=== PATIENT | female | born 1935 | race Caucasian/White ===

== ENCOUNTER → 2016-07-18 | Outpatient (CLI) | payer BC ==
[~2016-07-18] MED LIST: ACET-1256 PO; AMLO-110 PO; ANSHCCR PR; ANSHCCR RE; ANSHCS PR; ASPCH81X PO; ASPI81TA28 PO; ATOR-22 PO; ATV5X PO; BUTACAP7 PO; CALC-20 PO; CALCTAB7 PO; CHOL1000 PO; CIPR-255 PO; ESCI10TA17 PO; HYDR-5688 PO; HYDR30SU4 RE; HYG/25 PO; LORA-741 PO; LPR25 PO; METR-163 PO; MRLP17 PO; MULT-506 PO; MULT-845 PO; OXYC1TAB3 PO; PRLSR20 PO; PROC1TAB5 PO
[2016-07-18 13:04] LABS: HEMATOCRIT 36.4 % (37-47); MEAN CELL VOLUME 87.1 fL (80-100); MEAN CORPUSCULAR HEMOGLOBIN 29.7 pg (25-34); MEAN CORPUSCULAR HGB CONC 34.1 g/dl (32-36); MEAN PLATELET VOLUME 9.8 fL (7.4-10.4); PLATELET COUNT 400 K/uL (130-400); RED BLOOD COUNT 4.18 M/uL (4.2-5.4); WHITE BLOOD COUNT 8.85 K/uL (4.8-10.8)
[2016-07-18 13:22] LABS: URINE APPEARANCE CLEAR (CLEAR); URINE BILIRUBIN NEG (NEG); URINE COLOR YELLOW; URINE EPITHELIAL CELL AUTO 0-5 /lpf (0-5); URINE NITRITE NEG (NEG); URINE PH 8.5 (4.5-7.5); URINE SPECIFIC GRAVITY 1.003 (1.000-1.030); UROBILINOGEN NEG (NEG)
[2016-07-18 13:24] LABS: MANUAL MICROSCOPIC REQUIRED? NO; REVIEW REQ? NO
[2016-07-18 13:32] LABS: URINE PROTIEN/CREAT RATIO 0.2 (0-0.2); URINE TOTAL PROTEIN 8.6 mg/dl (0-11.9)
[2016-07-18 13:40] LABS: BLOOD UREA NITROGEN 13 mg/dl (7-18); BUN/CREATININE RATIO 10.1 (10-20); CALCIUM 9.2 mg/dl (8.5-10.1); CARBON DIOXIDE 31 mmol/L (21-32); CHLORIDE 98 mmol/L (98-107); GLUCOSE 81 mg/dl (70-99); PHOSPHORUS 2.5 mg/dl (2.5-4.9); POTASSIUM 3.2 mmol/L (3.5-5.1); SODIUM 137 mmol/L (136-145)
== END | disposition home or self-care (01) ==
LOC: C.LAB1850 11:22
PROVIDERS: ATTEND Internal Medicine Nephrology
DX: I12.9 Hypertensive chronic kidney disease with stage 1 through stage 4 chronic kidney disease, or unspecified chronic kidney disease (principal); N18.3 Chronic kidney disease, stage 3 (moderate); R31.9 Hematuria, unspecified; C64.9 Malignant neoplasm of unspecified kidney, except renal pelvis; R60.9 Edema, unspecified; E87.6 Hypokalemia

== ENCOUNTER → 2016-08-01 | Outpatient (CLI) | payer BC ==
[2016-08-01 13:25] LABS: POTASSIUM 3.4 mmol/L (3.5-5.1)
[2016-08-01 13:35] LABS: ESTIMATED AVERAGE GLUCOSE 120 mg/dl; HA1C FLAG Normal (Normal)
[2016-08-01 13:40] LABS: CHOLESTEROL/HDL RATIO 4.9
== END | disposition home or self-care (01) ==
LOC: C.LABPVFM 08:34
PROVIDERS: ATTEND Nurse Practitioner
DX: E78.00 Pure hypercholesterolemia, unspecified (principal); R73.01 Impaired fasting glucose; E87.6 Hypokalemia

== ENCOUNTER 2016-09-22 02:16 | Emergency (ER) | payer BC ==
[~2016-09-22] VITALS: Ht 157.5 cm; Wt 62.3 kg
[~2016-09-22 02:16] MED LIST changes: -ACET-1256 PO; -ANSHCCR PR; -ANSHCCR RE; -ANSHCS PR; -ASPCH81X PO; -ATV5X PO; -CALCTAB7 PO; -CHOL1000 PO; -CIPR-255 PO; -ESCI10TA17 PO; -HYDR-5688 PO; -HYDR30SU4 RE; -LORA-741 PO; -LPR25 PO; -METR-163 PO; -MRLP17 PO; -MULT-845 PO; -OXYC1TAB3 PO; -PROC1TAB5 PO
[2016-09-22 02:21] VITALS: TEMP 36.6; Ht 157.5 cm; Wt 62.3 kg
[2016-09-22] MEDS ORDERED: MoRPHine SULFATE 4 MG/ML 1 ML CARP\\VIAL IV STA (02:40)
[2016-09-22] MEDS ORDERED: ONDANSETRON INJ 2 MG/ML 2 ML VIAL IV STA (02:40)
--- NOTE | 2016-09-22 02:41 | EMERGENCY ROOM VISIT NOTE ---
History Report prepared by Fili: Demetri Beard Under the Supervision of: Dr. Maury Perry D.O. First contact with patient: 02:28 Chief Complaint: ABDOMINAL PAIN Stated Complaint: PAIN IN STOMACH History of Present Illness The patient is an 81 year old female who presents to the Emergency Room with complaints of persistent left lower quadrant abdominal pain for the past week. The pain is rated 6/10 in severity. The patient has had the same pain intermittently for some time. She was started on Cipro by her PCP one month ago because she has a history of diverticulitis. The patient also complains of nausea and constipation. Today she passed a small amount of stool with some blood. She has had some blood in her stools before, which her PCP said could be due to hemorrhoids. The patient has one kidney. Source of History: patient Onset: one week ago Position: abdomen (LLQ) Symptom Intensity: 6/10 Timing: other (persistent) Associated Symptoms: + nausea Review of Systems See HPI for pertinent positives and negatives. A total of ten systems were reviewed and were otherwise negative. Past Medical & Surgical Medical Problems: (1) ABN LIVER FUNCTION STUDY (2) CHOLELITHIASIS NOS (3) CHRONIC KIDNEY DISEASE, STAGE III (MODERATE) (4) DIVERTICULITIS COLON (W/O MENT OF HEMORRHAGE) (5) ESOPHAGEAL REFLUX (6) HYPERPARATHYROIDISM, UNSPECIFIED (7) Kidney carcinoma (8) MGUS (monoclonal gammopathy of unknown significance) (9) PURE HYPERCHOLESTEROLEM (10) SEPSIS (11) TIETZE'S DISEASE Family History Cancer Social History Smoking Status: Former Smoker Alcohol Use: none Drug Use: none Marital Status: Housing Status: lives with family Occupation Status: unemployed Current/Historical Medications Scheduled Amlodipine (Norvasc), 5 MG PO DAILY Aspirin (Aspirin Ec), 81 MG PO Q2D Calcium Carbonate-Vitamin D (Calcium 600 + D), 600 MG PO DAILY Escitalopram (Lexapro), 10 MG PO DAILY Metoprolol Tartrate (Lopressor), 25 MG PO BID Multivitamin (Multivitamin), 1 TAB PO DAILY Omeprazole (Prilosec), 20 MG PO DAILY Scheduled PRN Nnzcwevilk-Edbefuq-Ffuesubv (Butal/Asa/Caff), 1 CAP PO UD PRN for Headache or Pain Lorazepam (Ativan), 0.5 MG PO BID PRN for Anxiety Allergies Coded Allergies: Levofloxacin (Verified Allergy, Intermediate, HIVES, 09/22/16) Crab (Verified Allergy, Mild, DIZZY AND THROWS UP, 09/22/16) Nitrofurantoin (Verified Allergy, Unknown, NAUSEA, 09/22/16) Sulfa Drugs (Verified Allergy, Unknown, 09/22/16) Codeine (Verified Adverse Reaction, Mild, NAUSEA, 09/22/16) Metronidazole (Verified Adverse Reaction, Mild, nausea and vomiting, ) Physical Exam Vital Signs Date Time Temp Pulse Resp B/P Pulse Ox O2 Delivery O2 Flow Rate FiO2 09/22/16 03:22 75 16 177/92 96 Room Air 09/22/16 03:00 85 09/22/16 02:58 91 16 162/80 98 09/22/16 02:21 36.6 82 18 165/80 99 Room Air Physical Exam GENERAL: Awake, alert, well-appearing, in no distress HENT: Normocephalic, atraumatic. Oropharynx unremarkable. EYES: Normal conjunctiva. Sclera non-icteric. NECK: Supple. No nuchal rigidity. FROM. No JVD. RESPIRATORY: Clear to auscultation. CARDIAC: Regular rate, normal rhythm. Extremities warm and well perfused. Pulses equal. ABDOMEN: Soft, non-distended. Mild tenderness left lower quadrant. No rebound or guarding. No masses. RECTAL: Deferred. MUSCULOSKELETAL: Chest examination reveals no tenderness. The back is symmetrical on inspection without obvious abnormality. There is no CVA tenderness to palpation. No joint edema. LOWER EXTREMITIES: Calves are equal size bilaterally and non-tender. No edema. No discoloration. NEURO: Normal sensorium. No sensory or motor deficits noted. SKIN: No rash or jaundice noted. Medical Decision & Procedures ER Provider Diagnostic Interpretation: CT results as stated below per my review and radiologist interpretation CT ABDOMEN & PELVIS: Comparison made to Ct dated 04/29/15. There is cholelithiasis without evidence of acute cholecystitis. Liver, spleen, pancreas, adrenals, and right kidney are normal. Left kidney absent. There is aortoiliac atherosclerosis without aneurysm. There is no evidence of bowel obstruction. The appendix is not clearly identified, but there are no secondary signs of acute appendicis. There is a short segment of mural thickening in the distal sigmoid colon resulting in luminal narrowing and associated with mild surrounding inflammatory changes. Minimal adjacent diverticula noted. Small regional lymph nodes are noted. Findings are concerning for colon carcinoma versus focal acute diverticulitis Urinary bladder is unremarkable. Uterus is absent. There are no acute osseous findings. Radiologist: Rd England MD.. Laboratory Results 09/22/16 02:40 Red Blood Count 4.56, Mean Corpuscular Volume 88.2, Mean Corpuscular Hemoglobin 28.9, Mean Corpuscular Hemoglobin Concent 32.8, Mean Platelet Volume 9.0, Neutrophils (%) (Auto) 62.0, Lymphocytes (%) (Auto) 25.6, Monocytes (%) (Auto) 10.5, Eosinophils (%) (Auto) 1.2, Basophils (%) (Auto) 0.5, Neutrophils # (Auto ) 6.75, Lymphocytes # (Auto) 2.79, Monocytes # (Auto) 1.14, Eosinophils # (Auto ) 0.13, Basophils # (Auto) 0.05 09/22/16 02:40 Test 09/22/16 02:40 09/22/16 02:50 White Blood Count 10.88 K/uL (4.8-10.8) Red Blood Count 4.56 M/uL (4.2-5.4) Hemoglobin 13.2 g/dL (12.0-16.0) Hematocrit 40.2 % (37-47) Mean Corpuscular Volume 88.2 fL (80-100) Mean Corpuscular Hemoglobin 28.9 pg (25-34) Mean Corpuscular Hemoglobin Concent 32.8 g/dl (32-36) Platelet Count 436 K/uL (130-400) Mean Platelet Volume 9.0 fL (7.4-10.4) Neutrophils (%) (Auto) 62.0 % Lymphocytes (%) (Auto) 25.6 % Monocytes (%) (Auto) 10.5 % Eosinophils (%) (Auto) 1.2 % Basophils (%) (Auto) 0.5 % Neutrophils # (Auto) 6.75 K/uL (1.4-6.5) Lymphocytes # (Auto) 2.79 K/uL (1.2-3.4) Monocytes # (Auto) 1.14 K/uL (0.11-0.59) Eosinophils # (Auto) 0.13 K/uL (0-0.5) Basophils # (Auto) 0.05 K/uL (0-0.2) RDW Standard Deviation 45.0 fL (36.4-46.3) RDW Coefficient of Variation 13.9 % (11.5-14.5) Immature Granulocyte % (Auto) 0.2 % Immature Granulocyte # (Auto) 0.02 K/uL (0.00-0.02) Anion Gap 9.0 mmol/L (3-11) Est Creatinine Clear Calc Drug Dose 29.0 ml/min Estimated GFR () 44.2 Estimated GFR (Non- 38.2 BUN/Creatinine Ratio 10.9 (10-20) Calcium Level 9.4 mg/dl (8.5-10.1) Total Bilirubin 0.4 mg/dl (0.2-1) Direct Bilirubin 0.1 mg/dl (0-0.2) Aspartate Amino Transf (AST/SGOT) 15 U/L (15-37) Alanine Aminotransferase (ALT/SGPT) 24 U/L (12-78) Alkaline Phosphatase 93 U/L (45-117) Total Protein 8.0 gm/dl (6.4-8.2) Albumin 3.9 gm/dl (3.4-5.0) Lipase 174 U/L (73-393) Urine Color YELLOW Urine Appearance CLEAR (CLEAR) Urine pH 7.5 (4.5-7.5) Urine Specific [place] 1.013 (1.000-1.030) Urine Protein NEG (NEG) Urine Glucose (UA) NEG (NEG) Urine Ketones NEG (NEG) Urine Occult Blood TRACE (NEG) Urine Nitrite NEG (NEG) Urine Bilirubin NEG (NEG) Urine Urobilinogen NEG (NEG) Urine Leukocyte Esterase NEG (NEG) Urine WBC (Auto) 1-5 /hpf (0-5) Urine RBC (Auto) 5-10 /hpf (0-4) Urine Hyaline Casts (Auto) 0 /lpf (0-5) Urine Epithelial Cells (Auto) 5-10 /lpf (0-5) Urine Bacteria (Auto) NEG (NEG) Laboratory results reviewed by me Medications Administered Medications (Trade) Dose Ordered Sig/Solitario Route Start Time Stop Time Status Last Admin Dose Admin Morphine Sulfate (MoRPHine SULFATE INJ) 4 mg NOW STAT IV 09/22/16 02:40 09/22/16 02:42 DC 09/22/16 02:57 4 MG Ondansetron HCl (Zofran Inj) 4 mg NOW STAT IV 09/22/16 02:40 09/22/16 02:42 DC 09/22/16 02:55 4 MG ED Course 0240: The patient was evaluated in room B3b. A complete history and physical exam was performed. 0240: Zofran 4 mg IV, Morphine Sulfate 4 mg IV. 0406: Flagyl 500 mg PO, Cipro 500 mg PO. 0420: The patient is in no distress. She is getting antibiotics. Discussed the workup. She verbalized understanding. Medical Decision Differential diagnosis includes constipation, obstruction, diverticulitis, gastritis, colitis, colon cancer. Patient resting in no distress. I've gone over the CT scan with the patient the concern for diverticulitis as well as potential malignancy exists. Patient will be treated with Cipro for which she's taken in the past as well as Flagyl and narcotic pain medicine. I have told the patient she needs to follow-up with her primary care physician for further evaluation and potential referral to GI for colonoscopy due to potential for malignancy in the sigmoid colon. Impression Primary Impression: DIVERTICULITIS COLON (W/O MENT OF HEMORRHAGE) Scribe Attestation The scribe's documentation has been prepared under my direction and personally reviewed by me in its entirety. I confirm that the note above accurately reflects all work, treatment, procedures, and medical decision making performed by me. Departure Information Dispostion Home / Self-Care Prescriptions Hydrocodone/Acetaminophen 5MG/325MG ([place] 5MG/325MG) Tab 1 TABLET PO Q6H Y for Pain for 3 Days, #14 TAB Prov: Maury Perry, DO 09/22/16 Metronidazole (Flagyl) 500 Mg Tab 500 MG PO BID, #20 TAB Prov: Maury Perry, DO 09/22/16 Ciprofloxacin Hcl (CIPRO) 500 Mg Tab 500 MG PO BID, #28 TAB Prov: Maury Perry, DO 09/22/16 Referrals Lynn Medeiros C.R.NMitulP (PCP) Forms HOME CARE DOCUMENTATION FORM, IMPORTANT VISIT INFORMATION Patient Instructions My [facility]
[2016-09-22 02:55] LABS: BASO % 0.5 %; BASO ABS # 0.05 K/uL (0-0.2); COMPLETE YES; EOS % 1.2 %; HEMATOCRIT 40.2 % (37-47); IG% 0.2 %; LYMPH % 25.6 %; LYMPH ABS # 2.79 K/uL (1.2-3.4); MEAN CELL VOLUME 88.2 fL (80-100); MEAN CORPUSCULAR HEMOGLOBIN 28.9 pg (25-34); MEAN CORPUSCULAR HGB CONC 32.8 g/dl (32-36); MONO % 10.5 %; PLATELET COUNT 436 K/uL (130-400); RED BLOOD COUNT 4.56 M/uL (4.2-5.4); WHITE BLOOD COUNT 10.88 K/uL (4.8-10.8)
[2016-09-22] MEDS ORDERED: LORA-741 PO (03:01)
[2016-09-22] MEDS ORDERED: ESCI10TA17 PO (03:02)
[2016-09-22 03:12] LABS: URINE APPEARANCE CLEAR (CLEAR); URINE BILIRUBIN NEG (NEG); URINE COLOR YELLOW; URINE NITRITE NEG (NEG); URINE PH 7.5 (4.5-7.5); URINE SPECIFIC GRAVITY 1.013 (1.000-1.030); UROBILINOGEN NEG (NEG)
[2016-09-22 03:19] LABS: MANUAL MICROSCOPIC REQUIRED? NO; REVIEW REQ? NO
[2016-09-22 03:24] LABS: BUN/CREATININE RATIO 10.9 (10-20); CALCIUM 9.4 mg/dl (8.5-10.1); CREATININE 1.3 mg/dl (0.60-1.20); POTASSIUM 3.6 mmol/L (3.5-5.1)
[2016-09-22] MEDS ORDERED: METRONIDAZOLE 250 MG TAB PO STA (04:06)
[2016-09-22] MEDS ORDERED: CIPROFLOXACIN 500 MG TAB PO STA (04:06)
[2016-09-22] MEDS ORDERED: HYDR-5688 PO (04:28)
[2016-09-22] MEDS ORDERED: METR-163 PO (04:28)
[2016-09-22] MEDS ORDERED: CIPR-255 PO (04:28)
[2016-09-22 05:19] VITALS: BP 155/71; PULSE 90; O2SAT 97
[2016-09-22] MEDS ORDERED: ONDANSETRON 4MG OD TAB PO ONE (05:30)
[2016-09-22] MEDS ORDERED: ONDANSETRON HOME PACK 4MG OD TAB PO ONE (05:30)
--- NOTE | 2016-09-22 08:34 | DIAGNOSTIC IMAGING REPORT ---
CT OF THE ABDOMEN AND PELVIS WITHOUT CONTRAST CLINICAL HISTORY: Left lower quadrant pain. COMPARISON STUDY: CT of the abdomen and pelvis April 29, 2015 and MRI of the abdomen December 01, 2015. TECHNIQUE: Axial images of the abdomen and pelvis were obtained without IV contrast. Images were reviewed in the axial, sagittal, and coronal planes. FINDINGS: Evaluation of the abdomen and pelvis is suboptimal as unenhanced exam. There has been interval development of several hypodense hepatic lesions since CT of April 29, 2015 and MRI of December 01, 2015. These include a 2 cm right hepatic dome lesion and a 2.2 cm segment 4 lesion adjacent to the gallbladder. Two additional hepatic lesions remain unchanged and were shown to represent hemangiomas on prior imaging studies. There are gallstones within the gallbladder. Unenhanced images of the spleen, adrenal glands, pancreas and right kidney are normal. The appearance of the left nephrectomy bed is unchanged. Note is made of moderate wall thickening of the mid sigmoid colon extends for 4.5 cm. There is mild adjacent infiltration as well as an adjacent enlarged lymph node that measures 1.7 x 1.6 cm. There is no free air or abscess. There are no suspicious osseous lesions are present. There may be avascular necrosis of the left femoral head. IMPRESSION: 1. Moderate wall thickening of the mid sigmoid colon with minimal adjacent infiltration and several adjacent lymph nodes, including a 1.7 x 1.6 cm pericolonic lymph node. 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 Diverticulitis is considered less likely. GI consultation is recommended. Discussed with Dr. Pizarro at time of dictation. 2. Interval development of several hypodense hepatic lesions which are suspicious for metastases. No change in 2 hepatic hemangiomas. 3. Status post left nephrectomy. 4. Cholelithiasis. Electronically signed by: Gurvinder Bui M.D. 09/22/2016 8:33 AM Dictated Date/Time: 09/22/2016 8:18 AM
--- NOTE | 2016-09-22 09:48 | EMERGENCY ROOM VISIT NOTE ---
ED Visit Note It was brought to my attention this morning after this patient was discharged that her CT scan of the abdomen/pelvis was read by radiology here in this hospital and they were concerned about metastatic lesions in the liver. The patient was told prior to discharge that she looked to have diverticulitis but there is also question of malignancy. I called the patient this morning and reiterated the fact that there was narrowing of her colon in that area which was concerning for malignancy and that our radiologist felt that these new lesions within her liver may be metastatic disease. The patient seemed to understand this. She plans to follow -up with RAFIA Chapin tomorrow [facility] for further evaluation by oncology.
[2016-09-30] MEDS ORDERED: HYDR-5688 PO (10:42)
[2016-09-30] MEDS ORDERED: CHOL1000 PO (10:42)
[2016-12-11] MEDS ORDERED: LPR25 PO (05:00)
[2016-12-11] MEDS ORDERED: ACET-1256 PO (08:33)
[2016-12-11] MEDS ORDERED: MULT-845 PO (10:42)
[2016-12-11] MEDS ORDERED: PRLSR20 PO (10:42)
[2016-12-11] MEDS ORDERED: ASPCH81X PO (10:42)
[2016-12-17] MEDS ORDERED: CALCTAB7 PO (10:35)
[2016-12-17] MEDS ORDERED: ANSHCCR PR (10:35)
[2016-12-17] MEDS ORDERED: ESCI10TA17 PO (10:35)
[2017-01-20] MEDS ORDERED: MRLP17 PO (14:55)
[2017-01-20] MEDS ORDERED: ANSHCS PR (14:55)
[2017-01-20] MEDS ORDERED: ANSHCCR PR (14:55)
== END 2016-09-22 05:33 | disposition home or self-care (01) ==
LOC: C.EDB 02:17
DX: K57.92 Diverticulitis of intestine, part unspecified, without perforation or abscess without bleeding (principal); Z90.5 Acquired absence of kidney; N18.3 Chronic kidney disease, stage 3 (moderate); K21.9 Gastro-esophageal reflux disease without esophagitis; E21.3 Hyperparathyroidism, unspecified; Z85.528 Personal history of other malignant neoplasm of kidney; D47.2 Monoclonal gammopathy; E78.00 Pure hypercholesterolemia, unspecified; M94.0 Chondrocostal junction syndrome [Tietze]; Z80.9 Family history of malignant neoplasm, unspecified; Z87.891 Personal history of nicotine dependence; Z79.82 Long term (current) use of aspirin; Z79.899 Other long term (current) drug therapy

== ENCOUNTER → 2016-10-10 | Outpatient (CLI) | payer BC ==
[~2016-10-10] MED LIST changes: +ACET-1256 PO; +ANSHCCR PR; +ANSHCCR RE; +ANSHCS PR; +ASPCH81X PO; -ATOR-22 PO; +ATV5X PO; -BUTACAP7 PO; -CALC-20 PO; +CALCTAB7 PO; +CHOL1000 PO; +CIPR-255 PO; +ESCI10TA17 PO; +HYDR-5688 PO; +HYDR30SU4 RE; -HYG/25 PO; +LPR25 PO; +MRLP17 PO; -MULT-506 PO; +MULT-845 PO; +OXYC1TAB3 PO; +PROC1TAB5 PO
[2016-10-10 16:40] LABS: BASO % 0.4 %; BASO ABS # 0.04 K/uL (0-0.2); COMPLETE YES; EOS % 0.9 %; HEMATOCRIT 40.8 % (37-47); IG% 0.2 %; LYMPH % 23.3 %; LYMPH ABS # 2.18 K/uL (1.2-3.4); MEAN CELL VOLUME 88.1 fL (80-100); MEAN CORPUSCULAR HEMOGLOBIN 27.6 pg (25-34); MEAN CORPUSCULAR HGB CONC 31.4 g/dl (32-36); MEAN PLATELET VOLUME 9.6 fL (7.4-10.4); MONO % 9.4 %; NEUT % 65.8 %; PLATELET COUNT 434 K/uL (130-400); RED BLOOD COUNT 4.63 M/uL (4.2-5.4); WHITE BLOOD COUNT 9.36 K/uL (4.8-10.8)
[2016-10-10 16:44] LABS: PROTHROMBIN TIME (PATIENT) 10.7 SECONDS (9.0-12.0)
[2016-10-10 17:07] LABS: ALT/SGPT 18 U/L (12-78); AST/SGOT 15 U/L (15-37); BLOOD UREA NITROGEN 10 mg/dl (7-18); BUN/CREATININE RATIO 9.7 (10-20); CALCIUM 8.8 mg/dl (8.5-10.1); CARBON DIOXIDE 27 mmol/L (21-32); CHLORIDE 107 mmol/L (98-107); GLUCOSE 92 mg/dl (70-99); POTASSIUM 3.1 mmol/L (3.5-5.1); SODIUM 143 mmol/L (136-145)
[2016-10-10 17:10] LABS: ALKALINE PHOSPHATASE 77 U/L (45-117); PHOSPHORUS 2.2 mg/dl (2.5-4.9)
== END | disposition home or self-care (01) ==
LOC: C.LAB 15:56
PROVIDERS: ATTEND Internal Medicine
DX: I12.9 Hypertensive chronic kidney disease with stage 1 through stage 4 chronic kidney disease, or unspecified chronic kidney disease (principal); N18.3 Chronic kidney disease, stage 3 (moderate); Z90.5 Acquired absence of kidney; K63.9 Disease of intestine, unspecified

== ENCOUNTER → 2016-10-10 | Day surgery (SDC) | payer BC ==
[2016-09-30 10:43] VITALS: Ht 157.5 cm; Wt 61.4 kg
[~2016-10-10] VITALS: Ht 157.5 cm; Wt 61.4 kg
[~2016-10-10] MED LIST changes: +ENDOSCOPIC MARKER 5 ML SYR ONE; +LIDOCAINE HCL 2% 2 ML VIAL (20MG/ML) ONE; +PROPOFOL IV EMULSION 10 MG/ML 20 ML VIAL IV ONE
--- NOTE | 2016-10-10 14:08 | Endo History and Physical ---
History & Physical Date of Service: October 10, 2016. Chief Complaint: Abnormal CT Scan abdomen Referring Physician: Lynn Medeiros History of Present Illness 81 yo CF who presents for colonoscopy secondary to abnormal CT scan of the abdomen. Past Medical History Arthritis, Fractures, Reflux, Cancer, Heart Disease, Hypertension, Kidney Disease, [place] Past Surgical History Hx Cardiac Surgery: No Hx Internal Defibrillator: No Hx Pacemaker: No Hx Abdominal Surgery: Yes (APPY, SKYLAR, TUBAL LIGATION) Hx of Implantable Prosthesis: No Hx Post-Op Nausea and Vomiting: No Hx Cancer Surgery: Yes (LEFT NEPHRECTOMY, BONE MARROW BIOPSY, MOHS ON NOSE) Hx Thoracic Surgery: No Hx Orthopedic: No Hx Urinary Tract Surgery: No Family History None Social History Smoking Status: Former Smoker Hx Substance Use: No Hx Alcohol Use: Yes (RARELY) Allergies Coded Allergies: Levofloxacin (Verified Allergy, Intermediate, HIVES, 09/30/16) Crab (Verified Allergy, Mild, DIZZY AND THROWS UP, 09/30/16) Nitrofurantoin (Verified Allergy, Unknown, NAUSEA, 09/30/16) Sulfa Drugs (Verified Allergy, Unknown, SICK TO STOMACH, 09/30/16) Codeine (Verified Adverse Reaction, Mild, NAUSEA, 09/30/16) Metronidazole (Verified Adverse Reaction, Mild, nausea and vomiting, ) Current Medications Reported Home Medications Medications Dose Route/Sig Max Daily Dose Days Date Category Dose Instructions Prilosec (Omeprazole) 20 Mg Capcr 20 Mg PO DAILY PRN 09/30/16 Reported [place] 5MG/325MG (Acetaminophen/Hydrocodone Bitart) Tab 1 Tab PO TID PRN 30 09/30/16 Reported PRN PAIN Aspirin Chewable (Aspirin) 81 Mg Chew 81 Mg PO 09/30/16 Reported Vitamin D3 (Cholecalciferol) 1,000 Unit Tab 1 Tab PO QAM 90 09/30/16 Reported Centrum Silver Adult 50+ (Multiple Vitamins W/ Minerals) 1 Tab Tab 1 Tab PO QAM 09/30/16 Reported Cipro (Ciprofloxacin Hcl) 500 Mg Tab 500 Mg PO BID 09/22/16 Rx Norvasc (Amlodipine Besylate) 5 Mg Tab 5 Mg PO QAM 07/23/12 Reported Lopressor (Metoprolol Tartrate) 25 Mg Tab 25 Mg PO BID 12/16/11 Reported Vital Signs Weight (Kilograms): 61.36 Height (Feet): 5 Height (Inches): 2 Physical Exam General Appearance: WD/WN, no apparent distress Respiratory/Chest: Auscultation: breath sounds normal Cardiovascular: Heart Auscultation: RRR Abdomen: Bowel Sounds: normal Inspection & Palpation: soft, non-distended, no tenderness, guarding & rebound Assessment and Plan Assessment: 81 yo CF who presents for colonoscopy secondary to abnormal CT scan of the abdomen. Plan: Proceed with colonoscopy.
--- NOTE | 2016-10-10 14:49 | Discharge Instructions ---
Endoscopy Patient Instructions Date / Procedure(s) Performed October 10, 2016. Colonoscopy Allergy Information Coded Allergies: Levofloxacin (Verified Allergy, Intermediate, HIVES, 09/30/16) Crab (Verified Allergy, Mild, DIZZY AND THROWS UP, 09/30/16) Nitrofurantoin (Verified Allergy, Unknown, NAUSEA, 09/30/16) Sulfa Drugs (Verified Allergy, Unknown, SICK TO STOMACH, 09/30/16) Codeine (Verified Adverse Reaction, Mild, NAUSEA, 09/30/16) Metronidazole (Verified Adverse Reaction, Mild, nausea and vomiting, ) Discharge Date / Findings October 10, 2016. Sigmoid colon mass s/p biopsies with tattoo proximal and distal to the mass Colon polyps Diverticulosis Internal hemorrhoids Medication Instructions OK to resume all medications today as prescribed Reported Home Medications Medications Dose Route/Sig Max Daily Dose Days Date Category Dose Instructions Prilosec (Omeprazole) 20 Mg Capcr 20 Mg PO DAILY PRN 09/30/16 Reported [place] 5MG/325MG (Acetaminophen/Hydrocodone Bitart) Tab 1 Tab PO TID PRN 30 09/30/16 Reported PRN PAIN Aspirin Chewable (Aspirin) 81 Mg Chew 81 Mg PO 09/30/16 Reported Vitamin D3 (Cholecalciferol) 1,000 Unit Tab 1 Tab PO QAM 90 09/30/16 Reported Centrum Silver Adult 50+ (Multiple Vitamins W/ Minerals) 1 Tab Tab 1 Tab PO QAM 09/30/16 Reported Cipro (Ciprofloxacin Hcl) 500 Mg Tab 500 Mg PO BID 09/22/16 Rx Norvasc (Amlodipine Besylate) 5 Mg Tab 5 Mg PO QAM 07/23/12 Reported Lopressor (Metoprolol Tartrate) 25 Mg Tab 25 Mg PO BID 12/16/11 Reported Provider Instructions Activity Restrictions - No exercising or heavy lifting for 24 hours. - Do not drink alcohol the day of the procedure. - Do not drive a car or operate machinery until the day after the procedure. - Do not make any important decisions or sign important papers in 24 hours after the procedure. Following Day: - Return to full activity which may include returning to work/school. Diet Start your diet with liquids and light foods (jello, soup, juice, toast). Then eat your usual diet if not nauseated. Treatment For Common After Affects For mild abdominal pain, bloating, or excessive gas: - Rest - Eat lightly - Lie on right side Follow-Up Information Follow-up with Lynn Medeiros as scheduled Anesthesia Information What You Should Know You have had a procedure that required some medicine to reduce anxiety and discomfort. This treatment is called moderate sedation. After receiving the treatment, you may be sleepy, but you will be able to breathe on your own. The effects of the treatment may last for several hours. Follow these instructions along with Activity/Diet recommendations noted above: * Do NOT do anything where dizziness or clumsiness would be dangerous. * Rest quietly at home today, then you can be up and about tomorrow. * Have a responsible person stay with you the rest of today. * You may have had an I.V. today. If so, you may take the dressing off later today. Recommendations Call your doctor if: * Trouble breathing * Continuous vomiting for more than 24 hours * Temperature above 101 degrees * Severe abdominal pain or bloating * Pain not relieved by pain medicine ordered * There is increased drainage or redness from any incision * A large amount of rectal bleeding greater than 2-3 tablespoons. (If you had a polyp/s removed or have hemorrhoids, a small amount of blood - from the rectum is to be expected.) * You have any unanswered questions or concerns. IN THE EVENT OF A SERIOUS EMERGENCY, GO TO THE NEAREST EMERGENCY ROOM Your discharge instructions were prepared by provider Kar Rosario. Patient Instructions Signature Page [facility] Patient (or Guardian) Signature/Date: I have read and understand the instructions given to me by my caregivers. Caregiver/RN/Doctor Signature/Date: The above-named patient and/or guardian has received patient instructions on this date. + Original Patient Signature Page (only) stays with chart. Please make copy for patient.
--- NOTE | 2016-10-10 15:03 | GI REPORT ---
Procedure Date: 10/10/2016 2:06 PM Procedure: Colonoscopy Indications: Abnormal CT of the GI tract Medicines: Monitored Anesthesia Care Complications: No immediate complications. Estimated Blood Loss: Estimated blood loss: none. Procedure: Pre-Anesthesia Assessment: - Prior to the procedure, a History and Physical was performed, and patient medications and allergies were reviewed. The patient's tolerance of previous anesthesia was also reviewed. The risks and benefits of the procedure and the sedation options and risks were discussed with the patient. All questions were answered, and informed consent was obtained. Prior Anticoagulants: The patient has taken no previous anticoagulant or antiplatelet agents. ASA Grade Assessment: III - A patient with severe systemic disease. After reviewing the risks and benefits, the patient was deemed in satisfactory condition to undergo the procedure. After I obtained informed consent, the scope was passed under direct vision. Throughout the procedure, the patient's blood pressure, pulse, and oxygen saturations were monitored continuously. The On-site loaner was introduced through the anus and advanced to the terminal ileum. The patient tolerated the procedure well. The quality of the bowel preparation was good. [Anatomical Structures] photographed. The colonoscopy was performed with moderate difficulty due to a partially obstructing mass. Successful completion of the procedure was aided by changing the patient to a supine position, using manual pressure and withdrawing the scope and replacing with the adult endoscope. Findings: Two sessile polyps were found in the cecum. The polyps were 5 to 8 mm in size. These polyps were removed with a hot snare. Resection and retrieval were complete. Scattered small and large-mouthed diverticula were found in the entire colon. An infiltrative and ulcerated partially obstructing medium-sized mass was found in the sigmoid colon, approximately 30 cm from the anal verge. The mass was non-circumferential. The mass measured five cm in length. In addition, its diameter measured fifteen mm. Oozing was present. Biopsies were taken with a cold forceps for histology. Area was tattooed with an injection of 5 mL of Petty ink at proximal and distal edge of mass. Non-bleeding internal hemorrhoids were found during retroflexion. The hemorrhoids were small. Impression: - Two 5 to 8 mm polyps in the cecum, removed with a hot snare. Resected and retrieved. - Diverticulosis in the entire examined colon. 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 Biopsied. Tattooed. - Non-bleeding internal hemorrhoids. Recommendation: - Resume previous diet. - Continue present medications. - Repeat colonoscopy for surveillance based on pathology results. - Refer to a surgeon at appointment to be scheduled. - Perform CT scan (computed tomography) of the chest with contrast at appointment to be scheduled. - Check CEA today. Kar Rosario, 10/10/2016 3:02:54 PM This report has been signed electronically. Note Initiated On: 10/10/2016 2:06 PM I attest to the content of the Intraoperative Record and orders documented therein, exceptions below
[2016-10-10 15:21] VITALS: BP 152/81; PULSE 81; O2SAT 98
--- NOTE | 2016-10-10 15:44 | Anesthesiology Progress Note ---
Anesthesia Post Op Note Date & Time October 10, 2016 at 15:44 Vital Signs Pain Intensity: 0 Vital Signs Past 12 Hours Date Time Temp Pulse Resp B/P Pulse Ox O2 Delivery O2 Flow Rate FiO2 10/10/16 15:21 81 16 152/81 98 Room Air 10/10/16 15:06 83 16 139/80 99 Room Air 10/10/16 14:51 90 16 143/92 97 Room Air 10/10/16 14:00 36.7 82 18 161/61 99 Room Air Notes Mental Status: alert / awake / arousable, participated in evaluation Pt Amnestic to Procedure: Yes Nausea / Vomiting: adequately controlled Pain: adequately controlled Airway Patency, RR, SpO2: stable & adequate BP & HR: stable & adequate Hydration State: stable & adequate Anesthetic Complications: no major complications apparent
== END | disposition home or self-care (01) ==
LOC: C.GI 12:46
PROVIDERS: ATTEND Internal Medicine
DX: R93.3 Abnormal findings on diagnostic imaging of other parts of digestive tract (principal); D12.0 Benign neoplasm of cecum; K57.90 Diverticulosis of intestine, part unspecified, without perforation or abscess without bleeding; C18.7 Malignant neoplasm of sigmoid colon; C18.0 Malignant neoplasm of cecum; K64.8 Other hemorrhoids; I12.9 Hypertensive chronic kidney disease with stage 1 through stage 4 chronic kidney disease, or unspecified chronic kidney disease; N18.3 Chronic kidney disease, stage 3 (moderate); K63.9 Disease of intestine, unspecified; I25.2 Old myocardial infarction; Z98.51 Tubal ligation status; Z90.5 Acquired absence of kidney; Z88.1 Allergy status to other antibiotic agents; Z88.2 Allergy status to sulfonamides; Z88.5 Allergy status to narcotic agent; Z87.891 Personal history of nicotine dependence; Z85.9 Personal history of malignant neoplasm, unspecified; Z68.24 Body mass index [BMI] 24.0-24.9, adult

== ENCOUNTER → 2016-10-11 | Outpatient (CLI) | payer BC ==
[~2016-10-11] MED LIST changes: -ENDOSCOPIC MARKER 5 ML SYR ONE; -LIDOCAINE HCL 2% 2 ML VIAL (20MG/ML) ONE; +OPTIRAY 320 IV PRN; -PROPOFOL IV EMULSION 10 MG/ML 20 ML VIAL IV ONE
--- NOTE | 2016-10-11 15:01 | DIAGNOSTIC IMAGING REPORT ---
CHEST CT WITHOUT CONTRAST CT DOSE: 266.69 mGy.cm HISTORY: : There is no COLON MASS TECHNIQUE: Multiaxial CT images of the chest were performed without contrast. COMPARISON: 08/26/2011 FINDINGS: Lungs remain clear. No significant infiltrative or nodular pathology. Mediastinal hilar regions are stable. The 9 millimeter precarinal node now shows a focus of central calcification suggesting a benign etiology. There is no evidence for new interval or progressive mediastinal adenopathy. There is mild left atherosclerotic change thoracic aorta. IMPRESSION: Negative CT of the chest. Electronically signed by: Brenton Epstein M.D. 10/11/2016 3:00 PM Dictated Date/Time: 10/11/2016 2:57 PM
== END | disposition home or self-care (01) ==
LOC: C.CTS 14:39
PROVIDERS: ATTEND Internal Medicine
DX: K63.9 Disease of intestine, unspecified (principal)

== ENCOUNTER → 2016-10-11 | Outpatient (CLI) | payer BC ==
[~2016-10-11] MED LIST changes: -OPTIRAY 320 IV PRN
[2016-10-11 15:54] LABS: URINE APPEARANCE CLEAR (CLEAR); URINE BILIRUBIN NEG (NEG); URINE COLOR YELLOW; URINE NITRITE NEG (NEG); URINE SPECIFIC GRAVITY 1.012 (1.000-1.030); UROBILINOGEN NEG (NEG)
[2016-10-11 15:57] LABS: MANUAL MICROSCOPIC REQUIRED? NO; REVIEW REQ? NO
--- NOTE | 2016-12-06 06:34 | CODING QUERY NO DIAGNOSIS ---
: 1935 TREATMENT RENDERED WITHOUT A DIAGNOSIS To promote full compliance with coding requirements relating to patient care, physician participation is requested in all cases of economist research assistant uncertainty. Please assist us with providing a diagnosis/symptom for the test(s) below: A diagnosis/symptom was not documented on your Order. A valid diagnosis/symptom is required to bill all insurances. Please remember that we are unable to code a diagnosis of rule out, probable, possible, questionable, or suspected. Tests that require a diagnosis: DOS: 10/11/16 * UA CLEAN CATCH W/MICROSCOPIC DIAGNOSIS: Provider Signature: Date: Thank you Jaida Hendrix Health Information Management Once completed, please kindly fax back to [phone] For questions please call [phone]
== END | disposition home or self-care (01) ==
LOC: C.LABSPEC 13:30
PROVIDERS: ATTEND Internal Medicine
DX: Z90.5 Acquired absence of kidney (principal); N18.3 Chronic kidney disease, stage 3 (moderate)

== ENCOUNTER → 2016-10-22 | Outpatient (CLI) | payer BC, OTHER ==
[~2016-10-22] VITALS: Ht 157.5 cm; Wt 59.1 kg
[~2016-10-22] MED LIST changes: +CEFAZOLIN 1000MG/55 ML D5W 55 ML IV SCH; +CEFAZOLIN 1000MG/55 ML D5W IV SCH; +CEFAZOLIN 3000 MG/65 ML D5W IV SCH; +CIPROFLOXACIN / D5W 400 MG IV SCH; +CLINDAMYCIN 600 MG/54 ML D5W IV SCH; +HEPARIN SOD 5000 UNIT/0.5 ML CARP SQ SCH; +LACTATED RINGER'S 1000ML 1,000 ML IV SCH; +LEVOFLOXACIN / D5W 500 MG IV SCH; +LEVOFLOXACIN / D5W 750 MG IV SCH; +VANCOMYCIN 1GM/270ML NSS IV SCH
[2016-10-22 08:35] VITALS: Ht 157.5 cm; Wt 59.1 kg
--- NOTE | 2016-10-22 09:11 | PAT Medication Instructions ---
Service Date October 22, 2016. Current Home Medication List Acetaminophen (Tylenol), 500 MG PO PRN Amlodipine (Norvasc), 5 MG PO QAM Aspirin (Aspirin Chewable), 81 MG PO Q2D Metoprolol Tartrate (Lopressor), 25 MG PO BID Multiple Vitamins W/ Minerals (Centrum Silver Adult 50+), 1 TAB PO QAM Omeprazole (Prilosec), 20 MG PO DAILY PRN for Indigestion Medication Instructions For Your Scheduled Surgery - Check with surgeon/family doctor for instructions: Aspirin (Aspirin Chewable), 81 MG PO Q2D - Hold the following medications the morning of surgery: Multiple Vitamins W/ Minerals (Centrum Silver Adult 50+), 1 TAB PO QAM - Take the following medications the morning of surgery with a sip of water: Omeprazole (Prilosec), 20 MG PO DAILY PRN for Indigestion Metoprolol Tartrate (Lopressor), 25 MG PO BID Amlodipine (Norvasc), 5 MG PO QAM Acetaminophen (Tylenol), 500 MG PO PRN (if needed) - Take the following medications as scheduled the night before surgery: Omeprazole (Prilosec), 20 MG PO DAILY PRN for Indigestion (if needed) Metoprolol Tartrate (Lopressor), 25 MG PO BID Acetaminophen (Tylenol), 500 MG PO PRN (if needed) If you have any questions please call us at [phone] (Maritza Morris PA-C) or [phone] or [phone]
[2016-10-22 10:31] LABS: CREATININE 1.2 mg/dl (0.60-1.20); POTASSIUM 3.7 mmol/L (3.5-5.1)
[2016-10-22 10:40] LABS: CALCIUM 9.2 mg/dl (8.5-10.1)
== END | disposition home or self-care (01) ==
LOC: C.LAB 08:00 → EDSTATUS 10-31 14:11
PROVIDERS: ATTEND Surgery
DX: Z01.818 Encounter for other preprocedural examination (principal); C18.9 Malignant neoplasm of colon, unspecified

== ENCOUNTER 2016-12-11 16:42 | Emergency (ER) | payer BC, OTHER ==
[~2016-12-11] VITALS: Ht 154.9 cm; Wt 55.6 kg
[~2016-12-11 16:42] MED LIST changes: -ANSHCCR PR; -ANSHCCR RE; -ANSHCS PR; -ASPI81TA28 PO; -ATV5X PO; -CALCTAB7 PO; -CEFAZOLIN 1000MG/55 ML D5W 55 ML IV SCH; -CEFAZOLIN 1000MG/55 ML D5W IV SCH; -CEFAZOLIN 3000 MG/65 ML D5W IV SCH; -CIPROFLOXACIN / D5W 400 MG IV SCH; -CLINDAMYCIN 600 MG/54 ML D5W IV SCH; -ESCI10TA17 PO; -HEPARIN SOD 5000 UNIT/0.5 ML CARP SQ SCH; -HYDR30SU4 RE; -LACTATED RINGER'S 1000ML 1,000 ML IV SCH; -LEVOFLOXACIN / D5W 500 MG IV SCH; -LEVOFLOXACIN / D5W 750 MG IV SCH; -MRLP17 PO; -OXYC1TAB3 PO; -PROC1TAB5 PO; -VANCOMYCIN 1GM/270ML NSS IV SCH
[2016-12-11 16:46] VITALS: Ht 154.9 cm; Wt 55.6 kg
--- NOTE | 2016-12-11 17:18 | EMERGENCY ROOM VISIT NOTE ---
ED Visit Note First contact with patient: 16:53 CHIEF COMPLAINT: Hemorrhoid HISTORY OF PRESENT ILLNESS: This 81-year-old female patient presents to the emergency department inning of external hemorrhoids. The patient was seen by her PCP earlier today, who recommended she be seen in the emergency department due to difficulty with the examination. The patient states she has a history of colon cancer, and 5 weeks ago had surgery to remove a portion of her colon. She did discuss the hemorrhoids with her surgeon at that time, he states he did not seem to be that bad, and did not recommend surgery at that time. The patient does have chronic history of hemorrhoids, and states on occasion they do active. Patient states the hemorrhoid makes her feel like she wants to strain, however she has had no difficulty with bowel movements. The patient has been using hydrocortisone suppositories and cream, with about relief. The patient did take 2 Tylenol today, but states that did not help with her symptoms. The patient states she does not have pain medications for her hemorrhoids. REVIEW OF SYSTEMS: A 6-system review of systems was performed with positives and pertinent negatives listed in the history of present illness. All other systems were reviewed and are negative. ALLERGIES: Adhesives, crab, codeine, metronidazole, Macrobid, levofloxacin, sulfa MEDICATIONS: Metoprolol, amlodipine, aspirin, multivitamin, omeprazole, acetaminophen PMH: Hypertension, colon cancer, liver cancer, GERD SOCIAL HISTORY: The patient lives locally with her . She denies drug, alcohol, tobacco use. PHYSICAL EXAM: VITALS: Vitals are noted on the nurse's note and reviewed by myself. Vital signs stable. GENERAL: 81-year-old female, in no acute distress, nondiaphoretic, well- developed, well-nourished. HEART: RRR. No murmurs, gallops, or rubs. LUNGS: Breath sounds clear to auscultation. No wheezes, rhonchi, or rales noted. ABDOMEN: Abdominal contour is normal. Normal tympanic percussion. Soft, nontender to palpation. No masses, guarding, or palpable organs. RECTAL: External hemorrhoids present. Not thrombosed. No active bleeding noted. Tenderness on palpation of the hemorrhoid. EMERGENCY DEPARTMENT COURSE: The patient was seen and evaluated as above. I did discuss the case with Dr. Rincon, he did see and evaluate the patient independently. I discussed proper management and care with the patient, and encouraged her to follow up with her local general surgeon. The patient was discharged home in good condition. DIFFERENTIAL DIAGNOSIS: Thrombosed hemorrhoid, internal hemorrhoid, rectal bleeding, constipation, and others. DIAGNOSIS: External hemorrhoid DISCHARGE INSTRUCTIONS & TREATMENT: Please continue to use suppositories and cream as prescribed to her by your PCP. In between using this cream, please use Desitin cream to help with irritation. You have been prescribed OxyIR to be used for pain control. Take 1 tablets every 4-6 hours as needed for pain. This is a narcotic medication. You cannot drive or consume alcohol while on this medicine. This medicine should only be used for pain that cannot be controlled with clvu-rei-hlookni pain medicines. For pain control, you can use the following oscf-jvp-wprheub medicines (if >12 yo): - Regular strength (325mg/tab) Tylenol (acetaminophen) 2 tabs every 4-6 hours as needed. Do not exceed 9 tablets in a 24 hour period. Avoid taking more than 3 grams (3000 mg) of Tylenol per day. This includes any other sources of acetaminophen you may take on a regular basis. - Regular strength (200 mg/tab) Advil (ibuprofen) 1-2 tabs every 4-6 hours as needed. Do not exceed a dose of 3200 mg per day. Please consult with your regular doctors regarding the use of Tylenol and ibuprofen due to your other chronic health conditions. Follow-up with your local general surgeon regarding hemorrhoids for further evaluation and management. As with any visit to the ED, you should follow-up with your PCP regarding the conditions for which you were seen today. Return to the emergency department for worsening pain, bleeding, tinges in bowel habits, fever, chills, nausea, vomiting, body aches, or other concerning symptoms. Problem List Medical Problems: (1) ABN LIVER FUNCTION STUDY Status: Resolved (2) CHOLELITHIASIS NOS Status: Resolved (3) CHRONIC KIDNEY DISEASE, STAGE III (MODERATE) Status: Resolved (4) DIVERTICULITIS COLON (W/O MENT OF HEMORRHAGE) Status: Resolved (5) ESOPHAGEAL REFLUX Status: Resolved (6) HYPERPARATHYROIDISM, UNSPECIFIED Status: Resolved (7) Kidney carcinoma Status: Chronic (8) MGUS (monoclonal gammopathy of unknown significance) Status: Chronic (9) PURE HYPERCHOLESTEROLEM Status: Resolved (10) SEPSIS Status: Resolved (11) TIETZE'S DISEASE Status: Resolved Current/Historical Medications Scheduled Acetaminophen (Tylenol), 500 MG PO PRN Amlodipine (Norvasc), 5 MG PO QAM Aspirin (Aspirin Chewable), 81 MG PO Q2D Metoprolol Tartrate (Lopressor), 25 MG PO BID Multiple Vitamins W/ Minerals (Centrum Silver Adult 50+), 1 TAB PO QAM Scheduled PRN Omeprazole (Prilosec), 20 MG PO DAILY PRN for Indigestion Oxycodone Ir (Roxicodone Ir), 1 TAB PO q4-6H PRN for Pain Allergies Coded Allergies: Levofloxacin (Verified Allergy, Intermediate, HIVES, 10/22/16) Crab (Verified Allergy, Mild, DIZZY AND THROWS UP, 10/22/16) Adhesives (Verified Allergy, Unknown, SKIN IRRITATION WITH SOME TAPES, ) Nitrofurantoin (Verified Allergy, Unknown, NAUSEA, 10/22/16) Codeine (Verified Adverse Reaction, Mild, NAUSEA, 10/22/16) Metronidazole (Verified Adverse Reaction, Mild, nausea and vomiting, ) Sulfa Antibiotics (Verified Adverse Reaction, Unknown, SICK TO STOMACH, 10/28/16) Vital Signs Date Time Temp Pulse Resp B/P (MAP) Pulse Ox O2 Delivery O2 Flow Rate FiO2 12/11/16 17:46 36.4 71 16 166/72 100 12/11/16 16:46 36.4 80 16 167/76 99 Room Air Departure Information Impression Primary Impression: Hemorrhoids Dispostion Home / Self-Care Condition GOOD Prescriptions Oxycodone Ir (Roxicodone Ir) 5 Mg Tab 1 TAB PO q4-6H Y for Pain, #15 TAB For Initial Treatment Prov: Sabrina Ryan PA-C 12/11/16 Referrals Lynn Medeiros C.R.N.P (PCP) Harsh Waterman D.O. Patient Instructions ED Hemorrhoids, [facility] Additional Instructions Please continue to use suppositories and cream as prescribed to her by your PCP. In between using this cream, please use Desitin cream to help with irritation. You have been prescribed OxyIR to be used for pain control. Take 1 tablets every 4-6 hours as needed for pain. This is a narcotic medication. You cannot drive or consume alcohol while on this medicine. This medicine should only be used for pain that cannot be controlled with cgkb-qez-xhwqufi pain medicines. For pain control, you can use the following smti-ouw-qwvfqhz medicines (if >12 yo): - Regular strength (325mg/tab) Tylenol (acetaminophen) 2 tabs every 4-6 hours as needed. Do not exceed 9 tablets in a 24 hour period. Avoid taking more than 3 grams (3000 mg) of Tylenol per day. This includes any other sources of acetaminophen you may take on a regular basis. - Regular strength (200 mg/tab) Advil (ibuprofen) 1-2 tabs every 4-6 hours as needed. Do not exceed a dose of 3200 mg per day. Please consult with your regular doctors regarding the use of Tylenol and ibuprofen due to your other chronic health conditions. Follow-up with your local general surgeon regarding hemorrhoids for further evaluation and management. As with any visit to the ED, you should follow-up with your PCP regarding the conditions for which you were seen today. Return to the emergency department for worsening pain, bleeding, tinges in bowel habits, fever, chills, nausea, vomiting, body aches, or other concerning symptoms. Problem Qualifiers Primary Impression: Hemorrhoids Hemorrhoid type: unspecified Qualified Codes: K64.9 - Unspecified hemorrhoids
--- NOTE | 2016-12-11 17:19 | EMERGENCY ROOM VISIT NOTE ---
ED Visit Note First contact with patient: 16:53 This Patient was discussed with the physician laboratory chemical assistant, Sabrina Ryan PA-C. The pertinent historical and physical exam findings were confirmed. I agree with the studies ordered and with the interpretations of these studies. I agree with the disposition and care plan.
[2016-12-11] MEDS ORDERED: OXYC1TAB3 PO (17:34)
[2016-12-11 17:46] VITALS: BP 166/72; PULSE 71; TEMP 36.4; O2SAT 100
[2016-12-11] MEDS ORDERED: ATV5X PO (20:48)
[2016-12-11] MEDS ORDERED: HYDR30SU4 RE (20:48)
[2016-12-11] MEDS ORDERED: ANSHCCR RE (20:48)
[2016-12-11] MEDS ORDERED: PROC1TAB5 PO (20:48)
[2016-12-17] MEDS ORDERED: CALCTAB7 PO (10:35)
[2016-12-17] MEDS ORDERED: ESCI10TA17 PO (10:35)
[2016-12-17] MEDS ORDERED: ANSHCCR PR (10:35)
[2017-01-20] MEDS ORDERED: ANSHCCR PR (14:55)
[2017-01-20] MEDS ORDERED: MRLP17 PO (14:55)
[2017-01-20] MEDS ORDERED: ANSHCS PR (14:55)
== END 2016-12-11 17:47 | disposition home or self-care (01) ==
LOC: C.EDB 16:44 → C.EDA 17:47
DX: K64.9 Unspecified hemorrhoids (principal); Z85.038 Personal history of other malignant neoplasm of large intestine; Z90.49 Acquired absence of other specified parts of digestive tract; Z79.82 Long term (current) use of aspirin; Z79.899 Other long term (current) drug therapy; Z85.05 Personal history of malignant neoplasm of liver; K21.9 Gastro-esophageal reflux disease without esophagitis; N18.3 Chronic kidney disease, stage 3 (moderate); I12.9 Hypertensive chronic kidney disease with stage 1 through stage 4 chronic kidney disease, or unspecified chronic kidney disease; E21.3 Hyperparathyroidism, unspecified; Z85.528 Personal history of other malignant neoplasm of kidney; D47.2 Monoclonal gammopathy; E78.00 Pure hypercholesterolemia, unspecified; M94.0 Chondrocostal junction syndrome [Tietze]

== ENCOUNTER 2016-12-12 19:19 | Emergency (ER) | payer BC ==
[~2016-12-12] VITALS: Ht 154.9 cm; Wt 51.6 kg
[~2016-12-12 19:19] MED LIST changes: +ANSHCCR RE; +ATV5X PO; +HYDR30SU4 RE; +OXYC1TAB3 PO; +PROC1TAB5 PO
[2016-12-12 19:26] VITALS: TEMP 37; Ht 154.9 cm; Wt 51.6 kg
--- NOTE | 2016-12-12 20:22 | EMERGENCY ROOM VISIT NOTE ---
ED Visit Note First contact with patient: 20:10 This Patient was discussed with the physician Deputy Fire Chief, Sabrina Ryan PA-C. The pertinent historical and physical exam findings were confirmed. I agree with the studies ordered and with the interpretations of these studies. I agree with the disposition and care plan.
--- NOTE | 2016-12-12 20:29 | EMERGENCY ROOM VISIT NOTE ---
ED Visit Note First contact with patient: 20:10 CHIEF COMPLAINT: Hemorrhoid HISTORY OF PRESENT ILLNESS: This 81-year-old female patient presents to the emergency department complaining of external hemorrhoids. The patient was seen here in the emergency department yesterday for the same complaint. She states since then, she feels that the hemorrhoids are acting up more today than they have been previously. She states they are sticking out, and causing her discomfort. The patient does report a small amount of blood on the toilet paper. She states she has been having normal bowel movements, however has had the urge to go approximately every 15-30 minutes throughout the day. The patient has not been straining to move her bowels. The patient states she has been using sitz baths, Desitin cream, prescription creams and pain medication which was prescribed to her yesterday. The patient did not contact her surgeon as directed. She states due to the pain, she is also experiencing a decreased appetite. REVIEW OF SYSTEMS: A 6-system review of systems was performed with positives and pertinent negatives listed in the history of present illness. All other systems were reviewed and are negative. ALLERGIES: Adhesives, crab, codeine, metronidazole, Macrobid, levofloxacin, sulfa MEDICATIONS: Metoprolol, amlodipine, aspirin, multivitamin, omeprazole, acetaminophen PMH: Hypertension, colon cancer, liver cancer, GERD SOCIAL HISTORY: The patient lives locally with her . She denies drug, alcohol, tobacco use. PHYSICAL EXAM: VITALS: Vitals are noted on the nurse's note and reviewed by myself. Vital signs stable. GENERAL: 81-year-old female, in no acute distress, nondiaphoretic, well- developed, well-nourished. HEART: RRR. No murmurs, gallops, or rubs. LUNGS: Breath sounds clear to auscultation. No wheezes, rhonchi, or rales noted. ABDOMEN: Abdominal contour is normal. Normal tympanic percussion. Soft, nontender to palpation. No masses, guarding, or palpable organs. RECTAL: External hemorrhoids present. Not thrombosed. No active bleeding noted. Tenderness on palpation of the hemorrhoid. EMERGENCY DEPARTMENT COURSE: The patient was seen and evaluated as above. I did discuss the case with Dr. Rincon, he did see and evaluate the patient independently. I discussed proper management and care with the patient, and encouraged her to follow up with her local general surgeon. I did speak with the upper caser, who will attempt to schedule the patient with Dr. Waterman for tomorrow. The patient was discharged home in good condition. DIFFERENTIAL DIAGNOSIS: Thrombosed hemorrhoid, internal hemorrhoid, rectal bleeding, constipation, and others. DIAGNOSIS: External hemorrhoid DISCHARGE INSTRUCTIONS & TREATMENT: Our caseworkers will schedule you an appointment with Dr. Waterman as soon as possible. They will contact you tomorrow with this appointment. Continue to use sitz baths, Desitin cream, prescription hemorrhoid cream, and narcotic pain medicine as needed. You should eat when you take the narcotic pain medicine, as this may help to decrease the nausea associated with the medication. Please follow up closely with your surgeon and primary care provider for further evaluation and management of the hemorrhoids. Please return to the emergency department for worsening bleeding, abdominal pain , nausea, vomiting, fever, chills, and other associated symptoms. Problem List Medical Problems: (1) ABN LIVER FUNCTION STUDY Status: Resolved (2) CHOLELITHIASIS NOS Status: Resolved (3) CHRONIC KIDNEY DISEASE, STAGE III (MODERATE) Status: Resolved (4) DIVERTICULITIS COLON (W/O MENT OF HEMORRHAGE) Status: Resolved (5) ESOPHAGEAL REFLUX Status: Resolved (6) HYPERPARATHYROIDISM, UNSPECIFIED Status: Resolved (7) Kidney carcinoma Status: Chronic (8) MGUS (monoclonal gammopathy of unknown significance) Status: Chronic (9) PURE HYPERCHOLESTEROLEM Status: Resolved (10) SEPSIS Status: Resolved (11) TIETZE'S DISEASE Status: Resolved Current/Historical Medications Scheduled Acetaminophen (Tylenol), 500 MG PO PRN Aspirin (Aspirin Chewable), 81 MG PO Q2D Hydrocortisone (Proctosol Hc), 1 APPLN RE PRN UD Hydrocortisone Acetate (Rectal (Proctocort), 1 SUPP RE PRN UD Lorazepam (Lorazepam), 0.5 MG PO HS Metoprolol Tartrate (Lopressor), 25 MG PO BID Multiple Vitamins W/ Minerals (Centrum Silver Adult 50+), 1 TAB PO QAM Prochlorperazine Maleate (Compazine), 10 MG PO PRN Scheduled PRN Omeprazole (Prilosec), 20 MG PO DAILY PRN for Indigestion Oxycodone Ir (Roxicodone Ir), 1 TAB PO q4-6H PRN for Pain Allergies Coded Allergies: Levofloxacin (Verified Allergy, Intermediate, HIVES, 10/22/16) Crab (Verified Allergy, Mild, DIZZY AND THROWS UP, 10/22/16) Adhesives (Verified Allergy, Unknown, SKIN IRRITATION WITH SOME TAPES, ) Nitrofurantoin (Verified Allergy, Unknown, NAUSEA, 10/22/16) Codeine (Verified Adverse Reaction, Mild, NAUSEA, 10/22/16) Metronidazole (Verified Adverse Reaction, Mild, nausea and vomiting, ) Sulfa Antibiotics (Verified Adverse Reaction, Unknown, SICK TO STOMACH, 10/28/16) Vital Signs Date Time Temp Pulse Resp B/P (MAP) Pulse Ox O2 Delivery O2 Flow Rate FiO2 12/12/16 20:44 73 16 166/75 100 12/12/16 19:26 37.0 82 18 146/72 98 Room Air Departure Information Impression Primary Impression: External hemorrhoids Dispostion Home / Self-Care Condition GOOD Referrals Lynn Medeiros C.R.N.P (PCP) Harsh Waterman D.O. Patient Instructions ED Hemorrhoids, [facility] Additional Instructions Our caseworkers will schedule you an appointment with Dr. Waterman as soon as possible. They will contact you tomorrow with this appointment. Continue to use sitz baths, Desitin cream, prescription hemorrhoid cream, and narcotic pain medicine as needed. You should eat when you take the narcotic pain medicine, as this may help to decrease the nausea associated with the medication. Please follow up closely with your surgeon and primary care provider for further evaluation and management of the hemorrhoids. Please return to the emergency department for worsening bleeding, abdominal pain , nausea, vomiting, fever, chills, and other associated symptoms.
[2016-12-12 20:44] VITALS: BP 166/75; PULSE 73; O2SAT 100
[2016-12-17] MEDS ORDERED: CALCTAB7 PO (10:35)
[2016-12-17] MEDS ORDERED: ESCI10TA17 PO (10:35)
[2016-12-17] MEDS ORDERED: ANSHCCR PR (10:35)
[2017-01-20] MEDS ORDERED: MRLP17 PO (14:55)
[2017-01-20] MEDS ORDERED: ANSHCCR PR (14:55)
[2017-01-20] MEDS ORDERED: ANSHCS PR (14:55)
== END 2016-12-12 20:45 | disposition home or self-care (01) ==
LOC: C.EDB 19:21 → C.EDC 20:45
DX: K64.4 Residual hemorrhoidal skin tags (principal); I12.9 Hypertensive chronic kidney disease with stage 1 through stage 4 chronic kidney disease, or unspecified chronic kidney disease; K21.9 Gastro-esophageal reflux disease without esophagitis; N18.3 Chronic kidney disease, stage 3 (moderate); D47.2 Monoclonal gammopathy; Z85.038 Personal history of other malignant neoplasm of large intestine; Z85.05 Personal history of malignant neoplasm of liver; Z85.528 Personal history of other malignant neoplasm of kidney; Z79.82 Long term (current) use of aspirin; Z79.899 Other long term (current) drug therapy

== ENCOUNTER → 2016-12-16 | Outpatient (CLI) | payer BC ==
[~2016-12-16] MED LIST changes: -AMLO-110 PO; +ANSHCCR PR; +ANSHCS PR; +ASPI81TA28 PO; +CALCTAB7 PO; -CHOL1000 PO; -CIPR-255 PO; +ESCI10TA17 PO; -HYDR-5688 PO; +MRLP17 PO
--- NOTE | 2016-12-16 10:20 | DIAGNOSTIC IMAGING REPORT ---
PET/CT SKULL-THIGH HISTORY: Colorectal carcinoma COLORECTAL CANCER TECHNIQUE: PET/CT was performed from the base of the skull through the pelvis following the intravenous administration of 15.4 mCi of F18-FDG. Non-contrast CT imaging was performed over the same range without breath-hold for attenuation correction of PET images and anatomic correlation, but not for primary interpretation as it is not of standard diagnostic quality. CT DOSE: 192.83 mGycm COMPARISON: CT 09/22/2016 and 10/11/2006 FINDINGS: HEAD AND NECK: There is no FDG-avid disease or significant lymphadenopathy in the imaged portions of the head and the neck. CHEST: There is no FDG-avid disease in the chest. There is no axillary, mediastinal, or hilar lymphadenopathy. There is no pleural or pericardial effusion. There is no air-space disease or suspicious lung nodule. Focus of increased activity overlying what appears to be the right lung base. This appears represent, however slight misregistration due to a metastatic deposit within the superior right hepatic dome. ABDOMEN/PELVIS: Multifocal metastatic foci within the liver. These primarily are in the right hepatic lobe. A nodular focus of the superior right hepatic lobe measures 2.1 cm. SUV characteristics are approximately 9.7. Additional focus within the caudate lobe has SUV characteristics of approximately 7 with dimensions of 1.1 cm. Vague focus of increased metabolic activity with SUV 2 4.5 measures 8 mm. Intense foci of metabolic activity are seen multifocally within the lower right hepatic lobe with SUVs of 13 at maximum. These demonstrate maximum conglomerate dimension of 2.8 cm. Bilateral renal activity is present. Unremarkable bowel metabolic activity characteristics are present. There has been a prior sigmoid resection in part. There is a minimal amount of activity at the anastomotic site potentially is postoperative. There is no significant pelvic adenopathy. There is physiologic activity within the bladder. MUSCULOSKELETAL: There is no FDG-avid or destructive bone lesion. IMPRESSION: 1. Evidence for a prior partial sigmoid resection with minimal postoperative activity 2. Diffuse multifocal metastatic deposits primarily within the right hepatic lobe of the liver. 3. Remainder of the study is negative. The above report was generated using voice recognition software. It may contain grammatical, syntax or spelling errors. Electronically signed by: Brenton Epstein M.D. 12/16/2016 10:19 AM Dictated Date/Time: 12/16/2016 9:56 AM
== END | disposition home or self-care (01) ==
LOC: C.PET 06:52
PROVIDERS: ATTEND Internal Medicine Hematology & Oncology
DX: C18.8 Malignant neoplasm of overlapping sites of colon (principal)

== ENCOUNTER 2016-12-18 09:23 | Day surgery (SDC) | payer BC, OTHER ==
[2016-12-17 10:39] VITALS: BMI 22.0
[~2016-12-18] VITALS: Ht 157.5 cm; Wt 54.5 kg
[~2016-12-18 09:23] MED LIST changes: -ANSHCCR RE; -ANSHCS PR; -ASPI81TA28 PO; +CEFAZOLIN 2000 MG/60 ML D5W IV SCH; -HYDR30SU4 RE; +LACTATED RINGER'S 1000ML 1,000 ML IV SCH; -MRLP17 PO; -OXYC1TAB3 PO; +PATIENT'S HEIGHT AND/OR WEIGHT NEEDED SCH; -PROC1TAB5 PO
[2016-12-18] MEDS ORDERED: FENTANYL CITRATE INJ 50 MCG/1 ML 2 ML VIAL ONE (09:33)
[2016-12-18] MEDS ORDERED: MIDAZOLAM HCL 1 MG/ML 2ML VIAL ONE (09:33)
[2016-12-18] MEDS ORDERED: PROPOFOL IV EMULSION 10 MG/ML 20 ML VIAL IV ONE (09:34)
[2016-12-18 10:01] VITALS: BP 149/58; PULSE 80; TEMP 36.7; O2SAT 95; Ht 157.5 cm; Wt 54.5 kg
--- NOTE | 2016-12-18 10:20 | History & Physical Bridge Note ---
H&P Re-Evaluation Bridge Note: I have examined the patient, reviewed the History & Physical and in the interval since the performance of the History & Physical I have noted the following changes of clinical significance: No changes noted
[2016-12-18] MEDS ORDERED: FENTANYL CITRATE INJ 50 MCG/1 ML 2 ML VIAL IV PRN (10:30)
[2016-12-18] MEDS ORDERED: ATROPINE SULFATE 0.1 MG/ML 5ML SYR IV PRN (10:30)
[2016-12-18] MEDS ORDERED: EpHEDrine SULFATE INJ 50 MG/ML AMP IV PRN (10:30)
[2016-12-18] MEDS ORDERED: ONDANSETRON INJ 2 MG/ML 2 ML VIAL IV PRN ×2 (10:30→11:45)
[2016-12-18] MEDS ORDERED: BUPIVACAINE/EPINEPHRINE 0.5% MPF 1:200,000 10 ML VIAL ONE (10:32)
--- NOTE | 2016-12-18 11:26 | [facility] Operative Report ---
Operative Report Operative Date Dec 18, 2016. Pre-Operative Diagnosis Needed for chemotherapy Post-Operative Diagnosis same as pre-operative Procedure(s) Performed Insertion of Mediport Left Subclavian Vein Surgeon Dr. Harsh Waterman Dope Firer Surgeon(s) Erika Lin PA-C Estimated Blood Loss 5ml Findings normal anatomy Specimens none per surgeon Anesthesia MAC Complication(s) None Disposition Recovery Room / PACU Description of Procedure After informed consent was obtained the patient was taken the operating suite placed in supine position. Left arm was tucked. The left upper chest was sterilely prepped and draped in usual fashion. IV sedation was administered by anesthesia and titrated to effect. Made a small horizontal skin incision and the upper chest wall with 15 blade scalpel. This was carried down through the soft tissue using electrocautery. Prior to doing this I did create a skin wheal over the area with half percent Marcaine as well as infiltrated the periosteum of the left clavicle. I then used blunt finger dissection to create a housing pocket one the pectoralis muscle again inferior to the clavicle. I then used an 18-gauge needle to access left subclavian vein without difficulty. This was done with a single stick. A guidewire was advanced under fluoroscopy into the superior vena cava. We then measured the catheter to appropriate distance and cut it. It was flushed as well as the port itself and it was connected to the port and locked into place. We then advanced a vascular dilator with a peel-away sheath over the guidewire again under fluoroscopy. We removed the guidewire and then advanced the catheter through the peel-away sheath again into the superior vena cava. The port itself was placed in the housing pocket. We peeled away the sheath leaving the catheter behind. I was able to easily drawl dark venous blood and flushed with heparin solution. We secured the port to the chest wall using 0 Ethibond with 3 point fixation. The wound was then irrigated and closed in 2 layers using 3-0 Monocryl for the deep layer of 3-0 Monocryl for the skin. OpSite dressing was placed. The patient was awake and transferred to recovery in stable condition. Postoperative portable chest x-ray to rule out pneumothorax and verify catheter position is currently pending I attest to the content of the Intraoperative Record and any orders documented therein. Any exceptions are noted below.
[2016-12-18] MEDS ORDERED: SODIUM CHLORIDE 0.9% 1000ML 1,000 ML IV SCH (11:31)
--- NOTE | 2016-12-18 11:31 | Discharge Instructions ---
Discharge Instructions Date of Service Dec 18, 2016. Admission Reason for Admission: Adenocarcinoma, Colon Cancer Discharge Discharge Diagnosis / Problem: Adenocarcinoma, Colon Cancer Discharge Goals Goal(s): Decrease discomfort, Improve function Activity Recommendations Activity Limitations: as noted below Lifting Limitations: no more than 10 pounds Exercise/Sports Limitations: until after follow-up appointment May Resume Sexual Activity: after follow-up appointment Shower/Bathe: tomorrow . Instructions / Follow-Up Instructions / Follow-Up You may shower tomorrow. Please keep bandage on incision for next 48hrs. Please call the office at [phone] with any questions or concerns. Current Hospital Diet Patient's current hospital diet: Discharge Diet Recommended Diet: Regular Diet Procedures Procedures Performed: Insertion of Mediport Left Subclavian Vein Pending Studies Studies pending at discharge: no Medical Emergencies . Who to Call and When: Medical Emergencies: If at any time you feel your situation is an emergency, please call 911 immediately. . Non-Emergent Contact Non-Emergency issues call your: Primary Care Provider, Surgeon Call Non-Emergent contact if: temperature is above 101.5, your pain is not controlled, wound has increased drainage, wound has increased redness . "Provider Documentation" section prepared by Erika Lin. . VTE Core Measure Inpt VTE Proph given/why not?: SCD's
--- NOTE | 2016-12-18 11:47 | DIAGNOSTIC IMAGING REPORT ---
CHEST ONE VIEW PORTABLE CLINICAL HISTORY: s/p port placement tube position COMPARISON STUDY: 12/11/2015 FINDINGS: Placement of a central catheter with the tip in the superior vena cava. No evidence for pneumothorax. Chronic changes as have been described previously. No acute infiltrate. IMPRESSION: Central catheter placed in the superior vena cava. No evidence pneumothorax. The above report was generated using voice recognition software. It may contain grammatical, syntax or spelling errors. Electronically signed by: Brenton Epstein M.D. 12/18/2016 11:46 AM Dictated Date/Time: 12/18/2016 11:45 AM
--- NOTE | 2016-12-18 11:56 | Anesthesiology Progress Note ---
Anesthesia Post Op Note Date & Time Dec 18, 2016 at 11:56 Vital Signs Pain Intensity: 0 Vital Signs Past 12 Hours Date Time Temp Pulse Resp B/P (MAP) Pulse Ox O2 Delivery O2 Flow Rate FiO2 12/18/16 11:45 64 16 166/69 100 Oxymask 10 12/18/16 11:35 36.3 68 16 170/68 100 Oxymask 10 12/18/16 11:25 36.3 65 16 147/69 100 Oxymask 10 12/18/16 10:01 36.7 80 18 149/58 (88) 95 Room Air Notes Mental Status: alert / awake / arousable, participated in evaluation Pt Amnestic to Procedure: Yes Nausea / Vomiting: adequately controlled Pain: adequately controlled Airway Patency, RR, SpO2: stable & adequate BP & HR: stable & adequate Hydration State: stable & adequate Anesthetic Complications: no major complications apparent
[2016-12-18 12:20] VITALS: BP 144/60; PULSE 71; TEMP 36.5; O2SAT 100
[2016-12-18 12:50] VITALS: BP 140/62; PULSE 78; TEMP 36.6; O2SAT 100
[2017-01-20] MEDS ORDERED: MRLP17 PO (14:55)
[2017-01-20] MEDS ORDERED: ANSHCS PR (14:55)
[2017-01-20] MEDS ORDERED: ANSHCCR PR (14:55)
== END 2016-12-18 13:08 | disposition home or self-care (01) ==
LOC: C.ACU 09:23
PROVIDERS: ATTEND Surgery
DX: C78.5 Secondary malignant neoplasm of large intestine and rectum (principal); C80.1 Malignant (primary) neoplasm, unspecified; K21.9 Gastro-esophageal reflux disease without esophagitis; M19.90 Unspecified osteoarthritis, unspecified site; N18.3 Chronic kidney disease, stage 3 (moderate); Z90.49 Acquired absence of other specified parts of digestive tract; Z90.710 Acquired absence of both cervix and uterus; Z79.82 Long term (current) use of aspirin; Z87.891 Personal history of nicotine dependence

== ENCOUNTER → 2017-01-10 | Outpatient (CLI) | payer BC ==
[~2017-01-10] MED LIST changes: +ANSHCS PR; +ASPI81TA28 PO; -CEFAZOLIN 2000 MG/60 ML D5W IV SCH; -LACTATED RINGER'S 1000ML 1,000 ML IV SCH; +MRLP17 PO; -PATIENT'S HEIGHT AND/OR WEIGHT NEEDED SCH
--- NOTE | 2017-01-10 16:14 | DIAGNOSTIC IMAGING REPORT ---
ULTRASOUND BILATERAL LOWER EXTREMITY VENOUS CLINICAL HISTORY: Leg pain and swelling. COMPARISON STUDY: Bilateral lower extremity venous ultrasound dated 07/23/2012. TECHNIQUE: Real-time, grayscale, and color Doppler sonography of the deep veins of the right and left lower extremity was performed from the inguinal crease to the calf. Compression and augmentation were utilized. FINDINGS: There is no sonographic evidence of deep venous thrombosis identified in the right or left lower extremity. The common femoral, superficial femoral, and popliteal veins are patent and normally compressible bilaterally. The greater saphenous vein and the profunda femoris vein at the junction with the common femoral vein are clear in both legs. The visualized calf veins are patent bilaterally. IMPRESSION: There is no sonographic evidence of deep venous thrombosis identified in the right or left lower extremity. Electronically signed by: Ezequiel Webb M.D. 01/10/2017 4:12 PM Dictated Date/Time: 01/10/2017 4:12 PM
--- NOTE | 2017-01-14 10:21 | CODING QUERY MEDICAL NECESSITY ---
SUPPORTING DIAGNOSIS NEEDED Dr. Zaragoza, A supporting diagnosis is required for the test/procedure performed on this patient in order for us to be reimbursed by the patient's insurance. Please provide a supporting diagnosis for the following test/procedure listed below next to the test name along with your signature. *If there is no additional diagnosis for this patient that would support the following test/procedure please document that below next to the test/procedure. Test(s)/Procedure(s) that require a supporting diagnosis: * ([id number]) VENOUS DOPPLER LOWER EXT BILAT DIAGNOSIS: DATE OF SERVICE: 01/10/17 Provider Signature: Date: Thank you Wilmar Kong [facility] Information Management Once completed, please kindly fax back to [phone] For questions please call [phone]
== END | disposition home or self-care (01) ==
LOC: C.ULTR 15:33
PROVIDERS: ATTEND Internal Medicine Hematology & Oncology
DX: C18.8 Malignant neoplasm of overlapping sites of colon (principal); M79.89 Other specified soft tissue disorders; M79.606 Pain in leg, unspecified

== ENCOUNTER 2017-01-18 17:55 | Observation (INO) | payer BC ==
[~2017-01-18] VITALS: Ht 154.9 cm; Wt 52.5 kg
[~2017-01-18 17:55] MED LIST changes: -ANSHCS PR; -ASPI81TA28 PO; -MRLP17 PO
[2017-01-18] MEDS ORDERED: SODIUM CHLORIDE 0.9% 1000ML 1,000 ML IV STA (18:34)
[2017-01-18] MEDS ORDERED: SODIUM CHLORIDE 0.9% 1000ML 250 ML IV STA (18:34)
--- NOTE | 2017-01-18 18:39 | EMERGENCY ROOM VISIT NOTE ---
History Report prepared by Fili: Sarah Nina Under the Supervision of: Dr. Nayan Heart M.D. First contact with patient: 18:16 Chief Complaint: RECTAL BLEEDING Stated Complaint: BLEEDING HEMROIDS Nursing Triage Summary: triage note Pt reports "i have bleeding painful hemorrhoids." pt reports hx of colon cancer with most recent chemo tx 01-07-17. History of Present Illness The patient is a 81 year old female who presents to the Emergency Room with complaints of rectal bleeding beginning today. She states that she has bad hemorrhoids and that they are painful, especially when she sits. She reports straining when she urinates and that she has been constipated. She also reports having blood in her urine. The patient reports that she has colon cancer and had part of her colon surgically removed. She also has 3 spots on her liver that are now cancerous. She reports that she is on chemotherapy and that her last treatment was January 02. She denies nausea, vomiting, chest pain, shortness of breath, and dizziness. She reports that she takes a baby aspirin every day. She reports talking to Dr. Pizano who told her to take Miralax for constipation and that he referred her to the ED. The patient has a history of a blood transfusion for a low white blood cell count. Source of History: patient Onset: today Position: other (rectum) Quality: other (bleeding) Associated Symptoms: + urinary symptoms (blood in urine, constipation), No chest pain, No SOB, No nausea, No vomiting Review of Systems See HPI for pertinent positives & negatives. A total of 10 systems reviewed and were otherwise negative. Past Medical & Surgical Medical Problems: (1) ABN LIVER FUNCTION STUDY (2) CHOLELITHIASIS NOS (3) CHRONIC KIDNEY DISEASE, STAGE III (MODERATE) (4) DIVERTICULITIS COLON (W/O MENT OF HEMORRHAGE) (5) ESOPHAGEAL REFLUX (6) HYPERPARATHYROIDISM, UNSPECIFIED (7) Hypertension (8) Kidney carcinoma (9) MGUS (monoclonal gammopathy of unknown significance) (10) PURE HYPERCHOLESTEROLEM (11) Rectal bleed (12) SEPSIS (13) TIETZE'S DISEASE Old medical records were reviewed. Nurse's notes were reviewed and I agree with. Family History Cancer FH: heart disease FH: kidney disease Hypertension Social History Smoking Status: Never Smoker Alcohol Use: none Drug Use: none Marital Status: Housing Status: lives with family Occupation Status: unemployed Current/Historical Medications Scheduled Acetaminophen (Tylenol), 1,000 MG PO PRN Aspirin (Aspirin Ec), 81 MG PO DAILY Calcium Carbonate-Vitamin D W/ (Caltrate 600 Plus), 1 TAB PO QAM Hydrocortisone (Proctosol Hc), 1 APPLN ME PRN Lorazepam (Lorazepam), 0.5 MG PO HS Metoprolol Tartrate (Lopressor), 25 MG PO BID Multiple Vitamins W/ Minerals (Centrum Silver Adult 50+), 1 TAB PO QAM Scheduled PRN Omeprazole (Prilosec), 20 MG PO QAM PRN for Indigestion Allergies Coded Allergies: Levofloxacin (Verified Allergy, Intermediate, HIVES, 01/18/17) Crab (Verified Allergy, Mild, DIZZY AND THROWS UP, 01/18/17) Adhesives (Verified Allergy, Unknown, SKIN IRRITATION WITH SOME TAPES, ) Nitrofurantoin (Verified Allergy, Unknown, NAUSEA, 01/18/17) Codeine (Verified Adverse Reaction, Mild, NAUSEA, 01/18/17) Metronidazole (Verified Adverse Reaction, Mild, nausea and vomiting, ) Sulfa Antibiotics (Verified Adverse Reaction, Unknown, SICK TO STOMACH, ) Physical Exam Vital Signs Date Time Temp Pulse Resp B/P (MAP) Pulse Ox O2 Delivery O2 Flow Rate FiO2 01/18/17 18:00 36.6 98 18 218/129 97 Room Air Physical Exam General: Well developed well nourished older female in no acute distress, breathing comfortably on room air. Normal speech. Has a port in left chest. HEENT: Normal cephalic atraumatic. Pupils are equal round and reactive to light. Extraocular movements are intact. Oropharynx is pink with moist mucous membranes. No swelling of the mouth lips or tongue. Neck: Supple with a midline trachea. No meningeal signs or stiffness, no JVD or bruits. No Stridor. Chest: Clear to auscultation bilaterally. No wheezes or rhonchi. No increased work of breathing. Heart: regular rate and rhythm. Abdomen: Soft nontender, nondistended without rebound guarding or rigidity. Extremities: No cyanosis clubbing or edema. No calf tenderness or assymetry Spine/Back. Non tender to palpation. No CVA tenderness Skin: Good turgor without rashes. Neurologic exam: Cranial nerves two through 12 are intact. Motor and sensation are intact and symmetrical throughout. 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 Interna exam shoes redish-brown stool that was guaiac positive Medical Decision & Procedures Laboratory Results 01/18/17 19:00 Red Blood Count 3.95, Mean Corpuscular Volume 76.5, Mean Corpuscular Hemoglobin 24.8, Mean Corpuscular Hemoglobin Concent 32.5, Mean Platelet Volume 9.3, Neutrophils (%) (Auto) 40.0, Lymphocytes (%) (Auto) 29.6, Monocytes (%) (Auto) 29.0, Eosinophils (%) (Auto) 0.8, Basophils (%) (Auto) 0.4, Neutrophils # (Auto ) 1.95, Lymphocytes # (Auto) 1.44, Monocytes # (Auto) 1.41, Eosinophils # (Auto ) 0.04, Basophils # (Auto) 0.02 01/18/17 19:00 Test 01/18/17 19:00 White Blood Count 4.87 K/uL (4.8-10.8) Red Blood Count 3.95 M/uL (4.2-5.4) Hemoglobin 9.8 g/dL (12.0-16.0) Hematocrit 30.2 % (37-47) Mean Corpuscular Volume 76.5 fL (80-100) Mean Corpuscular Hemoglobin 24.8 pg (25-34) Mean Corpuscular Hemoglobin Concent 32.5 g/dl (32-36) Platelet Count 225 K/uL (130-400) Mean Platelet Volume 9.3 fL (7.4-10.4) Neutrophils (%) (Auto) 40.0 % Lymphocytes (%) (Auto) 29.6 % Monocytes (%) (Auto) 29.0 % Eosinophils (%) (Auto) 0.8 % Basophils (%) (Auto) 0.4 % Neutrophils # (Auto) 1.95 K/uL (1.4-6.5) Lymphocytes # (Auto) 1.44 K/uL (1.2-3.4) Monocytes # (Auto) 1.41 K/uL (0.11-0.59) Eosinophils # (Auto) 0.04 K/uL (0-0.5) Basophils # (Auto) 0.02 K/uL (0-0.2) RDW Standard Deviation 51.0 fL (36.4-46.3) RDW Coefficient of Variation 18.6 % (11.5-14.5) Immature Granulocyte % (Auto) 0.2 % Immature Granulocyte # (Auto) 0.01 K/uL (0.00-0.02) Prothrombin Time 11.2 SECONDS (9.0-12.0) Prothromb Time International Ratio 1.0 (0.9-1.1) Activated Partial Thromboplast Time 27.0 SECONDS (21.0-31.0) Partial Thromboplastin Ratio 1.0 Anion Gap 6.0 mmol/L (3-11) Est Creatinine Clear Calc Drug Dose 35.5 ml/min Estimated GFR () 67.2 Estimated GFR (Non- 58.0 BUN/Creatinine Ratio 11.2 (10-20) Calcium Level 9.0 mg/dl (8.5-10.1) Iron Level 25 mcg/dl (35-150) Total Iron Binding Capacity 321 mcg/dl (250-450) Transferrin 245 mg/dl (200-360) Transferrin % Saturation 7 % (15-50) Ferritin 76.9 ng/ml (8.0-388.0) Total Bilirubin 0.4 mg/dl (0.2-1) Direct Bilirubin 0.1 mg/dl (0-0.2) Aspartate Amino Transf (AST/SGOT) 20 U/L (15-37) Alanine Aminotransferase (ALT/SGPT) 17 U/L (12-78) Alkaline Phosphatase 74 U/L (45-117) Total Protein 6.3 gm/dl (6.4-8.2) Albumin 3.1 gm/dl (3.4-5.0) Lipase 204 U/L (73-393) Laboratory studies as stated above per my review. Medications Administered Medications (Trade) Dose Ordered Sig/Solitario Route Start Time Stop Time Status Last Admin Dose Admin Sodium Chloride 250 ml @ 999 mls/hr Q16M STAT IV 01/18/17 18:34 01/18/17 18:49 DC 01/18/17 18:58 999 MLS/HR Sodium Chloride 1,000 ml @ 100 mls/hr Q10H STAT IV 01/18/17 18:34 01/18/17 21:32 DC 01/18/17 18:59 100 MLS/HR Acetaminophen (Tylenol Tab) 650 mg Q4H PRN PO 01/18/17 20:15 02/17/17 20:14 01/18/17 21:45 650 MG Hydralazine HCl (HydrALAZINE INJ) 5 mg Q4 PRN IV. 01/18/17 20:15 02/17/17 20:14 01/18/17 21:45 5 MG ED Course 1826: Past medical records reviewed. The patient was evaluated in room A4B, and a complete history and physical examination were performed. 1833: Ordered Sodium Chloride 1,000 ml @ 100 mls/hr IV, Sodium Chloride 250 ml @ 999 mls/hr IV. 2007: Discussed the patient's case with Dr. Lehman. The patient will be evaluated for further management. 2029: Upon reevaluation, the patient is resting. I discussed the results and treatment plan with the patient. She verbalized agreement of the treatment plan. The patient will be evaluated for further management. Medical Decision Differentials include, but are not limited to; hemorrhoid, GI bleed, anemia, infection, and cancer complication. This patient comes in as described above. She's complaining of rectal pain and rectal bleeding. She has a history of colon cancer. She also had hemorrhoids. IV access was established. She was found to be anemic in the mid nines which is about baseline for her. She has no white count or fever to suggest infection. She is not neutropenic or platelet function appears normal. She has no acute electrolyte or metabolic abnormalities. On rectal exam ,. She has 2 hemorrhoids that do not appear to be thrombosed or bleeding her stool however was reddish brown suspect the bleeding is actually coming proximal to the hemorrhoid. This was guaiac positive. I do think she needs to be admitted for further treatment and evaluation. I have consulted the [facility] hospitalist to see her in ER will admit her for these measures. Medication Reconcilliation Current Medication List: was personally reviewed by me Blood Pressure Screening Patient's blood pressure: Elevated blood pressure Blood pressure disposition: Referred to PCP Consults Time Called: 1944 Consulting Physician: Dr. Lehman- [facility] Returned Call: 2007 Discussed the patient's case. The patient will be evaluated for further management. Impression Primary Impression: GI bleed Additional Impression: Hemorrhoid Scribe Attestation The scribe's documentation has been prepared under my direction and personally reviewed by me in its entirety. I confirm that the note above accurately reflects all work, treatment, procedures, and medical decision making performed by me. Departure Information Dispostion Being Evaluated By Hospitalist Referrals Lynn Medeiros, C.R.N.P (PCP) Patient Instructions My [facility] Health Problem Qualifiers
[2017-01-18] MEDS ORDERED: ASPI81TA28 PO (19:07)
[2017-01-18 19:10] LABS: BASO % 0.4 %; BASO ABS # 0.02 K/uL (0-0.2); COMPLETE YES; EOS % 0.8 %; HEMATOCRIT 30.2 % (37-47); IG% 0.2 %; LYMPH % 29.6 %; LYMPH ABS # 1.44 K/uL (1.2-3.4); MEAN CELL VOLUME 76.5 fL (80-100); MEAN CORPUSCULAR HEMOGLOBIN 24.8 pg (25-34); MEAN CORPUSCULAR HGB CONC 32.5 g/dl (32-36); MEAN PLATELET VOLUME 9.3 fL (7.4-10.4); PLATELET COUNT 225 K/uL (130-400); RED BLOOD COUNT 3.95 M/uL (4.2-5.4); WHITE BLOOD COUNT 4.87 K/uL (4.8-10.8)
[2017-01-18 19:20] LABS: PROTHROMBIN TIME (PATIENT) 11.2 SECONDS (9.0-12.0)
[2017-01-18 19:27] LABS: BUN/CREATININE RATIO 11.2 (10-20); CREATININE 0.92 mg/dl (0.60-1.20); POTASSIUM 3.6 mmol/L (3.5-5.1)
[2017-01-18] MEDS ORDERED: HydrALAZINE HCL 20 MG/ML VIAL IV. PRN (20:15)
[2017-01-18] MEDS ORDERED: MAGNESIUM HYDROXIDE SUSP 30 ML UDC PO PRN (20:15)
[2017-01-18] MEDS ORDERED: POLYETHYLENE (MIRALAX) 17 GM PACK PO PRN (20:15)
[2017-01-18] MEDS ORDERED: ONDANSETRON INJ 2 MG/ML 2 ML VIAL IV PRN (20:15)
[2017-01-18] MEDS ORDERED: ACETAMINOPHEN 500 MG TAB PO SCH (20:15)
[2017-01-18] MEDS ORDERED: ALUMINUM/MAGNESIUM/SIMETH (MAALOX MAX) 30 ML UDC PO PRN (20:15)
--- NOTE | 2017-01-18 20:42 | History and Physical ---
History & Physical Date of Service Jan 18, 2017. History & Physical #[id number]
[2017-01-18 21:07] LABS: FERRITIN 76.9 ng/ml (8.0-388.0)
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
[2017-01-18 21:33] VITALS: BP 190/128; TEMP 36.4; O2SAT 98
[2017-01-18] MEDS: LORAZEPAM 0.5 MG TAB PO SCH (21:44)
[2017-01-18] MEDS ORDERED: IV FLUIDS COMPLETED PRN (21:45)
[2017-01-18] MEDS: ACETAMINOPHEN 325 MG TAB PO PRN (21:45)
[2017-01-18 22:07] VITALS: O2SAT 98; Ht 154.9 cm; Wt 52.5 kg
[2017-01-18] MEDS: METOPROLOL TARTRATE 25 MG TAB PO SCH (22:35)
[2017-01-18 22:37] VITALS: BP 165/76
[2017-01-19] VITALS (7 sets, daily range): BP systolic 150–192; BP diastolic 66–86; PULSE 65–76; TEMP 36.4–36.8; O2SAT 95–99
[2017-01-19] MEDS: ACETAMINOPHEN 325 MG TAB PO PRN ×2 (05:11→11:57)
[2017-01-19 06:19] LABS: BASO % 1.4 %; BASO ABS # 0.06 K/uL (0-0.2); COMPLETE YES; EOS % 1.4 %; HEMATOCRIT 30.9 % (37-47); LYMPH % 37.7 %; LYMPH ABS # 1.59 K/uL (1.2-3.4); MEAN CELL VOLUME 77.1 fL (80-100); MEAN CORPUSCULAR HEMOGLOBIN 24.2 pg (25-34); MEAN CORPUSCULAR HGB CONC 31.4 g/dl (32-36); MEAN PLATELET VOLUME 9.1 fL (7.4-10.4); MONO % 32.9 %; NEUT % 26.6 %; PLATELET COUNT 218 K/uL (130-400); RED BLOOD COUNT 4.01 M/uL (4.2-5.4); WHITE BLOOD COUNT 4.22 K/uL (4.8-10.8)
[2017-01-19 06:48] LABS: BUN/CREATININE RATIO 11.5 (10-20); CALCIUM 8.8 mg/dl (8.5-10.1); CREATININE 0.86 mg/dl (0.60-1.20); POTASSIUM 3.2 mmol/L (3.5-5.1)
[2017-01-19] MEDS: CALCIUM 600MG + VIT D 400 IU TAB PO SCH (07:18)
[2017-01-19] MEDS: METOPROLOL TARTRATE 25 MG TAB PO SCH ×2 (07:19→20:59)
[2017-01-19] MEDS: CEROVITE ADV FORMULA TAB PO SCH (07:19)
[2017-01-19] MEDS ORDERED: HYDROCORTISONE HC 2.5% CRM 30GM TUBE EXT PRN (08:00)
[2017-01-19] MEDS ORDERED: PANTOprazole SOD 40 MG TAB PO PRN (08:00)
[2017-01-19] MEDS ORDERED: POTASSIUM CHLORIDE 10 MEQ TABCR PO STA (09:09)
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
--- NOTE | 2017-01-19 18:37 | Medical Consult ---
Consultation Note Date of Service Jan 19, 2017. Consultation Note Reason for consult: bleeding, hemorrhoid HISTORY OF PRESENT ILLNESS: 81 yo female s/p recent dx of colon cancer, found to have polyp in cecum with IMC and sigmoid mass, s/p hemicolectomy in [facility] [place] now with 2 weeks of rectal bleeding and pain. She reports worsening constipation since her surgery, and over the past two weeks has developed severe perianal pain and bleeding. She describes small volume of BRB with bowel movements, with blood limited to staining on toilet paper; she had one episode of large volume blood oin toilet bowl. She has tried miralax, "hemorrhoid cream" - reportedly proctofoam and procosol by hospitalist note - and sitz baths. Hgb 9.8 with MCV of 76 on admission last night, unchanged this morning REVIEW OF SYSTEMS: Otherwise negative, except for as above. PAST MEDICAL HISTORY: Includes colon cancer, status post recent hemicolectomy and she is currently undergoing chemotherapy, GERD, anxiety, CKD stage III, diverticulosis, venous stasis, hypertension, hyperlipidemia, hypothyroidism, impaired fasting glucose, and hemorrhoids. HOME MEDICATIONS: Include aspirin 81 mg every other day, Caltrate 600 mg daily, Lexapro 10 mg daily, lorazepam 0.5 at bedtime p.r.n. insomnia, metoprolol 25 mg b.i.d., multivitamin daily, omeprazole 20 mg daily, ag; Simvastatin 20 mg at bedtime. PAST SURGICAL HISTORY: Hemicolectomy done in [place], so unfortunately I am not quite sure of the details; appendectomy, , kidney surgery, nose surgery, oral surgery, tooth extraction, vaginal hysterectomy and port placement. FAMILY HISTORY: None of significance and there is no premature coronary disease. SOCIAL HISTORY: She is a former smoker. She is . She lives with her . ALLERGIES: INCLUDE ADHESIVES, CODEINE, CRAB LEVAQUIN, METRONIDAZOLE, NITROFURANTOIN AND SULFA. PHYSICAL EXAMINATION: Date Time Temp Pulse Resp B/P (MAP) Pulse Ox O2 Delivery O2 Flow Rate FiO2 01/19/17 16:22 36.6 71 18 161/79 (106) 98 Room Air 01/19/17 16:20 Room Air 01/19/17 12:00 Room Air 01/19/17 11:52 36.6 65 18 163/86 (111) 99 Room Air 01/19/17 08:00 Room Air 01/19/17 07:59 36.4 70 18 192/78 (116) 98 Room Air 01/19/17 04:10 36.6 68 16 174/76 (108) 98 Room Air 01/19/17 00:16 36.5 76 16 157/66 (96) 98 Room Air 01/19/17 00:00 Room Air 01/18/17 22:37 165/76 (105) 01/18/17 22:07 98 Room Air 01/18/17 21:33 36.4 18 190/128 (148) 98 Room Air 01/18/17 21:00 36.6 88 16 202/81 98 01/18/17 20:44 88 202/ 98 01/18/17 20:30 81 16 140/120 GENERAL: She is awake, alert, oriented x3, fatigued, but pleasant, in no acute distress. HEENT: Normocephalic, atraumatic. Mucous membranes are moist. CARDIOVASCULAR: Regular. No rubs, murmurs, or gallops. LUNGS: Clear to auscultation bilaterally. No rales, rhonchi, or wheezes with good effort. ABDOMEN: Soft, nondistended. er. RECTAL: Yellow brown stool, thrombosed hemorrhoid that is very tender to palpation EXTREMITIES: Show no cyanosis or clubbing. SKIN: Shows no rashes, no pallor or icterus. NEUROLOGIC: Cranial nerves II-XII are grossly intact. Gross motor and sensory are intact. MENTAL STATE: Shows good recent and remote recall. Normal mood and affect. Good judgment and insight. LABS AND DIAGNOSTICS: Labs reviewed ASSESSMENT AND PLAN: Rectal bleeding, thrombosed hemorrhoid - Regarding hemorrhoid - Miralax, sitz baths, steroid suppositories, surgery consult - Regarding bleeding - Presumably this is perianal, although I cannot rule out proximal source. Appears small volume; may consider outpt cscopy, once hemorrhoid resolves, if persistent, or if develops clinically significant bleeding. Please call us with questions.
[2017-01-19] MEDS: LORAZEPAM 0.5 MG TAB PO SCH (20:59)
[2017-01-20 04:06] VITALS: BP 174/72; PULSE 64; TEMP 36.8; O2SAT 97
[2017-01-20] MEDS ORDERED: HYDROCORTISONE ACETATE 25 MG SUPP PR SCH (08:00)
[2017-01-20] MEDS ORDERED: POLYETHYLENE (MIRALAX) 17 GM PACK PO SCH (08:00)
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
[2017-01-20 08:13] VITALS: BP_SYST 177; BP_SYST 184; BP_DIAS 79; BP_DIAS 93; PULSE 79; TEMP 36.8; O2SAT 95
[2017-01-20] MEDS: CALCIUM 600MG + VIT D 400 IU TAB PO SCH (08:35)
[2017-01-20] MEDS: METOPROLOL TARTRATE 25 MG TAB PO SCH (08:36)
[2017-01-20] MEDS: CEROVITE ADV FORMULA TAB PO SCH (08:36)
[2017-01-20] MEDS ORDERED: SODIUM CHLORIDE 0.9% 1000ML 1,000 ML IV SCH (10:30)
--- NOTE | 2017-01-20 10:41 | Gastroenterology Progress Note ---
Progress Note Date of Service: Jan 20, 2017 Subjective Pt evaluation today including: conversation w/ patient, physical exam, chart review, lab review, review of inpatient medication list Patient reports a reduction in bright red rectal bleeding. H&H has remained stable. Dr. Mclean evaluated patient yesterday and had consulted general surgery. Patient seen by Dr. Wilson. No plans for emergent hemorrhoidectomy. CT a/ p has been ordered to evaluate bleeding further. Testing is pending. Patient denies any abdominal pain. Hydrocortisone suppositories and MiraLAX has been ordered. Review of Systems Constitutional: No fever, No chills Abdomen: + see HPI Neuro: No problem reported Medications Current Inpatient Medications Medications (Trade) Dose Ordered Sig/Solitario Route Start Time Stop Time Status Last Admin Dose Admin Acetaminophen (Tylenol Tab) 650 mg Q4H PRN PO 01/18/17 20:15 02/17/17 20:14 01/19/17 11:57 650 MG Al Hydrox/Mg Hydrox/Simethicone (Maalox Max Susp) 15 ml Q4H PRN PO 01/18/17 20:15 02/17/17 20:14 Magnesium Hydroxide (Milk Of Magnesia Susp) 30 ml Q6H PRN PO 01/18/17 20:15 02/17/17 20:14 Polyethylene (Miralax Powder Packet) 17 gm DAILY PRN PO 01/18/17 20:15 02/17/17 20:14 Ondansetron HCl (Zofran Inj) 4 mg Q6H PRN IV 01/18/17 20:15 02/17/17 20:14 Calcium/Vitamin D (Caltrate Plus Tab) 1 tab QAM PO 01/19/17 08:00 02/18/17 08:59 01/20/17 08:35 1 TAB Lorazepam (Ativan Tab) 0.5 mg HS PO 01/18/17 21:00 02/17/17 20:59 01/19/17 20:59 0.5 MG Metoprolol Tartrate (Lopressor Tab) 25 mg BID PO 01/18/17 21:00 02/17/17 20:59 01/20/17 08:36 25 MG Multivitamins/ Minerals (Multivitamin W/ Minerals Tab) 1 tab QAM PO 01/19/17 08:00 02/18/17 08:59 01/20/17 08:36 1 TAB Pantoprazole Sodium (Protonix Tab) 40 mg DAILY PRN PO 01/19/17 08:00 02/18/17 07:59 Hydralazine HCl (HydrALAZINE INJ) 5 mg Q4 PRN IV. 01/18/17 20:15 02/17/17 20:14 01/18/17 21:45 5 MG Miscellaneous (Iv Fluids Completed) 1 ea PRN PRN N/A 01/18/17 21:45 01/18/18 21:44 Hydrocortisone Acetate (Anusol Hc Supp) 25 mg DAILY MS 01/20/17 08:00 02/19/17 07:59 Polyethylene (Miralax Powder Packet) 17 gm DAILY PO 01/20/17 08:00 02/19/17 07:59 Sodium Chloride 1,000 ml @ 80 mls/hr [id number] IV 01/20/17 10:30 02/19/17 10:29 UNV Objective Vital Signs Date Time Temp Pulse Resp B/P (MAP) Pulse Ox O2 Delivery O2 Flow Rate FiO2 01/20/17 10:11 Room Air 01/20/17 08:13 36.8 79 16 184/79 (114) 95 Room Air 177/93 (121) 01/20/17 04:06 36.8 64 18 174/72 (106) 97 Room Air 01/20/17 00:05 Room Air 01/19/17 23:32 36.8 71 18 150/71 (97) 95 Room Air 01/19/17 19:17 36.7 72 18 161/82 (108) 97 Room Air 01/19/17 16:22 36.6 71 18 161/79 (106) 98 Room Air 01/19/17 16:20 Room Air 01/19/17 12:00 Room Air 01/19/17 11:52 36.6 65 18 163/86 (111) 99 Room Air Physical Exam General Appearance: no apparent distress Eyes: EOMI ENT: hearing grossly normal Neck: supple Respiratory/Chest: lungs clear, normal breath sounds, no respiratory distress Cardiovascular: regular rate, rhythm, no gallop, no murmur Abdomen: normal bowel sounds, non tender, soft, + distended Neurologic/Psych: alert, normal mood/affect, oriented x 3 Assessment and Plan Patient is a 81 year-old female with a history of colon cancer status post right hemicolectomy and adjuvant chemotherapy admitted with bright red rectal bleeding and hemorrhoids. 1. Await CT a/p as ordered. 2. Continue supportive measures with topical hydrocortisone and laxatives as ordered. 3. Patient may need a colonoscopy, but timing to be determined pending results of imaging. Agree with RAFIA Bentley as above Patient discharged prior to my evaluation
[2017-01-20] MEDS ORDERED: OPTIRAY 320 IV PRN (10:45)
[2017-01-20 11:35] VITALS: BP 157/80; PULSE 72; TEMP 36.7; O2SAT 99
--- NOTE | 2017-01-20 13:57 | DIAGNOSTIC IMAGING REPORT ---
ABD/PELVIS IV CONTRAST ONLY HISTORY: 81 years-old Female abdominal pain, kay rectal induration, recent colon m resection . History of colorectal carcinoma with recent partial sigmoid resection. History of renal cell carcinoma with nephrectomy. COMPARISON: CT abdomen and pelvis 09/22/2016, PET CT 12/16/2016, abdominal MRI 12/11/2015. TECHNIQUE: Multiple axial CT images of the abdomen and pelvis were obtained following the intravenous administration of 93 mL Optiray 320. Oral contrast was also used. A dose lowering technique was used consistent with the principals of PHIL. FINDINGS: Lung bases are generally clear with mild segmental atelectasis. There is no pneumoperitoneum identified. Imaged inferior cardiac chambers are unremarkable. There is a 1.2 cm hyperdense lesion of the medial left hepatic lobe with 1.1 cm lesion of the lateral left hepatic lobe are again seen compatible with hemangiomas as noted on prior studies. There is redemonstration of multiple low attenuating lesions throughout the hepatic parenchyma, largest of which measure up to 2.0 cm within the right greater than left hepatic lobes compatible with FDG avid metastasis seen on comparison study 12/16/2016. The spleen, pancreas and adrenal glands are unremarkable. Multiple gallstones are seen within the gallbladder lumen without CT evidence of acute cholecystitis. Prior left-sided nephrectomy. Right kidney is within normal limits. There is mild prominence of the right ureter without obstructing stone or mass. There is mild distention of the urinary bladder lumen. Prior hysterectomy. There is moderate atherosclerotic plaquing of the abdominal aorta without bulky retroperitoneal adenopathy identified. There is no bowel obstruction. 7.1 x 6.2 cm distal bowel seen within the rectal vault with associated rectal wall thickening and mild surrounding stranding suggesting stercoral proctitis. Prior partial sigmoid colon resection with anastomotic site intact. No evidence of proximal obstruction. Scattered noninflamed colonic diverticula are noted. Moderate stool volume is seen. The appendix is not identified. No secondary evidence of acute appendicitis. No focal bowel wall thickening. The bones are intact. On millimeters sclerotic focus of the right iliac wing is unchanged from comparison. No new suspicious lytic or sclerotic foci identified. There is mild convex right curvature of the lumbar spine. Degenerative changes are seen within the lower lumbar spine. IMPRESSION: 1. Prior partial sigmoid colon resection with anastomosis. No evidence of bowel obstruction or new metastatic disease. 2. Multiple hepatic metastasis redemonstrated. 3. No new pathologic-appearing adenopathy identified. 4. Moderate stool burden with findings suggestive of stercoral proctitis. 5. Cholelithiasis without CT evidence of acute cholecystitis. 6. Colonic diverticulosis without diverticulitis. The above report was generated using voice recognition software. It may contain grammatical, syntax or spelling errors. Electronically signed by: Gilbert Mccann M.D. 01/20/2017 1:55 PM Dictated Date/Time: 01/20/2017 1:33 PM
[2017-01-20] MEDS ORDERED: ANSHCCR PR (14:55)
[2017-01-20] MEDS ORDERED: ANSHCS PR (14:55)
[2017-01-20] MEDS ORDERED: MRLP17 PO (14:55)
--- NOTE | 2017-01-20 14:57 | Discharge Instructions ---
Discharge Instructions Date of Service Jan 20, 2017. Admission Reason for Admission: Rectal Bleed Discharge Discharge Diagnosis / Problem: rectal pain / hemorrhoids Discharge Goals Goal(s): Decrease discomfort Activity Recommendations Activity Limitations: resume your previous activity . Instructions / Follow-Up Instructions / Follow-Up follow up with your chemotherapy appointment tomorrow Sitz bath twice a day; A sitz bath is a warm, shallow bath that cleanses the perineum, which is the space between the rectum and the vulva or scrotum. A sitz bath can be used for everyday personal hygiene. It can also provide relief from pain or itching in the genital area Current Hospital Diet Patient's current hospital diet: Regular Diet Discharge Diet Recommended Diet: Regular Diet Pending Studies Studies pending at discharge: no Medical Emergencies . Who to Call and When: Medical Emergencies: If at any time you feel your situation is an emergency, please call 911 immediately. . Non-Emergent Contact Non-Emergency issues call your: Primary Care Provider, Structural Steel Worker Helper, Oncologist . . "Provider Documentation" section prepared by Nelda Oliveira. . VTE Core Measure Inpt VTE Proph given/why not?: SCD's
[2017-01-20 14:59] VITALS: BP 157/80; PULSE 72; TEMP 36.7; O2SAT 99
[2017-01-20 15:15] VITALS: BP 168/86; PULSE 84; TEMP 36.6; O2SAT 97
--- NOTE | 2017-01-20 15:15 | Discharge Summary ---
Discharge Summary Date of Service Jan 20, 2017. 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 Mets Immunizations: Have You Had Influenza Vaccine: Yes Influenza Vaccine Date: Mar 22, 2012 History of Tetanus Vaccine?: UTD Tetanus Immunization Date: Jun 20, 2011 History of Pneumococcal: Yes Pneumococcal Date: Mar 23, 2002 History of Hepatitis B Vaccine: No Medication Reconciliation New Medications: Hydrocortisone Acetate (Anucort-Hc) 25 Mg Supp 25 MG HI DAILY for 30 Days, #30 SUPP use the cream outside on the hemmorrhoid Polyethylene (Miralax) 17 Gm Pow 17 GM PO DAILY for 30 Days, #30 PKT Changed Medications: Hydrocortisone (Proctosol Hc) 90 Appln/30 Gm Cr 1 APPLN HI PRN for 7 Days, #60 GM (Changed from: 28.35) use the cream around the anus area and inside the rectum Continued Medications: Acetaminophen (Tylenol) 500 Mg Tab 1000 MG PO PRN, TAB Aspirin (Aspirin Ec) 81 Mg Tab 81 MG PO DAILY Calcium Carbonate-Vitamin D W/ (Caltrate 600 Plus) 1 Tab Tab 1 TAB PO QAM, TAB Lorazepam (Lorazepam) 0.5 Mg Tab 0.5 MG PO HS, #30 Metoprolol Tartrate (Lopressor) 25 Mg Tab 25 MG PO BID, TAB Multiple Vitamins W/ Minerals (Centrum Silver Adult 50+) 1 Tab Tab 1 TAB PO QAM Omeprazole (Prilosec) 20 Mg Capcr 20 MG PO QAM PRN for Indigestion, CAP Referrals At Discharge Follow up Referrals: District Captain Referral - Within 1-2 Weeks with Sandy Mclean M.D. Surgery Referral - Within 1-2 Weeks with Kathy Wilson M.D. Discharge Exam Review of Systems: Constitutional: No fever, No chills, No sweats, No weight loss, No weakness , No fatigue, No problem reported Eyes: No worsening of vision, No eye pain, No redness, No discharge, No diplopia, No problem reported ENT: No hearing loss, No unusual epistaxis, No nasal symptoms, No sore throat, No tinnitus, No dental problems, No trouble swallowing, No problem reported Respiratory: No cough, No sputum, No wheezing, No shortness of breath, No dyspnea on exertion, No dyspnea at rest, No hemoptysis, No problem reported Cardiovascular: No chest pain, No orthopnea, No PND, No edema, No claudication, No palpitations, No problem reported Abdomen: + problem reported (rectal pain / tenderness), No pain, No nausea, No vomiting, No diarrhea, No constipation, No GI bleeding Musculoskeletal: No joint pain, No muscle pain, No swelling, No calf pain, No problem reported Genitourinary - Female: No dysuria, No urinary frequency, No urinary urgency , No urinary incontinence, No urinary retention, No hematuria, No dysmenorrhea, No menorrhagia, No metrorrhagia, No rash, No vaginal bleeding, No vaginal discharge, No vaginal itching, No vulvodynia, No , No problem reported Neurologic: No memory loss, No paralysis, No weakness, No numbness/tingling , No vertigo, No balance problems, No problem reported Psychiatric: No depression symptoms, No anhedonism, No anxiety, No insomnia , No substance abuse, No problem reported Endocrine: No fatigue, No excessive thirst, No excessive urination, No problem reported Hematologic / Lymphatic: No abnormal bleeding/bruising, No clotting problems , No swollen lymph nodes, No night sweats, No problem reported Integumentary: No rash, No itch, No new/changing skin lesions, No color change, No bleeding, No problem reported Physical Exam: General Appearance: WD/WN, no apparent distress Eyes: normal inspection, EOMI ENT: normal ENT inspection, hearing grossly normal Neck: supple Respiratory/Chest: chest non-tender, lungs clear, normal breath sounds Cardiovascular: regular rate, rhythm, no edema, no gallop, no murmur Abdomen / GI: normal bowel sounds, non tender, soft, no organomegaly, no pulsatile mass, + pertinent finding (inflammed , tender hemmrhoids on rectal exam, not thrombosed) Extremities: normal inspection, no calf tenderness Neurologic/Psychiatric: wool spotter II-XII nml as tested, normal mood/affect, oriented x 3 Skin: normal color, warm/dry, no rash Hospital Course 81 year old pleasant female with recent diagnosis of colon cancer S/P sigmoidectomy and anastomosis on 11/04/16. currently on chemotherapy and has an appointment tomorrow presented with minimal amount of GI bleed and severe pain/tenderness n the anus seen by GI who recommended stool softener, sitz bath, steroid sup. surgery recommended CT scan abd/pelvis that showed possible liver Mets surgery saw no indication for Hemorrhoid resection patient was given a copy of the report and discharge on rectal steroid sup. and cream she will follow up as an out patient with GI / surgery / oncologist she currently feels better. will have a colonoscopy as an out patient at some point Hgb level has been stable indicating minimal rectal bleed Total Time Spent: Greater than 30 minutes This includes examination of the patient, discharge planning, medication reconciliation, and communication with other providers. Discharge Instructions Please refer to the electronic Patient Visit Report (Discharge Instructions) for additional information.
== END 2017-01-20 16:30 | disposition home or self-care (01) ==
LOC: C.EDB 17:57 → C.4E 20:15 → ENRESERV 20:32
PROVIDERS: ADMIT Family Medicine; ATTEND Internal Medicine
DX: K64.5 Perianal venous thrombosis (principal); C18.9 Malignant neoplasm of colon, unspecified; E21.3 Hyperparathyroidism, unspecified; K21.9 Gastro-esophageal reflux disease without esophagitis; R73.02 Impaired glucose tolerance (oral); E78.00 Pure hypercholesterolemia, unspecified; N18.3 Chronic kidney disease, stage 3 (moderate); Z90.49 Acquired absence of other specified parts of digestive tract; Z79.82 Long term (current) use of aspirin; Z90.710 Acquired absence of both cervix and uterus; Z87.891 Personal history of nicotine dependence; Z82.49 Family history of ischemic heart disease and other diseases of the circulatory system; Z84.1 Family history of disorders of kidney and ureter

== ENCOUNTER → 2017-02-13 | Outpatient (CLI) | payer BC ==
[~2017-02-13] MED LIST changes: +ANSHCS PR; -ASPCH81X PO; +ASPI81TA28 PO; -ESCI10TA17 PO; +MRLP17 PO
[2017-02-13 17:56] LABS: BASO % 0.3 %; BASO ABS # 0.02 K/uL (0-0.2); EOS % 8.8 %; HEMATOCRIT 37.9 % (37-47); IG% 0.1 %; LYMPH ABS # 2.23 K/uL (1.2-3.4); MEAN CORPUSCULAR HEMOGLOBIN 24.6 pg (25-34); MEAN CORPUSCULAR HGB CONC 30.3 g/dl (32-36); MEAN PLATELET VOLUME 9.7 fL (7.4-10.4); MONO % 5.3 %; NEUT % 53.5 %; PLATELET COUNT 316 K/uL (130-400); RED BLOOD COUNT 4.68 M/uL (4.2-5.4); WHITE BLOOD COUNT 6.96 K/uL (4.8-10.8)
[2017-02-13 18:10] LABS: BLOOD UREA NITROGEN 15 mg/dl (7-18); CALCIUM 9.8 mg/dl (8.5-10.1); CARBON DIOXIDE 27 mmol/L (21-32); CHLORIDE 103 mmol/L (98-107); GLUCOSE 101 mg/dl (70-99); POTASSIUM 4.3 mmol/L (3.5-5.1); SODIUM 137 mmol/L (136-145)
[2017-02-13 18:18] LABS: COMPLETE YES; POIKILOCYTOSIS PRESENT
== END | disposition home or self-care (01) ==
LOC: C.LABPVFM 15:53
PROVIDERS: ATTEND Nurse Practitioner
DX: I10 Essential (primary) hypertension (principal); D64.9 Anemia, unspecified

== ENCOUNTER → 2017-04-07 | Outpatient (CLI) | payer BC | END | disposition home or self-care (01) | LOC: C.LABPVFM 13:09 | PROVIDERS: ATTEND Nurse Practitioner | DX: R31.9 Hematuria, unspecified (principal) ==

== ENCOUNTER → 2017-05-01 | Outpatient (CLI) | payer BC ==
[2017-05-06 14:36] LABS: HERPES SIMPLEX CULT SOURCE OTHER-LESION OF LIP; HERPES SIMPLEX VIRUS CULT ISOLATED (NOT ISOLATED)
== END | disposition home or self-care (01) ==
LOC: C.LABPVFM 17:19
PROVIDERS: ATTEND Nurse Practitioner
DX: K13.0 Diseases of lips (principal)

== ENCOUNTER → 2017-05-28 | Outpatient (CLI) | payer BC ==
[~2017-05-28] MED LIST changes: +AGMUDL4005 PO; +AMIT25TA9 PO; +AMLO5TAB3 PO; +CRFL PO; +LACTCAP PO; +LANS30TA PO; +MECL1TAB40 PO; +MRLP527 PO; +NRN/300 PO; +OMEP20CA9 PO; +OPTIRAY 320 IV PRN
--- NOTE | 2017-05-28 15:45 | DIAGNOSTIC IMAGING REPORT ---
CHEST CT WITH CONTRAST HISTORY: Follow-up study in a patient with history of colorectal carcinoma COLON CANCER. Prior partial sigmoid colon resection and hepatic metastasis TECHNIQUE: Multiaxial CT images of the chest were performed following the intravenous administration of contrast. A dose lowering technique was utilized adhering to the principles of ALARA. COMPARISON: Chest CT 10/11/2016, PET CT 12/16/2016, CT abdomen and pelvis 01/20/2017. FINDINGS: Indeterminate 1.2 x 0.8 cm low attenuating nodule of the posterior right thyroid lobe appears unchanged. Thyroid appears mildly heterogeneous. Mildly enlarged precarinal lymph node measures 11 mm in short axis and contains a central punctate calcification, unchanged from comparison. Calcified bilateral hilar lymph nodes are also seen suggesting prior granulomatous disease. Nonenlarged bilateral axillary lymph nodes are present. Left subclavian [id number] catheter is noted with distal tip near the brachiocephalic SVC confluence. The heart is upper limits of normal without pericardial effusion. Coronary arterial calcifications are present. Moderate atherosclerosis of the aorta. The imaged great vessels appear patent. No aortic aneurysm or dissection. Atherosclerosis at the origin of the right renal artery appears to cause approximately 50% narrowing. There is also narrowing at the origin of the superior mesenteric artery which appears to be approximately 50%. The opacified pulmonary arterial tree is unremarkable. There is no pneumothorax, pleural effusion or focal airspace consolidation. Mild biapical pleural-parenchymal scarring. There is mild mucous plugging within bronchi of the left upper lobe as seen on image 50 series 4. 2 mm subpleural nodule of the right upper lobe is seen on image 69 series 4, unchanged and likely benign. Linear subsegmental pleural based opacity of the medial segment right middle lobe suggesting area of scarring/atelectasis. No new suspicious pulmonary nodules identified. Central airways are patent. Cholelithiasis. No acute amount of the imaged upper abdomen. Multiple hepatic metastasis redemonstrated calcifications of the breasts. No suspicious lytic or blastic bony lesions identified to suggest metastasis to the bones. IMPRESSION: 1. No acute intrathoracic abnormality identified. No evidence of thoracic metastatic disease. 2. No new pathologic adenopathy. 3. Hepatic metastasis redemonstrated. 4. Cholelithiasis. Electronically signed by: Gilbert Mccann M.D. 05/28/2017 3:43 PM Dictated Date/Time: 05/28/2017 3:36 PM
--- NOTE | 2017-05-28 15:48 | DIAGNOSTIC IMAGING REPORT ---
CT ABD/PELVIS IV AND ORAL CONT CLINICAL HISTORY: Colon carcinoma COMPARISON STUDY: 01/20/2017 TECHNIQUE: Following the IV administration of 68 mL of Optiray-320, CT scan of the abdomen and pelvis was performed from the lung bases to the proximal femurs. Images are reviewed in the axial, sagittal, and coronal planes. IV contrast was administered without complication. A dose lowering technique was utilized adhering to the principles of ALARA. CT DOSE: 455.75 mGy.cm FINDINGS: Lower chest: The heart is normal in size and configuration, without pericardial effusion. The lung bases and pleural spaces are clear. Liver: There is mild hepatic steatosis. There is a small hypervascular focus within the left hepatic lobe anteriorly measuring 1 cm. This was not visualized the prior study. The previously identified hypodense hepatic masses are symmetrically smaller than on the preceding study. An index mass in the right hepatic lobe currently measures 14 mm. This previously measured 24 mm. Gallbladder: Cholelithiasis Spleen: Normal in size and attenuation. Pancreas: Unremarkable. Adrenal glands: Unremarkable. Kidneys: The left kidney appears surgically absent. No right renal masses are visualized. There is no hydronephrosis. Bowel: Post surgical changes are visualized within the sigmoid. There is fecal retention. There are no transition zones indicate bowel obstruction. There is no free air. No acute inflammatory changes are visualized. Peritoneum: There is no intraperitoneal free air or abdominal ascites. Vasculature: The abdominal aorta is normal in course and caliber. Adenopathy: None. Pelvic viscera: The uterus appears surgically absent Skeletal structures: There is stable nonspecific 5 mm sclerotic focus within the left iliac bone. There is a stable 9 mm sclerotic focus within the right iliac bone. IMPRESSION: 1. Significant interval decrease in the size and number of the previously described hepatic masses. The findings are consistent with a treatment response. 2. Cholelithiasis 3. Fecal retention. 4. Stable nonspecific subcentimeter sclerotic iliac bone lesions Electronically signed by: Giovanni Santiago M.D. 05/28/2017 3:47 PM Dictated Date/Time: 05/28/2017 3:40 PM
== END | disposition home or self-care (01) ==
LOC: C.CTS 14:10
PROVIDERS: ATTEND Internal Medicine Hematology & Oncology
DX: C18.8 Malignant neoplasm of overlapping sites of colon (principal)

== ENCOUNTER → 2017-08-04 | Outpatient (CLI) | payer BC ==
[~2017-08-04] MED LIST changes: -AGMUDL4005 PO; -AMIT25TA9 PO; -AMLO5TAB3 PO; -CRFL PO; -LACTCAP PO; -LANS30TA PO; -MECL1TAB40 PO; -MRLP527 PO; -NRN/300 PO; -OMEP20CA9 PO; -OPTIRAY 320 IV PRN
--- NOTE | 2017-08-04 13:53 | DIAGNOSTIC IMAGING REPORT ---
PET/CT CLINICAL HISTORY: COLORECTAL CANCER TECHNIQUE: A PET/CT was performed from the skull base through the upper thighs following intravenous injection of 13.13 mCi of F 18 FDG IV. The injection was performed at 8:57 AM on August 04, 2017 and imaging began at 9:52 AM on August 04, 2017. Unenhanced CT was performed for attenuation correction purposes and anatomic localization. COMPARISON STUDY: PET/CT December 16, [address] of the chest, abdomen and pelvis May 28, 2017. FINDINGS: Head and neck: No abnormal FDG uptake is identified within the neck. There is no cervical lymphadenopathy. Chest: There is no suspicious FDG uptake within the chest. Mild cardiomegaly is noted. There are no enlarged thoracic lymph nodes. No suspicious pulmonary nodules are noted although sensitivity is diminished given respiratory motion artifact inherent to PET/CT imaging. Abdomen and Pelvis: The size and FDG avidity of numerous liver lesions shown on PET/CT of December 16, 2016 have markedly improved. A 1.3 cm segment 5 hepatic lesion shown image 114 of 223 demonstrates mild residual FDG uptake with an SUV max of 3.7. The SUV max previously measured 16.3. The remainder of the lesion shown on prior PET/CT and demonstrate FDG uptake which is similar to background liver parenchyma. No new hepatic lesions are present. A few hemangiomas are again noted, better depicted on prior studies. The left kidney is not visualized. There is no abdominal or pelvic lymphadenopathy. A sigmoid anastomosis is noted. There is no bowel obstruction. There has been interval development of moderate rectal wall thickening and perirectal infiltration which extends superiorly since abdominal CT of May 28, 2017. There is mild to moderate FDG uptake within the rectum and anus within SUV max of 6.6 within the anus. This anal uptake is similar to prior exam of December 16, 2016. Musculoskeletal: No suspicious skeletal uptake is identified. IMPRESSION: 1. Findings consistent with a near complete treatment response with marked decrease in size and FDG avidity of numerous hepatic metastases since PET/CT of December 16, 2016. Mild residual FDG uptake within a segment 5 lesion. No new hepatic lesions. 2. Interval development of moderate rectal wall thickening with perirectal infiltration. Mild to moderate associated FDG uptake. This favors an infectious or inflammatory process such as proctitis. This should be assessed on subsequent exams to ensure resolution. Electronically signed by: Gurvinder Bui M.D. 08/04/2017 1:51 PM Dictated Date/Time: 08/04/2017 12:01 PM
== END | disposition home or self-care (01) ==
LOC: C.PET 08:39
PROVIDERS: ATTEND Internal Medicine Hematology & Oncology
DX: C18.8 Malignant neoplasm of overlapping sites of colon (principal)

== ENCOUNTER → 2017-08-26 | Outpatient (CLI) | payer BC ==
--- NOTE | 2017-08-26 13:33 | DIAGNOSTIC IMAGING REPORT ---
L VENOUS DOPP LOWER EXT UNILAT CLINICAL HISTORY: 81 years-old Female presenting with LT LEG PAIN/SWELLING. TECHNIQUE: Real-time grayscale and color and spectral Doppler ultrasound imaging of the veins of the left lower extremity was performed. Compression and augmentation were also utilized. COMPARISON: None. FINDINGS: Left: Common femoral vein: Patent. Greater saphenous vein: Patent. Deep femoral vein: Patent. Femoral vein: Patent. Popliteal vein: Patent. Calf veins: Patent. Other: None. IMPRESSION: No evidence of deep venous thrombosis. Electronically signed by: Randell Moncada M.D. 08/26/2017 1:32 PM Dictated Date/Time: 08/26/2017 1:31 PM
== END | disposition home or self-care (01) ==
LOC: C.ULTRBC 12:51
PROVIDERS: ATTEND Internal Medicine Hematology & Oncology
DX: C18.8 Malignant neoplasm of overlapping sites of colon (principal); M79.605 Pain in left leg; R22.42 Localized swelling, mass and lump, left lower limb

== ENCOUNTER 2017-09-22 14:07 | Emergency (ER) | payer BC ==
[~2017-09-22] VITALS: Ht 157.5 cm; Wt 52.1 kg
[2017-09-22 14:12] VITALS: Ht 157.5 cm; Wt 52.1 kg
[2017-09-22] MEDS ORDERED: LORAZEPAM 2 MG/ML 1 ML VIAL IV STA (14:28)
--- NOTE | 2017-09-22 14:30 | EMERGENCY ROOM VISIT NOTE ---
History Report prepared by Fili: Prudence Pierce Under the Supervision of: Dr. Yoav Rincon D.O. First contact with patient: 14:20 Chief Complaint: FOOD BOLUS Stated Complaint: CHOKING ON PILL History of Present Illness The patient is a 82 year old female who presents to the Emergency Room with complaints of persistently choking on a pill which began about 20 minutes ago. She reports that she has been having trouble swallowing her Amoxicillin because of the size of the pill, noting that is what is currently stuck in her throat. The patient states that she currently can swallow but not without difficulties. She notes that when she tries drinking liquids she begins coughing and gaging. The patient states that she has had several large pills stuck in her throat before, noting that it has been due to the size of the pills. Source of History: patient Onset: 20 minutes ago Position: throat Quality: other (choking) Timing: other (persistent) Modifying Factors (Worsening): drinking, other (swallowing ) Note: Associated symptom: swallowing with difficulty. Review of Systems See HPI for pertinent positives & negatives. A total of 10 systems reviewed and were otherwise negative. 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 Family History Cancer FH: heart disease FH: kidney disease Hypertension Social History Smoking Status: Never Smoker Alcohol Use: none Drug Use: none Marital Status: Housing Status: lives with family Occupation Status: unemployed Current/Historical Medications Scheduled Acetaminophen (Tylenol), 1,000 MG PO PRN Aspirin (Aspirin Ec), 81 MG PO DAILY Calcium Carbonate-Vitamin D W/ (Caltrate 600 Plus), 1 TAB PO QAM Hydrocortisone (Proctosol Hc), 1 APPLN GA PRN Hydrocortisone Acetate (Anucort-Hc), 25 MG GA DAILY Lorazepam (Lorazepam), 0.5 MG PO HS Metoprolol Tartrate (Lopressor), 25 MG PO BID Multiple Vitamins W/ Minerals (Centrum Silver Adult 50+), 1 TAB PO QAM Polyethylene (Miralax), 17 GM PO DAILY Scheduled PRN Omeprazole (Prilosec), 20 MG PO QAM PRN for Indigestion Allergies Coded Allergies: Levofloxacin (Verified Allergy, Intermediate, HIVES, 01/18/17) Crab (Verified Allergy, Mild, DIZZY AND THROWS UP, 01/18/17) Nitrofurantoin (Verified Allergy, Unknown, NAUSEA, 01/18/17) Adhesives (Verified Adverse Reaction, Mild, SKIN IRRITATION WITH SOME TAPES, 09/22/17) Codeine (Verified Adverse Reaction, Mild, NAUSEA, 01/18/17) Metronidazole (Verified Adverse Reaction, Mild, nausea and vomiting, ) Sulfa Antibiotics (Verified Adverse Reaction, Mild, SICK TO STOMACH, ) Physical Exam Vital Signs Date Time Temp Pulse Resp B/P (MAP) Pulse Ox O2 Delivery O2 Flow Rate FiO2 09/22/17 19:01 36.6 91 16 142/69 97 Room Air 09/22/17 18:34 36.8 82 16 133/67 96 Room Air 09/22/17 18:00 37.6 83 16 130/64 97 Room Air 09/22/17 17:46 151/64 09/22/17 17:43 82 21 98 09/22/17 17:43 83 21 09/22/17 17:42 84 22 98 09/22/17 17:42 82 22 09/22/17 17:42 84 22 98 09/22/17 17:42 82 22 09/22/17 17:41 154/67 09/22/17 17:41 154/67 09/22/17 17:40 36.6 83 20 154/67 (82) 97 Room Air 09/22/17 17:37 83 17 09/22/17 17:37 83 17 09/22/17 17:37 82 17 96 09/22/17 17:37 82 17 96 09/22/17 17:36 148/65 09/22/17 17:36 148/65 09/22/17 17:32 82 20 09/22/17 17:32 81 20 100 09/22/17 17:32 81 20 100 09/22/17 17:32 82 20 4/30/18 17:31 143/66 09/22/17 17:31 143/66 09/22/17 17:27 84 22 100 09/22/17 17:27 84 22 09/22/17 17:27 84 22 09/22/17 17:27 84 22 100 09/22/17 17:26 142/64 09/22/17 17:26 142/64 09/22/17 17:22 87 19 09/22/17 17:22 88 19 100 09/22/17 17:22 88 19 100 09/22/17 17:22 87 19 09/22/17 17:21 149/72 09/22/17 17:21 149/72 09/22/17 17:17 91 25 100 09/22/17 17:17 91 25 100 09/22/17 17:17 91 25 09/22/17 17:17 91 25 09/22/17 17:16 151/74 09/22/17 17:16 151/74 09/22/17 17:13 157/72 09/22/17 17:13 157/72 09/22/17 17:12 94 100 09/22/17 17:12 94 100 09/22/17 17:12 36.7 93 16 157/72 99 Room Air 10 Oxymask 09/22/17 17:12 94 09/22/17 17:12 94 09/22/17 15:54 85 18 149/75 96 09/22/17 15:18 85 09/22/17 14:56 96 Room Air 09/22/17 14:42 97 Room Air 09/22/17 14:42 97 Room Air 09/22/17 14:12 37.0 97 18 149/75 97 Room Air Physical Exam GENERAL: Patient is awake, alert, and in no acute distress. Patient is mildly anxious appearing but comfortably. EYES: The conjunctivae are clear. The pupils are round and reactive. EARS, NOSE, MOUTH AND THROAT: The nose is without any evidence of any deformity. Mucous membranes are moist tongue is midline NECK: The neck is nontender and supple. RESPIRATORY: Normal respiratory effort is noted there is no evidence of wheezing rhonchi or rales CARDIOVASCULAR: Regular rate and rhythm noted there no murmurs rubs or gallops normal S1 normal S2 GASTROINTESTINAL: The abdomen is soft. Bowel sounds are present in all quadrants. Abdomen is nontender MUSCULOSKELETAL/EXTREMITIES: There is no evidence of gross deformity full range of motion is noted in the hips and shoulders SKIN: There is no obvious evidence of any rash. There are no petechiae, pallor or cyanosis noted. NEUROLOGIC: Patient is awake alert and oriented x3 Medical Decision & Procedures ER Provider Diagnostic Interpretation: Radiology results as stated below per my review and radiologist interpretation: SINGLE VIEW CHEST CLINICAL HISTORY: Atypical chest pain. FINDINGS: An AP, portable, upright chest radiograph is compared to study dated 12/18/2016 and correlated with chest CT dated 05/28/2017. The examination is degraded by portable technique and patient rotation. A left subclavian central venous infusion port is in place. The tip of the catheter is coiled and may the located in the azygos vein. The heart is top normal for projection and there is atherosclerotic calcification of the thoracic aorta. The pulmonary vasculature is noncongested. Chronic interstitial thickening is similar to previous. No airspace consolidation or large pleural effusion is identified. No pneumothorax is seen. The skeletal structures are osteopenic. The bony thorax is grossly intact. IMPRESSION: 1. There is no acute cardiopulmonary abnormality. 2. The tip of the central venous infusion port catheter appears to be coiled and may be located within the azygos vein. This represent a change from 12/18/2016 examination. Electronically signed by: Ezequiel Webb M.D. 09/22/2017 3:25 PM Dictated Date/Time: 09/22/2017 3:20 PM Laboratory Results 09/22/17 14:41 Red Blood Count 3.19, Mean Corpuscular Volume 95.0, Mean Corpuscular Hemoglobin 30.7, Mean Corpuscular Hemoglobin Concent 32.3, Mean Platelet Volume 9.1 09/22/17 14:41 Test 09/22/17 14:41 White Blood Count 1.54 K/uL (4.8-10.8) Red Blood Count 3.19 M/uL (4.2-5.4) Hemoglobin 9.8 g/dL (12.0-16.0) Hematocrit 30.3 % (37-47) Mean Corpuscular Volume 95.0 fL (80-100) Mean Corpuscular Hemoglobin 30.7 pg (25-34) Mean Corpuscular Hemoglobin Concent 32.3 g/dl (32-36) Platelet Count 146 K/uL (130-400) Mean Platelet Volume 9.1 fL (7.4-10.4) RDW Standard Deviation 60.0 fL (36.4-46.3) RDW Coefficient of Variation 17.2 % (11.5-14.5) Neutrophils % (Manual) 20.0 % Lymphocytes % (Manual) 47.0 % Variant Lymphocytes % (manual) 20.0 % Monocytes % (Manual) 7.8 % Eosinophils % (Manual) 4.3 % Basophils % (Manual) 0.9 % Neutrophils # (Manual) 0.31 K/uL (1.4-6.5) Total Absolute Neutrophils 0.31 K/uL (1.4-6.5) Lymphocytes # (Manual) 0.72 K/uL (1.2-3.4) Absolute Variant Lymphocytes 0.31 K/uL Total Absolute Lymphocytes 1.03 K/uL (1.2-3.4) Monocytes # (Manual) 0.12 K/uL (0.11-0.59) Eosinophils # (Manual) 0.07 K/uL (0-0.5) Basophils # (Manual) 0.01 K/uL (0-0.2) Toxic Granulation 1+ Dohle Bodies 1+ Giant Platelets 1+ Prothrombin Time 10.7 SECONDS (9.0-12.0) Prothromb Time International Ratio 1.0 (0.9-1.1) Activated Partial Thromboplast Time 28.9 SECONDS (21.0-31.0) Partial Thromboplastin Ratio 1.1 Anion Gap 6.0 mmol/L (3-11) Est Creatinine Clear Calc Drug Dose 30.1 ml/min Estimated GFR () 52.6 Estimated GFR (Non- 45.4 BUN/Creatinine Ratio 15.0 (10-20) Calcium Level 8.8 mg/dl (8.5-10.1) Total Bilirubin 0.5 mg/dl (0.2-1) Direct Bilirubin 0.1 mg/dl (0-0.2) Aspartate Amino Transf (AST/SGOT) 20 U/L (15-37) Alanine Aminotransferase (ALT/SGPT) 23 U/L (12-78) Alkaline Phosphatase 100 U/L (45-117) Total Protein 6.9 gm/dl (6.4-8.2) Albumin 3.1 gm/dl (3.4-5.0) Lipase 121 U/L (73-393) Laboratory results per my review. Medications Administered Medications (Trade) Dose Ordered Sig/Solitario Route Start Time Stop Time Status Last Admin Dose Admin Lorazepam (Ativan Inj) 0.5 mg NOW STAT IV 09/22/17 14:28 09/22/17 14:30 DC 09/22/17 14:52 0.5 MG ED Course 1424: The patient was evaluated in room C4. A complete history and physical examination were performed. 1428: Ordered Ativan Inj 0.5mg IV. 1436: I discussed the patient's case with STEPHANIE Figueroa Logistics Program Manager. The patient will be evaluated for further management. Medical Decision Prior records/ancillary studies reviewed. Triage Nursing notes reviewed. The patient's history was concerning for nausea, vomiting, diarrhea, and abdominal pain. Differential diagnosis: Etiologies such as gastroenteritis, food borne illness, infections, appendicitis , diverticulitis, inflammatory bowel disease, obstruction, GI bleed, biliary pathology, as well as others were entertained. The patient is an 82-year-old female who presented to the emergency department for acute dysphagia after taking a pill. The patient did not appear to have a complete esophageal obstruction. I discussed the patient's condition with the on-call nnp. The patient was evaluated by gastroenterology was felt to be a good candidate for endoscopic management. The patient also was found of neutropenia. She was encouraged to follow-up with her primary oncologist for this. Medication Reconcilliation Current Medication List: was personally reviewed by me Blood Pressure Screening Patient's blood pressure: Elevated blood pressure Blood pressure disposition: Referred to PCP (monitored) Consults Time Called: [phone] Consulting Physician: STEPHANIE Figueroa Logistics Program Manager Returned Call: [phone] I discussed the patient's case with STEPHANIE Figueroa Logistics Program Manager. The patient will be evaluated for further management. Impression Primary Impression: Neutropenia Additional Impression: Esophageal foreign body Scribe Attestation The scribe's documentation has been prepared under my direction and personally reviewed by me in its entirety. I confirm that the note above accurately reflects all work, treatment, procedures, and medical decision making performed by me. Departure Information Dispostion Being Evaluated By Hospitalist Referrals Lynn Medeiros, C.R.N.P (PCP) Forms HOME CARE DOCUMENTATION FORM, IMPORTANT VISIT INFORMATION Patient Instructions [facility] Problem Qualifiers Primary Impression: Neutropenia Neutropenia type: secondary to cancer chemotherapy Qualified Codes: D70.1 - Agranulocytosis secondary to cancer chemotherapy; T45.1X5A - Adverse effect of antineoplastic and immunosuppressive drugs, initial encounter Additional Impression: Esophageal foreign body Encounter type: initial encounter Qualified Codes: T18.108A - Unspecified foreign body in esophagus causing other injury, initial encounter
[2017-09-22 15:08] LABS: PTT PATIENT 28.9 SECONDS (21.0-31.0)
[2017-09-22 15:20] LABS: CREATININE 1.12 mg/dl (0.60-1.20)
[2017-09-22 15:21] LABS: ALBUMIN 3.1 gm/dl (3.4-5.0); CALCIUM 8.8 mg/dl (8.5-10.1); POTASSIUM 3.6 mmol/L (3.5-5.1)
[2017-09-22 15:23] LABS: TOTAL PROTEIN 6.9 gm/dl (6.4-8.2)
--- NOTE | 2017-09-22 15:27 | DIAGNOSTIC IMAGING REPORT ---
SINGLE VIEW CHEST CLINICAL HISTORY: Atypical chest pain. FINDINGS: An AP, portable, upright chest radiograph is compared to study dated 12/18/2016 and correlated with chest CT dated 05/28/2017. The examination is degraded by portable technique and patient rotation. A left subclavian central venous infusion port is in place. The tip of the catheter is coiled and may the located in the azygos vein. The heart is top normal for projection and there is atherosclerotic calcification of the thoracic aorta. The pulmonary vasculature is noncongested. Chronic interstitial thickening is similar to previous. No airspace consolidation or large pleural effusion is identified. No pneumothorax is seen. The skeletal structures are osteopenic. The bony thorax is grossly intact. IMPRESSION: 1. There is no acute cardiopulmonary abnormality. 2. The tip of the central venous infusion port catheter appears to be coiled and may be located within the azygos vein. This represent a change from 12/18/2016 examination. Electronically signed by: Ezequiel Webb M.D. 09/22/2017 3:25 PM Dictated Date/Time: 09/22/2017 3:20 PM
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
[2017-09-22] MEDS ORDERED: PROPOFOL IV EMULSION 10 MG/ML 20 ML VIAL ONE (15:42)
[2017-09-22] MEDS ORDERED: LIDOCAINE HCL 2% 2 ML VIAL (20MG/ML) ONE (15:42)
[2017-09-22] MEDS ORDERED: SUCCINYLCHOLINE CHLORIDE 20 MG/ML 10 ML VIAL IV ONE (15:42)
[2017-09-22 15:44] LABS: HEMATOCRIT 30.3 % (37-47); HEMOGLOBIN 9.8 g/dL (12.0-16.0); MEAN CORPUSCULAR HEMOGLOBIN 30.7 pg (25-34); MEAN CORPUSCULAR HGB CONC 32.3 g/dl (32-36); MEAN PLATELET VOLUME 9.1 fL (7.4-10.4); PLATELET COUNT 146 K/uL (130-400); RED CELL DISTRIBUTION WIDTH CV 17.2 % (11.5-14.5); WHITE BLOOD COUNT 1.54 K/uL (4.8-10.8)
[2017-09-22] MEDS ORDERED: FENTANYL CITRATE INJ 50 MCG/1 ML 2 ML VIAL ONE ×2 (15:49→16:48)
[2017-09-22 15:54] VITALS: O2SAT 96
[2017-09-22] MEDS ORDERED: FENTANYL CITRATE INJ 50 MCG/1 ML 2 ML VIAL IV PRN (16:30)
[2017-09-22] MEDS ORDERED: ONDANSETRON INJ 2 MG/ML 2 ML VIAL IV PRN (16:30)
[2017-09-22] MEDS ORDERED: ATROPINE SULFATE 0.1 MG/ML 5ML SYR IV PRN (16:30)
[2017-09-22] MEDS ORDERED: EpHEDrine SULFATE INJ 50 MG/ML AMP IV PRN (16:30)
[2017-09-22] MEDS ORDERED: ESMOLOL HCL 10 MG/ML 10 ML VIAL ONE (16:53)
--- NOTE | 2017-09-22 17:09 | [facility] Operative Report ---
Operative Report Operative Date Sep 22, 2017. Pre-Operative Diagnosis Acute dysphagia Post-Operative Diagnosis Esophageal strictures Procedure(s) Performed EGD with dilation of proximal esophageal stricture to 12 mm and dilation of distal esophageal stricture with passage of endoscope. Surgeon Gas Mask Inspector Surgeon(s) Alex Anderson Estimated Blood Loss 10 ml Findings Proximal esophageal stricture Distal esophageal stricture Specimens None Anesthesia General Complication(s) None Disposition Recovery Room / PACU Indications Acute dysphagia Description of Procedure EGD with balloon dilation of proximal esophageal stricture to 12 mm and distal esophageal stricture which was dilated with pass age of endoscope. I attest to the content of the Intraoperative Record and any orders documented therein. Any exceptions are noted below.
--- NOTE | 2017-09-22 17:12 | Discharge Instructions ---
Endoscopy Patient Instructions Date / Procedure(s) Performed Sep 22, 2017. EGD Allergy Information Coded Allergies: Levofloxacin (Verified Allergy, Intermediate, HIVES, 01/18/17) Crab (Verified Allergy, Mild, DIZZY AND THROWS UP, 01/18/17) Nitrofurantoin (Verified Allergy, Unknown, NAUSEA, 01/18/17) Adhesives (Verified Adverse Reaction, Mild, SKIN IRRITATION WITH SOME TAPES, 09/22/17) Codeine (Verified Adverse Reaction, Mild, NAUSEA, 01/18/17) Metronidazole (Verified Adverse Reaction, Mild, nausea and vomiting, ) Sulfa Antibiotics (Verified Adverse Reaction, Mild, SICK TO STOMACH, ) Discharge Date / Findings Sep 22, 2017. Esophageal stricture (proximal) s/p dilation to 12 mm with balloon Esophageal stricture (Distal) s/p dilation with passage of endoscope Medication Instructions 1) Start Prevacid Solu-tab 30mg: Dissolve one tablet under tongue each morning 1/2 hour prior to breakfast 2) Carafate 1g/10ml: Take 10ml by mouth four times daily prior to each meal and at bedtime. 3) OK to resume all other medications today as prescribed Reported Home Medications Medications Dose Route/Sig Max Daily Dose Days Date Category Dose Instructions Anucort-Hc (Hydrocortisone Acetate) 25 Mg Supp 25 Mg MT DAILY 30 01/20/17 Rx use the cream outside on the hemmorrhoid Miralax (Polyethylene) 17 Gm Pow 17 Gm PO DAILY 30 01/20/17 Rx Proctosol Hc (Hydrocortisone) 90 Appln/30 Gm Cr 1 Appln MT PRN 01/20/17 Rx use the cream around the anus area and inside the rectum Aspirin Ec (Aspirin) 81 Mg Tab 81 Mg PO DAILY 01/18/17 Reported Caltrate 600 Plus (Calcium Carbonate-Vitamin D W/) 1 Tab Tab 1 Tab PO QAM 12/17/16 Reported Lorazepam 0.5 Mg Tab 0.5 Mg PO HS 12/11/16 Reported Tylenol (Acetaminophen) 500 Mg Tab 1,000 Mg PO PRN 10/22/16 Reported Prilosec (Omeprazole) 20 Mg Capcr 20 Mg PO QAM PRN 09/30/16 Reported Centrum Silver Adult 50+ (Multiple Vitamins W/ Minerals) 1 Tab Tab 1 Tab PO QAM 09/30/16 Reported Lopressor (Metoprolol Tartrate) 25 Mg Tab 25 Mg PO BID 12/16/11 Reported Provider Instructions Activity Restrictions - No exercising or heavy lifting for 24 hours. - Do not drink alcohol the day of the procedure. - Do not drive a car or operate machinery until the day after the procedure. - Do not make any important decisions or sign important papers in 24 hours after the procedure. Following Day: - Return to full activity which may include returning to work/school. Diet Start your diet with liquids and light foods (jello, soup, juice, toast). Then advance to mechanical soft diet for 3 weeks until next EGD with dilation. Treatment For Common After Affects For mild abdominal pain, bloating, or excessive gas: - Rest - Eat lightly - Lie on right side Follow-Up Information Follow-up for repeat EGD in 3 weeks for further dilation of esophageal strictures. My office will call to make these arrangements with you. Anesthesia Information What You Should Know You have had a procedure that required some medicine to reduce anxiety and discomfort. This treatment is called moderate sedation. After receiving the treatment, you may be sleepy, but you will be able to breathe on your own. The effects of the treatment may last for several hours. Follow these instructions along with Activity/Diet recommendations noted above: * Do NOT do anything where dizziness or clumsiness would be dangerous. * Rest quietly at home today, then you can be up and about tomorrow. * Have a responsible person stay with you the rest of today. * You may have had an I.V. today. If so, you may take the dressing off later today. Recommendations Call your doctor if: * Trouble breathing * Continuous vomiting for more than 24 hours * Temperature above 101 degrees * Severe abdominal pain or bloating * Pain not relieved by pain medicine ordered * There is increased drainage or redness from any incision * A large amount of rectal bleeding greater than 2-3 tablespoons. (If you had a polyp/s removed or have hemorrhoids, a small amount of blood - from the rectum is to be expected.) * You have any unanswered questions or concerns. IN THE EVENT OF A SERIOUS EMERGENCY, GO TO THE NEAREST EMERGENCY ROOM Your discharge instructions were prepared by provider Kar Rosario. Patient Instructions Signature Page Su Montes De Oca Patient (or Guardian) Signature/Date: I have read and understand the instructions given to me by my caregivers. Caregiver/RN/Doctor Signature/Date: The above-named patient and/or guardian has received patient instructions on this date. + Original Patient Signature Page (only) stays with chart. Please make copy for patient.
--- NOTE | 2017-09-22 17:22 | GI REPORT ---
Patient Name: Su Montes De Oca Procedure Date: 09/22/2017 3:43 PM Date of : 1935 Admit Type: Emergency Department Age: 82 Gender: Female Attending MD: Kar Rosario DO Procedure: Upper GI endoscopy Providers: Kar Rosario DO Referring MD: Yoav Rincon Indications: Dysphagia Medicines: General Anesthesia Complications: No immediate complications. Estimated Blood Loss: Estimated blood loss: none. Procedure: Pre-Anesthesia Assessment: - Prior to the procedure, a History and Physical was performed, and patient medications and allergies were reviewed. The patient's tolerance of previous anesthesia was also reviewed. The risks and benefits of the procedure and the sedation options and risks were discussed with the patient. All questions were answered, and informed consent was obtained. Prior Anticoagulants: The patient has taken no previous anticoagulant or antiplatelet agents. ASA Grade Assessment: III - A patient with severe systemic disease. After reviewing the risks and benefits, the patient was deemed in satisfactory condition to undergo the procedure. After obtaining informed consent, the endoscope was passed under direct vision. Throughout the procedure, the patient's blood pressure, pulse, and oxygen saturations were monitored continuously. The On-site loaner was introduced through the mouth, and advanced to the second part of duodenum. The upper GI endoscopy was accomplished without difficulty. The patient tolerated the procedure well. Findings: One benign-appearing, intrinsic stenosis was found 20 cm from the incisors. This stenosis was severe and measured 1 cm (inner diameter) x less than one cm (in length). The stenosis was traversed after dilation. A TTS dilator was passed through the scope. Dilation with a 10-11-12 mm balloon dilator was performed to 12 mm. The dilation site was examined and showed moderate improvement in luminal narrowing. One benign-appearing, intrinsic stenosis was found 40 cm from the incisors. This stenosis was moderately severe and measured 1.3 cm (inner diameter) x less than one cm (in length). The stenosis was traversed. The lesion was not amenable to dilation, and this was not attempted as passage of endoscope resulted in dilation. The stomach was normal. The examined duodenum was normal. Impression: - Benign-appearing esophageal stenosis. Dilated. - Benign-appearing esophageal stenosis. Lesion not amenable to dilation, and not attempted. - Normal stomach. - Normal examined duodenum. - No specimens collected. Recommendation: - Mechanical soft diet for 3 weeks. - Use Prevacid (lansoprazole) 30 mg PO daily. - Use sucralfate suspension 1 gram PO QID for 10 days. - Repeat upper endoscopy in 3 weeks for retreatment. - Return to primary care physician as previously scheduled. Kar Rosario, DO 09/22/2017 5:22:34 PM This report has been signed electronically. Note Initiated On: 09/22/2017 3:43 PM Number of Addenda: 0 I attest to the content of the Intraoperative Record and orders documented therein, exceptions below {[id number]}
--- NOTE | 2017-09-22 17:48 | Anesthesiology Progress Note ---
Anesthesia Post Op Note Date & Time Sep 22, 2017 at 17:48 Vital Signs Pain Intensity: 0 Vital Signs Past 12 Hours Date Time Temp Pulse Resp B/P (MAP) Pulse Ox O2 Delivery O2 Flow Rate FiO2 09/22/17 17:46 151/64 09/22/17 17:43 82 21 98 09/22/17 17:43 83 21 09/22/17 17:42 84 22 98 09/22/17 17:42 82 22 09/22/17 17:42 84 22 98 09/22/17 17:42 82 22 09/22/17 17:41 154/67 09/22/17 17:41 154/67 09/22/17 17:40 36.6 83 20 154/67 (82) 97 Room Air 09/22/17 17:37 83 17 09/22/17 17:37 83 17 09/22/17 17:37 82 17 96 09/22/17 17:37 82 17 96 09/22/17 17:36 148/65 09/22/17 17:36 148/65 09/22/17 17:32 82 20 09/22/17 17:32 81 20 100 09/22/17 17:32 81 20 100 09/22/17 17:32 82 20 09/22/17 17:31 143/66 09/22/17 17:31 143/66 09/22/17 17:27 84 22 100 09/22/17 17:27 84 22 09/22/17 17:27 84 22 09/22/17 17:27 84 22 100 09/22/17 17:26 142/64 09/22/17 17:26 142/64 09/22/17 17:22 87 19 09/22/17 17:22 88 19 100 09/22/17 17:22 88 19 100 09/22/17 17:22 87 19 09/22/17 17:21 149/72 09/22/17 17:21 149/72 09/22/17 17:17 91 25 100 09/22/17 17:17 91 25 100 09/22/17 17:17 91 25 09/22/17 17:17 91 25 09/22/17 17:16 151/74 09/22/17 17:16 151/74 09/22/17 17:13 157/72 09/22/17 17:13 157/72 09/22/17 17:12 94 100 09/22/17 17:12 94 100 09/22/17 17:12 36.7 93 16 157/72 99 Room Air 10 Oxymask 09/22/17 17:12 94 09/22/17 17:12 94 09/22/17 15:54 85 18 149/75 96 09/22/17 15:18 85 09/22/17 14:56 96 Room Air 09/22/17 14:42 97 Room Air 09/22/17 14:42 97 Room Air 09/22/17 14:12 37.0 97 18 149/75 97 Room Air Notes Mental Status: alert / awake / arousable, participated in evaluation Pt Amnestic to Procedure: Yes Nausea / Vomiting: adequately controlled Pain: adequately controlled Airway Patency, RR, SpO2: stable & adequate BP & HR: stable & adequate Hydration State: stable & adequate Anesthetic Complications: no major complications apparent
[2017-09-22 18:00] VITALS: BP 130/64; PULSE 83; TEMP 37.6; O2SAT 97
[2017-09-22 18:34] VITALS: BP 133/67; PULSE 82; TEMP 36.8; O2SAT 96
[2017-09-22 19:01] VITALS: BP 142/69; PULSE 91; TEMP 36.6; O2SAT 97
== END 2017-09-22 19:09 | disposition home or self-care (01) ==
LOC: C.EDB 14:08 → C.EDC 19:09
DX: K22.2 Esophageal obstruction (principal); D70.1 Agranulocytosis secondary to cancer chemotherapy; T45.1X5A Adverse effect of antineoplastic and immunosuppressive drugs, initial encounter; C18.9 Malignant neoplasm of colon, unspecified; N18.3 Chronic kidney disease, stage 3 (moderate); I12.9 Hypertensive chronic kidney disease with stage 1 through stage 4 chronic kidney disease, or unspecified chronic kidney disease; F41.9 Anxiety disorder, unspecified; Z79.82 Long term (current) use of aspirin; Z79.899 Other long term (current) drug therapy; Z88.1 Allergy status to other antibiotic agents; Z88.2 Allergy status to sulfonamides; Z88.5 Allergy status to narcotic agent; Z88.8 Allergy status to other drugs, medicaments and biological substances

== ENCOUNTER 2017-09-27 15:55 | Emergency (ER) | payer BC ==
[~2017-09-27] VITALS: Ht 157.5 cm; Wt 50.7 kg
[~2017-09-27 15:55] MED LIST changes: -ASPI81TA28 PO; -ATV5X PO
[2017-09-27 15:58] VITALS: TEMP 36.8; Ht 157.5 cm; Wt 50.7 kg
[2017-09-27] MEDS ORDERED: MoRPHine SULFATE 2 MG/ML CARP IV STA (16:08)
[2017-09-27] MEDS ORDERED: ONDANSETRON INJ 2 MG/ML 2 ML VIAL IV STA (16:08)
[2017-09-27] MEDS ORDERED: SODIUM CHLORIDE 0.9% 1000ML 1,000 ML IV STA (16:08)
[2017-09-27] MEDS ORDERED: SODIUM CHLORIDE 0.9% 500ML 500 ML IV STA (16:08)
[2017-09-27] MEDS ORDERED: OPTIRAY 320 IV PRN (16:30)
--- NOTE | 2017-09-27 16:36 | EMERGENCY ROOM VISIT NOTE ---
History Report prepared by Fiil: Vanessa Padilla Under the Supervision of: Dr. Silvia Karimi M.D. First contact with patient: 16:02 Chief Complaint: ABDOMINAL PAIN Stated Complaint: DR MONDRAGON- PAIN IN LOWER FRONT History of Present Illness The patient is an 82 year old female who presents to the Emergency Room with complaints of worsening abdominal pain starting yesterday. The patient states that she has liver cancer and colon cancer. She reports that it originated in her liver. She notes that she had a partial colectomy. She states that she is on chemotherapy and has been since December. She reports that her next round is the . She reports that she the pain has been constant since it started and she reports that it feels heavy. The patient states that she took Tylenol with no relief. She states that she called the cancer center and Dr. Viveros told her to come to the ED. The patient notes that she has had some blood in her stools, but states that it is from her hemorrhoids. The patient complains of her bowel movements having an awful smell, loss of appetite, not drinking much, and low urine production. The patient denies fever, diarrhea, back pain, vomiting, and recent antibiotic use. The patient notes that she was here last time because she had trouble swallowing pills. She reports that she got one stuck in her throat and she couldn't breathe. She states that she had her throat dilated and it is sore from that. She notes that she just started taking her daily medications yesterday again. Source of History: patient Onset: yesterday Position: abdomen Quality: other (heavy) Timing: worsening Associated Symptoms: + sorethroat, + urinary symptoms, No fevers, No vomiting, No back pain, No diarrhea Note: The patient complains of her bowel movements having an awful smell, loss of appetite, and not drinking much. Review of Systems See HPI for pertinent positives & negatives. A total of 10 systems reviewed and were otherwise negative. Past Medical & Surgical Medical Problems: (1) ABN LIVER FUNCTION STUDY (2) CHOLELITHIASIS NOS (3) CHRONIC KIDNEY DISEASE, STAGE III (MODERATE) (4) Colon cancer (5) DIVERTICULITIS COLON (W/O MENT OF HEMORRHAGE) (6) ESOPHAGEAL REFLUX (7) History of esophageal stricture (8) HYPERPARATHYROIDISM, UNSPECIFIED (9) Hypertension (10) Kidney carcinoma (11) Liver cancer (12) MGUS (monoclonal gammopathy of unknown significance) (13) PURE HYPERCHOLESTEROLEM (14) Rectal bleed (15) SEPSIS (16) TIETZE'S DISEASE Surgical Problems: (1) S/P dilatation of esophageal stricture Family History Cancer FH: heart disease FH: kidney disease Hypertension Social History Smoking Status: Never Smoker Alcohol Use: none Drug Use: none Marital Status: Housing Status: lives with family Occupation Status: unemployed Current/Historical Medications Scheduled Amoxicillin/Clavulanate Potas (Augmentin 400MG/5ML), 11 ML PO BID Aspirin (Aspirin Ec), 81 MG PO DAILY Calcium Carbonate-Vitamin D W/ (Caltrate 600 Plus), 1 TAB PO QAM Lansoprazole (Lansoprazole), 30 MG PO QAM Lorazepam (Lorazepam), 0.5 MG PO HS Metoprolol Tartrate (Lopressor), 25 MG PO BID Multiple Vitamins W/ Minerals (Centrum Silver Adult 50+), 1 TAB PO QAM Sucralfate (Carafate), 10 ML PO ACHS Scheduled PRN Acetaminophen (Tylenol), 1,000 MG PO UD PRN for Pain Hydrocortisone (Proctosol Hc), 1 APPLN [place] UD PRN for Hemorrhoids Omeprazole (Prilosec), 20 MG PO DAILY PRN for Indigestion Polyethylene (Polyethylene Glycol 3350), 17 GM PO DAILY PRN for Constipation Allergies Coded Allergies: Levofloxacin (Verified Allergy, Intermediate, HIVES, 01/18/17) Crab (Verified Allergy, Mild, DIZZY AND THROWS UP, 01/18/17) Nitrofurantoin (Verified Allergy, Unknown, NAUSEA, 01/18/17) Adhesives (Verified Adverse Reaction, Mild, SKIN IRRITATION WITH SOME TAPES, 09/22/17) Codeine (Verified Adverse Reaction, Mild, NAUSEA, 01/18/17) Metronidazole (Verified Adverse Reaction, Mild, nausea and vomiting, ) Sulfa Antibiotics (Verified Adverse Reaction, Mild, SICK TO STOMACH, ) Physical Exam Vital Signs Date Time Temp Pulse Resp B/P (MAP) Pulse Ox O2 Delivery O2 Flow Rate FiO2 09/27/17 21:40 77 21 160/77 97 09/27/17 20:26 74 157/86 97 Room Air 09/27/17 17:55 70 17 09/27/17 17:50 159/73 09/27/17 17:25 73 30 09/27/17 17:14 73 09/27/17 15:58 36.8 84 20 139/70 97 Room Air Physical Exam Vital signs reviewed. General: Elderly, chronically ill-appearing, in no significant distress. HEENT: No scleral icterus, PERRLA, neck supple. Atraumatic. Dry mucus membranes. Cardiovascular: Regular rate and rhythm, no extra sounds. Pulmonary: Clear to auscultation bilaterally, normal work of breathing. Abdomen: Soft, tender to LLQ, nondistended, positive bowel sounds. Musculoskeletal: Atraumatic, no peripheral edema. Neurologic: Patient awake alert and oriented x 3, full strength in all 4 extremities. Cranial nerves 2 through 12 grossly intact. Skin: Warm, dry, no rash Medical Decision & Procedures ER Provider Diagnostic Interpretation: Radiology results as stated below per my review and radiologist interpretation: ABD/PELVIS IV AND ORAL CONT CLINICAL HISTORY: 82 years-old Female presenting with colon CA w mets to liver, LLQ abd pain. TECHNIQUE: Multidetector CT of the abdomen and pelvis was performed after the administration of oral and intravenous contrast. IV contrast: 94 mL of Optiray 320. A dose lowering technique was used consistent with the principles of ALARA (as low as reasonably achievable). COMPARISON: 05/28/2017. CT DOSE (mGy.cm): The estimated cumulative dose is 249.15 mGycm. FINDINGS: Teenage Babysitter topogram: Unremarkable. Lung bases: Minimal basilar opacities, likely atelectasis. Normal heart size. No pericardial or pleural effusion. Liver: Normal morphology. Flash filling hemangioma evident in the anterior right hepatic lobe. Previously noted hypodense lesions are no longer apparent. Patent hepatic vasculature. Biliary: No intrahepatic or extrahepatic biliary ductal dilatation. Gallbladder contains gallstones. Pancreas: Mild parenchymal atrophy. Interval development of peripancreatic fat infiltration, which is primarily at the root of the small bowel mesentery though tracking from the uncinate process of the pancreas. Spleen: Normal. Adrenal glands: Normal. Kidneys and ureters: The left kidney is surgically absent. Right kidney normal. Distal right ureter poorly assessed. Bladder: Normal. Pelvic organs: Uterus surgically absent. No adnexal masses. Bowel: Wall thickening of the rectum is new from prior. There is associated mesorectal fat infiltration. A colocolonic anastomosis is evident at the upper rectum as on prior exam indicating partial sigmoidectomy. Diverticulosis of the residual sigmoid colon, which demonstrates mild wall thickening. Wall thickening and diverticulosis of the descending colon also evident with mild pericolonic fat infiltration. No bowel obstruction. Peritoneal cavity: No free fluid or intraperitoneal gas. Infiltration of the root of the small bowel mesentery is new from prior. Lymph nodes: No enlarged lymph nodes in the abdomen or pelvis. Vasculature: Atherosclerosis of the normal caliber abdominal aorta. 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 Abdominal wall: Normal. Musculoskeletal: Nonspecific sclerotic lesions in the bilateral iliac bones are unchanged. IMPRESSION: 1. Interval development of infiltration of the root of the small bowel mesentery. There are no other findings such as free fluid to suggest intra-abdominal injury. This may be unrelated to trauma. This could represent pancreatitis or mesenteric panniculitis among other etiologies. 2. Wall thickening of the descending colon, sigmoid colon, and rectum and pericolonic/perirectal inflammatory change is most suggestive of an infectious proctocolitis. 3. Postsurgical changes of left nephrectomy. 4. Previously noted hepatic metastatic lesions on prior CT from December are not visible on the current exam, similar to the most recent prior. 5. Cholelithiasis. Electronically signed by: Randell Moncada M.D. 09/27/2017 7:48 PM Dictated Date/Time: 09/27/2017 7:38 PM Laboratory Results 09/27/17 18:09 Red Blood Count 3.39, Mean Corpuscular Volume 94.4, Mean Corpuscular Hemoglobin 30.4, Mean Corpuscular Hemoglobin Concent 32.2, Mean Platelet Volume 8.7, Neutrophils (%) (Auto) 28.2, Lymphocytes (%) (Auto) 52.3, Monocytes (%) (Auto) 18.5, Eosinophils (%) (Auto) 0.7, Basophils (%) (Auto) 0.3, Neutrophils # (Auto ) 0.81, Lymphocytes # (Auto) 1.50, Monocytes # (Auto) 0.53, Eosinophils # (Auto ) 0.02, Basophils # (Auto) 0.01 09/27/17 18:09 Test 09/27/17 17:50 09/27/17 18:09 Urine Color YELLOW Urine Appearance CLEAR (CLEAR) Urine pH 7.0 (4.5-7.5) Urine Specific [place] 1.007 (1.000-1.030) Urine Protein NEG (NEG) Urine Glucose (UA) NEG (NEG) Urine Ketones NEG (NEG) Urine Occult Blood NEG (NEG) Urine Nitrite POS (NEG) Urine Bilirubin NEG (NEG) Urine Urobilinogen NEG (NEG) Urine Leukocyte Esterase MODERATE (NEG) Urine WBC (Auto) 10-30 /hpf (0-5) Urine RBC (Auto) 0-4 /hpf (0-4) Urine Hyaline Casts (Auto) 0 /lpf (0-5) Urine Epithelial Cells (Auto) 10-20 /lpf (0-5) Urine Bacteria (Auto) 2+ (NEG) White Blood Count 2.87 K/uL (4.8-10.8) Red Blood Count 3.39 M/uL (4.2-5.4) Hemoglobin 10.3 g/dL (12.0-16.0) Hematocrit 32.0 % (37-47) Mean Corpuscular Volume 94.4 fL (80-100) Mean Corpuscular Hemoglobin 30.4 pg (25-34) Mean Corpuscular Hemoglobin Concent 32.2 g/dl (32-36) Platelet Count 187 K/uL (130-400) Mean Platelet Volume 8.7 fL (7.4-10.4) Neutrophils (%) (Auto) 28.2 % Lymphocytes (%) (Auto) 52.3 % Monocytes (%) (Auto) 18.5 % Eosinophils (%) (Auto) 0.7 % Basophils (%) (Auto) 0.3 % Neutrophils # (Auto) 0.81 K/uL (1.4-6.5) Lymphocytes # (Auto) 1.50 K/uL (1.2-3.4) Monocytes # (Auto) 0.53 K/uL (0.11-0.59) Eosinophils # (Auto) 0.02 K/uL (0-0.5) Basophils # (Auto) 0.01 K/uL (0-0.2) RDW Standard Deviation 60.1 fL (36.4-46.3) RDW Coefficient of Variation 17.4 % (11.5-14.5) Immature Granulocyte % (Auto) 0.0 % Immature Granulocyte # (Auto) 0.00 K/uL (0.00-0.02) Dohle Bodies 1+ Large Platelets 1+ Tear Drop Cells OCCASIONAL Anion Gap 6.0 mmol/L (3-11) Est Creatinine Clear Calc Drug Dose 34.4 ml/min Estimated GFR () 61.8 Estimated GFR (Non- 53.3 BUN/Creatinine Ratio 12.1 (10-20) Calcium Level 8.6 mg/dl (8.5-10.1) Magnesium Level 1.6 mg/dl (1.8-2.4) Total Bilirubin 0.6 mg/dl (0.2-1) Direct Bilirubin 0.2 mg/dl (0-0.2) Aspartate Amino Transf (AST/SGOT) 17 U/L (15-37) Alanine Aminotransferase (ALT/SGPT) 16 U/L (12-78) Alkaline Phosphatase 97 U/L (45-117) Total Protein 7.0 gm/dl (6.4-8.2) Albumin 2.9 gm/dl (3.4-5.0) Lipase 154 U/L (73-393) Laboratory results per my review. Medications Administered Medications (Trade) Dose Ordered Sig/Solitario Route Start Time Stop Time Status Last Admin Dose Admin Sodium Chloride 500 ml @ 999 mls/hr Q31M STAT IV 09/27/17 16:08 09/27/17 16:38 DC 09/27/17 16:30 999 MLS/HR Sodium Chloride 1,000 ml @ 125 mls/hr Q8H STAT IV 09/27/17 16:08 09/27/17 22:03 DC 09/27/17 16:31 125 MLS/HR Morphine Sulfate (MoRPHine SULFATE INJ) 2 mg NOW STAT IV 09/27/17 16:08 09/27/17 16:11 DC 09/27/17 16:46 2 MG Ondansetron HCl (Zofran Inj) 4 mg NOW STAT IV 09/27/17 16:08 09/27/17 16:11 DC 09/27/17 16:46 4 MG Ampicillin Sodium/ Sulbactam Sodium 3000 mg/Sodium Chloride 108 ml @ 200 mls/hr ONE ONCE IV 09/27/17 20:00 09/27/17 20:32 DC 09/27/17 20:36 200 MLS/HR Amoxicillin/ Clavulanate Potassium (Augmentin Susp) 11 ml NOW ONCE PO 09/27/17 20:30 09/27/17 20:31 DC 09/27/17 20:46 11 ML ED Course 1604: Past medical records reviewed. The patient was evaluated in room C7. A complete history and physical examination was performed. 8: Ordered Zofran Inj 4 mg IV, Morphine Sulfate 2 mg IV, NSS 1000 ml @ 125 mls/hr IV, NSS 500 ml @ 999 mls/hr IV. 1999: Ordered Ampicillin Sodium/ Sulbactam Sodium 3000 mg/ Sodium Chloride 108 ml @ 200 mls/hr IV. 2005: Upon reevaluation, the patient appeared to have improvement of her symptoms. I discussed findings with her. She verbalized agreement of the treatment plan. The patient was discharged home. 2029: Ordered Augmentin Susp 11 ml PO. Medical Decision Differential diagnosis: Etiologies such as appendicitis, diverticulitis, PUD, biliary pathology, UTI, pancreatitis, obstruction, mesenteric ischemia, aortic pathology, infections, inflammatory bowel disease, renal colic, as well as others were entertained. This patient was evaluated and appeared to be in no significant distress. Physical examination is significant for left lower quadrant abdominal tenderness. Patient was hydrated normal saline solution, given IV morphine and Zofran. CT scan of the abdomen pelvis is significant for a proctocolitis. The patient was also found to be neutropenic however is afebrile. She was not able to produce a stool sample in the emergency department. Patient was given a dose of IV Unasyn and discharged on Augmentin. As she is neutropenic it was felt that antibiotics should be initiated. Patient appears well and is in no distress. She will be discharged to follow-up with her oncologist or PCP this week. She does have chemotherapy schedules in 3 days. She will contact her oncologist prior to this. She will return to the ER for worsening of symptoms, fever, increased pain or any medical concerns. Medication Reconcilliation Current Medication List: was personally reviewed by me Blood Pressure Screening Patient's blood pressure: Elevated blood pressure Blood pressure disposition: Elevated BP felt to be situational Impression Primary Impression: Proctocolitis Additional Impression: Neutropenia Scribe Attestation The scribe's documentation has been prepared under my direction and personally reviewed by me in its entirety. I confirm that the note above accurately reflects all work, treatment, procedures, and medical decision making performed by me. Departure Information Dispostion Home / Self-Care Prescriptions Amoxicillin/Clavulanate Potas (AUGMENTIN 400MG/5ML) 400 Mg/5 Ml Susp 11 ML PO BID for 7 Days, #154 ML Prov: Silvia Karimi M.D. 09/27/17 Referrals Lynn Medeiros C.R.N.P (PCP) Forms HOME CARE DOCUMENTATION FORM, IMPORTANT VISIT INFORMATION Patient Instructions My [facility] Additional Instructions Diagnosis: Proctocolitis, neutropenia Augmentin 11 mL every 12 hours for 7 days. Start tomorrow morning. Drink plenty of clear fluids. Maintain a bland diet. Follow-up with your oncologist or primary care provider within the next 2-3 days. Return to the emergency department immediately for fever, increased abdominal pain, blood in the stools or any medical concerns. Problem Qualifiers Additional Impression: Neutropenia Neutropenia type: secondary to cancer chemotherapy Qualified Codes: D70.1 - Agranulocytosis secondary to cancer chemotherapy; T45.1X5A - Adverse effect of antineoplastic and immunosuppressive drugs, initial encounter
[2017-09-27] MEDS ORDERED: OMEP20CA9 PO (17:05)
[2017-09-27] MEDS ORDERED: MRLP527 PO (17:05)
[2017-09-27] MEDS ORDERED: CRFL PO (17:05)
[2017-09-27] MEDS ORDERED: LANS30TA PO (17:05)
[2017-09-27] MEDS ORDERED: ANSHCCR PR (17:17)
[2017-09-27 18:39] LABS: ALBUMIN 2.9 gm/dl (3.4-5.0); CALCIUM 8.6 mg/dl (8.5-10.1); CREATININE 0.98 mg/dl (0.60-1.20); POTASSIUM 3.5 mmol/L (3.5-5.1)
[2017-09-27 18:44] LABS: HEMOGLOBIN 10.3 g/dL (12.0-16.0); MEAN CELL VOLUME 94.4 fL (80-100); MEAN CORPUSCULAR HEMOGLOBIN 30.4 pg (25-34); MEAN CORPUSCULAR HGB CONC 32.2 g/dl (32-36); MEAN PLATELET VOLUME 8.7 fL (7.4-10.4); PLATELET COUNT 187 K/uL (130-400); RED CELL DISTRIBUTION WIDTH CV 17.4 % (11.5-14.5); RED CELL DISTRIBUTION WIDTH SD 60.1 fL (36.4-46.3); WHITE BLOOD COUNT 2.87 K/uL (4.8-10.8)
[2017-09-27 19:02] LABS: BASO % 0.3 %; BASO ABS # 0.01 K/uL (0-0.2); EOS % 0.7 %; EOS ABS # 0.02 K/uL (0-0.5); LYMPH % 52.3 %; MONO % 18.5 %; MONO ABS # 0.53 K/uL (0.11-0.59); NEUT % 28.2 %; NEUT ABS # 0.81 K/uL (1.4-6.5)
[2017-09-27] MEDS ORDERED: ASPI81TA28 PO (19:07)
--- NOTE | 2017-09-27 19:50 | DIAGNOSTIC IMAGING REPORT ---
ABD/PELVIS IV AND ORAL CONT CLINICAL HISTORY: 82 years-old Female presenting with colon CA w mets to liver, LLQ abd pain. TECHNIQUE: Multidetector CT of the abdomen and pelvis was performed after the administration of oral and intravenous contrast. IV contrast: 94 mL of Optiray 320. A dose lowering technique was used consistent with the principles of ALARA (as low as reasonably achievable). COMPARISON: 05/28/2017. CT DOSE (mGy.cm): The estimated cumulative dose is 249.15 mGycm. FINDINGS: Certified Legal Secretary Specialist topogram: Unremarkable. Lung bases: Minimal basilar opacities, likely atelectasis. Normal heart size. No pericardial or pleural effusion. Liver: Normal morphology. Flash filling hemangioma evident in the anterior right hepatic lobe. Previously noted hypodense lesions are no longer apparent. Patent hepatic vasculature. Biliary: No intrahepatic or extrahepatic biliary ductal dilatation. Gallbladder contains gallstones. Pancreas: Mild parenchymal atrophy. Interval development of peripancreatic fat infiltration, which is primarily at the root of the small bowel mesentery though tracking from the uncinate process of the pancreas. Spleen: Normal. Adrenal glands: Normal. Kidneys and ureters: The left kidney is surgically absent. Right kidney normal. Distal right ureter poorly assessed. Bladder: Normal. Pelvic organs: Uterus surgically absent. No adnexal masses. Bowel: Wall thickening of the rectum is new from prior. There is associated mesorectal fat infiltration. A colocolonic anastomosis is evident at the upper rectum as on prior exam indicating partial sigmoidectomy. Diverticulosis of the residual sigmoid colon, which demonstrates mild wall thickening. Wall thickening and diverticulosis of the descending colon also evident with mild pericolonic fat infiltration. No bowel obstruction. Peritoneal cavity: No free fluid or intraperitoneal gas. Infiltration of the root of the small bowel mesentery is new from prior. Lymph nodes: No enlarged lymph nodes in the abdomen or pelvis. Vasculature: Atherosclerosis of the normal caliber abdominal aorta. 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 Abdominal wall: Normal. Musculoskeletal: Nonspecific sclerotic lesions in the bilateral iliac bones are unchanged. IMPRESSION: 1. Interval development of infiltration of the root of the small bowel mesentery. There are no other findings such as free fluid to suggest intra-abdominal injury. This may be unrelated to trauma. This could represent pancreatitis or mesenteric panniculitis among other etiologies. 2. Wall thickening of the descending colon, sigmoid colon, and rectum and pericolonic/perirectal inflammatory change is most suggestive of an infectious proctocolitis. 3. Postsurgical changes of left nephrectomy. 4. Previously noted hepatic metastatic lesions on prior CT from December are not visible on the current exam, similar to the most recent prior. 5. Cholelithiasis. Electronically signed by: Randell Moncada M.D. 09/27/2017 7:48 PM Dictated Date/Time: 09/27/2017 7:38 PM
[2017-09-27] MEDS ORDERED: AMPICILLIN/SULBACTAM SOD INJ 3,000 MG in SODIUM CHLORIDE 0.9% 100ML 100 ML IV ONE (20:00)
[2017-09-27] MEDS ORDERED: AMOXICILLIN/CLAVULANATE SUSP 400 MG/5 ML PO ONE (20:30)
[2017-09-27] MEDS ORDERED: AGMUDL4005 PO (20:34)
[2017-09-27] MEDS ORDERED: ATV5X PO (20:48)
[2017-09-27 21:40] VITALS: BP 160/77; PULSE 77; O2SAT 97
--- NOTE | 2017-09-30 14:46 | Pharmacy Progress Note ---
ED Pharmacist Culture FollowUp Date of Service: September 30, 2017. Patient's urine culture growing citrobacter. Patient was sent home with augmentin prescription. Citrobacter has high resistance rates to beta-lactams. Discussed with Dr. Rincon, plan to switch to cefdinir 250mg/5 ml 6 ml (300 mg) BID x 7 days as patient has hard time swallowing pills and isolate is sensitive to ceftriaxone. Called patient and left message ~[phone].
== END 2017-09-27 21:41 | disposition home or self-care (01) ==
LOC: C.EDB 15:56 → C.EDC 21:41
DX: K52.82 Eosinophilic colitis (principal); D70.1 Agranulocytosis secondary to cancer chemotherapy; T45.1X5A Adverse effect of antineoplastic and immunosuppressive drugs, initial encounter; C22.9 Malignant neoplasm of liver, not specified as primary or secondary; C18.9 Malignant neoplasm of colon, unspecified; N18.3 Chronic kidney disease, stage 3 (moderate); K21.9 Gastro-esophageal reflux disease without esophagitis; I12.9 Hypertensive chronic kidney disease with stage 1 through stage 4 chronic kidney disease, or unspecified chronic kidney disease; E78.00 Pure hypercholesterolemia, unspecified; E21.3 Hyperparathyroidism, unspecified; Z79.82 Long term (current) use of aspirin; Z79.899 Other long term (current) drug therapy; Z88.1 Allergy status to other antibiotic agents; Z91.048 Other nonmedicinal substance allergy status; Z88.2 Allergy status to sulfonamides; Z88.8 Allergy status to other drugs, medicaments and biological substances; Z91.013 Allergy to seafood

== ENCOUNTER → 2017-12-26 | Outpatient (CLI) | payer BC ==
[~2017-12-26] MED LIST changes: +AMIT25TA9 PO; +AMLO5TAB3 PO; -ANSHCS PR; +ASPI81TA28 PO; +ATV5X PO; +LACTCAP PO; +LANS30TA PO; +MECL1TAB40 PO; -MRLP17 PO; +MRLP527 PO; +NRN/300 PO; +OMEP20CA9 PO; +OPTIRAY 320 IV PRN; -PRLSR20 PO
--- NOTE | 2017-12-26 13:28 | DIAGNOSTIC IMAGING REPORT ---
CT ABD/PELVIS IV AND ORAL CONT CLINICAL HISTORY: Colon carcinoma COMPARISON STUDY: 10/17/2017 TECHNIQUE: Following the IV administration of 94 mL of Optiray-320, CT scan of the abdomen and pelvis was performed from the lung bases to the proximal femurs. Images are reviewed in the axial, sagittal, and coronal planes. IV contrast was administered without complication. A dose lowering technique was utilized adhering to the principles of ALARA. CT DOSE: FINDINGS: Lower chest: There are mild dependent atelectatic changes Liver: The liver is of normal size. There is a stable 9 mm hypervascular lesion within the left lobe, likely representing a flash filling hemangioma. There is a stable 9 mm hypodense lesion within the right hepatic lobe. Gallbladder: Cholelithiasis Spleen: Normal in size and attenuation. Pancreas: Unremarkable. Adrenal glands: Unremarkable. Kidneys: The left kidney appears surgically absent Bowel: There are no transition zones indicate bowel obstruction. There is an anastomotic suture line within the sigmoid. There is moderate fecal retention. There is no acute diverticulitis. The appendix is not visualized with certainty. There is no evidence of acute appendicitis. Peritoneum: There is no intraperitoneal free air or abdominal ascites. Vasculature: The abdominal aorta is normal in course and caliber. 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 Adenopathy: None. Pelvic viscera: The uterus appears surgically absent Skeletal structures: No destructive osseous lesions are seen. There is a stable sclerotic 9 mm right iliac bone lesion. IMPRESSION: 1. Stable 9 mm hypervascular lesion within the left lobe of the liver, likely representing a flash filling hemangioma. Stable 9 mm hypodense lesion within the right hepatic lobe. This is at the site of a prior presumed metastasis. 2. Cholelithiasis 3. Surgically absent left kidney 4. Postsurgical changes in the sigmoid. Fecal retention. Electronically signed by: Giovanni Santiago M.D. 12/26/2017 1:27 PM Dictated Date/Time: 12/26/2017 1:18 PM
--- NOTE | 2017-12-26 13:30 | DIAGNOSTIC IMAGING REPORT ---
CHEST CT WITH CONTRAST CT DOSE: 474.71 mGy.cm HISTORY: Subsequent treatment strategy in a patient with history of colon cancer. CT TECHNIQUE: Multiaxial CT images of the chest were performed following the intravenous administration of contrast. A dose lowering technique was utilized adhering to the principles of ALARA. COMPARISON: CT abdomen and pelvis of same day, CT chest 10/17/2017 FINDINGS: 1.2 cm heterogeneous hypodense nodule posterior to the right thyroid lobe appears unchanged. 1.3 x 1.0 cm precarinal lymph node with central calcification is also stable. Calcified right hilar lymph nodes are also present. No new adenopathy. Nonenlarged axillary chain lymph nodes are seen bilaterally, left greater than right. The heart is mildly enlarged without pericardial effusion. Coronary arterial calcifications are noted. There is no thoracic aortic aneurysm or dissection. Left subclavian [id number] catheter terminates within the proximal SVC. Moderate mixed plaque formation origin of the right renal artery appears to result in approximately 50% luminal narrowing. The opacified pulmonary arterial tree is unremarkable. No pleural effusion or pneumothorax. Mild biapical pleural-parenchymal scarring. No focal airspace consolidation to suggest pneumonia. There is minimal dependent subsegmental bibasilar atelectasis. There are no suspicious pulmonary nodules or masses identified to suggest metastasis. 1 mm fissural lymph node, image 115 series 6. 2 mm solid nodule of the right upper lobe on image 87 series 6 is unchanged. There are several additional 2 mm fissural lymph nodes noted bilaterally. These are all likely benign. Minimal mucus plugging about the inferior segment lingula, image 174 series 6. The central airways are patent. Cholelithiasis. Hyperdense hemangiomata about the right left hepatic lobes measuring up to 1.3 cm on the left appear unchanged. Moderate formed stool about the splenic flexure. Absent left kidney. Calcifications about the bilateral breast parenchyma. Degenerative changes are seen about the spine. No suspicious lytic or blastic bony lesions. IMPRESSION: 1. No acute intrathoracic abnormality identified. 2. No evidence of intrathoracic metastatic disease or new adenopathy. 3. Cholelithiasis. 4. Additional incidental findings as above. Electronically signed by: Gilbert Mccann M.D. 12/26/2017 1:28 PM Dictated Date/Time: 12/26/2017 1:18 PM
== END | disposition home or self-care (01) ==
LOC: C.CTS 12:01
PROVIDERS: ATTEND Nurse Practitioner Family
DX: C18.8 Malignant neoplasm of overlapping sites of colon (principal); K76.9 Liver disease, unspecified; K80.20 Calculus of gallbladder without cholecystitis without obstruction; K59.00 Constipation, unspecified; Z90.5 Acquired absence of kidney

== ENCOUNTER → 2017-12-30 | Outpatient (CLI) | payer BC ==
[~2017-12-30] MED LIST changes: -OPTIRAY 320 IV PRN
[2017-12-30 13:46] LABS: ALBUMIN 3.4 gm/dl (3.4-5.0); ALKALINE PHOSPHATASE 128 U/L (45-117); ALT/SGPT 23 U/L (12-78); AST/SGOT 24 U/L (15-37); BLOOD UREA NITROGEN 19 mg/dl (7-18); CALCIUM 9.2 mg/dl (8.5-10.1); CARBON DIOXIDE 28 mmol/L (21-32); CREATININE 1.19 mg/dl (0.60-1.20); GLUCOSE 86 mg/dl (70-99); POTASSIUM 4.1 mmol/L (3.5-5.1); SODIUM 140 mmol/L (136-145); TOTAL PROTEIN 7.4 gm/dl (6.4-8.2)
== END | disposition home or self-care (01) ==
LOC: C.LABPVFM 09:55
PROVIDERS: ATTEND Nurse Practitioner
DX: I12.9 Hypertensive chronic kidney disease with stage 1 through stage 4 chronic kidney disease, or unspecified chronic kidney disease (principal); N18.3 Chronic kidney disease, stage 3 (moderate); C18.9 Malignant neoplasm of colon, unspecified; R31.9 Hematuria, unspecified

== ENCOUNTER → 2017-12-31 | Outpatient (CLI) | payer BC ==
[2017-12-31 10:00] LABS: BASO % 0.6 %; BASO ABS # 0.04 K/uL (0-0.2); EOS % 3.1 %; EOS ABS # 0.19 K/uL (0-0.5); HEMATOCRIT 34.7 % (37-47); HEMOGLOBIN 10.5 g/dL (12.0-16.0); IG# 0.01 K/uL (0.00-0.02); LYMPH % 34.6 %; LYMPH ABS # 2.14 K/uL (1.2-3.4); MEAN CELL VOLUME 88.7 fL (80-100); MEAN CORPUSCULAR HEMOGLOBIN 26.9 pg (25-34); MEAN CORPUSCULAR HGB CONC 30.3 g/dl (32-36); MEAN PLATELET VOLUME 9.1 fL (7.4-10.4); MONO % 13.4 %; MONO ABS # 0.83 K/uL (0.11-0.59); NEUT % 48.1 %; NEUT ABS # 2.97 K/uL (1.4-6.5); PLATELET COUNT 196 K/uL (130-400); RED CELL DISTRIBUTION WIDTH CV 16.2 % (11.5-14.5); RED CELL DISTRIBUTION WIDTH SD 52.5 fL (36.4-46.3); WHITE BLOOD COUNT 6.18 K/uL (4.8-10.8)
[2017-12-31 10:21] LABS: ALBUMIN 3.2 gm/dl (3.4-5.0); ALKALINE PHOSPHATASE 124 U/L (45-117); ALT/SGPT 20 U/L (12-78); AST/SGOT 21 U/L (15-37); BLOOD UREA NITROGEN 21 mg/dl (7-18); CALCIUM 8.8 mg/dl (8.5-10.1); CARBON DIOXIDE 26 mmol/L (21-32); CREATININE 1.32 mg/dl (0.60-1.20); GLUCOSE 100 mg/dl (70-99); POTASSIUM 3.7 mmol/L (3.5-5.1); SODIUM 140 mmol/L (136-145); TOTAL PROTEIN 7.1 gm/dl (6.4-8.2)
== END | disposition home or self-care (01) ==
LOC: C.LABSPEC 09:46
PROVIDERS: ATTEND Nurse Practitioner Family
DX: C18.8 Malignant neoplasm of overlapping sites of colon (principal)

== ENCOUNTER 2018-10-26 11:06 | Observation (INO) ==
[2018-10-26] MEDS ORDERED: SODIUM CHLORIDE 0.9% 1000ML 1,000 ML IV SCH (12:00)
[2018-10-26 12:39] LABS: Basophils # (auto) 0.09 K/uL (0-0.2); Basophils % (auto) 1.3 %; Eosinophils # (auto) 0.22 K/uL (0-0.5); Eosinophils % (auto) 3.1 %; Hematocrit (blood only) 35.9 % (37-47); Hemoglobin 11.3 g/dL (12.0-16.0); Immature Granulocytes # (auto) 0.05 K/uL (0.00-0.02); Immature Granulocytes % (auto) 0.7 %; Lymphocytes # (auto) 1.58 K/uL (1.2-3.4); Mean Corpuscular Hgb Conc 31.5 g/dL (32-36); Mean Corpuscular Volume 96.8 fL (80-100); Mean Platelet Volume 10.2 fL (7.4-10.4); Monocytes # (auto) 1.16 K/uL (0.11-0.59); Monocytes % (auto) 16.2 %; Neutrophils # (auto) 4.07 K/uL (1.4-6.5); Neutrophils % (auto) 56.7 %; Platelet Count 266 K/uL (130-400); RDW Coefficient of Variation 19.7 % (11.5-14.5); RDW Standard Deviation 69.6 fL (36.4-46.3); Red Blood Count 3.71 M/uL (4.2-5.4); White Blood Count 7.17 K/uL (4.8-10.8)
[2018-10-26 12:45] LABS: Partial Thromboplastin Ratio 1.1; Partial Thromboplastin Time 29.2 Seconds (21.0-31.0); Prothrombin Time 10.1 Seconds (9.0-12.0)
[2018-10-26 12:53] LABS: Alanine Aminotransferase 21 U/L (12-78); Albumin Level 3.1 gm/dl (3.4-5.0); Aspartate Aminotransferase 26 U/L (15-37); Blood Urea Nitrogen 9 mg/dl (7-18); Calcium 8.9 mg/dl (8.5-10.1); Carbon Dioxide 26 mmol/L (21-32); Chloride 108 mmol/L (98-107); Creatinine Clr Calc Pharmacy 26.6 ml/min; Est GFR (African American) 42.8; Glucose 85 mg/dl (70-99); Potassium 3.9 mmol/L (3.5-5.1); Sodium 142 mmol/L (136-145)
[2018-10-26 12:58] LABS: Albumin Globulin Ratio 0.9 (0.9-2); Alkaline Phosphatase 129 U/L (45-117); Bilirubin,Total 0.4 mg/dl (0.2-1); Globulin 3.5 gm/dl (2.5-4.0); Total Protein 6.6 gm/dl (6.4-8.2); Troponin I < 0.015 ng/ml (0-0.045)
--- NOTE | 2018-10-26 14:57 | History & Physical Report ---
Date of Service October 26, 2018 Assessment & Plan (1) Lower GI bleed: This may simply be hemorrhoidal bleeding. However she did pass some clots which raises the question of diverticular bleeding. Clear liquid diet for now. Observation status with telemetry. Serial H&H. Consult gastroenterology. Present on Admission?: Yes (2) History of colon cancer: Currently receiving chemotherapy every [address] Pizano Present on Admission?: Yes (3) Liver metastases: See above Present on Admission?: Yes (4) Essential hypertension: Treated with amlodipine and metoprolol (5) Chronic kidney disease, stage III (moderate): Monitor urine output and intake and output. Serial lab studies (6) DNR (do not resuscitate): The patient has requested a DNR status History of Present Illness Primary Care Provider: RAFIA Coello Bright red blood per rectum with bowel movements 83-year-old female with a history of colon cancer metastatic to the liver. She is currently undergoing chemotherapy every [address] Viveros. She has had a history of lower GI bleeding and now states that she is having bright red blood with bowel movements. She did notice that she passed at least one clot. It is uncertain if this is diverticular bleeding or hemorrhoidal bleeding. She denies abdominal cramping or abdominal pain. No lightheadedness or syncope. Her hemoglobin is stable at this time. However, she did receive 2 units of packed red blood cells as an outpatient last Friday. She will be placed on observation status at this time on a clear liquid diet with serial H and H. Gastro enterology consultation will be requested. She has signed a consent form in the case blood transfusion is necessary. She has requested a DNR status. is at the bedside and understands the current situation and plan. Allergies Allergy/AdvReac Type Severity Reaction Status Date / Time levofloxacin Allergy Intermediate HIVES Verified 10/26/18 12:46 adhesive AdvReac Mild SKIN Verified 10/26/18 12:46 IRRITATION WITH SOME TAPES codeine AdvReac Mild NAUSEA Verified 10/26/18 12:46 crab AdvReac Mild DIZZY AND Verified 10/26/18 12:46 THROWS UP metronidazole AdvReac Mild nausea and Verified 10/26/18 12:46 vomiting Sulfa (Sulfonamide AdvReac Mild SICK TO Verified 10/26/18 12:46 Antibiotics) STOMACH nitrofurantoin AdvReac Unknown NAUSEA Verified 10/26/18 12:46 Home Medications Home Medications Medication Instructions Recorded Confirmed Type Lactobacillus Floragen Acid 1 cap PO QAM 09/25/18 10/26/18 History acetaminophen [Tylenol] 1,000 mg PO Q8H PRN 09/25/18 10/26/18 History amitriptyline 25 mg PO HS 09/25/18 10/26/18 History amlodipine 5 mg PO HS 09/25/18 10/26/18 History aspirin 81 mg PO QAM 09/25/18 10/26/18 History calcium carbonate-vitamin D3 1 tab PO QAM 09/25/18 10/26/18 History gabapentin 300 mg PO TID 09/25/18 10/26/18 History lorazepam [Ativan] 0.5 mg PO HS PRN 09/25/18 10/26/18 History meclizine 12.5 mg PO TID PRN 09/25/18 10/26/18 History metoprolol tartrate 25 mg PO BID 09/25/18 10/26/18 History multivitamin 1 tab PO QAM 09/25/18 10/26/18 History omeprazole 20 mg PO QAM 09/25/18 10/26/18 History polyethylene glycol 3350 [Miralax] 17 g PO DAILY PRN 09/25/18 10/26/18 History chlorthalidone 25 mg PO QAM PRN 10/26/18 10/26/18 History ciprofloxacin HCl [Cipro] 500 mg PO BID 10/26/18 10/26/18 History Past Med/Surg History Medical History DNR (do not resuscitate) Chronic kidney disease, stage III (moderate) (Chronic) Essential hypertension (Chronic) Liver metastases (Chronic) History of colon cancer (Chronic) Lower GI bleed (Acute) Hemorrhoid Colon cancer (Chronic) Hypertension (Chronic) History of esophageal stricture Kidney carcinoma (Chronic ~2010) MGUS (monoclonal gammopathy of unknown significance) (Chronic ~2012) Surgical History S/P dilatation of esophageal stricture Family History Other Cancer Social History Preferred Language: Uzbek Communication Ability: Effective Visual Impairment: No Limitations Hearing Ability: Normal marital status: marital status details: Current Living Situation: Family Feels Safe at Home: Yes Smoking Status: Former smoker Review of Systems Review of Systems: Constitutional-no fever or chills ENT-no blurred vision, no double vision, no epistaxis, no sore throat Respiratory-no cough, no wheezing, no shortness of breath Cardiac-no palpitations, no chest pain, no syncope GI-no nausea, vomiting, diarrhea, melena. Bright red blood per rectum with bowel movements as stated above -no urinary retention, no urinary incontinence, no dysuria, no hematuria Musculoskeletal-no joint pain, no muscle tenderness Skin-no bruising, no rashes, no pruritus Neuro-no isolated weakness, no paresthesia, no weakness Psych-no depression, no anxiety Physical Exam Physical Exam: General-alert and oriented x3, no fevers, no chills HEENT-head atraumatic and normocephalic, TMs intact bilaterally, pupils equal and reactive to light, extraocular muscles intact Neck-no lymphadenopathy or thyromegaly, trachea midline Chest-clear to auscultation percussion. No rales wheezing or rhonchi Cardiac-regular rate and rhythm, normal S1 and S2, no murmurs Abdomen-normal bowel sounds, nontender, no hepatosplenomegaly Extremities-no cyanosis, clubbing, or edema Neuro-cranial nerves II through XII intact, motor and sensory function within normal limits, strength symmetrical 5/5, no focal deficits Psych-normal affect, normal mood Results & Data Vital Signs (Past 12 Hours) Vital Signs Temp Pulse Resp BP Pulse Ox 10/26/18 13:31 70 24 137/71 96 10/26/18 13:02 71 22 148/120 H 98 10/26/18 11:12 36.7 C 75 18 152/80 H 99 Laboratory Results 10/26/18 11:49 10/26/18 11:49
[2018-10-26] MEDS ORDERED: MECLIZINE 12.5 MG TAB PO PRN (16:34)
[2018-10-26] MEDS ORDERED: ACETAMINOPHEN 500 MG TAB PO PRN (16:34)
[2018-10-26] MEDS ORDERED: LORazepam 0.5 MG TAB PO PRN (16:34)
[2018-10-26] MEDS ORDERED: ONDANSETRON INJ 2 MG/ML 2 ML VIAL IV PRN (16:34)
[2018-10-26] MEDS: SODIUM CHLORIDE 0.9% 1000ML 1,000 ML IV SCH (17:08)
[2018-10-26 18:14] LABS: Hematocrit (blood only) 37.4 % (37-47); Hemoglobin 11.6 g/dL (12.0-16.0)
--- NOTE | 2018-10-26 18:29 | Emergency Department Note ---
Entered by Lilly Abebe acting as a scribe for History of Present Illness General Chief complaint: Rectal Bleed Stated complaint: BLEEDING FROM BOWELS Source: patient Mode of arrival: ambulatory Limitations: no limitations History of Present Illness Onset (ago): week(s) 1 Location: abdomen Pain Consistency: + constant Quality: + other (rectal bleed) Associated symptoms: + other (The patient complains of hematochezia. The patient denies abdominal pain, urinary symptoms, constipation, and diarrhea. ); no nausea/vomiting The patient is an 83 year old female with a history of liver cancer, hemorrhoid s, colon resection, and chemotherapy who presents to the ED with complaints of a constant rectal bleed that onset 1 week ago. She states that the rectal bleeding has been intermittent for the past year. The patient complains of hematochezia. The patient denies abdominal pain, nausea, vomiting, urinary symptoms, constipation, and diarrhea. She notes that she had a blood transfusion completed 3 days ago. The patient states that she takes baby aspirin. Previous colonoscopy 1 year ago showed diverticulosis and internal and external hemorrhoids. Home Medications Home Medications Medication Instructions Recorded Confirmed Type Lactobacillus Floragen Acid 1 cap PO QAM 09/25/18 10/26/18 History acetaminophen [Tylenol] 1,000 mg PO Q8H PRN 09/25/18 10/26/18 History amitriptyline 25 mg PO HS 09/25/18 10/26/18 History amlodipine 5 mg PO HS 09/25/18 10/26/18 History aspirin 81 mg PO QAM 09/25/18 10/26/18 History calcium carbonate-vitamin D3 1 tab PO QAM 09/25/18 10/26/18 History gabapentin 300 mg PO TID 09/25/18 10/26/18 History lorazepam [Ativan] 0.5 mg PO HS PRN 09/25/18 10/26/18 History meclizine 12.5 mg PO TID PRN 09/25/18 10/26/18 History metoprolol tartrate 25 mg PO BID 09/25/18 10/26/18 History multivitamin 1 tab PO QAM 09/25/18 10/26/18 History omeprazole 20 mg PO QAM 09/25/18 10/26/18 History polyethylene glycol 3350 [Miralax] 17 g PO DAILY PRN 09/25/18 10/26/18 History chlorthalidone 25 mg PO QAM PRN 10/26/18 10/26/18 History ciprofloxacin HCl [Cipro] 500 mg PO BID 10/26/18 10/26/18 History Allergies Allergy/AdvReac Type Severity Reaction Status Date / Time levofloxacin Allergy Intermediate HIVES Verified 10/26/18 12:46 adhesive AdvReac Mild SKIN Verified 10/26/18 12:46 IRRITATION WITH SOME TAPES codeine AdvReac Mild NAUSEA Verified 10/26/18 12:46 crab AdvReac Mild DIZZY AND Verified 10/26/18 12:46 THROWS UP metronidazole AdvReac Mild nausea and Verified 10/26/18 12:46 vomiting Sulfa (Sulfonamide AdvReac Mild SICK TO Verified 10/26/18 12:46 Antibiotics) STOMACH nitrofurantoin AdvReac Unknown NAUSEA Verified 10/26/18 12:46 Past Med/Surg History Medical History DNR (do not resuscitate) Chronic kidney disease, stage III (moderate) (Chronic) Essential hypertension (Chronic) Liver metastases (Chronic) History of colon cancer (Chronic) Lower GI bleed (Acute) Hemorrhoid Colon cancer (Chronic) Hypertension (Chronic) History of esophageal stricture Kidney carcinoma (Chronic ~2010) MGUS (monoclonal gammopathy of unknown significance) (Chronic ~2012) Surgical History S/P dilatation of esophageal stricture Family History Other Cancer Social History Preferred Language: [place] Communication Ability: Effective Visual Impairment: No Limitations Hearing Ability: Normal [employer] Interpreter Required: No Beliefs That Will Affect Care: None marital status: marital status details: Current Living Situation: Spouse Other Information That Helps Us Care for You: No Feels Safe at Home: Yes Safety Concerns: Feels Safe At This Time Smoking Status: Former smoker Do You Dip or Chew Tobacco: No Second Hand Exposure: No Tobacco Cessation Education Requested by Patient: No Hx Alcohol Use: Yes Alcohol type: wine Hx Substance Use: No Review of Systems See HPI for pertinent positives & negatives. and A total of 10 systems reviewed and were otherwise negative Physical Exam Vital Signs Vital Signs - 24 hr 10/26/18 11:12 10/26/18 11:51 10/26/18 13:02 Temperature 36.7 C Temperature Source Oral Sepsis Recent Fever Within 48 Hours No Sepsis New/Unexplained Change in Mental Status No Sepsis Action Taken by Nursing No Action Required Pulse Rate 75 71 Respiratory Rate 18 22 Respiratory Effort / Characteristics Non-Labored Spontaneous Respiratory Depth Normal Respiratory Pattern Regular Blood Pressure 152/80 H 148/120 H Blood Pressure Mean 104 129 Blood Pressure Position Sitting Pulse Oximetry 99 98 Oxygen Delivery Method Room Air Room Air Room Air 10/26/18 13:31 10/26/18 14:01 10/26/18 14:30 Temperature Temperature Source Sepsis Recent Fever Within 48 Hours Sepsis New/Unexplained Change in Mental Status Sepsis Action Taken by Nursing Pulse Rate 70 70 71 Respiratory Rate 24 23 24 Respiratory Effort / Characteristics Respiratory Depth Respiratory Pattern Blood Pressure 137/71 143/85 H 153/92 H Blood Pressure Mean 93 104 112 Blood Pressure Position Pulse Oximetry 96 94 97 Oxygen Delivery Method Room Air Room Air Room Air GENERAL: Sitting up in bed. Alert, chronically ill-appearing, malnourished. EYE EXAM: Normal conjunctiva. OROPHARYNX: no exudate, no erythema, lips, buccal mucosa, and tongue normal and mucous membranes are moist NECK: supple, no nuchal rigidity, no adenopathy, non-tender LUNGS: Clear to auscultation. Normal chest wall mechanics HEART: no murmurs, S1 normal and S2 normal CHEST: Port located in left upper chest wall. ABDOMEN: abdomen soft, non-tender, normo-active bowel sounds, no masses, no rebound or guarding. RECTAL: External hemorrhoids present. Heme-positive BACK: Back is symmetrical on inspection and there is no deformity, no midline tenderness, no CVA tenderness. SKIN: no rashes and no bruising UPPER EXTREMITIES: upper extremities are grossly normal. LOWER EXTREMITIES: No pitting edema. NEURO EXAM: Normal sensorium, cranial nerves II-XII grossly intact, normal speech, no gross weakness of arms, no gross weakness of legs. Course 1155: Past medical records reviewed. The patient was evaluated in room C10. A complete history and physical examination was performed. 1400: I have re-evaluated the patient and updated her on the results of her scans. 1406: I reviewed the patient's case with Dr. Fields Hospitalist - [facility]. He will evaluate the patient for further management. 1409: Previous colonoscopy 1 year ago showed diverticuli and internal and external hemorrhoids. Consultations Consultation #1: 1406: I reviewed the patient's case with Dr. Fields Hospitalist - [facility]. He will evaluate the patient for further management. Time: 14:06 Administered Medications Sodium Chloride (Nss 1000ml) 1,000 mls @ 80 mls/hr IV .[id number] MYNOR Stop: 11/25/18 16:33 Last Admin: 10/26/18 17:08 Dose: 80 mls/hr Documented by: [id number] Discontinued Medications Sodium Chloride (Nss 1000ml) 1,000 mls @ 100 mls/hr IV .Q10H MYNOR Stop: 10/26/18 21:59 Last Infusion: 10/26/18 16:36 Dose: 0 mls/hr Documented by: [id number] Admin: 10/26/18 12:15 Dose: 100 mls/hr Documented by: [id number] Medical Decision Making Differential Diagnosis Differential diagnoses: Diverticulosis, AVM, coagulopathy, colitis, inflammatory bowel disease, malignancy, Erika-Ro tear, esophagitis, peptic ulcer disease, variceal bleed, gastritis, epistaxis, fissure, hemorrhoids, as well as others were entertained. Medical Records Attestation: I reviewed the patient's medical records. Home Medications Current Medication List: was personally reviewed by me Laboratory Data Attestation: I reviewed the patient's lab results. Result diagrams: 10/26/18 18:05 10/26/18 11:49 Lab Results 10/26/18 10/26/18 10/26/18 Range/Units 11:49 11:49 11:49 WBC 7.17 (4.8-10.8) K/uL RBC 3.71 L (4.2-5.4) M/uL Hgb 11.3 L (12.0-16.0) g/dL Hct 35.9 L (37-47) % MCV 96.8 (80-100) fL MCH 30.5 (25-34) pg MCHC 31.5 L (32-36) g/dL RDW Std Deviation 69.6 H (36.4-46.3) fL RDW Coeff of Preston 19.7 H (11.5-14.5) % Plt Count 266 (130-400) K/uL MPV 10.2 (7.4-10.4) fL Immature Gran % (Auto) 0.7 % Neut % (Auto) 56.7 % Lymph % (Auto) 22.0 % [place] % (Auto) 16.2 % Eos % (Auto) 3.1 % Baso % (Auto) 1.3 % Immature Gran # (Auto) 0.05 H (0.00-0.02) K/uL Neut # (Auto) 4.07 (1.4-6.5) K/uL Lymph # (Auto) 1.58 (1.2-3.4) K/uL [place] # (Auto) 1.16 H (0.11-0.59) K/uL Eos # (Auto) 0.22 (0-0.5) K/uL Baso # (Auto) 0.09 (0-0.2) K/uL PT 10.1 (9.0-12.0) Seconds INR 1.0 (0.9-1.1) APTT 29.2 (21.0-31.0) Seconds PTT Ratio 1.1 Sodium 142 (136-145) mmol/L Potassium 3.9 (3.5-5.1) mmol/L Chloride 108 H (98-107) mmol/L Carbon Dioxide 26 (21-32) mmol/L Anion Gap 8.0 (3-11) BUN 9 (7-18) mg/dl Creatinine 1.32 H (0.6-1.2) mg/dl Est Cr Clr Drug Dosing 26.6 ml/min Est GFR ( Amer) 42.8 Est GFR (Non-Af Amer) 37.0 BUN/Creatinine Ratio 7.0 L (10-20) Glucose 85 (70-99) mg/dl Calcium 8.9 (8.5-10.1) mg/dl Total Bilirubin 0.4 (0.2-1) mg/dl AST 26 (15-37) U/L ALT 21 (12-78) U/L Alkaline Phosphatase 129 H (45-117) U/L Troponin I < 0.015 (0-0.045) ng/ml Total Protein 6.6 (6.4-8.2) gm/dl Albumin 3.1 L (3.4-5.0) gm/dl Globulin 3.5 (2.5-4.0) gm/dl Albumin/Globulin Ratio 0.9 (0.9-2) Blood Type Antibody Screen 10/26/18 Range/Units 11:49 WBC (4.8-10.8) K/uL RBC (4.2-5.4) M/uL Hgb (12.0-16.0) g/dL Hct (37-47) % MCV (80-100) fL MCH (25-34) pg MCHC (32-36) g/dL RDW Std Deviation (36.4-46.3) fL RDW Coeff of Preston (11.5-14.5) % Plt Count (130-400) K/uL MPV (7.4-10.4) fL Immature Gran % (Auto) % Neut % (Auto) % Lymph % (Auto) % [place] % (Auto) % Eos % (Auto) % Baso % (Auto) % Immature Gran # (Auto) (0.00-0.02) K/uL Neut # (Auto) (1.4-6.5) K/uL Lymph # (Auto) (1.2-3.4) K/uL [place] # (Auto) (0.11-0.59) K/uL Eos # (Auto) (0-0.5) K/uL Baso # (Auto) (0-0.2) K/uL PT (9.0-12.0) Seconds INR (0.9-1.1) APTT (21.0-31.0) Seconds PTT Ratio Sodium (136-145) mmol/L Potassium (3.5-5.1) mmol/L Chloride (98-107) mmol/L Carbon Dioxide (21-32) mmol/L Anion Gap (3-11) BUN (7-18) mg/dl Creatinine (0.6-1.2) mg/dl Est Cr Clr Drug Dosing ml/min Est GFR ( Amer) Est GFR (Non-Af Amer) BUN/Creatinine Ratio (10-20) Glucose (70-99) mg/dl Calcium (8.5-10.1) mg/dl Total Bilirubin (0.2-1) mg/dl AST (15-37) U/L ALT (12-78) U/L Alkaline Phosphatase (45-117) U/L Troponin I (0-0.045) ng/ml Total Protein (6.4-8.2) gm/dl Albumin (3.4-5.0) gm/dl Globulin (2.5-4.0) gm/dl Albumin/Globulin Ratio (0.9-2) Blood Type A Positive Antibody Screen NEGATIVE ECG Data Attestation: I personally reviewed and interpreted this ECG as follows: Indication: other (rectal bleed) Rate (beats per minute): 73 Rhythm: sinus rhythm Findings: + other (normal axis, normal intervals); no PVC Blood Pressure Blood Pressure Findings: Elevated blood pressure Blood Pressure Disposition: further management by hospitalist RANDALL Narrative Patient is an 83-year-old female with past medical history of colon cancer with previous resection and recent colonoscopy per review of the chart within the past year. Colonoscopy showed internal and external hemorrhoids associated with diverticuli. Patient also has liver cancer and follows with Dr. Viveros. Patient has been having bright red blood per rectum for the past 2 weeks. Patient does get chemotherapy. She had a blood transfusion on Friday for 2 units. Has had increase blood per rectum. No dark tarry stools. Denies any anticoagulation. Labs were obtained and showed a hemoglobin 11.6 status post transfusion. INR is unremarkable. No elevation in BUN to suggest upper GI bleed. Creatinine was normal at 1.3. LFTs bilirubin and troponin was negative. Patient was typed and crossed. EKG was unremarkable. Chest x-ray was unremarkable. Patient was updated at bedside and discussed with the hospitalist for observation due to GI bleeding in the recent blood transfusion secondary to the anemia. Impression & Plan GI bleed, Colon cancer, Liver cancer Discharge Plan Visit Data *Final* Discharge Date/Time: 10/26/18 16:08 Chief Complaint: Rectal Bleed Stated Complaint: BLEEDING FROM BOWELS ED Provider: Marlo Barahona Discharge Problem: GI bleed, Colon cancer, Liver cancer Patient Disposition: Admitted As Inpatient Discharge Instructions Interventions: ED Discharge Assessment Last Done: 10/26/18 16:08 The scribe's documentation has been prepared under my direction and personally reviewed by me in its entirety. I confirm that the note above accurately reflects all work, treatment, procedures, and medical decision making performed by me.
--- NOTE | 2018-10-26 19:56 | XRay Report ---
SINGLE VIEW CHEST CLINICAL HISTORY: Lower GI bleeding. FINDINGS: An AP, portable, upright chest radiograph is compared to chest x-ray and chest CT dated 09/25. The examination is degraded by portable technique and patient rotation. A left subclavian cent ral venous infusion port is unchanged in position. The heart is mildly enlarged and there is atherosc lerotic calcification of the thoracic aorta. The pulmonary vasculature is noncongested. Chronic inter stitial thickening is unchanged from previous. There is no airspace consolidation or large pleural ef fusion. No pneumothorax is seen. The skeletal structures are osteopenic. The bony thorax is grossly i ntact. IMPRESSION: Mild cardiac enlargement with no active disease in the chest. Electronically signed by: Ezequiel Webb M.D. 10/26/2018 7:55 PM
[2018-10-26] MEDS: METOPROLOL TARTRATE 25 MG TAB PO SCH (20:23)
[2018-10-26] MEDS: GABAPENTIN 300 MG CAP PO SCH (20:23)
[2018-10-26] MEDS ORDERED: AMLODIPINE BESYLATE 5 MG TAB PO SCH (21:00)
[2018-10-26] MEDS ORDERED: AMITRIPTYLINE HCL 25 MG TAB PO SCH (21:00)
[2018-10-27 00:26] LABS: Hematocrit (blood only) 32.6 % (37-47); Hemoglobin 10.4 g/dL (12.0-16.0)
[2018-10-27] MEDS ORDERED: HEPARIN 100 UNIT/ML 5ML FLUSH FLUSH PRN (00:31)
[2018-10-27] MEDS: SODIUM CHLORIDE 0.9% 1000ML 1,000 ML IV SCH (05:15)
[2018-10-27 06:29] LABS: Basophils # (auto) 0.14 K/uL (0-0.2); Basophils % (auto) 2.5 %; Eosinophils # (auto) 0.21 K/uL (0-0.5); Eosinophils % (auto) 3.8 %; Hematocrit (blood only) 35.7 % (37-47); Hemoglobin 11.1 g/dL (12.0-16.0); Immature Granulocytes # (auto) 0.04 K/uL (0.00-0.02); Immature Granulocytes % (auto) 0.7 %; Lymphocytes % (auto) 30.6 %; Mean Corpuscular Hgb Conc 31.1 g/dL (32-36); Mean Corpuscular Volume 97.8 fL (80-100); Mean Platelet Volume 9.7 fL (7.4-10.4); Monocytes # (auto) 1.14 K/uL (0.11-0.59); Monocytes % (auto) 20.5 %; Neutrophils # (auto) 2.32 K/uL (1.4-6.5); Neutrophils % (auto) 41.9 %; Platelet Count 232 K/uL (130-400); RDW Coefficient of Variation 19.5 % (11.5-14.5); RDW Standard Deviation 70.4 fL (36.4-46.3); Red Blood Count 3.65 M/uL (4.2-5.4); White Blood Count 5.55 K/uL (4.8-10.8)
[2018-10-27 07:07] LABS: BUN Creatinine Ratio 5.9 (10-20); Calcium 8.5 mg/dl (8.5-10.1); Creatinine Clr Calc Pharmacy 30.1 ml/min; Est GFR (African American) 53.4; Est GFR (Non-African American) 46.1; Potassium 3.4 mmol/L (3.5-5.1)
[2018-10-27] MEDS: METOPROLOL TARTRATE 25 MG TAB PO SCH (08:00)
[2018-10-27] MEDS: GABAPENTIN 300 MG CAP PO SCH ×2 (08:10→15:15)
[2018-10-27] MEDS ORDERED: CALCIUM 600MG + VIT D 400 IU TAB PO SCH (09:00)
[2018-10-27] MEDS ORDERED: MULTIVITAMIN TAB PO SCH (09:00)
[2018-10-27] MEDS ORDERED: LACTOBACILLUS ACIDOPHILUS (FLORANEX) TAB PO SCH (09:00)
[2018-10-27] MEDS ORDERED: PANTOprazole 40 MG TAB PO SCH (09:00)
[2018-10-27] MEDS ORDERED: POTASSIUM CHLORIDE 10 MEQ TABCR PO SCH (09:30)
--- NOTE | 2018-10-27 09:32 | Gastrointestinal Consultation ---
Date of Consultation October 27, 2018 Assessment & Plan (1) Rectal bleed: (2) Colon cancer: (3) Dysphagia: (4) S/P dilatation of esophageal stricture: Patient is a 83 year-old female with a history of metastatic cancer s/p resection on adjuvant chemotherapy admitted with rectal bleeding which has resolved since admission. She is also reporting very mild returning dysphagia with known history of esophageal stenosis s/p dilation one year ago. Rectal bleeding: Recommend ongoing conservative management with monitoring sx and H&H. No plan for invasive GI work up as H&H is stable and bleeding has resolved. Suspect possible diverticular or hemorrhoidal bleeding. Dysphagia and history of stricture: Symptoms are mild. Discussed timing of repeat EGD and patient was agreeable to having this testing performed on an outpatient basis especially in light of recent bleeding. Will have my office arrange testing. Continue Pantoprazole 40 mg daily. Thank you for allowing us to participate in the care of this patient. If you have any questions or concerns, please do not hesitate to contact us. Supervising Physician Co-Signing Physician Notes Agree with RAFIA Bentley as above Abd: Soft, NT, ND, +BS Continue current therapy Will need EGD with dilation as outpatient Currently no overt GI bleeding, and therefore, no emergent colonoscopy needed at this time. History of Present Illness Reason for Consultation: Lower GIB Requesting Physician: Dr. Fields Attending Physician: Surendra Monahan History of Present Illness Su Montes De Oca is a pleasant 83 year-old female with a history of metastatic colon cancer diagosed by Dr. Rosario in 2017 status post colon resection currently undergoing adjuvant chemotherapy. Her next treatment was scheduled for tomorrow. Last Friday, she was found to have progressive anemia with a H&H of 8.8/28.4. Dr. Pizano had arranged for the patient to have an outpatient blood transfusion of 2 units PRBCs. States that at the time she was having no evidence of GIB. Over the past few days, however, she has since developed a new onset of bright red blood per rectum with a passage of a single blood clot. Concerned, she did present to the ER for evaluation. H&H on arrival was noted to be 11.3/35.9% with serial monitoring and this morning 11.1/35.7. She states she has not had any further bleeding since admission to the hospital. CT a/p performed on 09/25/18 was reviewed. No bowel wall thickening or lesions. Her last colonoscopy was performed by Dr. Rosario on 10/24/17 and demonstrated only diverticulosis and internal hemorrhoids as well as normal appearing anastomosis from prior resection. She did have an upper endoscopy at that time as well which demonstrated 2 esophageal strictures which were dilated at that time. She states she was having some pill dysphagia which was improved with the dilation and her dysphagia has returned slightly. States she is having difficulty swallowing only the larger medications but she is using applesauce to aid in swallow these pills. She denies any pyrosis, abdominal pain, nausea or vomiting, diarrhea, constipation or other GI complaints at present. She has been taking Omeprazole 20 mg daily as an outpatient. Allergies Allergy/AdvReac Type Severity Reaction Status Date / Time levofloxacin Allergy Intermediate HIVES Verified 10/26/18 12:46 adhesive AdvReac Mild SKIN Verified 10/26/18 12:46 IRRITATION WITH SOME TAPES codeine AdvReac Mild NAUSEA Verified 10/26/18 12:46 crab AdvReac Mild DIZZY AND Verified 10/26/18 12:46 THROWS UP metronidazole AdvReac Mild nausea and Verified 10/26/18 12:46 vomiting Sulfa (Sulfonamide AdvReac Mild SICK TO Verified 10/26/18 12:46 Antibiotics) STOMACH nitrofurantoin AdvReac Unknown NAUSEA Verified 10/26/18 12:46 Home Medications Home Medications Medication Instructions Recorded Confirmed Type Lactobacillus Floragen Acid 1 cap PO QAM 09/25/18 10/26/18 History acetaminophen [Tylenol] 1,000 mg PO Q8H PRN 09/25/18 10/26/18 History amitriptyline 25 mg PO HS 09/25/18 10/26/18 History amlodipine 5 mg PO HS 09/25/18 10/26/18 History calcium carbonate-vitamin D3 1 tab PO QAM 09/25/18 10/26/18 History gabapentin 300 mg PO TID 09/25/18 10/26/18 History lorazepam [Ativan] 0.5 mg PO HS PRN 09/25/18 10/26/18 History meclizine 12.5 mg PO TID PRN 09/25/18 10/26/18 History metoprolol tartrate 25 mg PO BID 09/25/18 10/26/18 History multivitamin 1 tab PO QAM 09/25/18 10/26/18 History polyethylene glycol 3350 [Miralax] 17 g PO DAILY PRN 09/25/18 10/26/18 History chlorthalidone 25 mg PO QAM PRN 10/26/18 10/26/18 History ciprofloxacin HCl [Cipro] 500 mg PO BID 10/26/18 10/26/18 History pantoprazole 40 mg PO QAM #30 tab 10/27/18 Rx potassium chloride [Klor-Con M10] 20 meq PO BID #6 tab 10/27/18 Rx Patient History Medical History DNR (do not resuscitate) Chronic kidney disease, stage III (moderate) (Chronic) Essential hypertension (Chronic) Liver metastases (Chronic) History of colon cancer (Chronic) Lower GI bleed (Acute) Hemorrhoid Colon cancer (Chronic) Hypertension (Chronic) History of esophageal stricture Kidney carcinoma (Chronic ~2010) MGUS (monoclonal gammopathy of unknown significance) (Chronic ~2012) Surgical History S/P dilatation of esophageal stricture Family History Other Cancer Social History Preferred Language: [place] Communication Ability: Effective Visual Impairment: No Limitations Hearing Ability: Normal Beliefs That Will Affect Care: None marital status: marital status details: Current Living Situation: Spouse Feels Safe at Home: Yes Smoking Status: Former smoker Second Hand Exposure: No Hx Alcohol Use: Yes Alcohol type: wine Hx Substance Use: No Review of Systems Constitutional: no fever and no chills Eyes: no problem reported Ear, Nose, Mouth, Throat: as per Subjective / HPI Respiratory: no problem reported Cardiovascular: no problem reported Gastrointestinal: as per Subjective / HPI Genitourinary: no problem reported Musculoskeletal: no problem reported Integumentary: no problem reported Neurologic: no problem reported Psychiatric: no problem reported Physical Exam Constitutional: WD/WN, vitals as above Eyes: EOM intact bilaterally Neck: normal appearance Respiratory: normal respiratory effort, lungs clear to auscultation Cardiovascular: Rate/Rhythm: regular rate and regular rhythm Gastrointestinal (Abdomen): normal bowel sounds, soft, nontender, no hepatosplenomegaly Musculoskeletal: no pedal edema Skin: no rashes, warm and dry Psychiatric: A+Ox3, euthymic affect Results & Data Vital Signs (Past 12 Hours) Vital Signs Temp Pulse Resp BP Pulse Ox 10/27/18 07:22 36.3 C L 70 17 148/77 H 94 10/27/18 03:24 36.4 C L 67 16 134/76 97 10/26/18 23:26 36.4 C L 67 16 139/75 95 Laboratory Results Abnormal lab results 10/26/18 10/26/18 10/26/18 Range/Units 11:49 11:49 18:05 RBC 3.71 L (4.2-5.4) M/uL Hgb 11.3 L 11.6 L (12.0-16.0) g/dL Hct 35.9 L (37-47) % MCHC 31.5 L (32-36) g/dL RDW Std Deviation 69.6 H (36.4-46.3) fL RDW Coeff of Preston 19.7 H (11.5-14.5) % Immature Gran # (Auto) 0.05 H (0.00-0.02) K/uL Garrard # (Auto) 1.16 H (0.11-0.59) K/uL Potassium (3.5-5.1) mmol/L Chloride 108 H (98-107) mmol/L Creatinine 1.32 H (0.6-1.2) mg/dl BUN/Creatinine Ratio 7.0 L (10-20) Alkaline Phosphatase 129 H (45-117) U/L Albumin 3.1 L (3.4-5.0) gm/dl 10/27/18 10/27/18 10/27/18 Range/Units 00:04 06:06 06:06 RBC 3.65 L (4.2-5.4) M/uL Hgb 10.4 L 11.1 L (12.0-16.0) g/dL Hct 32.6 L 35.7 L (37-47) % MCHC 31.1 L (32-36) g/dL RDW Std Deviation 70.4 H (36.4-46.3) fL RDW Coeff of Preston 19.5 H (11.5-14.5) % Immature Gran # (Auto) 0.04 H (0.00-0.02) K/uL Garrard # (Auto) 1.14 H (0.11-0.59) K/uL Potassium 3.4 L (3.5-5.1) mmol/L Chloride 112 H (98-107) mmol/L Creatinine (0.6-1.2) mg/dl BUN/Creatinine Ratio 5.9 L (10-20) Alkaline Phosphatase (45-117) U/L Albumin (3.4-5.0) gm/dl (1) Colon cancer Colon location: unspecified part of colon Qualified Code(s): C18.9 - Malignant neoplasm of colon, unspecified
[2018-10-27 12:49] LABS: Hematocrit (blood only) 36.4 % (37-47); Hemoglobin 11.4 g/dL (12.0-16.0)
--- NOTE | 2018-11-04 10:35 | Discharge Summary ---
Date of Service October 27, 2018 Admission HPI Per Admitting Provider Bright red blood per rectum with bowel movements 83-year-old female with a history of colon cancer metastatic to the liver. She is currently undergoing chemotherapy every [address] Viveros. She has had a history of lower GI bleeding and now states that she is having bright red blood with bowel movements. She did notice that she passed at least one clot. It is uncertain if this is diverticular bleeding or hemorrhoidal bleeding. She denies abdominal cramping or abdominal pain. No lightheadedness or syncope. Her hemoglobin is stable at this time. However, she did receive 2 units of packed red blood cells as an outpatient last Friday. She will be placed on observation status at this time on a clear liquid diet with serial H and H. Gastro enterology consultation will be requested. She has signed a consent form in the case blood transfusion is necessary. She has requested a DNR status. is at the bedside and understands the current situation and plan. Principal Diagnosis Hemorrhoidal bleed. Discharge Exam General-alert and oriented x3, no fevers, no chills HEENT-head atraumatic and normocephalic, TMs intact bilaterally, pupils equal and reactive to light, extraocular muscles intact Neck-no lymphadenopathy or thyromegaly, trachea midline Chest-clear to auscultation percussion. No rales wheezing or rhonchi Cardiac-regular rate and rhythm, normal S1 and S2, no murmurs Abdomen-normal bowel sounds, nontender, no hepatosplenomegaly Extremities-no cyanosis, clubbing, or edema Neuro-cranial nerves II through XII intact, motor and sensory function within normal limits, strength symmetrical 5/5, no focal deficits Psych-normal affect, normal mood Discharge Data Allergies Allergy/AdvReac Type Severity Reaction Status Date / Time levofloxacin Allergy Intermediate HIVES Verified 10/28/18 14:09 adhesive AdvReac Mild SKIN Verified 10/28/18 14:09 IRRITATION WITH SOME TAPES codeine AdvReac Mild NAUSEA Verified 10/28/18 14:09 crab AdvReac Mild DIZZY AND Verified 10/28/18 14:09 THROWS UP metronidazole AdvReac Mild nausea and Verified 10/28/18 14:09 vomiting nitrofurantoin AdvReac Mild NAUSEA Verified 10/28/18 14:09 Sulfa (Sulfonamide AdvReac Mild SICK TO Verified 10/28/18 14:09 Antibiotics) STOMACH Consultations 10/26/18 14:05 ED Decision to Admit Stat 10/26/18 16:34 Consult Gastroenterology Routine Hospital Course (1) Lower GI bleed: This may simply be hemorrhoidal bleeding. However she did pass some clots which raises the question of diverticular bleeding. Clear liquid diet for now. Observation status with telemetry. Serial H&H was stable. Appreciate GI input: Patient is a 83 year-old female with a history of metastatic cancer s/p resection on adjuvant chemotherapy admitted with rectal bleeding which has resolved since admission. She is also reporting very mild returning dysphagia with known history of esophageal stenosis s/p dilation one year ago. Rectal bleeding: Recommend ongoing conservative management with monitoring sx and H&H. No plan for invasive GI work up as H&H is stable and bleeding has resolved. Suspect possible diverticular or hemorrhoidal bleeding. Dysphagia and history of stricture: Symptoms are mild. Discussed timing of repeat EGD and patient was agreeable to having this testing performed on an outpatient basis especially in light of recent bleeding. Will have my office arrange testing. Continue Pantoprazole 40 mg daily. (2) History of colon cancer: Currently receiving chemotherapy every [address] Pizano (3) Liver metastases: See above (4) Essential hypertension: Treated with amlodipine and metoprolol (5) Chronic kidney disease, stage III (moderate): Monitor urine output and intake and output. Serial lab studies (6) DNR (do not resuscitate): The patient has requested a DNR status Total Time Total Time Spent Total Time Spent (In Minutes): 35 Total Time Includes: Examination of the Patient, Discharge Planning and Medication Reconciliation Discharge Plan Discharge Items Patient Disposition: Home - Home Health Services Reason For Visit: LOWER GI BLEED Discharge Diagnosis: Lower GI bleed Discharge Goals: Decrease discomfort Activity: Resume your previous activity Non-emergency contact: Primary Care Provider Call non-emergency contact if: you have any medication questions Follow-up/Referrals: Lynn Medeiros CRNP [Primary Care Provider] - Diet: Regular Addtl Provider Instructions: Discussed timing of repeat EGD and patient was agreeable to having this testing performed on an outpatient basis especially in light of recent bleeding. Will have GI arrange testing. Continue Pantoprazole 40 mg daily. Prescriptions: New pantoprazole 40 mg Tablet,Delayed Release (Dr/Ec) 40 mg PO QAM Qty: 30 RF: 0 potassium chloride [Klor-Con M10] 10 mEq Tablet,Er Particles/Crystals 20 meq PO BID Qty: 6 RF: 0 Continued acetaminophen [Tylenol] 325 mg liquid 1,000 mg PO Q8H PRN (Reason: Pain) RF: 0 amitriptyline 25 mg Tablet 25 mg PO HS RF: 0 amlodipine 5 mg Tablet 5 mg PO HS RF: 0 calcium carbonate-vitamin D3 1,000 mg(2,500 mg)-800 unit Tablet 1 tab PO QAM RF: 0 gabapentin 300 mg Tablet Extended Release 24 Hr 300 mg PO TID RF: 0 Lactobacillus Floragen Acid 1 cap PO QAM RF: 0 lorazepam [Ativan] 0.5 mg Tablet 0.5 mg PO HS PRN (Reason: Sleep) RF: 0 meclizine 12.5 mg Tablet 12.5 mg PO TID PRN (Reason: Dizziness) RF: 0 metoprolol tartrate 25 mg Tablet 25 mg PO BID RF: 0 multivitamin Tablet 1 tab PO QAM RF: 0 polyethylene glycol 3350 [Miralax] 17 gram/dose Powder 17 g PO DAILY PRN (Reason: Constipation) RF: 0 chlorthalidone 25 mg Tablet 25 mg PO QAM PRN (Reason: Hypertension) RF: 0 Discontinued aspirin 81 mg Tablet,Delayed Release (Dr/Ec) 81 mg PO QAM RF: 0 omeprazole 20 mg Tablet,Disintegrat, Delay Rel 20 mg PO QAM RF: 0 Stand-Alone Forms: [facility] Discharge Orders: Discharge Order (Routine); Ordered 10/27/18 Ordered By: Surendra Monahan Admission Data Admit Date/Time: 10/26/18 14:51 Attending Provider: Surendra Monahan Admit Provider: Kyle Fields Primary Care Provider: Lynn Medeiros Other Providers: Kyle Fields ; Kar Rosario Service: Telemetry Other Interventions: Discharge Summary Assessment (RN) Last Done: 10/27/18 16:06 DC Date/Time DO NOT enter until pt leaves facility: 10/27/18 16:40
== END 2018-10-27 16:40 | disposition home health service (06) ==
LOC: ED 11:06 → 2S 11:06 → SUATTDRO 14:51 → 2S 16:08
DX: I12.9 Hypertensive chronic kidney disease with stage 1 through stage 4 chronic kidney disease, or unspecified chronic kidney disease; Z91.013 Allergy to seafood; K92.2 Gastrointestinal hemorrhage, unspecified; Z88.8 Allergy status to other drugs, medicaments and biological substances; Z79.899 Other long term (current) drug therapy; N18.9 Chronic kidney disease, unspecified; C78.7 Secondary malignant neoplasm of liver and intrahepatic bile duct; C18.8 Malignant neoplasm of overlapping sites of colon

== ENCOUNTER 2020-02-27 22:56 | Inpatient (IN) ==
[2020-02-27] MEDS ORDERED: SODIUM CHLORIDE 0.9% 1000ML 1,000 ML IV SCH (23:45)
--- NOTE | 2020-02-27 23:53 | Emergency Department Note ---
History of Present Illness General Chief complaint: Illness Stated complaint: STARTED NEW PILLS-RASH ALL OVER [id number] Time Seen by Provider: 02/27/20 23:26 Source: patient Mode of arrival: EMS Limitations: no limitations History of Present Illness Provider complaint: weakness, diarrhea, fall Onset (ago): day(s) 5 Maximum Pain Intensity: 7 Current Pain Intensity: 7 Quality: + constant Relieved By: + none Exacerbated By: + eating and + movement Associated symptoms: + fever/chills, + loss of appetite, + malaise, + rash and + weakness; no chest pain and no cough Treatments prior to arrival: none This is an 84-year-old female who presents the emergency room complaining of 5 days of worsening symptoms including weakness, difficulty walking, decreased appetite, and diarrhea. Patient thought it was possibly related to a chemotherapeutic agent that she takes for her liver cancer. Patient does relate though that she has taken this medication in the past and has not had any adverse reactions. Patient states 5 days ago she began noticing a rash that was all over her body. Patient denies any weeping or crusting. Patient states she then began getting weaker and had a poor appetite. States 2 days ago then while walking with her cane she fell onto her left side. Patient states she hit her head on the floor however did not lose consciousness. Patient states she has had pain in her left side and left head since then. Patient states today she developed diarrhea, had 3-4 episodes that were nonbloody. Patient states the rash is since improving, no involvement of her eyes or mouth. Patient states she is not urinating very much as she is not drinking very much, however sometimes has urge incontinence. Patient denies any lower extremity swelling. Patient denies any cough or shortness of breath, chest pain. Patient does admit to abdominal cramping with the diarrhea today as well as pain on the left side since her fall. Patient states she takes Xarelto as she was told she has a blood clot under her port. She states her port no longer works. Patient states 2 days ago she developed a fever at home of 101, she has not had a fever since then. Patient states she has been tested for COVID twice over the last several weeks and was negative both times. is not sick either. Patient also had a recent appointment with nephrology, Dr. Nelson as she has a history of prior nephrectomy. She states her blood pressure medication was increased at that time. Pt seen during a time of high acuity and national emergency pandemic while wearing PPE. Home Medications Home Medications Medication Instructions Recorded Confirmed Type calcium carbonate-vitamin D3 1 tab PO QAM 09/25/18 02/27/20 History multivitamin 1 tab PO QAM 09/25/18 02/27/20 History Lactobacillus acidophilus 460 mg PO DAILY 02/08/19 02/27/20 History [Florajen] gabapentin 600 mg PO TID 02/08/19 02/27/20 History lorazepam 0.5 mg tablet 0.5 mg PO BID PRN #30 tab 08/24/19 02/27/20 Rx rivaroxaban 20 mg tablet 20 mg PO DAILY #30 tab 08/24/19 02/27/20 Rx amlodipine 5 mg PO DAILY 09/16/19 02/27/20 History metoprolol tartrate 25 mg PO BID 09/16/19 02/27/20 History ondansetron 4 mg PO Q6H PRN #15 tab 09/25/19 02/27/20 Rx amitriptyline 25 mg tablet 25 mg PO HS #30 tab 12/31/19 02/27/20 Rx lisinopril 40 mg tablet 40 mg PO DAILY #30 tab 02/17/20 02/27/20 Rx methylprednisolone 4 mg tablets in See Rx Instructions .ROUTE 02/17/20 02/27/20 Rx a dose pack .COMPLEX #21 ea omeprazole 20 mg capsule,delayed 20 mg PO DAILY #90 cap 02/24/20 02/27/20 Rx release Allergies Allergy/AdvReac Type Severity Reaction Status Date / Time levofloxacin Allergy Intermediate HIVES Verified 02/27/20 23:18 Iodinated Contrast Media Allergy Unknown Verified 02/27/20 23:18 adhesive AdvReac Mild SKIN Verified 02/27/20 23:18 IRRITATION WITH SOME TAPES codeine AdvReac Mild NAUSEA Verified 02/27/20 23:18 crab AdvReac Mild DIZZY AND Verified 02/27/20 23:18 THROWS UP metronidazole AdvReac Mild nausea and Verified 02/27/20 23:18 vomiting nitrofurantoin AdvReac Mild NAUSEA Verified 02/27/20 23:18 Sulfa (Sulfonamide AdvReac Mild SICK TO Verified 02/27/20 23:18 Antibiotics) STOMACH Past Med/Surg History Medical History (Updated 02/28/20 @ 07:01 by Laura Mccollum DO) Absent kidney, acquired Anemia Anxiety Basal cell carcinoma (BCC) on back/nose Colon cancer 2017--sx, chemo Depression DNR (do not resuscitate) Exposure to COVID-19 virus GERD (gastroesophageal reflux disease) Hemorrhoid History of colon cancer History of esophageal dilatation History of esophageal stricture Liver cancer Lower GI bleed MGUS (monoclonal gammopathy of unknown significance) (~2012) Nausea and vomiting after administration of anesthetic agent Proteinuria Renal cell carcinoma 2010, L kidney removed Urinary tract infection Surgical History History of appendectomy History of bilateral tubal ligation History of bowel resection History of colonoscopy History of esophagogastroduodenoscopy (EGD) History of left nephrectomy History of nephrectomy, left History of phacoemulsification of cataract of both eyes with intraocular lens implantation History of tooth extraction all top teeth removed/most of bottom History of total abdominal hysterectomy and bilateral salpingo-oophorectomy History of vascular access device APORT left chest Status post Mohs surgery for basal cell carcinoma Family History Other Cancer No family history of adverse response to anesthesia Denies family history of Ovarian cancer Prostate cancer Myocardial infarction Breast cancer Colorectal cancer Social History Smoking Status: Never smoker Tobacco Type: Cigarettes Second Hand Exposure: No; Hx Alcohol Use: Yes Alcohol type: wine Hx Substance Use: No Preferred Language: Portuguese Communication Ability: Effective Visual Impairment: No Limitations Hearing Ability: Normal Small Animal Caretaker Required: No Beliefs That Will Affect Care: None marital status: marital status details: Current Living Situation: Spouse Other Information That Helps Us Care for You: No Feels Safe at Home: Yes Seatbelt Use: always Assistive Devices: Cane Review of Systems See HPI for pertinent positives & negatives. and A total of 10 systems reviewed and were otherwise negative Physical Exam Vital Signs Vital Signs - 24 hr 02/27/20 23:00 02/28/20 00:21 02/28/20 00:57 Temperature 37.9 C H Temperature Source Oral Pulse Rate 105 H 90 Pulse Rate [Right Finger] 90 Pulse Rhythm Regular Respiratory Rate 18 18 Respiratory Effort / Characteristics Non-Labored Respiratory Depth Normal Normal Respiratory Pattern Regular Blood Pressure 103/62 Blood Pressure [Right Arm] 130/76 Blood Pressure Mean 75 Blood Pressure Mean [Right Arm] 94 Blood Pressure Position [Right Arm] Lying Pulse Oximetry 96 98 97 Oxygen Delivery Method Room Air Room Air Room Air Sepsis Recent Fever Within 48 Hours Yes Sepsis New/Unexplained Change in Mental Status No Sepsis Action Taken by Nursing No Action Required 02/28/20 02:00 Temperature Temperature Source Pulse Rate Pulse Rate [Right Finger] 79 Pulse Rhythm Respiratory Rate 16 Respiratory Effort / Characteristics Respiratory Depth Normal Respiratory Pattern Blood Pressure Blood Pressure [Right Arm] 138/95 Blood Pressure Mean Blood Pressure Mean [Right Arm] 109 Blood Pressure Position [Right Arm] Lying Pulse Oximetry 96 Oxygen Delivery Method Room Air Sepsis Recent Fever Within 48 Hours Sepsis New/Unexplained Change in Mental Status Sepsis Action Taken by Nursing GENERAL: alert, ill appearing, well nourished, no distress, non-toxic EYE EXAM: normal conjunctiva, PERRL and EOM's grossly intact OROPHARYNX: no exudate, no erythema, lips, buccal mucosa, and tongue normal and mucous membranes are moist, no mucocutaneous lesions, dentures intact NECK: supple, no nuchal rigidity, no adenopathy, non-tender LUNGS: Clear to auscultation. Normal chest wall mechanics, no w/r/r HEART: no murmurs, S1 normal and S2 normal ABDOMEN: abdomen soft, generalized discomfort with palpation, normo-active bowel sounds, no masses, no rebound or guarding. BACK: Back is symmetrical on inspection and there is no deformity, no midline tenderness, no CVA tenderness. SKIN: Maculopapular rash noted to trunk and scattered few areas to neck/face/ head, no vesicles, petechiae, and no bruising UPPER EXTREMITIES: upper extremities are grossly normal. FROM, nml pulses b/l. LOWER EXTREMITIES: No pitting edema. FROM, nml pulses b/l. NEURO EXAM: Normal sensorium, cranial nerves II-XII grossly intact, normal speech, no gross weakness of arms, no gross weakness of legs. Gross sensation intact. Course Course 0132: Pt made aware of results. VS stable. 0140: Case discussed with Dr. Contreras. Discussed antibiotics - will start vanco/zosyn. Stool cultures pending. Administered Medications Lactated Ringer's (Lr) 1,000 mls @ 100 mls/hr IV .Q10H [facility] Stop: 03/29/20 03:47 Last Admin: 02/28/20 04:49 Dose: 100 mls/hr Documented by: [id number] Discontinued Medications Sodium Chloride (Nss 1000ml) 1,000 mls @ 999 mls/hr IV .Q1H1M [facility] Stop: 02/28/20 00:45 Last Infusion: 02/28/20 04:42 Dose: 0 mls/hr Documented by: [id number] Admin: 02/28/20 00:01 Dose: 999 mls/hr Documented by: [id number] Piperacillin Sod/Tazobactam Sod (Zosyn) 4.5 gm in 120 mls @ 240 mls/hr IV NOW ONE Stop: 02/28/20 02:10 Last Infusion: 02/28/20 02:22 Dose: 0 mls/hr Documented by: [id number] Admin: 02/28/20 01:48 Dose: 240 mls/hr Documented by: [id number] Sodium Chloride (Nss 1000ml) 1,000 mls @ 125 mls/hr IV .Q8H [facility] Stop: 03/29/20 01:44 Last Admin: 02/28/20 04:47 Dose: Not Given Documented by: [id number] Vancomycin HCl 1,250 mg/ (Sodium Chloride) 525 mls @ 200 mls/hr IV NOW ONE Stop: 02/28/20 04:31 Last Infusion: 02/28/20 05:09 Dose: 0 mls/hr Documented by: [id number] Admin: 02/28/20 02:22 Dose: 200 mls/hr Documented by: [id number] Miscellaneous Information (Piperacill/Tazobac Consult Active) 1 ea N/A UD PRN PRN Reason: Consult Stop: 03/29/20 01:40 Last Admin: 02/28/20 02:22 Dose: 1 ea Documented by: [id number] Miscellaneous Information (Vancomycin Consult Active) 1 ea N/A UD PRN PRN Reason: Consult Stop: 03/29/20 01:53 Last Admin: 02/28/20 02:22 Dose: 1 ea Documented by: [id number] Miscellaneous Information (Vancomycin Consult Active) 1 ea N/A UD PRN PRN Reason: Consult Stop: 03/29/20 01:53 Last Admin: 02/28/20 02:22 Dose: 1 ea Documented by: [id number] Medical Decision Making Differential Diagnosis Differential Diagnosis includes but is not limited to dehydration, stroke, anemia, hypoglycemia, hyponatremia, hypernatremia, urinary tract infection, pneumonia, bronchitis, sepsis, gastroenteritis, additional abdominal pathology, metabolic abnormalities and infections. Medical Records Attestation: I reviewed the patient's medical records. Home Medications Current Medication List: was personally reviewed by me Laboratory Data Attestation: I reviewed the patient's lab results. Result diagrams: 02/27/20 23:58 02/28/20 01:39 Lab Results 02/27/20 02/27/20 02/27/20 Range/Units 23:58 23:58 23:58 WBC 10.32 (4.8-10.8) K/uL RBC 4.42 (4.2-5.4) M/uL Hgb 14.0 (12.0-16.0) g/dL Hct 40.7 (37-47) % MCV 92.1 (80-100) fL MCH 31.7 (25-34) pg MCHC 34.4 (32-36) g/dL RDW Std Deviation 58.6 H (36.4-46.3) fL RDW Coeff of Preston 17.3 H (11.5-14.5) % Plt Count 135 (130-400) K/uL MPV 10.5 H (7.4-10.4) fL Immature Gran % (Auto) 1.4 % Neut % (Auto) 84.5 % Lymph % (Auto) 6.5 % [place] % (Auto) 6.5 % Eos % (Auto) 0.9 % Baso % (Auto) 0.2 % Neut # (Auto) 8.73 H (1.4-6.5) K/uL Lymph # (Auto) 0.67 L (1.2-3.4) K/uL [place] # (Auto) 0.67 H (0.11-0.59) K/uL Eos # (Auto) 0.09 (0-0.5) K/uL Baso # (Auto) 0.02 (0-0.2) K/uL Immature Gran # (Auto) 0.14 H (0.00-0.02) K/uL PT Cancelled INR Cancelled APTT Cancelled PTT Ratio Cancelled Sodium (136-145) mmol/L Potassium (3.5-5.1) mmol/L Chloride (98-107) mmol/L Carbon Dioxide (21-32) mmol/L Anion Gap (3-11) BUN (7-18) mg/dl Creatinine (0.6-1.2) mg/dl Est Cr Clr Drug Dosing Est GFR ( Amer) Est GFR (Non-Af Amer) BUN/Creatinine Ratio (20) Glucose (70-99) mg/dl Lactate (0.4-2.0) mmol/L Calcium (8.5-10.1) mg/dl Magnesium (1.8-2.4) mg/dl Total Bilirubin (0.2-1) mg/dl AST (15-37) U/L ALT (12-78) U/L Alkaline Phosphatase (45-117) U/L Troponin I (0-0.045) ng/ml Total Protein (6.4-8.2) gm/dl Albumin (3.4-5.0) gm/dl Globulin (2.5-4.0) gm/dl Albumin/Globulin Ratio (0.9-2) Procalcitonin Cancelled 02/27/20 02/27/20 02/28/20 Range/Units 23:58 23:58 01:39 WBC (4.8-10.8) K/uL RBC (4.2-5.4) M/uL Hgb (12.0-16.0) g/dL Hct (37-47) % MCV (80-100) fL MCH (25-34) pg MCHC (32-36) g/dL RDW Std Deviation (36.4-46.3) fL RDW Coeff of Preston (11.5-14.5) % Plt Count (130-400) K/uL MPV (7.4-10.4) fL Immature Gran % (Auto) % Neut % (Auto) % Lymph % (Auto) % [place] % (Auto) % Eos % (Auto) % Baso % (Auto) % Neut # (Auto) (1.4-6.5) K/uL Lymph # (Auto) (1.2-3.4) K/uL [place] # (Auto) (0.11-0.59) K/uL Eos # (Auto) (0-0.5) K/uL Baso # (Auto) (0-0.2) K/uL Immature Gran # (Auto) (0.00-0.02) K/uL PT INR APTT PTT Ratio Sodium 126 L (136-145) mmol/L Potassium 3.6 (3.5-5.1) mmol/L Chloride 96 L (98-107) mmol/L Carbon Dioxide 22 (21-32) mmol/L Anion Gap 8.0 (3-11) BUN 38 H (7-18) mg/dl Creatinine 1.85 H (0.6-1.2) mg/dl Est Cr Clr Drug Dosing Not Reportable Est GFR ( Amer) 28.3 Est GFR (Non-Af Amer) 24.4 BUN/Creatinine Ratio 20.6 H (10-20) Glucose 96 (70-99) mg/dl Lactate 2.2 H* (0.4-2.0) mmol/L Calcium 8.8 (8.5-10.1) mg/dl Magnesium 2.1 (1.8-2.4) mg/dl Total Bilirubin 2.8 H (0.2-1) mg/dl AST 148 H (15-37) U/L ALT 68 (12-78) U/L Alkaline Phosphatase 269 H (45-117) U/L Troponin I < 0.015 (0-0.045) ng/ml Total Protein 6.9 (6.4-8.2) gm/dl Albumin 2.7 L (3.4-5.0) gm/dl Globulin 4.2 H (2.5-4.0) gm/dl Albumin/Globulin Ratio 0.6 L (0.9-2) Procalcitonin 02/28/20 02/28/20 02/28/20 Range/Units 01:39 01:39 01:46 WBC (4.8-10.8) K/uL RBC (4.2-5.4) M/uL Hgb (12.0-16.0) g/dL Hct (37-47) % MCV (80-100) fL MCH (25-34) pg MCHC (32-36) g/dL RDW Std Deviation (36.4-46.3) fL RDW Coeff of Preston (11.5-14.5) % Plt Count (130-400) K/uL MPV (7.4-10.4) fL Immature Gran % (Auto) % Neut % (Auto) % Lymph % (Auto) % [place] % (Auto) % Eos % (Auto) % Baso % (Auto) % Neut # (Auto) (1.4-6.5) K/uL Lymph # (Auto) (1.2-3.4) K/uL [place] # (Auto) (0.11-0.59) K/uL Eos # (Auto) (0-0.5) K/uL Baso # (Auto) (0-0.2) K/uL Immature Gran # (Auto) (0.00-0.02) K/uL PT 15.1 H INR 1.5 H APTT 53.7 H* PTT Ratio 1.9 Sodium (136-145) mmol/L Potassium (3.5-5.1) mmol/L Chloride (98-107) mmol/L Carbon Dioxide (21-32) mmol/L Anion Gap (3-11) BUN (7-18) mg/dl Creatinine (0.6-1.2) mg/dl Est Cr Clr Drug Dosing Est GFR ( Amer) Est GFR (Non-Af Amer) BUN/Creatinine Ratio (10-20) Glucose (70-99) mg/dl Lactate 1.7 (0.4-2.0) mmol/L Calcium (8.5-10.1) mg/dl Magnesium (1.8-2.4) mg/dl Total Bilirubin (0.2-1) mg/dl AST (15-37) U/L ALT (12-78) U/L Alkaline Phosphatase (45-117) U/L Troponin I (0-0.045) ng/ml Total Protein (6.4-8.2) gm/dl Albumin (3.4-5.0) gm/dl Globulin (2.5-4.0) gm/dl Albumin/Globulin Ratio (0.9-2) Procalcitonin 1.66 H Imaging Data Attestation: I personally reviewed and interpreted this imaging study as follows: My Impression: X-ray: I interpreted the following studies. Chest: A single view study of the chest was reviewed and was negative for cardiomegaly, focal infiltrate, effusion, pulmonary edema, or wide mediastinum. Port noted left ant/superior chest wall. No rib fracture or pneumothorax. Radiologist's Impression: CT abdomen and pelvis without contrast: Comparison to January 20, 2023 The appendix is normal. There is mild wall thickening involving the right colon consistent with colitis. No pneumoperitoneum, free fluid, or surrounding inflammation is identified. There are at least 4 liver mass lesions measuring 3.8 cm segment 8, 2.9 cm in segment 4A, 5.3 cm segment 5, and 3.8 cm segment 6. These appear essentially unchanged since previous. There are 2 calcified ga llstones within the gallbladder measuring up to 1.9 cm. The gallbladder is nondilated. No surrounding inflammation or biliary duct dilatation is seen. Left kidney has been removed. The right kidney is unremarkable. No hydronephrosis or ureterolithiasis is seen. Possible mild constipation with 5 cm of stool in the sigmoid colon at the site of previous bowel anastomosis. Moderate degenerative changes in the lower lumbar spine. No fracture or subluxation. Radiologist: Curtis Interiano MD CT C-spine: Sagittally reformatted images demonstrate moderate narrowing and osteophytosis at the atlantodental joint. The odontoid process is intact. Prevertebral soft tissues are normal. The cervical spine vertebral body heights are normal. There is moderate to severe to space narrowing and mild osteophytosis greatest at the C4-5 and C5-6. Mild multilevel facet arthrosis is present. Axial soft tissue images demonstrate a 3 mm disc bulge at C3-4 without spinal stenosis. There is moderate left neural foraminal narrowing due to facet arthrosis. C4-5 demonstrates moderate left neural foraminal narrowing due to facet arthrosis. C5-6 demonstrates a 3 mm broad-based posterior disc marginal osteophyte without significant spinal stenosis. There is severe left and moderate right neurofor aminal narrowing. No acute cervical spine fracture or subluxation is seen. Radiologist: Curtis Interiano MD CT head: Comparison to July 19, 2019. The paranasal sinuses and mastoid air cells are normally aerated. There is no skull fracture or scalp hematoma. There is a normal gyral pattern of the brain. There is no mass lesion or midline shift. The graywhite matter differentiation is maintained. The ventricles and CSF spaces are normal. There is no evidence of acute large vessel infarct or intracranial hemorrhage. Radiologist: Curtis Interiano MD Blood Pressure Blood Pressure Findings: Normal blood pressure MDM Narrative Elderly and ill-appearing female presents after 5 days of weakness, subsequent fall, diarrhea and abdominal pain. Patient with a known history of liver cancer and taking oral chemotherapeutic agents. Patient did report a fever 2 days ago, however none today. Labs drawn and sent as part of a sepsis evaluation. Patient was started on gentle IV fluid rehydration due to an unknown cardiac status initially and not wanting to drastically shift her sodium level too quickly. Patient had a borderline fever here and was mildly tachycardic on presentation. No obvious evidence of trauma despite reported fall and use of anticoagulation. Patient sent for CT imaging as a precaution due to GI symptoms as well as pain secondary to her fall. No evidence of acute trauma. Patient found to be hyponatremic and have acute kidney injury, likely secondary to poor oral intake and GI losses. Patient with evidence of colitis on CT imaging. Stool cultures and stool for C. difficile were ordered here in addition. After discussion with the hospitalist patient was started on vancomycin and Zosyn. No significant leukocytosis, however patient's lactic acid and pro calcitonin were elevated. Given right-sided colitis in a patient who is immunocompromised due to malignancy and on chemotherapeutic agents, typhlitis is possible. Patient made aware of results and was in agreement with plan. Pt seen during a time of high acuity and national emergency pandemic while wearing PPE. Impression & Plan Abdominal pain, KATHRYN (acute kidney injury), Fall, Weakness, Acute hyponatremia, CHI (closed head injury), Rash, Colitis, Cancer of liver, Hyperbilirubinemia Discharge Plan Visit Data Chief Complaint: Illness Stated Complaint: STARTED NEW PILLS-RASH ALL OVER [id number] ED Provider: Laura Mccollum Discharge Problem: Abdominal pain, KATHRYN (acute kidney injury), Fall, Weakness, Acute hyponatremia, CHI (closed head injury), Rash, Colitis, Cancer of liver, Hyperbilirubinemia Patient Disposition: Admitted As Inpatient Discharge Instructions Interventions: ED Discharge Assessment Last Done: 02/28/20 03:15 Discharge Problem: Abdominal pain Qualifiers: Abdominal location: generalized Qualified Code(s): R10.84 - Generalized abdominal pain Fall Qualifiers: Encounter type: initial encounter Qualified Code(s): W19.XXXA - Unspecified fall, initial encounter CHI (closed head injury) Qualifiers: Encounter type: initial encounter Qualified Code(s): S09.90XA - Unspecified injury of head, initial encounter Cancer of liver Qualifiers: Liver malignancy type: unspecified liver malignancy Qualified Code(s): C22.9 - Malignant neoplasm of liver, not specified as primary or secondary
[2020-02-28 00:12] LABS: Basophils # (auto) 0.02 K/uL (0-0.2); Basophils % (auto) 0.2 %; Eosinophils # (auto) 0.09 K/uL (0-0.5); Eosinophils % (auto) 0.9 %; Hematocrit (blood only) 40.7 % (37-47); Immature Granulocytes # (auto) 0.14 K/uL (0.00-0.02); Immature Granulocytes % (auto) 1.4 %; Lymphocytes # (auto) 0.67 K/uL (1.2-3.4); Lymphocytes % (auto) 6.5 %; Mean Corpuscular Hemoglobin 31.7 pg (25-34); Mean Corpuscular Hgb Conc 34.4 g/dL (32-36); Mean Corpuscular Volume 92.1 fL (80-100); Mean Platelet Volume 10.5 fL (7.4-10.4); Monocytes # (auto) 0.67 K/uL (0.11-0.59); Monocytes % (auto) 6.5 %; Neutrophils # (auto) 8.73 K/uL (1.4-6.5); Neutrophils % (auto) 84.5 %; Platelet Count 135 K/uL (130-400); RDW Coefficient of Variation 17.3 % (11.5-14.5); RDW Standard Deviation 58.6 fL (36.4-46.3); Red Blood Count 4.42 M/uL (4.2-5.4); White Blood Count 10.32 K/uL (4.8-10.8)
[2020-02-28 00:41] LABS: Alanine Aminotransferase 68 U/L (12-78); Albumin Globulin Ratio 0.6 (0.9-2); Albumin Level 2.7 gm/dl (3.4-5.0); Alkaline Phosphatase 269 U/L (45-117); BUN Creatinine Ratio 20.6 (10-20); Bilirubin,Total 2.8 mg/dl (0.2-1); Blood Urea Nitrogen 38 mg/dl (7-18); Calcium 8.8 mg/dl (8.5-10.1); Carbon Dioxide 22 mmol/L (21-32); Chloride 96 mmol/L (98-107); Est GFR (African American) 28.3; Est GFR (Non-African American) 24.4; Globulin 4.2 gm/dl (2.5-4.0); Glucose 96 mg/dl (70-99); Sodium 126 mmol/L (136-145); Total Protein 6.9 gm/dl (6.4-8.2); Troponin I < 0.015 ng/ml (0-0.045)
[2020-02-28] MEDS ORDERED: PIPERACILL/TAZOBAC CONSULT ACTIVE PRN ×2 (01:41→03:48)
[2020-02-28] MEDS ORDERED: PIPERACILLIN/TAZOBACTAM 4.5 GM/120 ML BAG IV ONE (01:41)
[2020-02-28] MEDS ORDERED: SODIUM CHLORIDE 0.9% 1000ML 1,000 ML IV SCH (01:45)
[2020-02-28] MEDS ORDERED: VANCOMYCIN HCL 1,250 MG in SODIUM CHLORIDE 0.9% 500 ML IV ONE (01:54)
[2020-02-28] MEDS ORDERED: VANCOMYCIN CONSULT ACTIVE PRN ×3 (01:54→03:48)
[2020-02-28 02:09] LABS: Potassium 3.6 mmol/L (3.5-5.1)
[2020-02-28 02:14] LABS: Magnesium 2.1 mg/dl (1.8-2.4)
[2020-02-28 02:16] LABS: INR 1.5 (0.9-1.1); Partial Thromboplastin Ratio 1.9; Prothrombin Time 15.1 Seconds (9.0-12.0)
[2020-02-28 02:25] LABS: Partial Thromboplastin Time 53.7 Seconds (21.0-31.0)
--- NOTE | 2020-02-28 02:41 | History & Physical Report ---
Date of Service February 28, 2020 Assessment & Plan (1) Colon cancer: Su Montes De Oca is an 84 year old woman with a past medical history significant for metastatic colon cancer on oral chemotherapy who has had five days of rash weakness and a fall, has had fever and diarrhea for last two days. Fever Concerning given patient's current chemotherapy and frail health Procalcitonin positive Will start on broad spectrum antibiotics vancomycin and zosyn BLood cultures ordered Urine culture and c diff stool studies pending No evidence of pneumonia on CXR Patient does have a port in place, could be potential souce of infection may consider removal and culture if patient does not improve and port is no longer needed since patient is on oral chemo Will consult oncology for further guidance on need for port Diarrhea Likely cause of weakness and dehyrdation Stool studies, c diff pending Will rehydrate with LR 100 mls/hour Hyponatremia Likely hypovolemic hyponatremia from decreased PO intake and diarrhea Given 1 L Nss in ED will rehydrate with LR @125 mls/hour Rash Likely secondary to medication Will hold oral chemo for now oncology consulted Colon cancer Metastatic to liver multiple large lesions stable from previous scan Weakness and fall CT head and neck negative Will treat infection and rehydrate, PT/OT evaluations DVT PPx: Continuing anticoagulation F/E/N: LR 100 mls/hour Dispo: Admit for IV abx, further evaluation and PT/OT evaluation DNR/DNI (2) MGUS (monoclonal gammopathy of unknown significance): (3) Hypertension: (4) Chronic kidney disease, stage III (moderate): (5) Peripheral neuropathy: (6) Hyponatremia: (7) KATHRYN (acute kidney injury): (8) Dehydration: (9) Fall: (10) Weakness: History of Present Illness Chief Complaint: Diarrhea, weakness, fall, and rash following oral chemo Primary Care Provider: RAFIA Coello Su Montes De Oca is an 84 year old woman with a past medical history signif icant for metastatic colon cancer who is on oral chemotherapy through Dr. Pizano and the cancer center who is here because she has had five days of a rash, diarrhea, weakness, fatigue, decreased PO intake, and a fall 2 days ago where she fell while walking with her cane and hit her side and head. Red lacy rash across her whole body this was non itchy non raised and non painful, spared mucus membranes. Never had any rashes like this in the past. Had a fever of 101 at home, some chills, no sweats, chest pain, shortness of breath, cough, has had two covid tests recently both negative, no nausea or vomiting, has had diarrhea, non bloody no melena, no constipation. On presentation to ED via ambulance patient had vital signs WNL apart from an elevated temperature 37.9, labwork significant for elevated INR of 1.5, elevated APTT of 53.7, hyponatremia of 126, elevated BUN and creatinine of 38 and 1.85 elevated from baseline near 1. Elevated Bilirubin of 2.8, elevated AST of 148, albumin of 2.7, procalcitonin of 1.66. Head CT and cervical spine CT negative, abdomen and pelvis CT significant for four large liver masses largest of just under five cm unchanged from previous CT. She lives at home with , who has been well recently, also has childrena nd granchildren in the area who look in on her. Does not drink, smoke or use drugs. Full code. Allergies Allergy/AdvReac Type Severity Reaction Status Date / Time levofloxacin Allergy Intermediate HIVES Verified 02/27/20 23:18 Iodinated Contrast Media Allergy Unknown Verified 02/27/20 23:18 adhesive AdvReac Mild SKIN Verified 02/27/20 23:18 IRRITATION WITH SOME TAPES codeine AdvReac Mild NAUSEA Verified 02/27/20 23:18 crab AdvReac Mild DIZZY AND Verified 02/27/20 23:18 THROWS UP metronidazole AdvReac Mild nausea and Verified 02/27/20 23:18 vomiting nitrofurantoin AdvReac Mild NAUSEA Verified 02/27/20 23:18 Sulfa (Sulfonamide AdvReac Mild SICK TO Verified 02/27/20 23:18 Antibiotics) STOMACH Home Medications Home Medications Medication Instructions Recorded Confirmed Type calcium carbonate-vitamin D3 1 tab PO QAM 09/25/18 02/27/20 History multivitamin 1 tab PO QAM 09/25/18 02/27/20 History Lactobacillus acidophilus 460 mg PO DAILY 02/08/19 02/27/20 History [Florajen] gabapentin 600 mg PO TID 02/08/19 02/27/20 History lorazepam 0.5 mg tablet 0.5 mg PO BID PRN #30 tab 08/24/19 02/27/20 Rx rivaroxaban 20 mg tablet 20 mg PO DAILY #30 tab 08/24/19 02/27/20 Rx amlodipine 5 mg PO DAILY 09/16/19 02/27/20 History metoprolol tartrate 25 mg PO BID 09/16/19 02/27/20 History ondansetron 4 mg PO Q6H PRN #15 tab 09/25/19 02/27/20 Rx amitriptyline 25 mg tablet 25 mg PO HS #30 tab 12/31/19 02/27/20 Rx lisinopril 40 mg tablet 40 mg PO DAILY #30 tab 02/17/20 02/27/20 Rx methylprednisolone 4 mg tablets in See Rx Instructions .ROUTE 02/17/20 02/27/20 Rx a dose pack .COMPLEX #21 ea omeprazole 20 mg capsule,delayed 20 mg PO DAILY #90 cap 02/24/20 02/27/20 Rx release Past Med/Surg History Medical History (Updated 02/28/20 @ 21:37 by Yaa Patrick MD) Absent kidney, acquired Anemia Anxiety Basal cell carcinoma (BCC) on back/nose Colon cancer 2017--sx, chemo Depression DNR (do not resuscitate) Exposure to COVID-19 virus GERD (gastroesophageal reflux disease) Hemorrhoid History of colon cancer History of esophageal dilatation History of esophageal stricture History of thrombosis of internal jugular vein Liver cancer Lower GI bleed MGUS (monoclonal gammopathy of unknown significance) (~2012) Nausea and vomiting after administration of anesthetic agent Proteinuria Renal cell carcinoma 2010, L kidney removed Urinary tract infection Surgical History History of appendectomy History of bilateral tubal ligation History of bowel resection History of colonoscopy History of esophagogastroduodenoscopy (EGD) History of left nephrectomy History of nephrectomy, left History of phacoemulsification of cataract of both eyes with intraocular lens implantation History of tooth extraction all top teeth removed/most of bottom History of total abdominal hysterectomy and bilateral salpingo-oophorectomy History of vascular access device APORT left chest Status post Mohs surgery for basal cell carcinoma Family History Other Cancer No family history of adverse response to anesthesia Denies family history of Ovarian cancer Prostate cancer Myocardial infarction Breast cancer Colorectal cancer Social History Smoking Status: Never smoker Tobacco Type: Cigarettes Second Hand Exposure: No; Hx Alcohol Use: Yes Alcohol type: wine Hx Substance Use: No Preferred Language: [place] Communication Ability: Effective Visual Impairment: No Limitations Hearing Ability: Normal Orchid Transplanter Required: No Beliefs That Will Affect Care: None marital status: marital status details: Current Living Situation: Spouse Other Information That Helps Us Care for You: No Feels Safe at Home: Yes Seatbelt Use: always Assistive Devices: Glasses Review of Systems Review of Systems: All systems reviewed & are unremarkable except as noted in HPI & below Physical Exam Constitutional: well developed; no acute distress and not ill appearing Fatigued appearing one word answers to most questions Eyes: PERRL, conjunctivae normal, anicteric sclerae Respiratory: normal respiratory effort, lungs clear to auscultation Cardiovascular: RRR, no murmur, no edema Gastrointestinal (Abdomen): normal bowel sounds, soft, nontender, no hepatospl enomegaly Skin: Red lacy rash across body, non tender, non raised, non itchy Neurologic: PERRL, EOMI, accommodation nl, no face palsy, no dysarthria Results & Data Results & Data ([facility]) Vital Signs (Past 12 Hours) Vital Signs Temp Pulse Pulse Resp BP BP Pulse Ox 02/28/20 02:00 79 16 138/95 96 02/28/20 00:57 90 18 130/76 97 02/28/20 00:21 90 98 02/27/20 23:00 37.9 C H 105 H 18 103/62 96 Supervising Physician Co-Signing Physician Notes Attending addendum: I have physically seen this patient, have supervised the medical residents activities, and agree with the H&P unless as otherwise noted. Assessment and Plan: Colitis/history colon cancer on chemotherapy- Empiric broad-spectrum antibiotics with vancomycin IV and Zosyn IV. Stool for C. difficile and culture. Follow urine culture and sensitivities Follow blood cultures and sensitivities, both peripheral and through port. Patient is quite debilitated, will need PT OT assessment. LR at 100 mils per hour Consult oncology Remainder of orders and notations as noted Resident Activity Tracking Resident Involvement: Resident Care Provided Care Provided: Adult Hospital Medicine (1) Colon cancer Colon location: unspecified part of colon Qualified Code(s): C18.9 - Malignant neoplasm of colon, unspecified
[2020-02-28] MEDS ORDERED: LORazepam 0.5 MG TAB PO PRN (03:48)
[2020-02-28] MEDS ORDERED: ONDANSETRON INJ 2 MG/ML 2 ML VIAL IV PRN (03:48)
[2020-02-28] MEDS ORDERED: ONDANSETRON 4 MG OD TAB PO PRN (03:56)
[2020-02-28] MEDS: LACTATED RINGER'S 1,000 ML IV SCH ×2 (04:49→14:41)
--- NOTE | 2020-02-28 06:51 | CT Scan Report ---
CT OF THE CERVICAL SPINE WITHOUT CONTRAST CLINICAL HISTORY: trauma COMPARISON STUDY: Cervical spine CT April 29, 2015. TECHNIQUE: Helical axial images of the cervical spine were obtained without IV contrast. Sagittal a nd coronal reconstructions were viewed. Automated exposure control was utilized for the study. A do se lowering technique was utilized adhering to the principles of ALARA. FINDINGS: Alignment of the cervical spine is anatomic. Vertebral body heights are maintained. No acut e cervical spine fracture or subluxation is present. There is no prevertebral edema. Facet joints are intact. Severe multilevel facet arthrosis is noted. There is marked disc space narrowing at C5-C6. Degenerative changes at the C1-C2 articulation are noted. IMPRESSION: No acute cervical spine fracture or subluxation. ACT 112: Negative or not required by law. Electronically signed by: Gurvinder Bui M.D. 02/28/2020 6:49 AM
--- NOTE | 2020-02-28 07:27 | XRay Report ---
SINGLE VIEW CHEST CLINICAL HISTORY: Sepsis. FINDINGS: An AP, portable, upright chest radiograph is compared to study dated 01/02/2020 and correlate d with chest CT dated 01/21/2020. A left subclavian central venous infusion port is unchanged in posit ion. The cardiomediastinal silhouette is unremarkable noting atherosclerotic calcification of the tho racic aorta. There is mild bibasilar scarring/atelectasis. The lungs and pleural spaces are otherwise clear. No pneumothorax is seen. The skeletal structures are osteopenic. The bony thorax is grossly i ntact. IMPRESSION: No active disease in the chest. ACT 112: Negative or not required by law. Electronically signed by: Ezequiel Webb M.D. 02/28/2020 7:26 AM
--- NOTE | 2020-02-28 07:52 | CT Scan Report ---
CT head/brain wo con CLINICAL HISTORY: Head pain status post trauma COMPARISON STUDY: 07/19/2019 TECHNIQUE: Axial CT of the brain is performed from the vertex to the skull base. IV contrast was not administered for this examination. A dose lowering technique was utilized adhering to the principles of ALARA. CT DOSE: FINDINGS: No intra or extra-axial mass lesions are visualized. There is no CT evidence of acute cortical infarc tion. There is no evidence of midline shift. There is no acute hemorrhage. No calvarial fractures ar e visualized. There are patchy white matter hypodensities likely on a small vessel basis. There is no evidence of pathologic ventricular dilatation. There is no evidence of acute sinusitis IMPRESSION: No acute intracranial findings ACT 112: Negative or not required by law. Electronically signed by: Giovanni Santiago M.D. 02/28/2020 7:51 AM
[2020-02-28] MEDS: PIPERACILLIN/TAZOBACTAM 3.375 GM in DEXTROSE 5% 100 ML IV SCH ×3 (08:03→23:15)
[2020-02-28] MEDS: PANTOprazole 40 MG TAB PO SCH (08:03)
[2020-02-28] MEDS: RIVAROXABAN 20 MG TAB PO SCH (08:03)
[2020-02-28] MEDS: CALCIUM 600MG + VIT D 400 IU TAB PO SCH (08:03)
[2020-02-28] MEDS: MULTIVITAMIN TAB PO SCH (08:06)
[2020-02-28] MEDS: GABAPENTIN 600 MG TAB PO SCH ×3 (08:06→21:17)
[2020-02-28] MEDS: METOPROLOL TARTRATE 25 MG TAB PO SCH ×2 (08:06→21:18)
[2020-02-28] MEDS: amLODIPine BESYLATE 5 MG TAB PO SCH (08:06)
[2020-02-28] MEDS: LACTOBACILLUS ACIDOPHILUS (FLORANEX) TAB PO SCH (08:06)
--- NOTE | 2020-02-28 08:11 | CT Scan Report ---
CT SCAN OF THE ABDOMEN AND PELVIS WITHOUT IV CONTRAST CLINICAL HISTORY: Fall. Generalized abdominal pain. Diarrhea. COMPARISON STUDY: Abdominal CT dated 01/21/2020 and 06/08/2018. TECHNIQUE: CT scan of the abdomen and pelvis is performed from the lung bases to the proximal femora. Images are reviewed in the axial, sagittal, and coronal planes. IV contrast was not administered for this examination as per the referring clinician. Note that the examination was performed in signific antly suboptimal fashion without oral and IV contrast. A dose lowering technique was utilized adherin g to the principles of ALARA. FINDINGS: Lung bases: The heart is normal in size noting trace pericardial effusion. The coronary arteries are densely calcified. There is a small hiatal hernia. The lung bases are clear noting bibasilar scarring /atelectasis. Liver: The unenhanced liver is normal in size, contour, and attenuation. There is no intrahepatic candy iary ductal dilatation. Findings of multifocal hepatic metastatic disease have not significantly paul ged from 01/21/2020. There are at least 5 lesions identified measuring up to 5.5 cm. Gallbladder: There are large calcified gallstones with no CT evidence of acute cholecystitis. Spleen: Normal in size and attenuation. Pancreas: The unenhanced pancreas is mildly atrophic and grossly unremarkable. Adrenal glands: Unremarkable. Kidneys: The left kidney is not identified and presumed surgically absent. The right kidney is normal in size and without hydronephrosis. No right renal calculi are identified. There is no evidence of c ontour deforming renal mass lesion. Abdominal vasculature: The abdominal aorta is normal in course and caliber noting moderate to advance d atherosclerotic calcification. Bowel: There is postoperative change from sigmoid colon resection with colocolonic anastomosis. No wilfredo wel obstruction is identified wall thickening is suggested involving the right colon. The appendix is not identified and reported surgically absent. Peritoneum: There is no intraperitoneal free air or abdominal ascites. There is a small fat-containin g umbilical hernia. Lymphadenopathy: None. Pelvic viscera: The bladder is mildly distended but otherwise normal in appearance. The uterus is yvonne gically absent. No adnexal lesion is seen. Skeletal structures: The skeletal structures are osteopenic. There is moderate to advanced lumbosacra l spondylosis. A benign-appearing sclerotic focus in the right ilium on image #266 is unchanged from prior studies. No lytic or blastic lesions are clearly seen. IMPRESSION: 1. Suboptimal examination without oral and IV contrast. 2. There is postoperative change from sigmoid colon resection with colocolonic anastomosis. No bowel obstruction is seen. 3. Wall thickening is present throughout the right colon. Correlate clinically for evidence of a nons pecific colitis. 4. Multifocal hepatic metastatic disease has not significantly changed from 01/21/2020. 5. Cholelithiasis. 6. Solitary right kidney. 7. Additional findings as above. ACT 112: Negative or not required by law. Electronically signed by: Ezequiel Webb M.D. 02/28/2020 8:10 AM
[2020-02-28] MEDS ORDERED: lisinopril 40 MG TAB PO SCH (09:00)
--- NOTE | 2020-02-28 09:09 | Pharmacy Report ---
Pharmacy Abx Initial Consult - Date of Service February 28, 2020 - Pharmacy Dosing Scope Date of Consult: 02/28/2020 Consultation requested by: Dr. Hooper Pharmacy is consulted to initiate Vancomycin + Zosyn IV dosing therapy, order appropriate labs and adjust drug dose/frequency. - Subjective The patient is a 84 year old F admitted on 02/28/20 02:47. - Objective Height: 5 ft 1 in Weight: 59 kg Vital Signs (Past 12hrs): Vital Signs Temp Pulse Pulse Resp BP BP Pulse Ox 02/28/20 08:04 36.4 C L 91 H 18 112/71 98 02/28/20 04:00 37.6 C H 93 H 92 H 105/67 97 02/28/20 03:49 37.6 C H 92 H 105/67 97 02/28/20 03:15 82 18 136/92 96 02/28/20 02:00 79 16 138/95 96 02/28/20 00:57 90 18 130/76 97 02/28/20 00:21 90 98 02/27/20 23:00 37.9 C H 105 H 18 103/62 96 Lab Results (24hrs): Laboratory Tests (24 Hours) 02/28/20 02/27/20 02/27/20 01:39 23:58 23:58 WBC 10.32 Neut # (Auto) 8.73 H Creatinine 1.85 H Est Cr Clr Drug Dosing Not Reportable Procalcitonin 1.66 H 02/27/20 23:58 WBC Neut # (Auto) Creatinine Est Cr Clr Drug Dosing Procalcitonin Cancelled Micro Results: 02/27/20 23:58 Aerobic Blood Culture - Pending Blood Anaerobic Blood Culture - Pending 02/27/20 23:58 Aerobic Blood Culture - Pending Blood Anaerobic Blood Culture - Pending - Risk Factors for Resistance * Immunocompromised (chemotherapy) * Antimicrobial use within the last 90 days: * Cephalexin, Ciprofloxacin, Amoxicillin - Assessment & Plan Assessment 84 year old F admitted secondary to weakness and fatigue following chemo * PMHx significant for MGUS, h/o basal cell carcinoma, h/o renal cell carcinoma s/p L kidney removal and current colon CA being treated with chemo * Febrile at 100.2oF upon admission. WBCs at 10,300. KATHRYN with SCr elevated at 1.85 (baseline ~ 1.1). Lactic acid 2.2 but trending down to 1.7. PCT of 1.66. * Vancomycin and Zosyn are ordered empirically at this time. Could consider change from Zosyn to Cefepime given KATHRYN and nephrotoxic potential of concomitant Vancomycin + Zosyn. Blood cultures are pending. Plan Vancomycin + Zosyn for empiric treatment of febrile illness (source unknown at this time) Vancomycin IV * Loading dose: 1250 mg (21 mg/kg) * Maintenance dose: 750 mg IV (13 mg/kg) every 24 hours * Goal trough level: ~15 mcg/mL * No trough level will be ordered at this time given empiric indication. If therapy continues beyond 48 hours or renal function improves over the next 24 hours then a trough level will be ordered. Piperacillin/tazobactam * 4.5 g bolus administered over 30 minutes, then 3.375 g IV extended infusion every 8 hours * eCrCl from admission is 18.35 mL/min. Expecting eCrCl to be improved to more than 20 mL/min already given fluid administration so will continue every 8 hour dosing for today. Renal function labs ordered for tomorrow via protocol. Pharmacy will continue to follow and will adjust dose/frequency as necessary. Thank you.
--- NOTE | 2020-02-28 09:38 | Medical Student Progress Note ---
Date of Service February 28, 2020 Assessment & Plan (1) Colon cancer: Su Montes De Oca is an 84 year old woman with a past medical history significant for metastatic colon cancer on new oral chemotherapy who has had five days of rash weakness and a fall, has had fever and diarrhea for last two days. Fever Concerning given patient's current chemotherapy and complicating factors Procalcitonin positive Continue broad spectrum antibiotics vancomycin and zosyn BLood cultures pending Urine culture and c diff stool studies pending No evidence of pneumonia on CXR Patient does have a port in place, could be potential souce of infection may consider removal and culture if patient does not improve and port is no longer needed since patient is on oral chemo. She also reports that her port is blocked or otherwise non-functional at this time. Will consult oncology for further guidance on need for port Diarrhea Likely cause of weakness and dehyrdation Stool studies, c diff pending Was rehydrate with LR 100 mls/hour for one day Fluids discontinued. Hyponatremia Likely hypovolemic hyponatremia from decreased eating and drinking and diarrhea Given 1 L Nss in ED Was rehydrating with LR @125 mls/hour. Fluids discontinued to avoid overloading. Rash Likely secondary to medication Will hold oral chemo oncology consulted Acute Kidney Injury Elevated Creatinine and BUN improving with hydration Continue to monitor Weakness and fall CT head and neck negative Pain in the patient's foot may also be due to the fall. X-ray of the foot warranted to rule out fracture. Will treat infection and rehydrate, PT/OT evaluations DVT PPx: Continuing anticoagulation F/E/N: LR 100 mls/hour Dispo: Admit for IV antibiotics, further evaluation and PT/OT evaluation DNR/DNI Colon location: unspecified part of colon Qualified Code(s): C18.9 - Malignant neoplasm of colon, unspecified (2) MGUS (monoclonal gammopathy of unknown significance): (3) Hypertension: (4) Chronic kidney disease, stage III (moderate): (5) Peripheral neuropathy: (6) Hyponatremia: (7) KATHRYN (acute kidney injury): (8) Dehydration: (9) Fall: (10) Weakness: Admission and Anticipated Discharge Date Admission Date: February 28, 2020 Subjective The patient is an 84 year old woman with a history of metastatic colon cancer on a new oral chemotherapy regimen who presented last night to the ER with a five day history of rash and weakness, a fall, and fever and diarrhea for the past two days. The patient was encouraged to go to the ER yesterday by her , who was concerned by her condition. She had a fever on admission and elevated blood pressure, and was mildly dehydrated. She recently began a new oral chemothe rapy, Stivarga, so oncology was consulted. Oncology advised discontinuation of chemotherapy for now. Today the patient states that she feels better, but is still not very hungry and is feeling weak and tired. She considers her rash to be fading compared to yesterday. Of biggest concern to her today is pain in her right foot, which is new. Review of Systems Review of Systems: All systems reviewed & are unremarkable except as noted in HPI & below The patient's rash is not painful, not itchy. She says she thin ks it is improving from yesterday. Respiratory: Patient is breathing well but states that she finds it difficult to take deep breaths. Gastrointestinal: The patient says she is no longer having diarrhea, no nausea, no abdominal pain. She says she still has no appetite, and does not want to drink much water either. Genitourinary: She has no urinary symptoms. Musculoskeletal: The patient says that she is in no pain after her fall a few days ago. At the time she fell onto her left side, and she has some bruising. Today she is most bothered by pain in her right foot, which she says is new. Physical Exam Physical Exam: Patient was alert and oriented x3 and in no apparent distress but fatigued. She says that she is feeling a little better and that her diarrhea is no longer a problem, and that she feels her rash is beginning to fade. Her rash was lacy and red, not raised, and covering her entire torso and extending down her arms. Her right foot was painful on palpation on the lateral side. Pulses were strong bilaterally and her movement and strength was equal bilaterally. Patient's legs were very weak and she could not lift them against resistance, but she does not report any pain with movement. Breath sounds were clear bilaterally but there was some respiratory effort. Patient states that it is fatiguing for her to take deep breaths. Cardiac had normal rate and rhythm, no murmurs. No evidence of edema. Constitutional: well developed; no acute distress and not ill appearing Eyes: PERRL, conjunctivae normal, anicteric sclerae Respiratory: normal respiratory effort, lungs clear to auscultation Cardiovascular: RRR, no murmur, no edema Gastrointestinal (Abdomen): normal bowel sounds, soft, nontender, no hepatosplenomegaly Neurologic: PERRL, EOMI, accommodation nl, no face palsy, no dysarthria Results & Data ([facility]) Vital Signs (Past 12 Hours) Vital Signs Temp Pulse Pulse Resp BP BP Pulse Ox 02/28/20 08:04 36.4 C L 91 H 18 112/71 98 02/28/20 04:00 37.6 C H 93 H 92 H 105/67 97 02/28/20 03:49 37.6 C H 92 H 105/67 97 02/28/20 03:15 82 18 136/92 96 02/28/20 02:00 79 16 138/95 96 02/28/20 00:57 90 18 130/76 97 02/28/20 00:21 90 98 02/27/20 23:00 37.9 C H 105 H 18 103/62 96
--- NOTE | 2020-02-28 10:45 | Consultation Report ---
DATE OF CONSULTATION: 02/28/2020 REASON FOR CONSULTATION: An 84-year-old female patient well known to [facility], suffering from metastatic colorectal cancer, admitted for a disseminated drug rash and fever. HISTORY OF PRESENT ILLNESS: The patient is a pleasant 84-year-old female patient well known to [facility], currently under my care for end-stage metastatic colorectal cancer. The patient presented to hospital early this morning complaining of a disseminated maculopapular rash, low-grade fever and subsequent fall. Apparently, she fell a couple of days ago while walking with her cane and hit the side of her head. She has a nonpruritic, nonraised, lacy rash that encompasses her trunk, both front and back. She denies any such outbreaks in the past. She also reports a low grade fever of 101 at home. She was brought to the Emergency Room by ambulance. Her admitting temperature was 37.9. Her BUN and creatinine were also noted to be elevated. CT scan of the head and cervical spine were negative. Abdomen and pelvis CT was consistent with previous radiograph, specifically 4 large liver masses which are unchanged from a prior CT. I have seen the patient in the office and thought that I had talked her out of any further salvage chemotherapy. The patient has been heavily pretreated in the past. Apparently was seen recently by the physician cupola patcher and the patient had changed her mind and thus started oral Stivarga. She has been on Stivarga roughly 1 week. She reports no pain or discomfort presently. I have been asked to look in on patient's case and make formal recommendations. PAST MEDICAL HISTORY: Significant for renal cell carcinoma status post left nephrectomy, monoclonal gammopathy of unclear significance, metastatic colorectal cancer, gastroesophageal reflux disease, depression/anxiety, chronic anemia, history of esophageal dilatation attributable to stricture. PAST SURGICAL HISTORY: Status post appendectomy, bilateral tubal ligation, initial bowel resection for colon cancer, EGD and colonoscopy, status post left nephrectomy, status post tooth extraction, Mohs surgery to remove a basal cell carcinoma, total abdominal hysterectomy and bilateral salpingo-oophorectomy. MEDICATIONS: Prior to admission include calcium carbonate 1 tablet p.o. daily, multivitamin 1 tablet p.o. daily, gabapentin 600 mg p.o. t.i.d., lorazepam 0.5 mg b.i.d. p.r.n., Xarelto 20 mg p.o. daily, amlodipine 5 mg p.o. daily, metoprolol 25 mg p.o. b.i.d., Zofran 4 mg p.o. q. 6 hours p.r.n., amitriptyline 25 mg p.o. at bedtime, lisinopril 40 mg p.o. daily, methylprednisolone, omeprazole 20 mg p.o. every day. ALLERGIES: LEVOFLOXACIN, IV DYE, ADHESIVE, CODEINE, CRABMEAT, METRONIDAZOLE, NITROFURANTOIN AND SULFA DRUGS. FAMILY HISTORY: Noncontributory. SOCIAL HISTORY: Lives with her . She is . She likes to drink wine on social occasions. She is a nonsmoker. REVIEW OF SYSTEMS: As per HPI, most notably for low-grade fever and maculopapular skin rash. She is not anorexic or losing weight. HEENT: Negative for headaches, lightheadedness or dizziness. No acute visual or hearing deficits. No sinus symptoms, sore throat or dysphagia. LYMPH: No history of lymphoproliferative disease. CARDIAC: No history of coronary artery disease. No current angina or palpitations. PULMONARY: No history of COPD. She is not short of breath, dyspneic or orthopneic. No cough or hemoptysis. GASTROINTESTINAL: Negative for abdominal pain, nausea, vomiting, diarrhea or constipation, no hematochezia or melena stools. GENITOURINARY: No hematuria, dysuria, urinary incontinence. PSYCHIATRIC: Positive for history of depression and anxiety. ENDOCRINE: Negative for diabetes or thyroid disease. MUSCULOSKELETAL: Negative for arthralgias, no focal muscle weakness. NEUROLOGIC: Negative for seizure disorder, stroke, or migraine headache. HEMATOLOGIC: Positive for cytopenias attributable to chemotherapeutic effect. PHYSICAL EXAMINATION: GENERAL: A very pleasant 84-year-old female, awake, alert and appropriate, in no acute distress. VITAL SIGNS: Temperatures are 37.6, pulse 93, respiratory rate 18, blood pressure 105/67, pulse is 93, respiratory rate 18. SKIN: Diffuse maculopapular rash encompassing the front and posterior trunk. HEENT: Head is atraumatic, normocephalic. Eyes: PERRLA, EOMI. Sclerae nonicteric. Nares patent without rhinorrhea or discharge. Throat clear. Tongue midline. Mucous membranes are moist. NECK: Supple without JVD or thyromegaly. LYMPHATICS: No cervical or supraclavicular palpable nodes. HEART: Regular rate and rhythm. No clicks, rubs, murmurs or gallops. LUNGS: Clear to auscultation bilaterally. ABDOMEN: Soft, nontender, nondistended. EXTREMITIES: Musculoskeletal strength and pulses are equal in all 4 extremities. No clubbing, cyanosis or edema. NEUROLOGICALLY: She is awake, alert and oriented x3. Cranial nerves are grossly intact. LABORATORY DATA: WBC count 10,320, hemoglobin 14, platelet count 135,000. PT 15.1 seconds, PTT 53.7 seconds. Sodium 126, potassium 3.6, chloride 96, carbon dioxide 22, creatinine 1.85, BUN 38, AST 148, ALT 68, alkaline phosphatase 269, albumin 2.7. Procalcitonin 1.66. IMPRESSION: 1. Maculopapular rash attributable to drug effect. 2. Metastatic colorectal cancer (end-stage). 3. Fever. 4. Diarrhea. 5. Electrolyte anomalies. 6. Acute renal injury. 7. Monoclonal gammopathy of unclear significance. PLAN: In summary, patient is a pleasant long-term 84-year-old [facility] patient under my care with metastatic colorectal cancer. Again, I had visited with patient a few months back and basically told her at that time options were few and thought that she was heading towards a palliative approach. She subsequently saw my physician cupola patcher and apparently collectively they decided to proceed with Stivarga orally. Typically, I am not very enthusiastic about this agent and have had limited success Stivarga has significant toxicity profile, which unfortunately has happened in patient's case. Again, she needs to discontinue the drug and will reconvene with patient and her in the outpatient arena and discuss palliative approach moving forward. I agree with current medical management and have nothing further to add at the current moment. We will continue to follow up patient periodically during her stay, but anticipate outpatient followup upon discharge. NICOLASA
[2020-02-28 11:37] LABS: Hematocrit (blood only) 36.2 % (37-47); Hemoglobin 12.2 g/dL (12.0-16.0); Mean Corpuscular Hemoglobin 31.1 pg (25-34); Mean Corpuscular Hgb Conc 33.7 g/dL (32-36); Mean Corpuscular Volume 92.3 fL (80-100); RDW Coefficient of Variation 17.7 % (11.5-14.5); RDW Standard Deviation 59.3 fL (36.4-46.3); Red Blood Count 3.92 M/uL (4.2-5.4); White Blood Count 9.65 K/uL (4.8-10.8)
[2020-02-28 11:56] LABS: Mean Platelet Volume 10.8 fL (7.4-10.4); Platelet Count 91 K/uL (130-400)
[2020-02-28 11:57] LABS: Basophils # (auto) 0.02 K/uL (0-0.2); Basophils % (auto) 0.2 %; Eosinophils % (auto) 2.1 %; Immature Granulocytes # (auto) 0.07 K/uL (0.00-0.02); Immature Granulocytes % (auto) 0.7 %; Lymphocytes # (auto) 0.96 K/uL (1.2-3.4); Lymphocytes % (auto) 9.9 %; Monocytes # (auto) 0.42 K/uL (0.11-0.59); Monocytes % (auto) 4.4 %; Neutrophils # (auto) 7.98 K/uL (1.4-6.5); Neutrophils % (auto) 82.7 %; Platelet Estimate Decreased (Normal)
[2020-02-28 12:05] LABS: Albumin Level 2.1 gm/dl (3.4-5.0); BUN Creatinine Ratio 18.9 (10-20); Bilirubin Direct 0.9 mg/dl (0-0.2); Creatinine Clr Calc Pharmacy 21.6 ml/min; Est GFR (African American) 34.5; Est GFR (Non-African American) 29.8; Magnesium 2.2 mg/dl (1.8-2.4); Potassium 3.8 mmol/L (3.5-5.1)
[2020-02-28 12:10] LABS: Bilirubin,Total 2.1 mg/dl (0.2-1); Total Protein 5.5 gm/dl (6.4-8.2)
[2020-02-28 12:21] LABS: Appearance Urine Cloudy (Clear); Bilirubin Urine Negative (Negative); Blood Urine 2+ (Negative); Color Urine Dark Yellow; Epithelial Cell Urine Auto >30 /lpf (0-5); Glucose Urine UA Negative (Negative); Ketones Urine Negative (Negative); Leukocyte Esterase Urine Negative (Negative); Nitrite Urine Negative (Negative); Protein Urine 2+ (Negative); Specific Gravity Urine 1.023 (1.000-1.030); Urobilinogen Urine Negative (Negative)
[2020-02-28 12:35] LABS: Bacteria Urine Automated 1+ (Negative)
[2020-02-28] MEDS ORDERED: VANCOMYCIN HCL 1,000 MG in SODIUM CHLORIDE 0.9% 500 ML IV SCH (14:00)
--- NOTE | 2020-02-28 14:34 | Hospitalist Progress Note ---
Date of Service February 28, 2020 Assessment & Plan (1) Drug rash: Su Montes De Oca is an 84 year old woman with a past medical history significant for metastatic colon cancer on oral chemotherapy who has had five days of rash weakness and a fall, has had fever and diarrhea for last two days. The rash is likely secondary to Stivarga started one week ago, improving now with low grade fever could be related drug fever versus infection No specific treatment Discontinued Stivarga (2) Fever: With fevers here and at home Concerning given patient's current chemotherapy and frail health Procalcitonin positive CT abdomen/pelvis with thickening of the entire right colon-could be colitis? She did have loose stools at home which seem to be resolved now No evidence of pneumonia on chest x-ray Urinalysis without evidence of infection As above, fever could also be from drug fever/reaction Continue on broad spectrum antibiotics with vancomycin and zosyn, but consider switching Zosyn to cefepime to avoid nephrotoxicity as she has tolerated cephalo sporins as an outpatient in the past Continue to follow BLood cultures -no growth to date Urine culture pending Patient does have a port in place, could be potential souce of infection Follow CBC (3) KATHRYN (acute kidney injury): With creatinine up to 1.8 on admission now down to 1.5 after IV fluid hydration Likely secondary to prerenal cause, dehydrated from very poor p.o. intake recently Follow BMP in the morning Hold home lisinopril Continue IV fluids but lower the rate to 70 mL's per hour (4) Colon cancer: Colon cancer Metastatic to liver multiple large lesions stable from previous scan Has been heavily pretreated. Appreciate oncology consultation. Now started on Stivarga 1 week ago and with drug fever and rash as above-this will be discontinued She will most likely need a palliative consultation at some point in the near future (5) MGUS (monoclonal gammopathy of unknown significance): Followed by hematology (6) Hypertension: Blood pressures are stable Continue home amlodipine, metoprolol (7) Chronic kidney disease, stage III (moderate): With acute kidney injury as above -Avoid nephrotoxins -renally dose meds when appropriate -follow BMP (8) Peripheral neuropathy: Noted (9) Hyponatremia: Hyponatremia Likely hypovolemic hyponatremia from decreased PO intake and diarrhea Given 1 L Nss in ED then continued with LR @125 mls/hour Sodium improved from 1 26-1 32 today Follow BMP in the morning (10) Dehydration: Weakness and fall CT head and neck negative Will treat infection and rehydrate as above PT/OT evaluations (11) Fall: As above With right foot pain-check x-ray-no fracture (12) Weakness: Generalized, from dehydration, hyponatremia PT/OT consults placed (13) Urinary retention: Retained 750 mL's of urine today and Kent catheter was placed Could be secondary to amitriptyline although she is typically on this She is not taking any opioids Unclear reason why this occurred -Continue Kent catheter for now and trial void in the morning 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-has been on Xarelto ever since in the setting of malignancy -Continue Xarelto 20 mg daily but could consider reducing the dose to the prophylaxis dose of 10 mg daily (15) DVT prophylaxis: Xarelto Disposition-continued stay on PCU PT/OT consultations DNR/DNI Admission and Anticipated Discharge Date Admission Date: February 28, 2020 Subjective Having right lateral foot pain she noticed since admission. Still feeling run down, low appetite. Denies chest pain or shortness of breath. Tele with NSR, rates 80-90s Review of Systems Review of Systems: All systems reviewed & are unremarkable except as noted in HPI & below sore throat, dry mouth Had urinary retention this AM Physical Exam Constitutional: + frail appearing and cooperative; no acute distress ENMT: Mouth: + oral mucosal abnormality (dry MM) Neck: trachea midline, no thyromegaly Respiratory: normal respiratory effort, lungs clear to auscultation Cardiovascular: RRR, no murmur, no edema Vessels: dorsalis pedis pulses present Chest (Breasts): Chest: normal inspection of chest Gastrointestinal (Abdomen): normal bowel sounds, soft, nontender, no hepatosplenomegaly Musculoskeletal: Extremities: extremities normal to inspection; no cyanosis and no clubbing Right foot with +TTP over lateral hindfoot, FROM actively and passively, no erythema, neg ant drawer, neg talar tilt Skin: + rash (diffuse erythematous maculopapular rash over trunk and limbs) Neurologic: moves all extremities and awake; no focal motor deficits (generlaly weak) Psychiatric: Orientation: alert, oriented to person, oriented to place and cooperative Speech: normal rate/rhythm/volume of speech Lymphatic: no lymphedema Results & Data Results & Data ([facility]) Vital Signs (Past 12 Hours) Vital Signs Temp Pulse Pulse Resp BP BP Pulse Ox 02/28/20 11:56 36.8 C 80 19 135/79 96 02/28/20 08:04 36.4 C L 91 H 18 112/71 98 02/28/20 04:00 37.6 C H 93 H 92 H 105/67 97 02/28/20 03:49 37.6 C H 92 H 105/67 97 02/28/20 03:15 82 18 136/92 96 Laboratory Results 02/28/20 02/28/20 02/28/20 Range/Units 11:16 11:16 10:35 WBC 9.65 (4.8-10.8) K/uL RBC 3.92 L (4.2-5.4) M/uL Hgb 12.2 (12.0-16.0) g/dL Hct 36.2 L (37-47) % MCV 92.3 (80-100) fL MCH 31.1 (25-34) pg MCHC 33.7 (32-36) g/dL RDW Std Deviation 59.3 H (36.4-46.3) fL RDW Coeff of Preston 17.7 H (11.5-14.5) % Plt Count 91 L (130-400) K/uL MPV 10.8 H (7.4-10.4) fL Immature Gran % (Auto) 0.7 % Neut % (Auto) 82.7 % Lymph % (Auto) 9.9 % Piatt % (Auto) 4.4 % Eos % (Auto) 2.1 % Baso % (Auto) 0.2 % Neut # (Auto) 7.98 H (1.4-6.5) K/uL Lymph # (Auto) 0.96 L (1.2-3.4) K/uL Piatt # (Auto) 0.42 (0.11-0.59) K/uL Eos # (Auto) 0.20 (0-0.5) K/uL Baso # (Auto) 0.02 (0-0.2) K/uL Immature Gran # (Auto) 0.07 H (0.00-0.02) K/uL Platelet Estimate Decreased L (Normal) PT INR APTT PTT Ratio Sodium 132 L (136-145) mmol/L Potassium 3.8 (3.5-5.1) mmol/L Chloride 100 (98-107) mmol/L Carbon Dioxide 24 (21-32) mmol/L Anion Gap 7.0 (3-11) BUN 30 H (7-18) mg/dl Creatinine 1.57 H (0.6-1.2) mg/dl Est Cr Clr Drug Dosing 21.6 Est GFR ( Amer) 34.5 Est GFR (Non-Af Amer) 29.8 BUN/Creatinine Ratio 18.9 (10-20) Glucose 99 (70-99) mg/dl Lactate (0.4-2.0) mmol/L Calcium 8.0 L (8.5-10.1) mg/dl Magnesium 2.2 (1.8-2.4) mg/dl Total Bilirubin 2.1 H (0.2-1) mg/dl Direct Bilirubin 0.9 H (0-0.2) mg/dl AST 141 H (15-37) U/L ALT 56 (12-78) U/L Alkaline Phosphatase 210 H (45-117) U/L Troponin I (0-0.045) ng/ml Total Protein 5.5 L D (6.4-8.2) gm/dl Albumin 2.1 L (3.4-5.0) gm/dl Globulin (2.5-4.0) gm/dl Albumin/Globulin Ratio (0.9-2) Procalcitonin Urine Color Dark Yellow Urine Appearance Cloudy A (Clear) Urine pH 6.0 (4.5-7.5) Ur Specific [place] 1.023 (1.000-1.030) Urine Protein 2+ H (Negative) Urine Glucose (UA) Negative (Negative) Urine Ketones Negative (Negative) Urine Blood 2+ H (Negative) Urine Nitrite Negative (Negative) Urine Bilirubin Negative (Negative) Urine Urobilinogen Negative (Negative) Ur Leukocyte Esterase Negative (Negative) Urine WBC (Auto) 5-10 H (0-5) /hpf Urine RBC (Auto) 5-10 H (0-4) /hpf U Hyaline Cast (Auto) 1-5 (0-5) /lpf U Epithel Cells (Auto) >30 H (0-5) /lpf Urine Bacteria (Auto) 1+ H (Negative) Ur Renal Epithelial Cell Not Reportable Urine Yeast Not Reportable 02/28/20 02/28/20 02/28/20 Range/Units 01:46 01:39 01:39 WBC (4.8-10.8) K/uL RBC (4.2-5.4) M/uL Hgb (12.0-16.0) g/dL Hct (37-47) % MCV (80-100) fL MCH (25-34) pg MCHC (32-36) g/dL RDW Std Deviation (36.4-46.3) fL RDW Coeff of Preston (11.5-14.5) % Plt Count (130-400) K/uL MPV (7.4-10.4) fL Immature Gran % (Auto) % Neut % (Auto) % Lymph % (Auto) % Piatt % (Auto) % Eos % (Auto) % Baso % (Auto) % Neut # (Auto) (1.4-6.5) K/uL Lymph # (Auto) (1.2-3.4) K/uL Piatt # (Auto) (0.11-0.59) K/uL Eos # (Auto) (0-0.5) K/uL Baso # (Auto) (0-0.2) K/uL Immature Gran # (Auto) (0.00-0.02) K/uL Platelet Estimate (Normal) PT 15.1 H INR 1.5 H APTT 53.7 H* PTT Ratio 1.9 Sodium (136-145) mmol/L Potassium (3.5-5.1) mmol/L Chloride (98-107) mmol/L Carbon Dioxide (21-32) mmol/L Anion Gap (3-11) BUN (7-18) mg/dl Creatinine (0.6-1.2) mg/dl Est Cr Clr Drug Dosing Est GFR ( Amer) Est GFR (Non-Af Amer) BUN/Creatinine Ratio (10-20) Glucose (70-99) mg/dl Lactate 1.7 (0.4-2.0) mmol/L Calcium (8.5-10.1) mg/dl Magnesium (1.8-2.4) mg/dl Total Bilirubin (0.2-1) mg/dl Direct Bilirubin (0-0.2) mg/dl AST (15-37) U/L ALT (12-78) U/L Alkaline Phosphatase (45-117) U/L Troponin I (0-0.045) ng/ml Total Protein (6.4-8.2) gm/dl Albumin (3.4-5.0) gm/dl Globulin (2.5-4.0) gm/dl Albumin/Globulin Ratio (0.9-2) Procalcitonin 1.66 H Urine Color Urine Appearance (Clear) Urine pH (4.5-7.5) Ur Specific [place] (1.000-1.030) Urine Protein (Negative) Urine Glucose (UA) (Negative) Urine Ketones (Negative) Urine Blood (Negative) Urine Nitrite (Negative) Urine Bilirubin (Negative) Urine Urobilinogen (Negative) Ur Leukocyte Esterase (Negative) Urine WBC (Auto) (0-5) /hpf Urine RBC (Auto) (0-4) /hpf U Hyaline Cast (Auto) (0-5) /lpf U Epithel Cells (Auto) (0-5) /lpf Urine Bacteria (Auto) (Negative) Ur Renal Epithelial Cell Urine Yeast 02/28/20 02/27/20 02/27/20 Range/Units 01:39 23:58 23:58 WBC (4.8-10.8) K/uL RBC (4.2-5.4) M/uL Hgb (12.0-16.0) g/dL Hct (37-47) % MCV (80-100) fL MCH (25-34) pg MCHC (32-36) g/dL RDW Std Deviation (36.4-46.3) fL RDW Coeff of Preston (11.5-14.5) % Plt Count (130-400) K/uL MPV (7.4-10.4) fL Immature Gran % (Auto) % Neut % (Auto) % Lymph % (Auto) % Piatt % (Auto) % Eos % (Auto) % Baso % (Auto) % Neut # (Auto) (1.4-6.5) K/uL Lymph # (Auto) (1.2-3.4) K/uL Piatt # (Auto) (0.11-0.59) K/uL Eos # (Auto) (0-0.5) K/uL Baso # (Auto) (0-0.2) K/uL Immature Gran # (Auto) (0.00-0.02) K/uL Platelet Estimate (Normal) PT INR APTT PTT Ratio Sodium 126 L (136-145) mmol/L Potassium 3.6 (3.5-5.1) mmol/L Chloride 96 L (98-107) mmol/L Carbon Dioxide 22 (21-32) mmol/L Anion Gap 8.0 (3-11) BUN 38 H (7-18) mg/dl Creatinine 1.85 H (0.6-1.2) mg/dl Est Cr Clr Drug Dosing Not Reportable Est GFR ( Amer) 28.3 Est GFR (Non-Af Amer) 24.4 BUN/Creatinine Ratio 20.6 H (10-20) Glucose 96 (70-99) mg/dl Lactate 2.2 H* (0.4-2.0) mmol/L Calcium 8.8 (8.5-10.1) mg/dl Magnesium 2.1 (1.8-2.4) mg/dl Total Bilirubin 2.8 H (0.2-1) mg/dl Direct Bilirubin (0-0.2) mg/dl AST 148 H (15-37) U/L ALT 68 (12-78) U/L Alkaline Phosphatase 269 H (45-117) U/L Troponin I < 0.015 (0-0.045) ng/ml Total Protein 6.9 (6.4-8.2) gm/dl Albumin 2.7 L (3.4-5.0) gm/dl Globulin 4.2 H (2.5-4.0) gm/dl Albumin/Globulin Ratio 0.6 L (0.9-2) Procalcitonin Urine Color Urine Appearance (Clear) Urine pH (4.5-7.5) Ur Specific [place] (1.000-1.030) Urine Protein (Negative) Urine Glucose (UA) (Negative) Urine Ketones (Negative) Urine Blood (Negative) Urine Nitrite (Negative) Urine Bilirubin (Negative) Urine Urobilinogen (Negative) Ur Leukocyte Esterase (Negative) Urine WBC (Auto) (0-5) /hpf Urine RBC (Auto) (0-4) /hpf U Hyaline Cast (Auto) (0-5) /lpf U Epithel Cells (Auto) (0-5) /lpf Urine Bacteria (Auto) (Negative) Ur Renal Epithelial Cell Urine Yeast 02/27/20 02/27/20 02/27/20 Range/Units 23:58 23:58 23:58 WBC 10.32 (4.8-10.8) K/uL RBC 4.42 (4.2-5.4) M/uL Hgb 14.0 (12.0-16.0) g/dL Hct 40.7 (37-47) % MCV 92.1 (80-100) fL MCH 31.7 (25-34) pg MCHC 34.4 (32-36) g/dL RDW Std Deviation 58.6 H (36.4-46.3) fL RDW Coeff of [place] 17.3 H (11.5-14.5) % Plt Count 135 (130-400) K/uL MPV 10.5 H (7.4-10.4) fL Immature Gran % (Auto) 1.4 % Neut % (Auto) 84.5 % Lymph % (Auto) 6.5 % Piatt % (Auto) 6.5 % Eos % (Auto) 0.9 % Baso % (Auto) 0.2 % Neut # (Auto) 8.73 H (1.4-6.5) K/uL Lymph # (Auto) 0.67 L (1.2-3.4) K/uL Piatt # (Auto) 0.67 H (0.11-0.59) K/uL Eos # (Auto) 0.09 (0-0.5) K/uL Baso # (Auto) 0.02 (0-0.2) K/uL Immature Gran # (Auto) 0.14 H (0.00-0.02) K/uL Platelet Estimate (Normal) PT Cancelled INR Cancelled APTT Cancelled PTT Ratio Cancelled Sodium (136-145) mmol/L Potassium (3.5-5.1) mmol/L Chloride (98-107) mmol/L Carbon Dioxide (21-32) mmol/L Anion Gap (3-11) BUN (7-18) mg/dl Creatinine (0.6-1.2) mg/dl Est Cr Clr Drug Dosing Est GFR ( Amer) Est GFR (Non-Af Amer) BUN/Creatinine Ratio (10-20) Glucose (70-99) mg/dl Lactate (0.4-2.0) mmol/L Calcium (8.5-10.1) mg/dl Magnesium (1.8-2.4) mg/dl Total Bilirubin (0.2-1) mg/dl Direct Bilirubin (0-0.2) mg/dl AST (15-37) U/L ALT (12-78) U/L Alkaline Phosphatase (45-117) U/L Troponin I (0-0.045) ng/ml Total Protein (6.4-8.2) gm/dl Albumin (3.4-5.0) gm/dl Globulin (2.5-4.0) gm/dl Albumin/Globulin Ratio (0.9-2) Procalcitonin Cancelled Urine Color Urine Appearance (Clear) Urine pH (4.5-7.5) Ur Specific [place] (1.000-1.030) Urine Protein (Negative) Urine Glucose (UA) (Negative) Urine Ketones (Negative) Urine Blood (Negative) Urine Nitrite (Negative) Urine Bilirubin (Negative) Urine Urobilinogen (Negative) Ur Leukocyte Esterase (Negative) Urine WBC (Auto) (0-5) /hpf Urine RBC (Auto) (0-4) /hpf U Hyaline Cast (Auto) (0-5) /lpf U Epithel Cells (Auto) (0-5) /lpf Urine Bacteria (Auto) (Negative) Ur Renal Epithelial Cell Urine Yeast PG Care Time/CCT Total # of Minutes Spent Total Time Spent with Patient: Total time spent is greater than 50% in coordination of care (as documented) at patient's floor/unit and/or counseling patient: Coding Level of Care Code 89727 Subseq Hosp Care Lvl 3 Diagnoses Drug rash L27.0 Fever R50.9 KATHRYN (acute kidney injury) N17.9 Colon cancer C18.9 Colon location: unspecified part of colon MGUS (monoclonal gammopathy of unknown significance) D47.2 Hypertension I10 Chronic kidney disease, stage III (moderate) N18.3 Peripheral neuropathy G62.9 Hyponatremia E87.1 Dehydration E86.0 Fall W19.XXXA Weakness R53.1 Urinary retention R33.9 History of thrombosis of internal jugular vein Z86.718 DVT prophylaxis Z29.9 (1) Colon cancer Colon location: unspecified part of colon Qualified Code(s): C18.9 - Malignant neoplasm of colon, unspecified
--- NOTE | 2020-02-28 15:06 | XRay Report ---
RIGHT FOOT 3 VIEWS CLINICAL HISTORY: Right lateral foot pain. Fall. FINDINGS: 3 views of the right foot are obtained. No prior studies are available for comparison at th e time of dictation. The skeletal structures are osteopenic. No fracture is seen. There is hallux jess jaime noting advanced degenerative change at the first metatarsophalangeal joint with bony overgrowth, sclerosis, and subluxation. Mild osteoarthritic change is seen in the midfoot. The overlying soft tis sues are normal as imaged. IMPRESSION: 1. No acute bony abnormality is identified. 2. Osteopenia, hallux valgus, and degenerative change as above. Electronically signed by: Ezequiel Webb M.D. 02/28/2020 3:04 PM
--- NOTE | 2020-02-28 16:56 | Electrocardiogram Report ---
Test Reason : Blood Pressure : / mmHG Vent. Rate : 093 BPM Atrial Rate : 093 BPM P-R Int : 152 ms QRS Dur : 074 ms QT Int : 352 ms P-R-T Axes : 000 184 131 degrees QTc Int : 437 ms Suspect arm lead reversal, interpretation assumes no reversal Sinus rhythm with Premature atrial complexes Right superior axis deviation possible Inferior infarct , age undetermined Abnormal ECG When compared with ECG of 02-JAN-2020 23:11, Premature atrial complexes are now Present Questionable change in QRS axis Inferior infarct is now Present Confirmed by Viral Mercedes ([id number]) on 02/28/2020 4:56:08 PM Referred By: REFERRED SELF Confirmed By:Kishor Mercedes
[2020-02-28] MEDS: ACETAMINOPHEN 325 MG TAB PO PRN (19:11)
[2020-02-28] MEDS ORDERED: oxyCODONE HCL IR 5 MG TAB (IMMEDIATE RELEASE) PO PRN (20:26)
[2020-02-28] MEDS: AMITRIPTYLINE HCL 25 MG TAB PO SCH (21:18)
[2020-02-29] MEDS ORDERED: SODIUM CHLORIDE 0.9% 1000ML 500 ML IV ONE (00:11)
[2020-02-29] MEDS ORDERED: VANCOMYCIN HCL 750 MG in SODIUM CHLORIDE 0.9% 250 ML IV SCH (02:00)
--- NOTE | 2020-02-29 05:24 | Billing Data ---
Date of Service February 29, 2020 Coding Level of Care Code 28735 Initial Inpt Care Lvl 3
[2020-02-29] MEDS: LACTATED RINGER'S 1,000 ML IV SCH ×3 (07:19→23:25)
[2020-02-29] MEDS: PIPERACILLIN/TAZOBACTAM 3.375 GM in DEXTROSE 5% 100 ML IV SCH ×3 (07:26→23:25)
[2020-02-29] MEDS: CALCIUM 600MG + VIT D 400 IU TAB PO SCH (07:27)
[2020-02-29] MEDS: amLODIPine BESYLATE 5 MG TAB PO SCH (07:27)
[2020-02-29] MEDS: PANTOprazole 40 MG TAB PO SCH (07:27)
[2020-02-29] MEDS: LACTOBACILLUS ACIDOPHILUS (FLORANEX) TAB PO SCH (07:27)
[2020-02-29] MEDS: METOPROLOL TARTRATE 25 MG TAB PO SCH ×2 (07:27→20:07)
[2020-02-29] MEDS: GABAPENTIN 600 MG TAB PO SCH ×3 (07:27→20:08)
[2020-02-29] MEDS: MULTIVITAMIN TAB PO SCH (07:27)
[2020-02-29] MEDS: RIVAROXABAN 20 MG TAB PO SCH (07:27)
[2020-02-29 07:29] LABS: Hematocrit (blood only) 39.9 % (37-47); Hemoglobin 13.4 g/dL (12.0-16.0); Mean Corpuscular Hemoglobin 30.9 pg (25-34); Mean Corpuscular Hgb Conc 33.6 g/dL (32-36); Mean Corpuscular Volume 92.1 fL (80-100); RDW Coefficient of Variation 17.9 % (11.5-14.5); RDW Standard Deviation 60.8 fL (36.4-46.3); Red Blood Count 4.33 M/uL (4.2-5.4); White Blood Count 11.22 K/uL (4.8-10.8)
[2020-02-29 07:46] LABS: Mean Platelet Volume 9.9 fL (7.4-10.4); Platelet Count 61 K/uL (130-400)
[2020-02-29 07:48] LABS: BUN Creatinine Ratio 17.4 (10-20); Calcium 7.9 mg/dl (8.5-10.1); Creatinine Clr Calc Pharmacy 19.6 ml/min; Est GFR (African American) 34.2; Est GFR (Non-African American) 29.5; Potassium 3.9 mmol/L (3.5-5.1)
[2020-02-29 07:57] LABS: Basophils # (auto) 0.05 K/uL (0-0.2); Basophils % (auto) 0.4 %; Eosinophils # (auto) 0.41 K/uL (0-0.5); Eosinophils % (auto) 3.7 %; Immature Granulocytes # (auto) 0.09 K/uL (0.00-0.02); Immature Granulocytes % (auto) 0.8 %; Lymphocytes # (auto) 1.99 K/uL (1.2-3.4); Lymphocytes % (auto) 17.7 %; Monocytes # (auto) 0.66 K/uL (0.11-0.59); Monocytes % (auto) 5.9 %; Neutrophils # (auto) 8.02 K/uL (1.4-6.5); Neutrophils % (auto) 71.5 %
--- NOTE | 2020-02-29 12:39 | Hospitalist Progress Note ---
Date of Service February 29, 2020 Assessment & Plan (1) Drug rash: Su Montes De Oca is an 84 year old woman with a past medical history significant for metastatic colon cancer on oral chemotherapy who has had five days of rash weakness and a fall, has had fever and diarrhea for two days. The rash is likely secondary to Stivarga started one week ago, continues to be improving now with low grade fever could be related drug fever versus infection as below No specific treatment Discontinued Stivarga (2) Fever: With fevers here and at home Concerning given patient's current chemotherapy and frail health Procalcitonin positive, with mild leukocytosis today CT abdomen/pelvis with thickening of the entire right colon-could be colitis? She did have loose stools at home which seem to be resolved now No evidence of pneumonia on chest x-ray Urinalysis without evidence of infection and urine culture no growth Blood cultures-no growth to date Toxic gastroenteritis and colitis is suspected but is now clinically resolved As above, fever could also be from drug fever/reaction Still with fever in the last 24 hours Continue on broad spectrum antibiotics but will narrow down to zosyn and discontinue vancomycin Continue to follow BLood cultures Patient does have a port in place, could be potential souce of infection Follow CBC (3) KATHRYN (acute kidney injury): With creatinine up to 1.8 on admission now down to 1.5 after IV fluid hydration and stable again at 1.5 today Likely secondary to prerenal cause, dehydrated from very poor p.o. intake recently, but also with urinary retention which could have contributed -Kent catheter to remain in place Follow BMP in the morning Continue to hold home lisinopril Continue IV fluids at 70 mL's per hour and bolused today for occasional hypotension x2 (4) Colon cancer: Colon cancer Metastatic to liver multiple large lesions stable from previous scan 6 weeks prior Has been heavily pretreated. Appreciate oncology consultation. Now started on Stivarga 1 week ago and with drug fever and rash as above-this will be discontinued She will most likely need a palliative consultation at some point in the near future (5) MGUS (monoclonal gammopathy of unknown significance): Followed by hematology (6) Hypertension: Blood pressures are occasionally low in the last 24 hours likely due to receiving amlodipine and dehydration Hold home amlodipine, and hold metoprolol if blood pressure low Bolused with IV fluids as above as needed for hypotension (7) Chronic kidney disease, stage III (moderate): With acute kidney injury as above -Avoid nephrotoxins -renally dose meds when appropriate -follow BMP (8) Peripheral neuropathy: Noted, exacerbated here Continue gabapentin 600 mg p.o. 3 times daily-I do not think I can increase the dose due to renal dosing (9) Hyponatremia: Hyponatremia Likely hypovolemic hyponatremia from decreased PO intake and diarrhea Given 1 L Nss in ED then continued with LR @125 mls/hour Sodium improved from 126 to 133 with IV fluids Follow BMP in the morning (10) Dehydration: Weakness and fall secondary to this CT head and neck negative Will treat infection and rehydrate as above PT/OT evaluations (11) Fall: As above With right foot pain-checked x-ray-no fracture (12) Weakness: Generalized, from dehydration, hyponatremia PT/OT consults placed (13) Urinary retention: Retained 750 mL's of urine after admission and Kent catheter was placed Could be secondary to amitriptyline although she is typically on this She is not taking any opioids Unclear reason why this occurred -Continue Kent catheter for now and trial void in the morning if renal function improving 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 Her rash has continued to improve and denies itching. She remains afebrile since last evening. Denies abdominal pains or diarrhea, in fact she has not moved her bowels in several days. Still has Kent catheter in place Had an episode of hypotension overnight which was treated successfully with a fluid bolus. She continues to complain of now bilateral foot pain on the bottoms of her feet and her granddaughter reports that she has chronic neuropathic pain. No bleeding from anywhere. Telemetry with normal sinus rhythm with rates in 60s to 80s. Review of Systems Review of Systems: All systems reviewed & are unremarkable except as noted in HPI & below Physical Exam Constitutional: + frail appearing and cooperative; no acute distress Eyes: + anicteric sclerae ENMT: Mouth: no oropharynx abnormality, no oral mucosal abnormality (Not as dry today) and no tongue abnormality Neck: trachea midline, no thyromegaly Respiratory: normal respiratory effort, lungs clear to auscultation Cardiovascular: RRR, no murmur, no edema Chest (Breasts): Chest: normal inspection of chest Gastrointestinal (Abdomen): normal bowel sounds, soft, nontender, no hepatosplenomegaly Musculoskeletal: Extremities: extremities normal to inspection; no cyanosis and no clubbing Skin: + rash (diffuse erythematous maculopapular rash over trunk and limbs is significantly improved and very faint) Neurologic: moves all extremities and awake; no focal motor deficits (generlaly weak) Psychiatric: Orientation: alert, oriented to person, oriented to place and cooperative Speech: normal rate/rhythm/volume of speech Genitourinary: Kent catheter in place draining clear yellow urine Lymphatic: no lymphedema Results & Data Results & Data ([facility]) Vital Signs (Past 12 Hours) Vital Signs Temp Pulse Resp BP BP Pulse Ox 02/29/20 12:05 37.4 C 84 16 106/66 94 02/29/20 07:22 36.5 C 85 16 128/57 L 95 02/29/20 04:59 36.3 C L 68 18 103/68 95 02/29/20 01:00 89/53 L Laboratory Results 02/29/20 02/29/20 Range/Units 06:54 06:54 WBC 11.22 H (4.8-10.8) K/uL RBC 4.33 (4.2-5.4) M/uL Hgb 13.4 (12.0-16.0) g/dL Hct 39.9 (37-47) % MCV 92.1 (80-100) fL MCH 30.9 (25-34) pg MCHC 33.6 (32-36) g/dL RDW Std Deviation 60.8 H (36.4-46.3) fL RDW Coeff of [place] 17.9 H (11.5-14.5) % Plt Count 61 L (130-400) K/uL MPV 9.9 (7.4-10.4) fL Immature Gran % (Auto) 0.8 % Neut % (Auto) 71.5 % Lymph % (Auto) 17.7 % [place] % (Auto) 5.9 % Eos % (Auto) 3.7 % Baso % (Auto) 0.4 % Neut # (Auto) 8.02 H (1.4-6.5) K/uL Lymph # (Auto) 1.99 (1.2-3.4) K/uL [place] # (Auto) 0.66 H (0.11-0.59) K/uL Eos # (Auto) 0.41 (0-0.5) K/uL Baso # (Auto) 0.05 (0-0.2) K/uL Immature Gran # (Auto) 0.09 H (0.00-0.02) K/uL Sodium 133 L (136-145) mmol/L Potassium 3.9 (3.5-5.1) mmol/L Chloride 102 (98-107) mmol/L Carbon Dioxide 21 (21-32) mmol/L Anion Gap 10.0 (3-11) BUN 28 H (7-18) mg/dl Creatinine 1.58 H (0.6-1.2) mg/dl Est Cr Clr Drug Dosing 19.6 ml/min Est GFR ( Amer) 34.2 Est GFR (Non-Af Amer) 29.5 BUN/Creatinine Ratio 17.4 (10-20) Glucose 63 L (70-99) mg/dl Calcium 7.9 L (8.5-10.1) mg/dl PG Care Time/CCT Total # of Minutes Spent Total Time Spent with Patient: Total time spent is greater than 50% in coordination of care (as documented) at patient's floor/unit and/or counseling patient: Coding Level of Care Code 81799 Subseq Hosp Care Lvl 3 Diagnoses Drug rash L27.0 Fever R50.9 KATHRYN (acute kidney injury) N17.9 Colon cancer C18.9 Colon location: unspecified part of colon MGUS (monoclonal gammopathy of unknown significance) D47.2 Hypertension I10 Chronic kidney disease, stage III (moderate) N18.3 Peripheral neuropathy G62.9 Hyponatremia E87.1 Dehydration E86.0 Fall W19.XXXA Weakness R53.1 Urinary retention R33.9 History of thrombosis of internal jugular vein Z86.718 DVT prophylaxis Z29.9 (1) Colon cancer Colon location: unspecified part of colon Qualified Code(s): C18.9 - Malrobert nant neoplasm of colon, unspecified
[2020-02-29] MEDS ORDERED: LACTATED RINGER'S 250 ML IV ONE (16:08)
--- NOTE | 2020-02-29 16:17 | Medical Student Progress Note ---
Date of Service February 29, 2020 Assessment & Plan (1) Fever: Most likely a reaction to the oral chemotherapy. Her temperature has been stable since admission and the discontinuation of Stivarga but we will continue to look for possible sources of infection. (2) Urinary retention: The patient has had a catheter since yesterday. Remove catheter and monitor patient output. (3) KATHRYN (acute kidney injury): Kidney function initially improved but is now holding steady. Continue to hold lisinopril Continue to monitor hydration and urine output (4) Fall: Head and neck CT were negative X-ray of right foot showed no fracture Make sure nursing staff know that patient is a fall risk. Encounter type: initial encounter Qualified Code(s): W19.XXXA - Unspecified fall, initial encounter (5) Rash: Likely due to oral chemotherapy and has continued to improve since admission. Stivarga halted. (6) Colon cancer: Consult oncology Halt Stivarga Possible palliative consult due to patient's poor condition and multiple metastases. Colon location: unspecified part of colon Qualified Code(s): C18.9 - Malignant neoplasm of colon, unspecified (7) Peripheral neuropathy: Most likely cause of patient's foot pain. Patient is already on 600mg of Gabapentin. Continue with this dose but do not increase due to risk of kidney injury. (8) Dehydration: Continue to give fluid as needed. Monitor metabolic labs and blood pressure. Admission and Anticipated Discharge Date Admission Date: February 28, 2020 Subjective The patient is an 84 year old woman with a history of metastatic colon cancer who was admitted two days ago for fever, rash, and generalized weakness. She presented to the ED two days ago with a five day history of rash and weakness, a fall, and fever and diarrhea for the past two days. She had recently begun a new chemotherapy, Stivarga, so oncology was consulted. Oncology advised discontinuation of chemotherapy, and the patients rash has been improving off of the Stivarga. Her white blood cell count has been increasing over the past few days, but so far no infection has been identified. On x-ray the patient had no evidence of pneumonia and has had no positive urine or blood cultures so far. Her BUN and Creatinine were elevated on admission, the patient was dehydrated, and she was retaining her urine. She was given fluids and a catheter was inserted, and she has been voiding urine through that since yesterday. Her BUN and creatinine were rechecked yesterday and today. Yesterday they decreased to 38 and 1.85 and today are similar. Last night the patient had a drop in blood pressure down from her normal of 120s/60s to 80s/50s and she was given a fluid bolus which brought her blood pressure back up. She has had no further episodes of low blood pressure. This morning the patient was still not feeling well, complaining of weakness, lack of appetite, and pain in her feet. Her rash had continued to improve. By afternoon she was feeling better, and was able to get up and sit in her chair. Review of Systems Review of Systems: The patient's rash is not painful, not itchy. She agrees that it is improving. Respiratory: Patient is breathing well on room air. Gastrointestinal: The patient says she is no longer having diarrhea, no nausea, no abdominal pain. She says she still has no appetite, and does not want to drink much water either. Genitourinary: The patient has had no urinary symptoms since the insertion of her catheter. She reports no pain, itching, or burning. Neurologic: The patient's feet continue to bother her. She says she has been taking gabapentin for neuropathy, and that her feet often hurt like this. She describes the pain as being sensitive to pressure on the soles and heels of her feet. Physical Exam Physical Exam: Patient was alert and oriented x3 and in no apparent distress but fatigued. She says that she is feeling a little better and that her diarrhea is no longer a problem, and that her rash is fading. Her rash was lacy and red, not raised, and covering her entire torso and extending down her arms. The soles and heels of both of her feet were tender to palpation. There was no redness, bruising, or swelling in either foot, and pulses were strong bilaterally. Breath sounds were clear bilaterally but there was some respiratory effort. Patient states that it is fatiguing for her to take deep breaths. Cardiac had normal rate and rhythm, no murmurs. No evidence of edema. Constitutional: well developed; no acute distress and not ill appearing Eyes: PERRL, conjunctivae normal, anicteric sclerae Respiratory: normal respiratory effort, lungs clear to auscultation Cardiovascular: RRR, no murmur, no edema Gastrointestinal (Abdomen): normal bowel sounds, soft, nontender, no hepatosplenomegaly Neurologic: PERRL, EOMI, accommodation nl, no face palsy, no dysarthria Results & Data ([facility]) Vital Signs (Past 12 Hours) Vital Signs Temp Pulse Resp BP BP Pulse Ox 02/29/20 15:57 37.5 C 91 H 18 85/50 L 91/50 L 98 02/29/20 12:05 37.4 C 84 16 106/66 94 02/29/20 07:22 36.5 C 85 16 128/57 L 95 02/29/20 04:59 36.3 C L 68 18 103/68 95
[2020-02-29] MEDS: AMITRIPTYLINE HCL 25 MG TAB PO SCH (20:08)
[2020-03-01] MEDS: ACETAMINOPHEN 325 MG TAB PO PRN ×3 (06:56→20:31)
[2020-03-01] MEDS: GABAPENTIN 600 MG TAB PO SCH ×2 (06:57→20:31)
[2020-03-01] MEDS: RIVAROXABAN 20 MG TAB PO SCH (08:10)
[2020-03-01] MEDS: CALCIUM 600MG + VIT D 400 IU TAB PO SCH (08:10)
[2020-03-01] MEDS: METOPROLOL TARTRATE 25 MG TAB PO SCH ×2 (08:11→20:31)
[2020-03-01] MEDS: MULTIVITAMIN TAB PO SCH (08:11)
[2020-03-01] MEDS: PANTOprazole 40 MG TAB PO SCH (08:11)
[2020-03-01] MEDS: LACTOBACILLUS ACIDOPHILUS (FLORANEX) TAB PO SCH (08:11)
[2020-03-01] MEDS: PIPERACILLIN/TAZOBACTAM 3.375 GM in DEXTROSE 5% 100 ML IV SCH (08:11)
--- NOTE | 2020-03-01 08:51 | Progress Notes ---
DATE: 03/01/2020 MEDICAL ONCOLOGY PROGRESS NOTE DIAGNOSES: 1. End-stage metastatic colorectal cancer. 2. Fever of unknown origin. 3. Acute renal injury. 4. Status post fall. 5. Maculopapular rash attributable to drug effect. SUBJECTIVE: Su is a pleasant but unfortunate 84-year-old patient well known to [facility] with end-stage colorectal cancer. She was admitted to the hospital a couple of days ago reporting fever, general decline, and maculopapular rash attributable to Stivarga. As recommended, Stivarga is now on hold. I was quite frankly never for Su employing either Lonsurf or Stivarga which was started on Su's insistence by our physician jumpbasting lining baster. Su has been heavily pretreated. She continues to clark with peripheral neuropathy, attributable to previously administered chemotherapy. I have no other viable options for her and quite frankly she needs to seek palliative care moving forward. Discussed the case directly with Dr. Yaa Patrick today. If she is medically improved, I see no reason why she cannot be discharged sometime in the next 24 hours or so. Nursing reports no overnight difficulties otherwise. OBJECTIVE: GENERAL: A pleasant 84-year-old female. Awake, alert and appropriate, in no acute distress. VITAL SIGNS: Temperature 36.6, pulse 96, respiratory rate 16, blood pressure 106/65. SKIN: Maculopapular rash vastly improved. HEENT: Oral mucosa without erythema or ulceration. HEART: Regular rate and rhythm. LUNGS: Clear to auscultation bilaterally. ABDOMEN: Soft, nontender, nondistended, without palpable hepatosplenomegaly. EXTREMITIES: No clubbing, cyanosis, or edema. NEUROLOGICAL: The patient is grossly intact. LABORATORY DATA: None pending. IMPRESSION: 1. Fever. 2. Acute renal injury. 3. End-stage metastatic colorectal cancer. 4. Peripheral neuropathy. 5. Drug rash (Stivarga). PLAN: Agree with current medical management. Su seems to be improving and may be able to go home in the next 24 hours or so. I plan to engage her in outpatient followup regarding plans for palliative care moving forward. She has now had a trial of both Lonsurf and Stivarga both unsuccessfully with documented disease progression radiographically. I have no viable options. If she wants to seek a second opinion, she is free to do so. I do not suspect any other specialists at a tertiary center would recommend salvage therapy on her behalf. Rash has improved dramatically. Thank you very much for allowing me to participate in her care and will officially sign off.
[2020-03-01 09:29] LABS: Hematocrit (blood only) 31.5 % (37-47); Hemoglobin 10.6 g/dL (12.0-16.0); Mean Corpuscular Hemoglobin 30.6 pg (25-34); Mean Corpuscular Hgb Conc 33.7 g/dL (32-36); RDW Coefficient of Variation 17.8 % (11.5-14.5); RDW Standard Deviation 59.5 fL (36.4-46.3); Red Blood Count 3.46 M/uL (4.2-5.4); White Blood Count 9.18 K/uL (4.8-10.8)
[2020-03-01 09:33] LABS: Mean Platelet Volume 11.4 fL (7.4-10.4); Platelet Count 89 K/uL (130-400)
[2020-03-01 09:57] LABS: Albumin Level 1.6 gm/dl (3.4-5.0); BUN Creatinine Ratio 14.3 (10-20); Calcium 7.4 mg/dl (8.5-10.1); Creatinine Clr Calc Pharmacy 18.9 ml/min; Est GFR (African American) 29.6; Est GFR (Non-African American) 25.6; Magnesium 1.7 mg/dl (1.8-2.4); Potassium 3.4 mmol/L (3.5-5.1)
[2020-03-01 10:00] LABS: Basophils # (auto) 0.05 K/uL (0-0.2); Basophils % (auto) 0.5 %; Eosinophils # (auto) 0.37 K/uL (0-0.5); Immature Granulocytes # (auto) 0.07 K/uL (0.00-0.02); Immature Granulocytes % (auto) 0.8 %; Lymphocytes # (auto) 1.52 K/uL (1.2-3.4); Lymphocytes % (auto) 16.6 %; Monocytes # (auto) 0.54 K/uL (0.11-0.59); Monocytes % (auto) 5.9 %; Neutrophils # (auto) 6.63 K/uL (1.4-6.5); Neutrophils % (auto) 72.2 %
[2020-03-01 10:03] LABS: Albumin Globulin Ratio 0.6 (0.9-2); Bilirubin,Total 1.6 mg/dl (0.2-1); Globulin 2.8 gm/dl (2.5-4.0); Total Protein 4.4 gm/dl (6.4-8.2)
[2020-03-01] MEDS ORDERED: POTASSIUM CHLORIDE 20 MEQ TABCR PO STA (10:23)
[2020-03-01] MEDS ORDERED: SODIUM CHLORIDE 0.9% 1000ML 1,000 ML IV SCH (10:30)
--- NOTE | 2020-03-01 10:56 | Hospitalist Progress Note ---
Date of Service March 01, 2020 Assessment & Plan (1) Drug rash: Su Montes De Oca is an 84 year old woman with a past medical history significant for metastatic colon cancer on oral chemotherapy who has had five days of rash, weakness, and a fall; also presented with fever and diarrhea for t wo days. The rash is likely secondary to Stivarga started one week ago, continues to be improving now with low grade fever could be related drug fever versus infection as below-no further fevers No specific treatment Discontinued Stivarga and added to allergy list (2) Fever: With fevers here and at home which are now resolved Concerning given patient's current chemotherapy and frail health Procalcitonin positive, with mild leukocytosis which is now improved CT abdomen/pelvis with thickening of the entire right colon-could be colitis? She did have loose stools at home which seem to be resolved now No evidence of pneumonia on chest x-ray Urinalysis without evidence of infection and urine culture no growth Blood cultures-no growth to date Toxic gastroenteritis and colitis is suspected but is now clinically resolved As above, fever could also be from drug fever/reaction Given that cultures remain negative greater than 48 hours and no source is found, most likely fever was secondary to drug reaction -We will now discontinue all antibiotics Continue to follow BLood cultures (3) KATHRYN (acute kidney injury): With creatinine up to 1.8 on admission and then was down to 1.5 after IV fluid hydration Creatinine back up again today to 1.78 and she is more lethargic and has very poor p.o. intake today Likely secondary to prerenal cause, dehydrated from very poor p.o. intake recently, but also with urinary retention which could have contributed although there was no evidence of obstruction on CT of the abdomen/pelvis on 02/26. She also has a solitary kidney as the left kidney was removed due to renal cell carcinoma Kent catheter has since been removed, but she will continue with bladder scans every shift and will straight cath for PVR greater than 300 mL's -Change fluids to normal saline at 125 mL's per hour x1 L and then begin normal saline plus KCl 20 mEq at 125 mL's per hour x1 L Follow BMP in the morning Continue to hold home lisinopril Avoid hypotension-this is now improved with holding amlodipine and giving fluid boluses -Encourage p.o. intake (4) Colon cancer: Colon cancer Metastatic to liver multiple large lesions stable from previous scan 6 weeks prior Has been heavily pretreated. Appreciate oncology consultation. Was started on Stivarga 1 week prior to admission and with drug fever and rash as above-this will be discontinued permanently Dr. Pizano, her oncologist, recommends palliative care consultation and no further treatment. I discussed this with the patient and her granddaughter. Patient is interested in talking to palliative care physician about her goals of care, however the granddaughter states that the patient was interested in a second opinion from a different oncologist and they have arranged this with Dr. Munson at [facility] oncology. Appreciate palliative care consultation which will be performed tomorrow (5) MGUS (monoclonal gammopathy of unknown significance): Followed by hematology No acute issues (6) Hypertension: Blood pressures had been low due to receiving home antihypertensives in the setting of dehydration Hold home amlodipine, and hold metoprolol if blood pressure low Bolused with IV fluids as above as needed for hypotension and now improved Okay to continue metoprolol with hold parameters (7) Chronic kidney disease, stage III (moderate): With acute kidney injury as above, has solitary kidney -Avoid nephrotoxins -renally dose meds when appropriate -follow BMP (8) Peripheral neuropathy: Noted, exacerbated here With renal failure, she is somewhat lethargic and gabapentin needs to be renally dosed-this may be contributing to her lethargy Decrease gabapentin to 600 mg p.o. twice daily -Add tramadol 50 mg p.o. every 4 hours as needed severe pain -Continue Tylenol as needed (9) Hyponatremia: Hyponatremia, sodium today is 132 Likely hypovolemic hyponatremia from decreased PO intake and diarrhea Continue IV fluids as above Follow BMP (10) Dehydration: Weakness and fall secondary to this, secondary to poor p.o. 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-has been on Xarelto ever since in the setting of malignancy -Continue Xarelto 20 mg daily but could consider reducing the dose to the prop hylaxis dose of 10 mg daily (15) Antineoplastic chemotherapy induced anemia: Hemoglobin decreased today to 10.6 from 13.4 No obvious bleeding from anywhere Likely just antineoplastic effect Follow CBC in the morning No transfusion needed (16) Thrombocytopenia: Platelets had decreased to the 60s and now improving to 89 Secondary to antineoplastic effect Follow CBC (17) Hypokalemia: Potassium low at 3.4 Replaced with IV potassium chloride Follow BMP and magnesium in the morning (18) DVT prophylaxis: Xarelto Disposition-continued stay but can transfer to medical/surgical floor PT/OT consultations, patient and family prefer for her to come home with home health DNR/DNI Palliative care consultation pending Admission and Anticipated Discharge Date Admission Date: February 28, 2020 Subjective Patient very sleepy this morning but does answer all my questions appropriately and is oriented. She continues to complain of pain in the bottoms of her feet left greater than right today. She denies any shortness of breath or chest pains, no abdominal pains or nausea. She did not eat much this morning. She is not drinking much at all. Still feels very wiped out. She has not moved her bowels. I discussed her care with her granddaughter at the bedside. They are both interested in speaking to palliative care about her goals of care. She reconfirms that she is a DNR/DNI. Granddaughter also mentions that they are planning on making an appointment for a second opinion with Dr. Munson of [facility] oncology because she reports the patient "is a fighter; she wants to fight this." Telemetry with normal sinus rhythm, PVCs, rates in the 90s to 100s, some bigeminy, and one burst of atrial tachycardia. Review of Systems Review of Systems: All systems reviewed & are unremarkable except as noted in HPI & below She has not voided all night and bladder scanned this morning for 305 mL's Physical Exam Constitutional: + frail appearing, cooperative and + lethargic; no acute distress Eyes: + anicteric sclerae ENMT: Mouth: no oropharynx abnormality and no tongue abnormality Neck: trachea midline, no thyromegaly Respiratory: normal respiratory effort, lungs clear to auscultation Cardiovascular: RRR, no murmur, no edema Chest (Breasts): Chest: normal inspection of chest Gastrointestinal (Abdomen): normal bowel sounds, soft, nontender, no hepatosplenomegaly Musculoskeletal: Extremities: extremities normal to inspection; no cyanosis and no clubbing Skin: + rash (diffuse erythematous maculopapular rash over trunk and limbs is significantly improved and very faint) Neurologic: moves all extremities and awake; no focal motor deficits (generally weak) Psychiatric: Orientation: alert (But drowsy), oriented to person, oriented to place and cooperative Lymphatic: no lymphedema Results & Data Results & Data ([facility]) Vital Signs (Past 12 Hours) Vital Signs Temp Pulse Resp BP Pulse Ox 03/01/20 07:58 36.8 C 74 18 110/64 96 03/01/20 03:32 36.6 C 96 H 16 106/65 96 02/29/20 23:04 37.4 C 90 14 104/53 L 95 Laboratory Results 03/01/20 03/01/20 Range/Units 09:10 09:10 WBC 9.18 (4.8-10.8) K/uL RBC 3.46 L (4.2-5.4) M/uL Hgb 10.6 L (12.0-16.0) g/dL Hct 31.5 L (37-47) % MCV 91.0 (80-100) fL MCH 30.6 (25-34) pg MCHC 33.7 (32-36) g/dL RDW Std Deviation 59.5 H (36.4-46.3) fL RDW Coeff of Preston 17.8 H (11.5-14.5) % Plt Count 89 L (130-400) K/uL MPV 11.4 H (7.4-10.4) fL Immature Gran % (Auto) 0.8 % Neut % (Auto) 72.2 % Lymph % (Auto) 16.6 % Richardson % (Auto) 5.9 % Eos % (Auto) 4.0 % Baso % (Auto) 0.5 % Neut # (Auto) 6.63 H (1.4-6.5) K/uL Lymph # (Auto) 1.52 (1.2-3.4) K/uL Richardson # (Auto) 0.54 (0.11-0.59) K/uL Eos # (Auto) 0.37 (0-0.5) K/uL Baso # (Auto) 0.05 (0-0.2) K/uL Immature Gran # (Auto) 0.07 H (0.00-0.02) K/uL Sodium 132 L (136-145) mmol/L Potassium 3.4 L (3.5-5.1) mmol/L Chloride 103 (98-107) mmol/L Carbon Dioxide 19 L (21-32) mmol/L Anion Gap 10.0 (3-11) BUN 25 H (7-18) mg/dl Creatinine 1.78 H (0.6-1.2) mg/dl Est Cr Clr Drug Dosing 18.9 ml/min Est GFR ( Amer) 29.6 Est GFR (Non-Af Amer) 25.6 BUN/Creatinine Ratio 14.3 (10-20) Glucose 102 H (70-99) mg/dl Calcium 7.4 L (8.5-10.1) mg/dl Magnesium 1.7 L (1.8-2.4) mg/dl Total Bilirubin 1.6 H (0.2-1) mg/dl AST 79 H (15-37) U/L ALT 43 (12-78) U/L Alkaline Phosphatase 160 H (45-117) U/L Total Protein 4.4 L D (6.4-8.2) gm/dl Albumin 1.6 L (3.4-5.0) gm/dl Globulin 2.8 (2.5-4.0) gm/dl Albumin/Globulin Ratio 0.6 L (0.9-2) Urine culture negative Blood cultures-no growth to date PG Care Time/CCT Total # of Minutes Spent Total Time Spent with Patient: Total time spent is greater than 50% in coordination of care (as documented) at patient's floor/unit and/or counseling patient: Coding Level of Care Code 72030 Subseq Hosp Care Lvl 3 Diagnoses Drug rash L27.0 Fever R50.9 KATHRYN (acute kidney injury) N17.9 Colon cancer C18.9 Colon location: unspecified part of colon MGUS (monoclonal gammopathy of unknown significance) D47.2 Hypertension I10 Chronic kidney disease, stage III (moderate) N18.3 Peripheral neuropathy G62.9 Hyponatremia E87.1 Dehydration E86.0 Fall W19.XXXA Weakness R53.1 Urinary retention R33.9 History of thrombosis of internal jugular vein Z86.718 Antineoplastic chemotherapy induced anemia D64.81; T45.1X5A Thrombocytopenia D69.6 Hypokalemia E87.6 DVT prophylaxis Z29.9 (1) Colon cancer Colon location: unspecified part of colon Qualified Code(s): C18.9 - Malignant neoplasm of colon, unspecified
[2020-03-01] MEDS ORDERED: MAGNESIUM SULFATE / D5W 1 GM/100 ML BAG IV ONE (11:00)
[2020-03-01] MEDS: traMADol HCL 50 MG TABLET PO PRN (18:23)
[2020-03-01] MEDS ORDERED: NSS + 20MEQ KCL 20 MEQ/1,000 ML BAG IV SCH (19:45)
[2020-03-01] MEDS: AMITRIPTYLINE HCL 25 MG TAB PO SCH (20:31)
[2020-03-02] MEDS ORDERED: SODIUM CHLORIDE 0.9% 1000ML 1,000 ML IV SCH (08:00)
[2020-03-02 08:23] LABS: Hematocrit (blood only) 33.6 % (37-47); Hemoglobin 11.5 g/dL (12.0-16.0); Mean Corpuscular Hemoglobin 30.7 pg (25-34); Mean Corpuscular Hgb Conc 34.2 g/dL (32-36); Mean Corpuscular Volume 89.8 fL (80-100); RDW Coefficient of Variation 18.2 % (11.5-14.5); RDW Standard Deviation 59.2 fL (36.4-46.3); Red Blood Count 3.74 M/uL (4.2-5.4); White Blood Count 13.16 K/uL (4.8-10.8)
[2020-03-02] MEDS: CALCIUM 600MG + VIT D 400 IU TAB PO SCH (08:28)
[2020-03-02] MEDS: GABAPENTIN 600 MG TAB PO SCH (08:28)
[2020-03-02] MEDS: RIVAROXABAN 20 MG TAB PO SCH (08:28)
[2020-03-02] MEDS: PANTOprazole 40 MG TAB PO SCH (08:28)
[2020-03-02] MEDS: LACTOBACILLUS ACIDOPHILUS (FLORANEX) TAB PO SCH (08:28)
[2020-03-02] MEDS: METOPROLOL TARTRATE 25 MG TAB PO SCH ×2 (08:28→20:24)
[2020-03-02] MEDS: MULTIVITAMIN TAB PO SCH (08:28)
[2020-03-02 08:38] LABS: Mean Platelet Volume 11.6 fL (7.4-10.4); Platelet Count 79 K/uL (130-400)
[2020-03-02 08:49] LABS: BUN Creatinine Ratio 14.4 (10-20); Calcium 7.7 mg/dl (8.5-10.1); Creatinine Clr Calc Pharmacy 19.1 ml/min; Est GFR (African American) 29.2; Est GFR (Non-African American) 25.2
[2020-03-02] MEDS ORDERED: INFLUENZA VACCINE HIGH DOSE 65+ 0.5 ML SYR IM ONE (09:00)
[2020-03-02] MEDS ORDERED: INFLUENZA ADMINISTRATION CHARGE ONE (09:00)
[2020-03-02 09:40] LABS: Basophils # (auto) 0.09 K/uL (0-0.2); Basophils % (auto) 0.7 %; Eosinophils # (auto) 0.65 K/uL (0-0.5); Eosinophils % (auto) 4.9 %; Immature Granulocytes % (auto) 1.5 %; Lymphocytes # (auto) 1.69 K/uL (1.2-3.4); Lymphocytes % (auto) 12.8 %; Monocytes # (auto) 0.89 K/uL (0.11-0.59); Monocytes % (auto) 6.8 %; Neutrophils # (auto) 9.64 K/uL (1.4-6.5); Neutrophils % (auto) 73.3 %; Toxic Vacuolation 2+
--- NOTE | 2020-03-02 11:40 | Hospitalist Progress Note ---
Date of Service March 02, 2020 Assessment & Plan (1) Drug rash: Su Montes De Oca is an 84 year old woman with a past medical history significant for metastatic colon cancer on oral chemotherapy who has had five days of rash, weakness, and a fall; also presented with fever and diarrhea for t wo days. The rash is likely secondary to Stivarga started one week ago, continues to be improving now with low grade fever could be related drug fever versus infection as below-no further fevers No specific treatment Discontinued Stivarga and added to allergy list (2) Fever: With fevers here and at home which are now resolved Concerning given patient's current chemotherapy and frail health Procalcitonin positive, with mild leukocytosis which had resolved and now is back again CT abdomen/pelvis with thickening of the entire right colon-could be colitis? She did have loose stools at home which are now resolved have since discontinued all antibiotics No evidence of pneumonia on chest x-ray Urinalysis without evidence of infection and urine culture no growth Blood cultures-no growth to date Toxic gastroenteritis and colitis is suspected but is now clinically resolved As above, fever could also be from drug fever/reaction Given that cultures remain negative greater than 48 hours and no source is found, most likely fever was secondary to drug reaction -Have since discontinued all antibiotics Continue to follow BLood cultures Given increased leukocytosis again and lethargy, recheck urinalysis and urine culture if indicated (3) KATHRYN (acute kidney injury): With creatinine up to 1.8 on admission and then was down to 1.5 after IV fluid hydration Creatinine back up again today to 1.8 and has been more lethargic the last 48 hours with very poor p.o. intake Likely secondary to prerenal cause, dehydrated from very poor p.o. intake recently, but also had urinary retention which could have contributed although no evidence of obstruction on CT of the abdomen/pelvis on 02/26. She also has a solitary kidney as the left kidney was removed due to renal cell carcinoma AIN is also a consideration. ATN at this point. Appreciate nephrology consultation Urine output has gone way down Now developing some hypoxia and crackles-discontinue IV fluids Kent catheter has since been removed, but she will continue with bladder scans every shift and will straight cath for PVR greater than 300 mL's Follow BMP in the morning Continue to hold home lisinopril Avoid hypotension-this is now improved with holding amlodipine and giving fluid boluses -Encourage p.o. intake-starting dexamethasone for this as per palliative care -Albumin is extremely low which is also contributing to decreased effective arterial volume (4) Colon cancer: Colon cancer Metastatic to liver multiple large lesions stable from previous scan 6 weeks prior Has been heavily pretreated. Appreciate oncology consultation. Was started on Stivarga 1 week prior to admission and with drug fever and rash as above-this will be discontinued permanently Dr. Pizano, her oncologist, recommends palliative care consultation and no further treatment. I discussed this with the patient and her granddaughter. Patient is interested in talking to palliative care physician about her goals of care, however the granddaughter states that the patient was interested in a second opinion from a different oncologist and they have arranged this with Dr. Munson at [facility] oncology. Appreciate palliative care consultation-plan for better pain control by switching gabapentin to Lyrica and starting dexamethasone for appetite stimulation (5) MGUS (monoclonal gammopathy of unknown significance): Followed by hematology No acute issues (6) Hypertension: Blood pressures had been low due to receiving home antihypertensives in the setting of dehydration Continue to hold home amlodipine, and hold metoprolol if blood pressure low Bolused with IV fluids as above as needed for hypotension and now improved Okay to continue metoprolol with hold parameters (7) Chronic kidney disease, stage III (moderate): With acute kidney injury as above, has solitary kidney -Avoid nephrotoxins -renally dose meds when appropriate -follow BMP (8) Peripheral neuropathy: Noted, exacerbated here With renal failure, she is somewhat lethargic and gabapentin needs to be renally dosed-this may be contributing to her lethargy Discontinue gabapentin and start low-dose pregabalin instead -Trial d tramadol 50 mg p.o. every 4 hours as needed severe pain -Continue Tylenol as needed -Discontinue amitriptyline due to urinary retention (9) Hyponatremia: Hyponatremia, sodium today is slightly worse at 131 Likely hypovolemic hyponatremia from decreased PO intake and diarrhea Received IV fluids and now becoming volume overloaded with pulmonary edema and hypoxia Follow BMP (10) Dehydration: Weakness and fall secondary to this, secondary to poor p.o. 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-has been on Xarelto ever since in the setting of malignancy -Continue Xarelto 20 mg daily but could consider reducing the dose to the prophylaxis dose of 10 mg daily (15) Antineoplastic chemotherapy induced anemia: Hemoglobin decreased today to 10.6 from 13.4 No obvious bleeding from anywhere Likely just antineoplastic effect Follow CBC in the morning No transfusion needed (16) Thrombocytopenia: Platelets had decreased to the 60s and now slightly improved in the 70s Secondary to antineoplastic effect Follow CBC (17) Hypokalemia: Was low and was replaced yesterday Today's sample was hemolyzed Follow BMP and magnesium in the morning (18) DVT prophylaxis: Xarelto Disposition-continued stay PT/OT consultations, patient and family prefer for her to come home with home health DNR/DNI Palliative care consultation appreciated-discussed possibility of hospice after seen second opinion oncology Overall poor prognosis with renal failure, failure to thrive, chemotherapy related adverse side effects and metastatic colon cancer Admission and Anticipated Discharge Date Admission Date: February 28, 2020 Subjective Patient states she is feeling a little bit better today. Still lethargic at times. Still not eating or drinking much but did have some breakfast. Was able to walk around the [place] today and reports that the pain in her feet is improved. Denies chest pains or shortness of breath. I discussed her care with palliative care and oncology Continues to require straight catheterization twice overnight Review of Systems Review of Systems: All systems reviewed & are unremarkable except as noted in HPI & below Physical Exam Constitutional: + frail appearing and cooperative; no acute distress Eyes: + anicteric sclerae ENMT: Mouth: no oropharynx abnormality Neck: trachea midline, no thyromegaly Respiratory: normal respiratory effort Auscultation: + crackles (At the bases bilaterally); no rhonchi and no wheezes Cardiovascular: Rate/Rhythm: regular rate and regular rhythm Heart Sounds: no murmur Vessels: dorsalis pedis pulses present Extremities: + edema (Trace edema of the feet and ankles bilaterally left greater than right) Chest (Breasts): Chest: normal inspection of chest Gastrointestinal (Abdomen): normal bowel sounds, soft, nontender, no hepatosplenomegaly Musculoskeletal: Extremities: extremities normal to inspection; no cyanosis and no clubbing Skin: + rash (diffuse erythematous maculopapular rash over trunk and limbs is significantly improved and very faint) Neurologic: moves all extremities and awake; no focal motor deficits (generally weak) Psychiatric: Orientation: alert (But drowsy), oriented to person, oriented to place and cooperative Speech: normal rate/rhythm/volume of speech Lymphatic: no lymphedema Results & Data Results & Data ([facility]) Vital Signs (Past 12 Hours) Vital Signs Temp Pulse Resp BP Pulse Ox 03/02/20 08:00 36.5 C 90 17 100/65 93 03/02/20 02:57 36.6 C 89 18 123/75 97 Laboratory Results 03/02/20 03/02/20 Range/Units 08:07 08:07 WBC 13.16 H (4.8-10.8) K/uL RBC 3.74 L (4.2-5.4) M/uL Hgb 11.5 L (12.0-16.0) g/dL Hct 33.6 L (37-47) % MCV 89.8 (80-100) fL MCH 30.7 (25-34) pg MCHC 34.2 (32-36) g/dL RDW Std Deviation 59.2 H (36.4-46.3) fL RDW Coeff of Preston 18.2 H (11.5-14.5) % Plt Count 79 L (130-400) K/uL MPV 11.6 H (7.4-10.4) fL Immature Gran % (Auto) 1.5 % Neut % (Auto) 73.3 % Lymph % (Auto) 12.8 % Webster % (Auto) 6.8 % Eos % (Auto) 4.9 % Baso % (Auto) 0.7 % Neut # (Auto) 9.64 H (1.4-6.5) K/uL Lymph # (Auto) 1.69 (1.2-3.4) K/uL Webster # (Auto) 0.89 H (0.11-0.59) K/uL Eos # (Auto) 0.65 H (0-0.5) K/uL Baso # (Auto) 0.09 (0-0.2) K/uL Immature Gran # (Auto) 0.20 H (0.00-0.02) K/uL Toxic Vacuolation 2+ Sodium 131 L (136-145) mmol/L Potassium (3.5-5.1) mmol/L Chloride 107 (98-107) mmol/L Carbon Dioxide 15 L (21-32) mmol/L Anion Gap 8.0 (3-11) BUN 26 H (7-18) mg/dl Creatinine 1.80 H (0.6-1.2) mg/dl Est Cr Clr Drug Dosing 19.1 ml/min Est GFR ( Amer) 29.2 Est GFR (Non-Af Amer) 25.2 BUN/Creatinine Ratio 14.4 (10-20) Glucose 87 (70-99) mg/dl Calcium 7.7 L (8.5-10.1) mg/dl Magnesium (1.8-2.4) mg/dl PG Care Time/CCT Total # of Minutes Spent Total Time Spent with Patient: Total time spent is greater than 50% in coordination of care (as documented) at patient's floor/unit and/or counseling patient: Coding Level of Care Code 55235 Subseq Hosp Care Lvl 3 Diagnoses Drug rash L27.0 Fever R50.9 KATHRYN (acute kidney injury) N17.9 Colon cancer C18.9 Colon location: unspecified part of colon MGUS (monoclonal gammopathy of unknown significance) D47.2 Hypertension I10 Chronic kidney disease, stage III (moderate) N18.3 Peripheral neuropathy G62.9 Hyponatremia E87.1 Dehydration E86.0 Fall W19.XXXA Weakness R53.1 Urinary retention R33.9 History of thrombosis of internal jugular vein Z86.718 Antineoplastic chemotherapy induced anemia D64.81; T45.1X5A Thrombocytopenia D69.6 Hypokalemia E87.6 DVT prophylaxis Z29.9 (1) Colon cancer Colon location: unspecified part of colon Qualified Code(s): C18.9 - Malignant neoplasm of colon, unspecified
--- NOTE | 2020-03-02 12:17 | Nephrology Consultation ---
Date of Consultation March 02, 2020 Assessment & Plan (1) KATHRYN (acute kidney injury): KATHRYN and hyponatremia in the setting of hospital admission for volume depletion with poor p.o. intake, drug rash with Stivarga and fall at home. Stivarga was discontinued on admission and skin rash resolved, no further episode of fever. sodium was initially 126, improved to 131 to 132. baseline creatinine has been 1.1-1.2 with history of left nephrectomy before, since admission creatinine has been staying around 1.7-1.8. KATHRYN Kathryn I most likely due to prerenal with volume depletion however some concern for AIN remains. -- discontinue IV fluid and encourage increase p.o. intake, increase protein intake -- liberalize salt in diet -- continue to hold lisinopril for now as blood pressure relatively on the lower side --check Renal panel, Urine osm in am Will follow Thank you for allowing me to participate in your patient's care. It was a pleasure to see Su (2) Dehydration: (3) Hypokalemia: (4) Acute hyponatremia: History of Present Illness Reason for Consultation: Acute kidney injury, hyponatremia. Attending Physician: Yaa Patrick MD History of Present Illness Su Montes De Oca is a 84-year-old female with past medical history significant for renal cell carcinoma status post left nephrectomy, metastatic colon cancer with metastatic disease to liver, GERD, MGUS admitted to the hospital with skin rash suggestive of drug reaction and fall at home. Nephrology consult was requested to manage [facility]. Electronic medical records are reviewed in detail during patient's visit. Su Presented to the hospital with 5 days history of skin rash, low grade fever after she was recently started on a new chemotherapeutic agent. She also had a fall at home to 3 days prior to admission. On admission imaging study was negative for any acute fracture. She has metastatic colon cancer and a week prior to admission she was started on Stivarga, a kinase inhibitor. and her skin rash was thought to be a drug reaction and it was stopped on admission. rash seemed to have resolved over last 3 4 days and she has been afebrile. On admission her creatinine was 1.9 which stayed relatively stable with some variability over last few days, creatinine was 1.8 this morning. She reports having poor p.o. intake at home with decreased urine output which improved since admission as she was getting IV hydration. She was also found to be hyponatremic, sodium was 127 on admission which slightly improved and has been staying around 131-132. Her baseline creatinine has been 1.1-1.2 with prior history of recurrent acute kidney injury. She has solitary right kidney with history of left nephrectomy in March 2000 and due to renal cell carcinoma. She has been following with Urology, so further has not been any recurrence. she was diagnosed with metastatic colon cancer in October 2016, status post sigmoid colectomy and chemotherapy with FOLFIRI + Avastin. Avastin therapy was complicated by proteinuria and she was started on lisinopril. Eventually she was taken off of chemotherapy and was leaning toword no further chemotherapy and possible palliative care. She has history of hypertension, which seems to be very well controlled, on lisinopril. also has history of MGUS, GERD, depression and anxiety. has history esophageal structure status post dilatation. Currently she denies any difficulty breathing, chest pain, no nausea or abdominal discomfort. Blood pressure has been relatively low but asymptomatic. Has been voiding normally. Appetite remained poor. Allergies Allergy/AdvReac Type Severity Reaction Status Date / Time regorafenib [From Stivarga] Allergy Severe Rash and Verified 02/29/20 12:38 fever levofloxacin Allergy Intermediate HIVES Verified 02/27/20 23:18 Iodinated Contrast Media Allergy Unknown Verified 02/27/20 23:18 adhesive AdvReac Mild SKIN Verified 02/27/20 23:18 IRRITATION WITH SOME TAPES codeine AdvReac Mild NAUSEA Verified 02/27/20 23:18 crab AdvReac Mild DIZZY AND Verified 02/27/20 23:18 THROWS UP metronidazole AdvReac Mild nausea and Verified 02/27/20 23:18 vomiting nitrofurantoin AdvReac Mild NAUSEA Verified 02/27/20 23:18 Sulfa (Sulfonamide AdvReac Mild SICK TO Verified 02/27/20 23:18 Antibiotics) STOMACH Home Medications Home Medications Medication Instructions Recorded Confirmed Type calcium carbonate-vitamin D3 1 tab PO QAM 09/25/18 02/27/20 History multivitamin 1 tab PO QAM 09/25/18 02/27/20 History Lactobacillus acidophilus 460 mg PO DAILY 02/08/19 02/27/20 History [Florajen] gabapentin 600 mg PO TID 02/08/19 02/27/20 History lorazepam 0.5 mg tablet 0.5 mg PO BID PRN #30 tab 08/24/19 02/27/20 Rx rivaroxaban 20 mg tablet 20 mg PO DAILY #30 tab 08/24/19 02/27/20 Rx amlodipine 5 mg PO DAILY 09/16/19 02/27/20 History metoprolol tartrate 25 mg PO BID 09/16/19 02/27/20 History ondansetron 4 mg PO Q6H PRN #15 tab 09/25/19 02/27/20 Rx amitriptyline 25 mg tablet 25 mg PO HS #30 tab 12/31/19 02/27/20 Rx lisinopril 40 mg tablet 40 mg PO DAILY #30 tab 02/17/20 02/27/20 Rx methylprednisolone 4 mg tablets in See Rx Instructions .ROUTE 02/17/20 02/27/20 Rx a dose pack .COMPLEX #21 ea omeprazole 20 mg capsule,delayed 20 mg PO DAILY #90 cap 02/24/20 02/27/20 Rx release Patient History Medical History (Updated 03/01/20 @ 19:36 by Yaa Patrick MD) Absent kidney, acquired Anemia Anxiety Basal cell carcinoma (BCC) on back/nose Colon cancer 2017--sx, chemo Depression DNR (do not resuscitate) Exposure to COVID-19 virus GERD (gastroesophageal reflux disease) Hemorrhoid History of colon cancer History of esophageal dilatation History of esophageal stricture History of thrombosis of internal jugular vein Liver cancer Lower GI bleed MGUS (monoclonal gammopathy of unknown significance) (~2012) Nausea and vomiting after administration of anesthetic agent Proteinuria Renal cell carcinoma 2010, L kidney removed Urinary tract infection Surgical History History of appendectomy History of bilateral tubal ligation History of bowel resection History of colonoscopy History of esophagogastroduodenoscopy (EGD) History of left nephrectomy History of nephrectomy, left History of phacoemulsification of cataract of both eyes with intraocular lens implantation History of tooth extraction all top teeth removed/most of bottom History of total abdominal hysterectomy and bilateral salpingo-oophorectomy History of vascular access device APORT left chest Status post Mohs surgery for basal cell carcinoma Family History Other Cancer No family history of adverse response to anesthesia Denies family history of Ovarian cancer Prostate cancer Myocardial infarction Breast cancer Colorectal cancer Social History Smoking Status: Never smoker Tobacco Type: Cigarettes Second Hand Exposure: No; Hx Alcohol Use: Yes Alcohol type: wine Hx Substance Use: No Preferred Language: Italian Communication Ability: Effective Visual Impairment: No Limitations Hearing Ability: Normal Maintenance Controller Required: No Beliefs That Will Affect Care: None marital status: marital status details: Current Living Situation: Spouse Feels Safe at Home: Yes Seatbelt Use: always Assistive Devices: Walker Review of Systems Review of Systems: All systems reviewed & are unremarkable except as noted in HPI & below Physical Exam Constitutional: WD/WN, vitals as above + ill appearing; no acute distress Eyes: PERRL, conjunctivae normal, anicteric sclerae ENMT: external ear and nose normal, oropharynx normal Ears: no hearing impairment Neck: trachea midline Respiratory: normal respiratory effort, lungs clear to auscultation no cough Auscultation: no crackles, no rales and no wheezes Cardiovascular: RRR, no murmur, no edema Gastrointestinal (Abdomen): normal bowel sounds, soft, nontender, no hepatosplenomegaly Percussion/Palpation: abdomen nontender, no guarding and abdomen not rigid Musculoskeletal: Extremities: extremities normal to inspection Gait: normal gait Skin: no rashes, warm and dry Neurologic: moves all extremities and awake Psychiatric: A+Ox3, euthymic affect Results & Data ([facility]) Vital Signs (Past 12 Hours) Vital Signs Temp Pulse Resp BP Pulse Ox 03/02/20 08:00 36.5 C 90 17 100/65 93 03/02/20 02:57 36.6 C 89 18 123/75 97 PG Care Time/CCT Total # of Minutes Spent Total Time Spent with Patient: Total time spent is greater than 50% in coordination of care (as documented) at patient's floor/unit and/or counseling patient: Coding Level of Care Code 46341 Office/OBS Consult Lvl 5 Diagnoses KATHRYN (acute kidney injury) N17.9 Dehydration E86.0 Hypokalemia E87.6 Acute hyponatremia E87.1
--- NOTE | 2020-03-02 13:33 | Medical Student Progress Note ---
Date of Service March 02, 2020 Assessment & Plan (1) Fever: Most likely a reaction to the oral chemotherapy. Her temperature has been stable since admission and the discontinuation of Stivarga but we will continue to look for possible sources of infection. WBC continues to be elevated. Repeat urine culture (2) Urinary retention: Since the removal of the in-dwelling catheter the patient has been unable to void on her own. Monitor urine volume with bladder scans and assist with straight cath when volume is >300. (3) KATHRYN (acute kidney injury): Kidney function initially improved but has remained elevated past 3 days. Sodium low. Nephrology consulted and recommend: Continue to hold lisinopril Continue to monitor hydration. Discontinue IV fluids and encourage oral intake. Encourage salty snacks. (4) Rash: Likely due to oral chemotherapy and has continued to improve since admission. Stivarga halted. (5) Colon cancer: Oncology says no remaining treatment options for this patient. Palliative consult due to patient's poor condition and multiple metastases. Colon location: unspecified part of colon Qualified Code(s): C18.9 - Malignant neoplasm of colon, unspecified (6) Peripheral neuropathy: Most likely cause of patient's foot pain. Patient is already on 600mg of Gabapentin. Decrease dose in response to poor kidney function. (7) Dehydration: Continue to give fluid as needed. Monitor metabolic labs and blood pressure. Admission and Anticipated Discharge Date Admission Date: February 28, 2020 Subjective The patient is an 84 year old woman with a history of metastatic colon cancer who was admitted two days ago for fever, rash, and generalized weakness. She presented to the ED two days ago with a five day history of rash and weakness, a fall, and fever and diarrhea for the past two days. She had recently begun a new chemotherapy, Stivarga, so oncology was consulted. Oncology advised discontinuation of chemotherapy, and the patients rash has been improving off of the Stivarga. Her white blood cell count has been increasing over the past few days, but so far no infection has been identified. On x-ray the patient had no evidence of pneumonia and has had no positive urine or blood cultures so far. Her BUN and Creatinine were elevated on admission, the patient was dehydrated, and she was retaining her urine. She was given fluids and a catheter was inserted. Her catheter was removed two days ago, and since then she has not been able to void on her own. She has been having periodic bladder scans and a straight catheter is used when the fluid is over 300ml. Her BUN and creatinine have been rechecked every day and are holding steady at around 25-26 and 1.8. Nephrology was consulted. This morning the patient was still not feeling well, complaining of weakness, lack of appetite, and pain in her feet. Her rash had continued to improve. She said she had been able to walk around the [place] yesterday, and was hoping to do so again today. Review of Systems Review of Systems: The patient's rash is almost entirely gone. Respiratory: Patient is breathing well on room air. Gastrointestinal: The patient says she is no longer having diarrhea, no nausea, no abdominal pain. She says she still has no appetite, and does not want to drink much water either. Genitourinary: The patient has still been unable to void on her own. Neurologic: The patient's feet continue to bother her. She says that moving around and elevating her feet sometimes helps with the pain. Physical Exam Physical Exam: Patient was alert and oriented x3 and in no apparent distress but fatigued. Her rash is hardly visible anymore. The patient has several new bruises on her hand and arms from attempts to draw blood this morning. The soles and heels of both of her feet were tender to palpation. There was no redness or bruising in either foot, and pulses were strong bilaterally. She has some swelling in her lower extremities, more in her right than in her left. Breath sounds were clear bilaterally. Cardiac had normal rate and rhythm, no murmurs. Eyes: PERRL, conjunctivae normal, anicteric sclerae Respiratory: normal respiratory effort, lungs clear to auscultation Cardiovascular: RRR, no murmur, no edema Gastrointestinal (Abdomen): normal bowel sounds, soft, nontender, no hepatosplenomegaly Neurologic: PERRL, EOMI, accommodation nl, no face palsy, no dysarthria Results & Data ([facility]) Vital Signs (Past 12 Hours) Vital Signs Temp Pulse Resp BP Pulse Ox 03/02/20 08:00 36.5 C 90 17 100/65 93 03/02/20 02:57 36.6 C 89 18 123/75 97
[2020-03-02] MEDS: PREGABALIN 75 MG CAP PO SCH ×2 (14:40→20:19)
--- NOTE | 2020-03-02 14:55 | Palliative Care Consultation ---
Date of Consultation March 02, 2020 Assessment & Plan (1) Goals of care, counseling/discussion: Patient is an 84-year-old female with a past medical history significant for renal cell carcinoma diagnosed in 2010-status post left nephrectomy, now with end-stage colon cancer-diagnosed in 2017 with mets to lymph nodes and liver. 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 She presented to [facility] ER on 02/26 with complaints of fever, chills, diarrhea and whole body rash which was attributed to Stivarga. Patient's renal function has worsened over admission despite IV fluids-which necessitated decreasing her gabapentin for her neuropathy. Patient complains of severe lower extremity pain-does not awaken her from sleep, increases with weightbearing and ambulation. Pain starts in her feet and goes up to the level of the knees. Patient did receive a PRN Tylenol and a PRN tramadol for pain. Patient has had low blood pressure-her lisinopril is currently on hold. Work-up for her fever and diarrhea-blood cultures and urine cultures are negative, symptoms have improved off her Stivarga. Patient reports loose stools have resolved, she has been afebrile, rash is improving. -CODE STATUS-her current's CODE STATUS is DNR/DNI, patient is , she does not have advanced directives-she does not feel her would be able to make medical decisions. She stated she needs to think about who she would want to make medical decisions for her-reviewed the form in her admission packet allowing her to name surrogate decision maker. Patient's granddaughter at bedside-we will assist patient with filling out the form. -End-stage colon cancer-diagnosed in 2017-mets to nodes and liver. Oncology has no more treatment to offer-patient is interested in obtaining a second opinion. -Xnnvw-ocpt-oi negative as to a source, was treated with IV vancomycin and Zosyn-patient now off antibiotics and afebrile. -Diarrhea-has resolved -Rash-thought to be secondary to Stivarga-present but improving -Neuropathy-not controlled on gabapentin, with worsening renal function gabapentin dose need to be decreased. Suggest discontinuing gabapentin and start Lyrica at 75 mg 3 times daily, once pain is well controlled can consider tapering to twice daily if tolerated. -Anorexia-patient reports poor appetite-suggest starting Decadron at 4 mg daily with breakfast, if effective can decrease to 2 mg. Albumin 1.6 -Constipation-patient with longstanding difficulty with constipation-has taken MiraLAX twice a day with an adequate response-patient unable to take adequate fluids-suggested flavoring her water to assist with p.o. fluid intake -Hypertension-lisinopril currently on hold -Worsening renal failure-encourage p.o. fluids. 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 Yaa Patrick Attending Physician: Yaa Patrick MD History of Present Illness Chart reviewed, patient seen and examined. Patient's granddaughter at bedside. Granddaughter taking notes to relay information to other family. Patient is an 84-year-old female with a past medical history significant for renal cell carcinoma diagnosed in 2010-status post left nephrectomy, now with end-stage colon cancer-diagnosed in 2017 with mets to lymph nodes and liver. 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 She presented to [facility] ER on 02/26 with complaints of fever, chills, diarrhea and whole body rash which was attributed to Stivarga. Patient's renal function has worsened over admission despite IV fluids-which necessitated decreasing her gabapentin for her neuropathy. Patient complains of severe lower extremity pain-does not awaken her from sleep, increases with weightbearing and ambulation. Pain starts in her feet and goes up to the level of the knees. Patient did receive a PRN Tylenol and a PRN tramadol for pain. Patient has had low blood pressure-her lisinopril is currently on hold. Work-up for her fever and diarrhea-blood cultures and urine cultures are negative, symptoms have improved off her Stivarga. Patient reports loose stools have resolved, she has been afebrile, rash is improving. -CODE STATUS-her current's CODE STATUS is DNR/DNI, patient is , she does not have advanced directives-she does not feel her would be able to make medical decisions. She stated she needs to think about who she would want to make medical decisions for her-reviewed the form in her admission packet allowing her to name surrogate decision maker. Patient's granddaughter at bedside-we will assist patient with filling out the form. -End-stage colon cancer-diagnosed in 2017-mets to nodes and liver. Oncology has no more treatment to offer-patient is interested in obtaining a second opinion. -Txhnr-xrgf-fc negative as to a source, was treated with IV vancomycin and Zosyn-patient now off antibiotics and afebrile. -Diarrhea-has resolved -Rash-thought to be secondary to Stivarga-present but improving -Neuropathy-not controlled on gabapentin, with worsening renal function gabapentin dose need to be decreased. Suggest discontinuing gabapentin and start Lyrica at 75 mg 3 times daily, once pain is well controlled can consider tapering to twice daily if tolerated. -Anorexia-patient reports poor appetite-suggest starting Decadron at 4 mg daily with breakfast, if effective can decrease to 2 mg. Albumin 1.6 -Constipation-patient with longstanding difficulty with constipation-has taken MiraLAX twice a day with an adequate response-patient unable to take adequate fluids-suggested flavoring her water to assist with p.o. fluid intake -Hypertension-lisinopril currently on hold -Worsening renal failure-encourage p.o. fluids. 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, platelet count 79K Allergies Allergy/AdvReac Type Severity Reaction Status Date / Time regorafenib [From Stivarga] Allergy Severe Rash and Verified 02/29/20 12:38 fever levofloxacin Allergy Intermediate HIVES Verified 02/27/20 23:18 Iodinated Contrast Media Allergy Unknown Verified 02/27/20 23:18 adhesive AdvReac Mild SKIN Verified 02/27/20 23:18 IRRITATION WITH SOME TAPES codeine AdvReac Mild NAUSEA Verified 02/27/20 23:18 crab AdvReac Mild DIZZY AND Verified 02/27/20 23:18 THROWS UP metronidazole AdvReac Mild nausea and Verified 02/27/20 23:18 vomiting nitrofurantoin AdvReac Mild NAUSEA Verified 02/27/20 23:18 Sulfa (Sulfonamide AdvReac Mild SICK TO Verified 02/27/20 23:18 Antibiotics) STOMACH Home Medications Home Medications Medication Instructions Recorded Confirmed Type calcium carbonate-vitamin D3 1 tab PO QAM 09/25/18 02/27/20 History multivitamin 1 tab PO QAM 09/25/18 02/27/20 History Lactobacillus acidophilus 460 mg PO DAILY 02/08/19 02/27/20 History [Florajen] gabapentin 600 mg PO TID 02/08/19 02/27/20 History lorazepam 0.5 mg tablet 0.5 mg PO BID PRN #30 tab 08/24/19 02/27/20 Rx rivaroxaban 20 mg tablet 20 mg PO DAILY #30 tab 08/24/19 02/27/20 Rx amlodipine 5 mg PO DAILY 09/16/19 02/27/20 History metoprolol tartrate 25 mg PO BID 09/16/19 02/27/20 History ondansetron 4 mg PO Q6H PRN #15 tab 09/25/19 02/27/20 Rx amitriptyline 25 mg tablet 25 mg PO HS #30 tab 12/31/19 02/27/20 Rx lisinopril 40 mg tablet 40 mg PO DAILY #30 tab 02/17/20 02/27/20 Rx methylprednisolone 4 mg tablets in See Rx Instructions .ROUTE 02/17/20 02/27/20 Rx a dose pack .COMPLEX #21 ea omeprazole 20 mg capsule,delayed 20 mg PO DAILY #90 cap 02/24/20 02/27/20 Rx release Patient History Medical History Absent kidney, acquired Anemia Anxiety Basal cell carcinoma (BCC) on back/nose Colon cancer 2017--sx, chemo Depression DNR (do not resuscitate) Exposure to COVID-19 virus GERD (gastroesophageal reflux disease) Hemorrhoid History of colon cancer History of esophageal dilatation History of esophageal stricture History of thrombosis of internal jugular vein Liver cancer Lower GI bleed MGUS (monoclonal gammopathy of unknown significance) (~2012) Nausea and vomiting after administration of anesthetic agent Proteinuria Renal cell carcinoma 2010, L kidney removed Urinary tract infection Surgical History History of appendectomy History of bilateral tubal ligation History of bowel resection History of colonoscopy History of esophagogastroduodenoscopy (EGD) History of left nephrectomy History of nephrectomy, left History of phacoemulsification of cataract of both eyes with intraocular lens implantation History of tooth extraction all top teeth removed/most of bottom History of total abdominal hysterectomy and bilateral salpingo-oophorectomy History of vascular access device APORT left chest Status post Mohs surgery for basal cell carcinoma Family History Other Cancer No family history of adverse response to anesthesia Denies family history of Ovarian cancer Prostate cancer Myocardial infarction Breast cancer Colorectal cancer Social History Smoking Status: Never smoker Tobacco Type: Cigarettes Second Hand Exposure: No; Hx Alcohol Use: Yes Alcohol type: wine Hx Substance Use: No Preferred Language: [place] Communication Ability: Effective Visual Impairment: No Limitations Hearing Ability: Normal Safety Security Officer Required: No Beliefs That Will Affect Care: None marital status: marital status details: Current Living Situation: Spouse Feels Safe at Home: Yes Seatbelt Use: always Assistive Devices: Walker Review of Systems Eyes: no problem reported Ear, Nose, Mouth, Throat: + dry mouth Respiratory: no cough and no dyspnea Cardiovascular: no chest pain Gastrointestinal: + constipation Genitourinary: no problem reported Musculoskeletal: + muscle weakness Integumentary: + rash Neurologic: Pain in her feet and legs-consistent with peripheral neuropathy Psychiatric: no problem reported Endocrine: + fatigue Hematologic / Lymphatic: MGUS, history of renal cancer, active end-stage colon cancer with mets to nodes and liver Physical Exam Physical Exam: PE: Patient awake and alert, comfortable at rest HEENT: EOMI, periorbital edema, hearing within normal limits Respirations: Clear breath sounds, unlabored CV: Regular rate Abdomen: Soft, nontender to palpation Extremities: Fluid retention in the upper extremities Neuro: Alert and oriented Skin: Diffuse erythematous rash Results & Data ([facility]) Vital Signs (Past 12 Hours) Vital Signs Temp Pulse Resp BP Pulse Ox 03/02/20 08:00 97.7 F 90 17 100/65 93 03/02/20 02:57 97.9 F 89 18 123/75 97 PG Care Time/CCT Total # of Minutes Spent Total Time Spent with Patient: Total time spent 70 minutes with greater than 50% of the time spent at bedside discussing patient's goals, advanced directives and plan of care. Coding Level of Care Code 44488 Inpt Consult Level 3 Diagnoses Goals of care, counseling/discussion Z71.89 Colon cancer C18.9 Colon location: unspecified part of colon Fever R50.9 Diarrhea R19.7 Drug rash L27.0 Peripheral neuropathy G62.9 Anorexia R63.0 Constipation K59.00 Hypertension I10 KATHRYN (acute kidney injury) N17.9 History of thrombosis of internal jugular vein Z86.718 Time Spent (min) 70
[2020-03-02] MEDS ORDERED: GABAPENTIN 300 MG CAP PO SCH (21:00)
[2020-03-03] MEDS: traMADol HCL 50 MG TABLET PO PRN (06:37)
[2020-03-03 07:29] LABS: Appearance Urine Clear (Clear); Bacteria Urine Automated Negative (Negative); Bilirubin Urine Negative (Negative); Blood Urine 1+ (Negative); Color Urine Dark Yellow; Epithelial Cell Urine Auto 20-30 /lpf (0-5); Glucose Urine UA Negative (Negative); Ketones Urine Trace (Negative); Leukocyte Esterase Urine Trace (Negative); Nitrite Urine Negative (Negative); Protein Urine 1+ (Negative); Specific Gravity Urine 1.019 (1.000-1.030); Urobilinogen Urine Negative (Negative)
[2020-03-03 07:49] LABS: Hematocrit (blood only) 32.2 % (37-47); Hemoglobin 10.8 g/dL (12.0-16.0); Mean Corpuscular Hemoglobin 30.5 pg (25-34); Mean Corpuscular Hgb Conc 33.5 g/dL (32-36); RDW Coefficient of Variation 18.7 % (11.5-14.5); RDW Standard Deviation 61.8 fL (36.4-46.3); Red Blood Count 3.54 M/uL (4.2-5.4); White Blood Count 18.39 K/uL (4.8-10.8)
[2020-03-03 07:53] LABS: Amorphous Sediment Urine Present (None Prsent)
[2020-03-03 07:55] LABS: BUN Creatinine Ratio 15.5 (10-20); Calcium 7.6 mg/dl (8.5-10.1); Creatinine Clr Calc Pharmacy 18.9 ml/min; Est GFR (African American) 28.8; Est GFR (Non-African American) 24.9; Magnesium 2.2 mg/dl (1.8-2.4); Potassium 4.3 mmol/L (3.5-5.1)
[2020-03-03 07:56] LABS: Mean Platelet Volume 11.8 fL (7.4-10.4); Platelet Count 94 K/uL (130-400)
[2020-03-03] MEDS: PREGABALIN 75 MG CAP PO SCH ×2 (08:28→13:13)
[2020-03-03] MEDS: METOPROLOL TARTRATE 25 MG TAB PO SCH ×2 (08:28→21:33)
[2020-03-03] MEDS: PANTOprazole 40 MG TAB PO SCH (08:28)
[2020-03-03] MEDS: RIVAROXABAN 20 MG TAB PO SCH (08:28)
[2020-03-03] MEDS: MULTIVITAMIN TAB PO SCH (08:28)
[2020-03-03] MEDS: CALCIUM 600MG + VIT D 400 IU TAB PO SCH (08:29)
[2020-03-03] MEDS: LACTOBACILLUS ACIDOPHILUS (FLORANEX) TAB PO SCH (08:29)
[2020-03-03] MEDS: dexAMETHasone 4 MG TAB PO SCH (09:09)
[2020-03-03 09:22] LABS: ALC (manual) 4.36 K/uL (1.2-3.4); Eosinophils # (manual) 0.64 K/uL (0-0.5); Eosinophils % (manual) 3.5 %; Lymphocytes # (manual) 4.03 K/uL (1.2-3.4); Lymphocytes % (manual) 21.9 %; Macrocytosis Present; Monocytes # (manual) 1.12 K/uL (0.11-0.59); Monocytes % (manual) 6.1 %; Myelocytes # (manual) 0.17 K/uL (0-0); Myelocytes % (manual) 0.9 %; Neutrophils % (manual) 65.8 %; Plasma Cells # (manual) 0.33 K/uL (0-0); Plasma Cells % (manual) 1.8 %; Polychromasia 1+
--- NOTE | 2020-03-03 10:16 | Nephrology Progress Note ---
Date of Service March 03, 2020 Assessment & Plan (1) MASOOD (acute kidney injury): MASOOD and hyponatremia in the setting of hospital admission for volume depletion with poor p.o. intake, drug rash with Stivarga and fall at home. Stivarga was discontinued on admission and skin rash resolved, no further episode of fever. sodium was initially 126, improved to 131 to 132. baseline creatinine has been 1.1-1.2 with history of left nephrectomy before, since admission creatinine has been staying around 1.7-1.8. MASOOD Masood I most likely due to prerenal with volume depletion however some concern for AIN remains. --start on Nabicarb 650 mg BID -- liberalize salt in diet -- continue to hold lisinopril for now as blood pressure relatively on the lower side --check Renal panel in am Will follow (2) Dehydration: (3) Hypokalemia: (4) Acute hyponatremia: Admission and Anticipated Discharge Date Admission Date: February 28, 2020 Subjective Su was seen and evaluated these morning. Denies any SOB, CP. Appetite remains poor. Renal function stable, Na improved to 132. BP low but asymptomatic. Review of Systems 2 Review of Systems: All systems reviewed & are unremarkable except as noted in HPI & below Physical Exam Constitutional: WD/WN, vitals as above + ill appearing; no acute distress Respiratory: normal respiratory effort, lungs clear to auscultation no cough Auscultation: no crackles, no rales and no wheezes Cardiovascular: RRR, no murmur, no edema Skin: no rashes, warm and dry Neurologic: moves all extremities and awake Psychiatric: A+Ox3, euthymic affect Results & Data ([facility]) Vital Signs (Past 12 Hours) Vital Signs Temp Pulse Resp BP Pulse Ox 03/03/20 09:05 36.7 C 75 16 95/61 L 97 PG Care Time/CCT Total # of Minutes Spent Total Time Spent with Patient: Total time spent is greater than 50% in coordination of care (as documented) at patient's floor/unit and/or counseling patient: Coding Level of Care Code 19108 Subseq Hosp Care Lvl 3 Diagnoses MASOOD (acute kidney injury) N17.9 Dehydration E86.0 Hypokalemia E87.6 Acute hyponatremia E87.1
[2020-03-03] MEDS: SODIUM BICARBONATE 650 MG TAB PO SCH ×2 (13:11→21:33)
--- NOTE | 2020-03-03 13:54 | Hospitalist Progress Note ---
Date of Service March 03, 2020 Assessment & Plan (1) Drug rash: Su Montes De Oca is an 84 year old woman with a past medical history significant for metastatic colon cancer on oral chemotherapy who has had five days of rash, weakness, and a fall; also presented with fever and diarrhea for t wo days. The rash is likely secondary to Stivarga started one week ago, continues to be improving now with low grade fever could be related drug fever versus infection as below-no further fevers No specific treatment Discontinued Stivarga and added to allergy list (2) Fever: With fevers here and at home which are now resolved Concerning given patient's current chemotherapy and frail health Procalcitonin positive, with mild leukocytosis which had resolved but is now up again due to corticosteroid use CT abdomen/pelvis with thickening of the entire right colon-could be colitis? She did have loose stools at home which are now resolved have since discontinued all antibiotics No evidence of pneumonia on chest x-ray Urinalysis without evidence of infection and urine culture no growth Blood cultures-no growth to date Toxic gastroenteritis and colitis is suspected but is now clinically resolved As above, fever could also be from drug fever/reaction Given that cultures remained negative greater than 48 hours and no source is found, most likely fever was secondary to drug reaction -Have since discontinued all antibiotics Continue to follow BLood cultures Repeat urine culture-pending (3) KATHRYN (acute kidney injury): With creatinine up to 1.8 on admission and then was down to 1.5 after IV fluid hydration Creatinine back up and stable again today at 1.8 -Continues to be lethargic and with very poor p.o. intake Retaining fluid due to hypoalbuminemia Likely secondary to prerenal cause, dehydrated from very poor p.o. intake recently, but also had urinary retention which could have contributed although no evidence of obstruction on CT of the abdomen/pelvis on 02/26. She also has a solitary kidney as the left kidney was removed due to renal cell carcinoma AIN is also a consideration given the rash and fever along with renal failure. ATN at this point. Appreciate nephrology consultation Urine output continues to be low, but also continues to have urinary retention requiring straight catheterization With developing some hypoxia and crackles-discontinued IV fluids, encouraged p.o. salty fluid intake Kent catheter has since been removed, but she will continue with bladder scans every shift and will straight cath for PVR greater than 300 mL's For metabolic [id number] gap, could be secondary to KATHRYN, unclear Started sodium bicarbonate tablets 650 mg p.o. twice daily as per nephrology Follow BMP in the morning Continue to hold home lisinopril Avoid hypotension-this is now improved with holding amlodipine and giving fluid boluses -Encourage p.o. intake-starting dexamethasone for this as per palliative care -Albumin is extremely low which is also contributing to decreased effective arterial volume -Renally dose medications-discontinued gabapentin and will reduce Lyrica dose to 75 mg p.o. twice daily (4) Colon cancer: Colon cancer Metastatic to liver multiple large lesions stable from previous scan 6 weeks prior Has been heavily pretreated. Appreciate oncology consultation. Was started on Stivarga 1 week prior to admission and with drug fever and rash as above-this will be discontinued permanently Dr. Pizano, her oncologist, recommends palliative care consultation and no further treatment. I discussed this with the patient and her granddaughter as well as HER-2 sons. Patient discussed goals of care with palliative care physician, however the granddaughter states that the patient was interested in a second opinion from a different oncologist and they have arranged this with Dr. Munson at [facility] oncology. Appreciate palliative care consultation-plan for better pain control by switching gabapentin to Lyrica and starting dexamethasone for appetite stimulation (5) MGUS (monoclonal gammopathy of unknown significance): Followed by hematology No acute issues (6) Hypertension: Blood pressures had been low due to receiving home antihypertensives in the setting of dehydration Continue to hold home amlodipine, and hold metoprolol if blood pressure low Bolused with IV fluids as above as needed for hypotension and now improved Okay to continue metoprolol with hold parameters (7) Chronic kidney disease, stage III (moderate): With acute kidney injury as above, has solitary kidney -Avoid nephrotoxins -renally dose meds when appropriate -follow BMP (8) Peripheral neuropathy: Noted, exacerbated here With renal failure, she is somewhat lethargic and gabapentin needs to be renally dosed-this may be contributing to her lethargy Discontinued gabapentin and started low-dose pregabalin instead -Discontinue tramadol for lethargy -Continue Tylenol as needed -Discontinued amitriptyline due to urinary retention (9) Hyponatremia: Hyponatremia, sodium today is improved today to 133 Likely hypovolemic hyponatremia from decreased PO intake and diarrhea Received IV fluids and now becoming volume overloaded with pulmonary edema and hypoxia Follow BMP (10) Dehydration: Weakness and fall secondary to this, secondary to poor p.o. intake and previous diarrhea (11) Fall: As above With right foot pain-checked x-ray-no fracture (12) Weakness: Generalized, from dehydration, hyponatremia PT/OT consults placed (13) Urinary retention: Retained 750 mL's of urine after admission and Kent catheter was placed Could be secondary to amitriptyline although she is typically on this She is not taking any opioids Unclear reason why this occurred Could be secondary to constipation-bowel regimen ordered -Kent catheter now removed and continues to require once daily straight cath Continue bladder scans with straight cath for PVR greater than 300 as above -Discontinued amitriptyline -May need to place Kent catheter prior to discharge, consider urology consultation 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-has been on Xarelto ever since in the setting of malignancy -Continue Xarelto 20 mg daily but could consider reducing the dose to the prophylaxis dose of 10 mg daily (15) Antineoplastic chemotherapy induced anemia: Hemoglobin decreased 10.8 from 13.4 No obvious bleeding from anywhere Likely just antineoplastic effect Follow CBC in the morning No transfusion needed (16) Thrombocytopenia: Platelets had decreased to the 60s and now improving to 94 Secondary to antineoplastic effect Follow CBC (17) Hypokalemia: Replaced and now resolved Follow BMP and magnesium in the morning (18) Anorexia: With failure to thrive secondary to side effect of chemotherapy Severe protein calorie malnutrition (19) Constipation: Add on senna/docusate and MiraLAX No bowel movement in many days Could be contributing to urinary retention (20) DVT prophylaxis: Xarelto Disposition-continued stay PT/OT consultations, patient and family now requesting referral to acute rehab DNR/DNI Palliative care consultation appreciated-discussed possibility of hospice after seen second opinion oncology Overall poor prognosis with renal failure, failure to thrive, chemotherapy related adverse side effects and metastatic colon cancer Admission and Anticipated Discharge Date Admission Date: February 28, 2020 Subjective Patient reports continued to feel very fatigued today. She could barely stand and walk a few steps in the room. The pain in her feet is better. She woke up with pain in the right side of the neck and stiffness which is now resolved. Continues to require straight catheterization for 550 mL's this morning. She has not moved her bowels since admission. She denies chest pain or shortness of breath. I discussed her care with both of her sons at the bedside. She is interested in going to rehab instead of going home as she feels so weak. Review of Systems Review of Systems: All systems reviewed & are unremarkable except as noted in HPI & below Physical Exam Constitutional: + frail appearing and cooperative; no acute distress Eyes: + anicteric sclerae Neck: trachea midline, no thyromegaly Respiratory: normal respiratory effort Auscultation: + crackles (At the bases bilaterally); no rhonchi and no wheezes Cardiovascular: Rate/Rhythm: regular rate and regular rhythm Heart Sounds: no murmur Vessels: dorsalis pedis pulses present Extremities: + edema (Trace edema of the feet and ankles bilaterally left greater than right) Chest (Breasts): Chest: normal inspection of chest Gastrointestinal (Abdomen): normal bowel sounds, soft, nontender, no hepatosplenomegaly Musculoskeletal: Extremities: extremities normal to inspection; no cyanosis and no clubbing Skin: + rash (diffuse erythematous maculopapular rash over trunk and limbs is significantly improved and very faint) Neurologic: moves all extremities and awake; no focal motor deficits (generally weak) Psychiatric: Orientation: alert (But drowsy), oriented to person, oriented to place and cooperative Affect: + depressed affect Mood: + depressed mood Results & Data Results & Data ([facility]) Vital Signs (Past 12 Hours) Vital Signs Temp Pulse Resp BP Pulse Ox 03/03/20 09:05 36.7 C 75 16 95/61 L 97 Laboratory Results 03/03/20 03/03/20 03/03/20 Range/Units 07:08 07:08 06:30 WBC 18.39 H (4.8-10.8) K/uL RBC 3.54 L (4.2-5.4) M/uL Hgb 10.8 L (12.0-16.0) g/dL Hct 32.2 L (37-47) % MCV 91.0 (80-100) fL MCH 30.5 (25-34) pg MCHC 33.5 (32-36) g/dL RDW Std Deviation 61.8 H (36.4-46.3) fL RDW Coeff of [place] 18.7 H (11.5-14.5) % Plt Count 94 L (130-400) K/uL MPV 11.8 H (7.4-10.4) fL Neutrophils % (Manual) 65.8 % Lymphocytes % (Manual) 21.9 % Monocytes % (Manual) 6.1 % Eosinophils % (Manual) 3.5 % Myelocytes % (Man) 0.9 % Plasma Cell % (Manual) 1.8 % Neutrophils # (Manual) 12.10 H (1.4-6.5) K/uL Total Absolute Neuts 12.10 H (1.4-6.5) K/uL Lymphocytes # (Manual) 4.03 H (1.2-3.4) K/uL Total Abs Lymphocytes 4.36 H (1.2-3.4) K/uL Monocytes # (Manual) 1.12 H (0.11-0.59) K/uL Eosinophils # (Manual) 0.64 H (0-0.5) K/uL Myelocytes # (Manual) 0.17 H (0-0) K/uL Plasma Cell # (Manual) 0.33 H (0-0) K/uL Polychromasia 1+ Macrocytosis Present Sodium 133 L (136-145) mmol/L Potassium 4.3 D (3.5-5.1) mmol/L Chloride 108 H (98-107) mmol/L Carbon Dioxide 18 L (21-32) mmol/L Anion Gap 8.0 (3-11) BUN 28 H (7-18) mg/dl Creatinine 1.82 H (0.6-1.2) mg/dl Est Cr Clr Drug Dosing 18.9 ml/min Est GFR ( Amer) 28.8 Est GFR (Non-Af Amer) 24.9 BUN/Creatinine Ratio 15.5 (10-20) Glucose 90 (70-99) mg/dl Calcium 7.6 L (8.5-10.1) mg/dl Magnesium 2.2 (1.8-2.4) mg/dl Urine Color Urine Appearance (Clear) Urine pH (4.5-7.5) Ur Specific [place] (1.000-1.030) Urine Protein (Negative) Urine Glucose (UA) (Negative) Urine Ketones (Negative) Urine Blood (Negative) Urine Nitrite (Negative) Urine Bilirubin (Negative) Urine Urobilinogen (Negative) Ur Leukocyte Esterase (Negative) Urine WBC (Auto) (0-5) /hpf Urine RBC (Auto) (0-4) /hpf U Hyaline Cast (Auto) (0-5) /lpf U Epithel Cells (Auto) (0-5) /lpf Urine Bacteria (Auto) (Negative) Amorphous Sediment (None Prsent) Urine Yeast Urine Osmolality 374 L (500-800) mOsm/kg 03/03/20 Range/Units 06:30 WBC (4.8-10.8) K/uL RBC (4.2-5.4) M/uL Hgb (12.0-16.0) g/dL Hct (37-47) % MCV (80-100) fL MCH (25-34) pg MCHC (32-36) g/dL RDW Std Deviation (36.4-46.3) fL RDW Coeff of [place] (11.5-14.5) % Plt Count (130-400) K/uL MPV (7.4-10.4) fL Neutrophils % (Manual) % Lymphocytes % (Manual) % Monocytes % (Manual) % Eosinophils % (Manual) % Myelocytes % (Man) % Plasma Cell % (Manual) % Neutrophils # (Manual) (1.4-6.5) K/uL Total Absolute Neuts (1.4-6.5) K/uL Lymphocytes # (Manual) (1.2-3.4) K/uL Total Abs Lymphocytes (1.2-3.4) K/uL Monocytes # (Manual) (0.11-0.59) K/uL Eosinophils # (Manual) (0-0.5) K/uL Myelocytes # (Manual) (0-0) K/uL Plasma Cell # (Manual) (0-0) K/uL Polychromasia Macrocytosis Sodium (136-145) mmol/L Potassium (3.5-5.1) mmol/L Chloride (98-107) mmol/L Carbon Dioxide (21-32) mmol/L Anion Gap (3-11) BUN (7-18) mg/dl Creatinine (0.6-1.2) mg/dl Est Cr Clr Drug Dosing ml/min Est GFR ( Amer) Est GFR (Non-Af Amer) BUN/Creatinine Ratio (10-20) Glucose (70-99) mg/dl Calcium (8.5-10.1) mg/dl Magnesium (1.8-2.4) mg/dl Urine Color Dark Yellow Urine Appearance Clear (Clear) Urine pH 5.0 (4.5-7.5) Ur Specific [place] 1.019 (1.000-1.030) Urine Protein 1+ H (Negative) Urine Glucose (UA) Negative (Negative) Urine Ketones Trace H (Negative) Urine Blood 1+ H (Negative) Urine Nitrite Negative (Negative) Urine Bilirubin Negative (Negative) Urine Urobilinogen Negative (Negative) Ur Leukocyte Esterase Trace H (Negative) Urine WBC (Auto) 1-5 (0-5) /hpf Urine RBC (Auto) 5-10 H (0-4) /hpf U Hyaline Cast (Auto) 1-5 (0-5) /lpf U Epithel Cells (Auto) 20-30 H (0-5) /lpf Urine Bacteria (Auto) Negative (Negative) Amorphous Sediment Present A (None Prsent) Urine Yeast Not Reportable Urine Osmolality (500-800) mOsm/kg PG Care Time/CCT Total # of Minutes Spent Total Time Spent with Patient: Total time spent is greater than 50% in coordination of care (as documented) at patient's floor/unit and/or counseling patient: Coding Level of Care Code 97880 Subseq Hosp Care Lvl 3 Diagnoses Drug rash L27.0 Fever R50.9 KATHRYN (acute kidney injury) N17.9 Colon cancer C18.9 Colon location: unspecified part of colon MGUS (monoclonal gammopathy of unknown significance) D47.2 Hypertension I10 Chronic kidney disease, stage III (moderate) N18.3 Peripheral neuropathy G62.9 Hyponatremia E87.1 Dehydration E86.0 Fall W19.XXXA Weakness R53.1 Urinary retention R33.9 History of thrombosis of internal jugular vein Z86.718 Antineoplastic chemotherapy induced anemia D64.81; T45.1X5A Thrombocytopenia D69.6 Hypokalemia E87.6 Anorexia R63.0 Constipation K59.00 DVT prophylaxis Z29.9 (1) Colon cancer Colon location: unspecified part of colon Qualified Code(s): C18.9 - Malignant neoplasm of colon, unspecified
[2020-03-03] MEDS ORDERED: POLYETHYLENE (MIRALAX) 17 GM PACK PO PRN (14:48)
--- NOTE | 2020-03-03 15:50 | Medical Student Progress Note ---
Date of Service March 03, 2020 Assessment & Plan (1) Urinary retention: Since the removal of the in-dwelling catheter the patient has been unable to void on her own. Hold amitriptyline. Monitor urine volume with bladder scans and assist with straight cath when volume is >300. If patient is still not voiding on her own by tomorrow, replace Kent catheter. (2) KATHRYN (acute kidney injury): Kidney function initially improved but has remained elevated past 3 days. Sodium low. Nephrology consulted and recommend: Continue to hold lisinopril Continue to monitor hydration. Discontinue IV fluids and encourage oral intake. Encourage salty snacks. Prescribe bicarb (3) Colon cancer: Oncology says no remaining treatment options for this patient. Palliative consult recommends: Beginning steroids to boost patient's energy and appetite Switching from gabapentin to pregabalin. Colon location: unspecified part of colon Qualified Code(s): C18.9 - Malignant neoplasm of colon, unspecified (4) Peripheral neuropathy: Most likely cause of patient's foot pain. Patient was on 600mg of Gabapentin. Switch to pregabalin at 75mg BID to treat the neuropathy and avoid overtaxing the patient's kidney. (5) Dehydration: Stop IV fluids Encourage oral intake of fluids, salt, and protein. Add protein shakes to diet. Monitor metabolic labs and blood pressure. Admission and Anticipated Discharge Date Admission Date: Admitted February 28, 2020 If the patient's kidney function and strength is improved tomorrow, then she may be able to be discharged to a rehab facility, rather than discharged home. The patient is amenable to this plan. Subjective The patient is an 84 year old woman with a history of metastatic colon cancer who was admitted five days ago for fever, rash, and generalized weakness. She presented to the ED on Friday night with a five day history of rash and weakness, a fall, and fever and diarrhea for the past two days. She had recently begun a new chemotherapy, Stivarga, so oncology was consulted. Oncology advised discontinuation of chemotherapy, and the patients rash has been improving off of the Stivarga. Her white blood cell count has been increasing over the past few days, but so far no infection has been identified. On x-ray the patient had no evidence of pneumonia and has had no positive urine or blood cultures so far. Palliative care recommended a steroid Her BUN and Creatinine were elevated on admission, the patient was dehydrated, and she was retaining her urine. She was given fluids and a catheter was inserted. Her catheter was removed yesterday, and since then she has not been able to void on her own. She has been having periodic bladder scans and a straight catheter is used when the fluid is over 300ml. Her BUN and creatinine have been rechecked every day and are holding steady at around 26-28 and 1.8. Nephrology was consulted. Patient has had evidence of pulmonary and peripheral edema over the past two days, and her IV fluids were halted. This morning the patient was weaker and more lethargic than she had been yesterday. She had been walking around the hallway yesterday, but today was only able to get out of bed and not walk. She complained of pain in her neck, but this resolved over the course of the day. The neuropathy in her feet is not bothering much today. Review of Systems Review of Systems: The patient's rash is almost entirely gone. Respiratory: Patient's oxygen levels dropped into the high 80s yesterday evening so she is now on a nasal cannula. She reports no shortness of breath. Gastrointestinal: No nausea, no abdominal pain. She says she still has no appetite, and does not want to drink much water either. She has not had a bowel movement. Genitourinary: The patient has still been unable to void on her own. Musculoskeletal: The patient is currently bothered by pain and stiffness in her neck on the right side. Neurologic: The patient says her feet are less painful this morning. Physical Exam Physical Exam: Patient appears unwell, more tired and slow of speech than yesterday. Respiratory: Patient is now on a nasal cannula. She has some basilar crackles bilaterally. Cardiovascular: Normal rate and rhythm, no rubs murmurs or gallops. Edema in lower extremities. Musculoskeletal: Tender to palpation on the right side of the neck. Cervical spine non-tender. Patient cannot turn her head fully to the right. Stiffness and pain resolved in a few hours. Skin: Rash has continued to improve. Neurologic: Neuropathy in lower extremities is less severe today. Genitourinary: Patient is still unable to void on her own. This morning her bladder was scanned showing 546ml retained. A straight cath was inserted and 500ml was drained. Results & Data ([facility]) Vital Signs (Past 12 Hours) Vital Signs Temp Pulse Resp BP Pulse Ox 03/03/20 09:05 36.7 C 75 16 95/61 L 97
[2020-03-03] MEDS: DOCUSATE SODIUM/SENNA 50/8.6MG TAB PO SCH (16:24)
[2020-03-04 08:07] LABS: Hematocrit (blood only) 29.9 % (37-47); Hemoglobin 10.1 g/dL (12.0-16.0); Mean Corpuscular Hemoglobin 31.1 pg (25-34); Mean Corpuscular Hgb Conc 33.8 g/dL (32-36); Mean Platelet Volume 11.4 fL (7.4-10.4); Platelet Count 110 K/uL (130-400); RDW Coefficient of Variation 19.1 % (11.5-14.5); Red Blood Count 3.25 M/uL (4.2-5.4); White Blood Count 16.87 K/uL (4.8-10.8)
[2020-03-04 08:37] LABS: Basophils # (auto) 0.06 K/uL (0-0.2); Basophils % (auto) 0.4 %; Echinocytes 1+; Eosinophils # (auto) 0.03 K/uL (0-0.5); Eosinophils % (auto) 0.2 %; Immature Granulocytes # (auto) 0.11 K/uL (0.00-0.02); Immature Granulocytes % (auto) 0.7 %; Lymphocytes # (auto) 2.83 K/uL (1.2-3.4); Lymphocytes % (auto) 16.8 %; Monocytes # (auto) 1.33 K/uL (0.11-0.59); Monocytes % (auto) 7.9 %; Neutrophils # (auto) 12.51 K/uL (1.4-6.5)
[2020-03-04 08:42] LABS: Albumin Level 1.4 gm/dl (3.4-5.0); Bilirubin Direct 0.4 mg/dl (0-0.2); Calcium 7.9 mg/dl (8.5-10.1); Creatinine Clr Calc Pharmacy 18.4 ml/min; Est GFR (African American) 27.9; Est GFR (Non-African American) 24.1; Magnesium 2.5 mg/dl (1.8-2.4); Potassium 4.7 mmol/L (3.5-5.1)
[2020-03-04 08:45] LABS: Bilirubin,Total 0.8 mg/dl (0.2-1); Total Protein 4.8 gm/dl (6.4-8.2)
[2020-03-04] MEDS: RIVAROXABAN 20 MG TAB PO SCH (08:45)
[2020-03-04] MEDS: METOPROLOL TARTRATE 25 MG TAB PO SCH ×2 (08:45→21:01)
[2020-03-04] MEDS: PANTOprazole 40 MG TAB PO SCH (08:45)
[2020-03-04] MEDS: dexAMETHasone 4 MG TAB PO SCH (08:45)
[2020-03-04] MEDS: DOCUSATE SODIUM/SENNA 50/8.6MG TAB PO SCH (08:45)
[2020-03-04] MEDS: SODIUM BICARBONATE 650 MG TAB PO SCH ×2 (08:45→21:01)
[2020-03-04] MEDS: LACTOBACILLUS ACIDOPHILUS (FLORANEX) TAB PO SCH (08:45)
[2020-03-04] MEDS: MULTIVITAMIN TAB PO SCH (08:45)
[2020-03-04] MEDS: CALCIUM 600MG + VIT D 400 IU TAB PO SCH (08:45)
[2020-03-04] MEDS: PREGABALIN 75 MG CAP PO SCH ×2 (08:48→21:01)
--- NOTE | 2020-03-04 11:09 | Urology Consultation ---
Date of Consultation March 04, 2020 Assessment & Plan (1) Urinary retention: Patient with approximately 750 cc drained with catheter placement. Patient is dealing with acute illness as well as multiple other issues. Has been having recurrent episodes of incomplete emptying and UTI. Had originally had plans for cystoscopy but these were delayed due to the current COVID 19 pandemic. Patient is currently tolerating catheter without major problems or issues patient son is also in the room today. Discussed different options. Discussed concerns and issues. For time being we will outpatient decompression, supportive care, and continued coverage for UTI with retention. We will plan to allow 7 to 10 days to clear infection and other issues. We will then consider outpatient follow-up. At that time can talk about catheter removal and can also try to set up for cystoscopy in the office to better assess bladder. Patient is agreeable with this. We will continue to monitor. Patient's complicated medical and surgical history was reviewed and summarized above. All imaging was reviewed interpreted by myself. We will continue to monitor call if any changes issues or other problems and plan for outpatient follow-up History of Present Illness Attending Physician: Yaa Patrick MD History of Present Illness Consult for urinary issues with incomplete emptying and possible retention. Patient has mild to moderate discomfort in pelvis and groin going to back and side in waves. Is dealing with acute illness. Has been deconditioned from this. Has decreased mobility significantly with acute issues. Patient has been dealing with on again off again UTIs and incomplete emptying issues for the last few months to a couple years. She had an appointment set up with urology to have cystoscopy but due to the COVID pandemic had this delayed. Patient did present with large volume retention of approximately 750 cc and tolerated catheter placement without major issues. Patient does have a history of nephrectomy. Patient has not had complete return to normal bowel function. Has had some minor urinary issues in the past. Denies bleeding. No severe nausea or vomiting. Currently no fevers. Discussed with patient multifactorial nature of urinary issues, retention, and incomplete bladder emptying. Discussed concerns and issues. Discussed decreased mobility and trouble voiding. Discussed issues related to deconditioning and weakened state. Discussed possibility that patient had more moderate to severe issues and with the acute illness and deconditioning these issues became more prevalent and obvious. Discussed bowel function and possible issues related to decrease in function and its relation to other pelvic organs and systems. Discussed different medications, will use during hospitalization and their effect on ability to empty. Allergies Allergy/AdvReac Type Severity Reaction Status Date / Time regorafenib [From Stivarga] Allergy Severe Rash and Verified 02/29/20 12:38 fever levofloxacin Allergy Intermediate HIVES Verified 02/27/20 23:18 Iodinated Contrast Media Allergy Unknown Verified 02/27/20 23:18 adhesive AdvReac Mild SKIN Verified 02/27/20 23:18 IRRITATION WITH SOME TAPES codeine AdvReac Mild NAUSEA Verified 02/27/20 23:18 crab AdvReac Mild DIZZY AND Verified 02/27/20 23:18 THROWS UP metronidazole AdvReac Mild nausea and Verified 02/27/20 23:18 vomiting nitrofurantoin AdvReac Mild NAUSEA Verified 02/27/20 23:18 Sulfa (Sulfonamide AdvReac Mild SICK TO Verified 02/27/20 23:18 Antibiotics) STOMACH Home Medications Home Medications Medication Instructions Recorded Confirmed Type calcium carbonate-vitamin D3 1 tab PO QAM 09/25/18 02/27/20 History multivitamin 1 tab PO QAM 09/25/18 02/27/20 History Lactobacillus acidophilus 460 mg PO DAILY 02/08/19 02/27/20 History [Florajen] gabapentin 600 mg PO TID 02/08/19 02/27/20 History lorazepam 0.5 mg tablet 0.5 mg PO BID PRN #30 tab 08/24/19 02/27/20 Rx rivaroxaban 20 mg tablet 20 mg PO DAILY #30 tab 08/24/19 02/27/20 Rx amlodipine 5 mg PO DAILY 09/16/19 02/27/20 History metoprolol tartrate 25 mg PO BID 09/16/19 02/27/20 History ondansetron 4 mg PO Q6H PRN #15 tab 09/25/19 02/27/20 Rx amitriptyline 25 mg tablet 25 mg PO HS #30 tab 12/31/19 02/27/20 Rx lisinopril 40 mg tablet 40 mg PO DAILY #30 tab 02/17/20 02/27/20 Rx methylprednisolone 4 mg tablets in See Rx Instructions .ROUTE 02/17/20 02/27/20 Rx a dose pack .COMPLEX #21 ea omeprazole 20 mg capsule,delayed 20 mg PO DAILY #90 cap 02/24/20 02/27/20 Rx release Patient History Medical History Absent kidney, acquired Anemia Anxiety Basal cell carcinoma (BCC) on back/nose Colon cancer 2017--sx, chemo Depression DNR (do not resuscitate) Exposure to COVID-19 virus GERD (gastroesophageal reflux disease) Hemorrhoid History of colon cancer History of esophageal dilatation History of esophageal stricture History of thrombosis of internal jugular vein Liver cancer Lower GI bleed MGUS (monoclonal gammopathy of unknown significance) (~2012) Nausea and vomiting after administration of anesthetic agent Proteinuria Renal cell carcinoma 2010, L kidney removed Urinary tract infection Surgical History History of appendectomy History of bilateral tubal ligation History of bowel resection History of colonoscopy History of esophagogastroduodenoscopy (EGD) History of left nephrectomy History of nephrectomy, left History of phacoemulsification of cataract of both eyes with intraocular lens implantation History of tooth extraction all top teeth removed/most of bottom History of total abdominal hysterectomy and bilateral salpingo-oophorectomy History of vascular access device APORT left chest Status post Mohs surgery for basal cell carcinoma Family History Other Cancer No family history of adverse response to anesthesia Denies family history of Ovarian cancer Prostate cancer Myocardial infarction Breast cancer Colorectal cancer Social History Smoking Status: Never smoker Tobacco Type: Cigarettes Second Hand Exposure: No; Hx Alcohol Use: Yes Alcohol type: wine Hx Substance Use: No Preferred Language: Bulgarian Communication Ability: Effective Visual Impairment: No Limitations Hearing Ability: Normal Applications Analyst Required: No Beliefs That Will Affect Care: None marital status: marital status details: Current Living Situation: Spouse Feels Safe at Home: Yes Seatbelt Use: always Assistive Devices: Denture - Lower, Oxygen - Continuous and Walker Review of Systems Review of Systems: All systems reviewed & are unremarkable except as noted in HPI & below Physical Exam Physical Exam: General: Alert in no acute distress. Advanced age. Chronic Medical issues. HEENT: Normocephalic. Inspection normal. Cranial Nerves 2-12 Grossly intact with some hearing issues. Normal inspection of face. Normal inspection of neck. Psychologic: Normal affect. Baseline issues with memory. Respiratory: Nonlabored. No use of accessory muscles. No tachypnea or dyspnea. Cardiovascular: No tachycardia Skin: [employer] and Dry. No rashes or visible lesions. Extremities/Lymphatics: Minor Mobility issues. Slow Gait. Abdomen: Soft Non-distended. No rebound or guarding. : Kent in place draining clear yellow urine Results & Data ([facility]) Vital Signs (Past 12 Hours) Vital Signs Temp Pulse Resp BP BP Pulse Ox 03/04/20 08:17 75 16 116/69 97 03/04/20 01:30 36.4 C L 03/03/20 23:13 75 16 101/60 95 PG Care Time/CCT Total # of Minutes Spent Total Time Spent with Patient: Total time spent is greater than 50% in coordination of care (as documented) at patient's floor/unit and/or counseling patient: Coding Level of Care Code 65052 Inpt Consult Level 5 Diagnoses Urinary retention R33.9
--- NOTE | 2020-03-04 13:06 | Hospitalist Progress Note ---
Date of Service March 04, 2020 Assessment & Plan (1) Drug rash: Su Montes De Oca is an 84 year old woman with a past medical history significant for metastatic colon cancer on oral chemotherapy who has had five days of rash, weakness, and a fall; also presented with fever and diarrhea for two days. The rash is likely secondary to Stivarga started one week ago, continues to be improving now with low grade fever could be related drug fever versus infection as below-no further fevers No specific treatment Discontinued Stivarga and added to allergy list (2) Fever: With fevers here and at home which are now resolved Concerning given patient's current recent chemotherapy and frail health Procalcitonin was positive, with mild leukocytosis which had resolved but is now up again due to corticosteroid use CT abdomen/pelvis with thickening of the entire right colon-could be colitis? She did have loose stools at home which are now resolved have since discontinued all antibiotics No evidence of pneumonia on chest x-ray Urinalysis without evidence of infection and urine culture no growth Blood cultures-no growth to date Toxic gastroenteritis and colitis is suspected but is now clinically resolved As above, fever could also be from drug fever/reaction Given that cultures remained negative greater than 48 hours and no source is found, most likely fever was secondary to drug reaction -Have since discontinued all antibiotics Continue to follow BLood cultures-final is negative Repeat urine culture-pending (3) KATHRYN (acute kidney injury): With creatinine up to 1.8 on admission and then was down to 1.5 after IV fluid hydration Creatinine back up and stable again for many days at 1.8 -For several days was very lethargic and with very poor p.o. intake-finally improving on 03/04 With mild anasarca due to hypoalbuminemia Likely secondary to prerenal cause, dehydrated from very poor p.o. intake recently, but also had urinary retention which could have contributed although no evidence of obstruction on CT of the abdomen/pelvis on 02/26. She also has a solitary kidney as the left kidney was removed due to renal cell carcinoma AIN is also a consideration given the rash and fever along with renal failure. Stivarga has been discontinued Most likely ATN at this point. Appreciate nephrology consultation Urine output decent, continues to have urinary retention requiring straight catheterization as below With developing some hypoxia and crackles-discontinued IV fluids, encouraged p.o. salty fluid intake Kent catheter has since been removed, but she will continue with bladder scans every shift and will straight cath for PVR greater than 300 mL's For metabolic [id number] gap, could be secondary to KATHRYN, unclear- improving Started sodium bicarbonate tablets 650 mg p.o. twice daily as per nephrology Follow BMP in the morning Continue to hold home lisinopril Avoid hypotension-this is now improved with holding amlodipine and giving fluid boluses -Encourage p.o. intake-starting dexamethasone for this as per palliative care -Albumin is extremely low which is also contributing to decreased effective arterial volume -Renally dose medications-discontinued gabapentin and reduced Lyrica dose to 75 mg p.o. twice daily-her mental status is now greatly improved (4) Colon cancer: Colon cancer Metastatic to liver multiple large lesions stable from previous scan 6 weeks prior Has been heavily pretreated. Appreciate oncology consultation. Was started on Stivarga 1 week prior to admission and with drug fever and rash as above-this will be discontinued permanently Dr. Pizano, her oncologist, recommends palliative care consultation and no further treatment. I discussed this with the patient and her granddaughter as well as HER-2 sons. Patient discussed goals of care with palliative care physician, however the granddaughter states that the patient was interested in a second opinion from a different oncologist and they have arranged this with Dr. Munson at [facility] oncology. Appreciate palliative care consultation-plan for better pain control by switching gabapentin to Lyrica and starting dexamethasone for appetite stimulation (5) MGUS (monoclonal gammopathy of unknown significance): Followed by hematology No acute issues (6) Hypertension: Blood pressures had been low due to receiving home antihypertensives in the setting of dehydration Continue to hold home amlodipine, and hold metoprolol if blood pressure low Bolused with IV fluids as above as needed for hypotension and now improved Okay to continue metoprolol with hold parameters (7) Chronic kidney disease, stage III (moderate): With acute kidney injury as above, has solitary kidney -Avoid nephrotoxins -renally dose meds when appropriate -follow BMP (8) Peripheral neuropathy: Noted, exacerbated here initially for several days With renal failure, she was quite lethargic and gabapentin needs to be renally dosed-this may be contributing to her lethargy Discontinued gabapentin and started low-dose pregabalin instead at 75 mg p.o. twice daily -Discontinue tramadol for lethargy -Continue Tylenol as needed -Discontinued amitriptyline due to urinary retention (9) Hyponatremia: Hyponatremia, sodium today is improved today even further to 134 Likely hypovolemic hyponatremia from decreased PO intake and diarrhea Received IV fluids and then became volume overloaded with pulmonary edema and hypoxia and therefore IV fluids discontinued Follow BMP (10) Dehydration: Weakness and fall secondary to this, secondary to poor p.o. intake and previous diarrhea (11) Fall: As above With right foot pain-checked x-ray-no fracture (12) Weakness: Generalized, from dehydration, hyponatremia PT/OT consults placed-plan for rehab placement on Friday (13) Urinary retention: Retained 750 mL's of urine after admission and Kent catheter was placed. Has been straight cathed multiple x1-2 times a day since Kent catheter was discontinued. Could be secondary to amitriptyline although she is typically on this at home- this has been discontinued She had urinary retention prior to receiving 2 doses of tramadol. Nonetheless, tramadol now discontinued Could be secondary to constipation-bowel regimen ordered She also has a history of urinary retention as per urology notes Appreciate urology consultation-no need for Kent catheter as per my discussion with him if straight caths are only occurring 1-2 times per day. 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-has been on Xarelto ever since in the setting of malignancy -Continue Xarelto 20 mg daily but could consider reducing the dose to the prophylaxis dose of 10 mg daily (15) Antineoplastic chemotherapy induced anemia: Hemoglobin decreased to 10.1 from 13.4 No obvious bleeding from anywhere Likely just antineoplastic effect Follow CBC in the morning No transfusion needed (16) Thrombocytopenia: Platelets had decreased to the 60s and now improving to 110 Secondary to antineoplastic effect Follow CBC (17) Hypokalemia: Replaced and now resolved Follow BMP and magnesium in the morning (18) Anorexia: With failure to thrive secondary to side effect of chemotherapy Severe protein calorie malnutrition -Started dexamethasone 4 mg daily and improving Ordered boost shakes twice daily (19) Constipation: Had 1 small bowel movement in the last 24 hours finally after many days without 1 -Continue on senna/docusate and MiraLAX Could be contributing to urinary retention (20) DVT prophylaxis: Xarelto Disposition-medically stable for discharge to rehab, unfortunately her insurance company is closed over the weekend to apply for insurance authorization. Her first choice is [facility] and second choice for back at [facility] PT/OT consultations, appreciated DNR/DNI Palliative care consultation appreciated-discussed possibility of hospice after seen second opinion oncology Overall poor prognosis with renal failure, failure to thrive, chemotherapy related adverse side effects and metastatic colon cancer Admission and Anticipated Discharge Date Admission Date: February 28, 2020 Subjective Patient feeling better today. No pain in the feet. Denies chest pain or shortness of breath. Is in better spirits today and is out of bed to chair eating lunch. Her granddaughter is visiting. She had to be straight cathed again last night and this morning. I discussed the case with urology. She still feels her appetite is not the greatest but is actively eating when I saw her. Review of Systems Review of Systems: All systems reviewed & are unremarkable except as noted in HPI & below Physical Exam Constitutional: + frail appearing and cooperative; no acute distress Eyes: + anicteric sclerae Neck: trachea midline, no thyromegaly Respiratory: normal respiratory effort Auscultation: + crackles (At the bases bilaterally); no rhonchi and no wheezes Cardiovascular: Rate/Rhythm: regular rate and regular rhythm Heart Sounds: no murmur Extremities: + edema (Trace edema of the feet and ankles bilaterally left greater than right, with 1+ edema of the arms bilaterally) Chest (Breasts): Chest: normal inspection of chest Gastrointestinal (Abdomen): normal bowel sounds, soft, nontender, no hepatosplenomegaly Musculoskeletal: Extremities: extremities normal to inspection; no cyanosis and no clubbing Skin: + rash (diffuse erythematous maculopapular rash over trunk and limbs is significantly improved and very faint) Neurologic: moves all extremities and awake Psychiatric: Orientation: alert, oriented to person, oriented to place and cooperative Speech: normal rate/rhythm/volume of speech Results & Data Results & Data ([facility]) Vital Signs (Past 12 Hours) Vital Signs Temp Pulse Resp BP Pulse Ox 03/04/20 08:17 75 16 116/69 97 03/04/20 01:30 36.4 C L Laboratory Results 03/04/20 03/04/20 Range/Units 07:11 07:11 WBC 16.87 H (4.8-10.8) K/uL RBC 3.25 L (4.2-5.4) M/uL Hgb 10.1 L (12.0-16.0) g/dL Hct 29.9 L (37-47) % MCV 92.0 (80-100) fL MCH 31.1 (25-34) pg MCHC 33.8 (32-36) g/dL RDW Std Deviation 63.0 H (36.4-46.3) fL RDW Coeff of [place] 19.1 H (11.5-14.5) % Plt Count 110 L (130-400) K/uL MPV 11.4 H (7.4-10.4) fL Immature Gran % (Auto) 0.7 % Neut % (Auto) 74.0 % Lymph % (Auto) 16.8 % [place] % (Auto) 7.9 % Eos % (Auto) 0.2 % Baso % (Auto) 0.4 % Neut # (Auto) 12.51 H (1.4-6.5) K/uL Lymph # (Auto) 2.83 (1.2-3.4) K/uL Hart # (Auto) 1.33 H (0.11-0.59) K/uL Eos # (Auto) 0.03 (0-0.5) K/uL Baso # (Auto) 0.06 (0-0.2) K/uL Immature Gran # (Auto) 0.11 H (0.00-0.02) K/uL Echinocytes 1+ Sodium 134 L (136-145) mmol/L Potassium 4.7 (3.5-5.1) mmol/L Chloride 108 H (98-107) mmol/L Carbon Dioxide 20 L (21-32) mmol/L Anion Gap 6.0 (3-11) BUN 37 H (7-18) mg/dl Creatinine 1.87 H (0.6-1.2) mg/dl Est Cr Clr Drug Dosing 18.4 ml/min Est GFR ( Amer) 27.9 Est GFR (Non-Af Amer) 24.1 BUN/Creatinine Ratio 20.0 (10-20) Glucose 124 H (70-99) mg/dl Calcium 7.9 L (8.5-10.1) mg/dl Magnesium 2.5 H (1.8-2.4) mg/dl Total Bilirubin 0.8 (0.2-1) mg/dl Direct Bilirubin 0.4 H (0-0.2) mg/dl AST 34 (15-37) U/L ALT 38 (12-78) U/L Alkaline Phosphatase 170 H (45-117) U/L Total Protein 4.8 L (6.4-8.2) gm/dl Albumin 1.4 L (3.4-5.0) gm/dl PG Care Time/CCT Total # of Minutes Spent Total Time Spent with Patient: Total time spent is greater than 50% in coordination of care (as documented) at patient's floor/unit and/or counseling patient: Coding Level of Care Code 69079 Subseq Hosp Care Lvl 3 Diagnoses Drug rash L27.0 Fever R50.9 KATHRYN (acute kidney injury) N17.9 Colon cancer C18.9 Colon location: unspecified part of colon MGUS (monoclonal gammopathy of unknown significance) D47.2 Hypertension I10 Chronic kidney disease, stage III (moderate) N18.3 Peripheral neuropathy G62.9 Hyponatremia E87.1 Dehydration E86.0 Fall W19.XXXA Weakness R53.1 Urinary retention R33.9 History of thrombosis of internal jugular vein Z86.718 Antineoplastic chemotherapy induced anemia D64.81; T45.1X5A Thrombocytopenia D69.6 Hypokalemia E87.6 Anorexia R63.0 Constipation K59.00 DVT prophylaxis Z29.9 (1) Colon cancer Colon location: unspecified part of colon Qualified Code(s): C18.9 - Malignant neoplasm of colon, unspecified
--- NOTE | 2020-03-04 13:27 | Nephrology Progress Note ---
Date of Service March 04, 2020 Assessment & Plan (1) KATHRYN (acute kidney injury): Attributed to volume depletion and ATN. Creatinine stable at 1.8 mg/dL. Electrolytes acceptable. Urine output appropriate with catheter placement. Urology consult appreciated. BP acceptable. Medications appropriate for kidney function. (2) Dehydration: Improved. Encourage oral intake. (3) Hypokalemia: Improved. (4) Acute hyponatremia: Related to poor solute intake. Improved with supportive care. Admission and Anticipated Discharge Date Admission Date: February 28, 2020 Subjective No acute events overnight. Su states that she feels weak. Appetite is decreased. Otherwise no concerns. No urinary symptoms. States that she rarely feels the urge to void. She was seen and evaluated with her daughter at the bedside. Review of Systems Constitutional: no weight loss, no weight gain and no problem reported Eyes: no problem reported Ear, Nose, Mouth, Throat: no problem reported Respiratory: no problem reported Cardiovascular: no problem reported Gastrointestinal: no problem reported Musculoskeletal: no problem reported Integumentary: no problem reported Neurologic: no problem reported Psychiatric: no problem reported Endocrine: no problem reported Hematologic / Lymphatic: no problem reported Physical Exam Constitutional: well developed, + thin and + frail appearing; no acute distress Eyes: no scleral abnormality and no corneal abnormality ENMT: Mouth: no oral mucosal abnormality and oral mucous membranes not dry Neck: normal visual inspection and trachea midline Respiratory: normal respiratory effort Auscultation: lungs clear to auscultation bilaterally Cardiovascular: Rate/Rhythm: regular rate Heart Sounds: normal S1 and normal S2 Extremities: no edema Musculoskeletal: Extremities: no cyanosis and no clubbing Skin: normal turgor; no lesions Neurologic: Motor/Sensory: no tremor and no asterixis Psychiatric: Orientation: alert and oriented x 3 Results & Data ([facility]) Vital Signs (Past 12 Hours) Vital Signs Temp Pulse Resp BP Pulse Ox 03/04/20 08:17 75 16 116/69 97 03/04/20 01:30 36.4 C L Laboratory Results Laboratory Results - last 24 hr 03/04/20 03/04/20 07:11 07:11 WBC 16.87 H RBC 3.25 L Hgb 10.1 L Hct 29.9 L MCV 92.0 MCH 31.1 MCHC 33.8 RDW Std Deviation 63.0 H RDW Coeff of [place] 19.1 H Plt Count 110 L MPV 11.4 H Immature Gran % (Auto) 0.7 Neut % (Auto) 74.0 Lymph % (Auto) 16.8 [place] % (Auto) 7.9 Eos % (Auto) 0.2 Baso % (Auto) 0.4 Neut # (Auto) 12.51 H Lymph # (Auto) 2.83 [place] # (Auto) 1.33 H Eos # (Auto) 0.03 Baso # (Auto) 0.06 Immature Gran # (Auto) 0.11 H Echinocytes 1+ Sodium 134 L Potassium 4.7 Chloride 108 H Carbon Dioxide 20 L Anion Gap 6.0 BUN 37 H Creatinine 1.87 H Est Cr Clr Drug Dosing 18.4 Est GFR ( Amer) 27.9 Est GFR (Non-Af Amer) 24.1 BUN/Creatinine Ratio 20.0 Glucose 124 H Calcium 7.9 L Magnesium 2.5 H Total Bilirubin 0.8 Direct Bilirubin 0.4 H AST 34 ALT 38 Alkaline Phosphatase 170 H Total Protein 4.8 L Albumin 1.4 L PG Care Time/CCT Total # of Minutes Spent Total Time Spent with Patient: Total time spent is greater than 50% in coordination of care (as documented) at patient's floor/unit and/or counseling patient: Coding Level of Care Code 13432 Subseq Hosp Care Lvl 3 Diagnoses KATHRYN (acute kidney injury) N17.9 Dehydration E86.0 Hypokalemia E87.6 Acute hyponatremia E87.1
[2020-03-05 06:14] LABS: Mean Corpuscular Hemoglobin 30.5 pg (25-34); Mean Corpuscular Hgb Conc 32.4 g/dL (32-36); Mean Corpuscular Volume 94.2 fL (80-100); Mean Platelet Volume 10.6 fL (7.4-10.4); Platelet Count 117 K/uL (130-400); RDW Coefficient of Variation 19.8 % (11.5-14.5); RDW Standard Deviation 65.6 fL (36.4-46.3); Red Blood Count 3.61 M/uL (4.2-5.4); White Blood Count 17.44 K/uL (4.8-10.8)
[2020-03-05 06:39] LABS: BUN Creatinine Ratio 24.3 (10-20); Calcium 8.4 mg/dl (8.5-10.1); Creatinine Clr Calc Pharmacy 21.7 ml/min; Est GFR (Non-African American) 29.3; Potassium 4.9 mmol/L (3.5-5.1)
[2020-03-05 07:13] LABS: Basophils # (auto) 0.03 K/uL (0-0.2); Basophils % (auto) 0.2 %; Echinocytes 1+; Eosinophils # (auto) 0.09 K/uL (0-0.5); Eosinophils % (auto) 0.5 %; Immature Granulocytes # (auto) 0.15 K/uL (0.00-0.02); Immature Granulocytes % (auto) 0.9 %; Lymphocytes # (auto) 2.54 K/uL (1.2-3.4); Lymphocytes % (auto) 14.6 %; Monocytes # (auto) 1.81 K/uL (0.11-0.59); Monocytes % (auto) 10.4 %; Neutrophils # (auto) 12.82 K/uL (1.4-6.5); Neutrophils % (auto) 73.4 %; Polychromasia 1+
[2020-03-05] MEDS: dexAMETHasone 4 MG TAB PO SCH (08:30)
[2020-03-05] MEDS: DOCUSATE SODIUM/SENNA 50/8.6MG TAB PO SCH ×2 (09:31→21:31)
[2020-03-05] MEDS: SODIUM BICARBONATE 650 MG TAB PO SCH ×2 (09:31→21:31)
[2020-03-05] MEDS: METOPROLOL TARTRATE 25 MG TAB PO SCH ×2 (09:32→21:31)
[2020-03-05] MEDS: RIVAROXABAN 20 MG TAB PO SCH (09:32)
[2020-03-05] MEDS: CALCIUM 600MG + VIT D 400 IU TAB PO SCH (09:33)
[2020-03-05] MEDS: PANTOprazole 40 MG TAB PO SCH (09:33)
[2020-03-05] MEDS: MULTIVITAMIN TAB PO SCH (09:33)
[2020-03-05] MEDS: PREGABALIN 75 MG CAP PO SCH (09:39)
[2020-03-05] MEDS: LACTOBACILLUS ACIDOPHILUS (FLORANEX) TAB PO SCH (09:41)
--- NOTE | 2020-03-05 11:43 | Hospitalist Progress Note ---
Date of Service March 05, 2020 Assessment & Plan (1) Drug rash: Su Montes De Oca is an 84 year old woman with a past medical history significant for metastatic colon cancer on oral chemotherapy who has had five days of rash, weakness, and a fall; also presented with fever and diarrhea for two days. The initial rash was likely secondary to Stivarga started one week prior to admission and was almost completely resolved by 03/04 Also presented with low grade fever could be related drug fever versus infection as below-no further fevers No specific treatment Discontinued Stivarga and added to allergy list On the morning of 03/05, she was noted to again have significantly worsened duglas thematous diffuse maculopapular rash. This rash is quite possibly secondary to recently started Lyrica. Lyrica will now be discontinued and was added to the allergy list. Follow (2) Fever: With fevers here and at home which are now resolved Procalcitonin was positive, with mild leukocytosis which had resolved but is now up again due to corticosteroid use CT abdomen/pelvis with thickening of the entire right colon-could be colitis? She did have loose stools at home which are now resolved have since discontinued all antibiotics No evidence of pneumonia on chest x-ray Urinalysis without evidence of infection and urine culture no growth x2 Blood cultures-no growth to date-final Toxic gastroenteritis and colitis is suspected but is now clinically resolved As above, fever was likely secondary to drug fever/reaction Remains off antibiotics (3) KATHRYN (acute kidney injury): With creatinine up to 1.8 on admission and then was down to 1.5 after IV fluid hydration Creatinine back up and stable again for many days at 1.8 and finally now improving again to 1.5 on 03/05 With mild anasarca due to hypoalbuminemia and renal failure KATHRYN likely secondary to prerenal cause, dehydrated from very poor p.o. intake recently Also had urinary retention which could have contributed although no evidence of obstruction on CT of the abdomen/pelvis on 02/26. She is with a solitary kidney as the left kidney was removed due to renal cell carcinoma AIN is also a consideration given the rash and fever along with renal failure. Stivarga has been discontinued Most likely ATN at this point. Appreciate nephrology consultation Urine output decent, continues to have urinary retention requiring straight catheterization Kent catheter replacement on 03/05 With developing some hypoxia and crackles-discontinued IV fluids, encouraged p.o. salty fluid intake We will now maintain Kent catheter For metabolic [id number] gap, could be secondary to KATHRYN, unclear- resolved since starting oral sodium bicarbonate -Continue sodium bicarbonate tablets 650 mg p.o. twice daily for now, but could consider discontinuing unless renal function has improved Follow BMP in the morning Discontinued home lisinopril Avoid hypotension-this is now improved with holding amlodipine and received fluid boluses. Also started dexamethasone -Encourage p.o. intake-started dexamethasone for this as per palliative care -Albumin is extremely low which is also contributing to decreased effective arterial volume -Renally dose medications-gabapentin decreased to 300 mg p.o. twice daily from previous 600 3 times daily (4) Colon cancer: Colon cancer Metastatic to liver multiple large lesions stable from previous scan 6 weeks prior Has been heavily pretreated. Appreciate oncology consultation. Was started on Stivarga 1 week prior to admission and with drug fever and rash as above-this will be discontinued permanently Dr. Pizano, her oncologist, recommends palliative care consultation and no further treatment. I discussed this with the patient and her granddaughter as well as two sons. Patient discussed goals of care with palliative care physician, however the granddaughter states that the patient was interested in a second opinion from a different oncologist and they have arranged this with Dr. Munson at [facility] oncology. Appreciate palliative care consultation- started dexamethasone for appetite stimulation (5) MGUS (monoclonal gammopathy of unknown significance): Followed by hematology No acute issues (6) Hypertension: Blood pressures had been low due to receiving home antihypertensives in the setting of dehydration and are now much improved Continue to hold home amlodipine, and hold metoprolol if blood pressure low Bolused with IV fluids as above as needed for hypotension and now improved Okay to continue metoprolol with hold parameters -Discontinued lisinopril and amlodipine (7) Chronic kidney disease, stage III (moderate): With acute kidney injury as above, has solitary kidney -Avoid nephrotoxins -renally dose meds when appropriate -follow BMP (8) Peripheral neuropathy: Noted, exacerbated here initially for several days with severe pain in the feet With renal failure, she was quite lethargic and gabapentin needs to be renally dosed-this was likely contributing to her lethargy Discontinued gabapentin and started low-dose pregabalin instead at 75 mg p.o. twice daily, however then with new drug rash likely on 03/05 Discontinue Lyrica and restart lower dose gabapentin 300 mg p.o. twice daily Tramadol also cause lethargy -Continue Tylenol as needed -Discontinued amitriptyline due to urinary retention-would permanently discontinue amitriptyline on discharge (9) Hyponatremia: Now resolved Likely hypovolemic hyponatremia from decreased PO intake and diarrhea Received IV fluids and then became volume overloaded with pulmonary edema and hypoxia and therefore IV fluids discontinued Follow BMP (10) Dehydration: Weakness and fall secondary to this, secondary to poor p.o. intake and previous diarrhea (11) Fall: As above With right foot pain-checked x-ray-no fracture (12) Weakness: Generalized, from dehydration, hyponatremia PT/OT consults placed-plan for rehab placement on Friday (13) Urinary retention: Retained 750 mL's of urine after admission and Kent catheter was placed early in course of hospitalization. Since then, was requiring straight cath 1-2 times a day since Kent catheter was discontinued. Could be secondary to amitriptyline although she is typically on this at home- this has been discontinued She had urinary retention prior to receiving 2 doses of tramadol. Nonetheless, tramadol now discontinued Could be secondary to constipation-bowel regimen ordered She also has a history of urinary retention as per urology notes Appreciate urology consultation-Kent catheter replaced on 03/05 for continued large volume urinary retention Follow-up with urology in the office in 2 weeks for trial of void -Continue to mobilize, prevent constipation, etc. 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-has been on Xarelto ever since in the setting of malignancy -Continue Xarelto 20 mg daily but could consider reducing the dose to the prophylaxis dose of 10 mg daily (15) Antineoplastic chemotherapy induced anemia: Hemoglobin stable at 11.0 which is improved from yesterday No obvious bleeding from anywhere Likely just antineoplastic effect Follow CBC in the morning No transfusion needed (16) Thrombocytopenia: Platelets had decreased to the 60s and now improving to 117 Secondary to antineoplastic effect Follow CBC (17) Hypokalemia: Replaced and now resolved Follow BMP and magnesium in the morning (18) Anorexia: With failure to thrive secondary to side effect of chemotherapy Severe protein calorie malnutrition -Started dexamethasone 4 mg daily and improving Continue boost shakes twice daily -Encouraged p.o. intake (19) Constipation: Only 2 very small bowel movements the entire hospitalization -Continue on senna/docusate and increase to twice daily -Make MiraLAX scheduled daily Could be contributing to urinary retention (20) DVT prophylaxis: Xarelto Disposition-medically stable for discharge to rehab, unfortunately her insurance company is closed over the weekend to apply for insurance authorization. Her first choice is [facility] and second choice for back at the [facility] PT/OT consultations, appreciated DNR/DNI Palliative care consultation appreciated-discussed possibility of hospice after seen second opinion oncology Overall poor prognosis with renal failure, failure to thrive, chemotherapy related adverse side effects and metastatic colon cancer Admission and Anticipated Discharge Date Admission Date: February 28, 2020 Anticipated date of discharge: 03/06/20 Subjective Patient feeling okay today. Ate some pudding only for breakfast. Yesterday was her best day yet but feeling fatigued again today. She is out of bed all day in the chair to 5 PM yesterday but has not been out of bed yet today. She was retaining urine again overnight for a large volume and had a Kent catheter placed. Her rash also got much worse again today and is thought to be secondary to Lyrica use now. She is weaned off oxygen and denies shortness of breath. No cough. No chest pain. Review of Systems Review of Systems: All systems reviewed & are unremarkable except as noted in HPI & below Physical Exam Constitutional: + frail appearing and cooperative; no acute distress Eyes: + anicteric sclerae Neck: trachea midline, no thyromegaly Respiratory: normal respiratory effort Auscultation: + crackles (At the bases bilaterally); no rhonchi and no wheezes Cardiovascular: Rate/Rhythm: regular rate and regular rhythm Heart Sounds: no murmur Extremities: + edema (1+ edema of the feet and ankles bilaterally left greater than right, with 1+ edema of the arms bilaterally) Chest (Breasts): Chest: normal inspection of chest Gastrointestinal (Abdomen): normal bowel sounds, soft, nontender, no hepatosplenomegaly Musculoskeletal: Extremities: extremities normal to inspection; no cyanosis and no clubbing Skin: + rash (diffuse erythematous maculopapular rash over trunk and limbs significantly more erythematous than yesterday) Neurologic: moves all extremities and awake Psychiatric: Orientation: alert, oriented to person, oriented to place and cooperative Speech: normal rate/rhythm/volume of speech Affect: + flat affect Genitourinary: Kent catheter in place Results & Data Results & Data ([facility]) Vital Signs (Past 12 Hours) Vital Signs Temp Pulse Resp BP BP Pulse Ox 03/05/20 09:01 36.4 C L 84 16 137/79 96 03/05/20 00:00 36.3 C L 73 16 153/83 H 96 Laboratory Results 03/05/20 03/05/20 Range/Units 05:22 05:22 WBC 17.44 H (4.8-10.8) K/uL RBC 3.61 L (4.2-5.4) M/uL Hgb 11.0 L (12.0-16.0) g/dL Hct 34.0 L (37-47) % MCV 94.2 (80-100) fL MCH 30.5 (25-34) pg MCHC 32.4 (32-36) g/dL RDW Std Deviation 65.6 H (36.4-46.3) fL RDW Coeff of Preston 19.8 H (11.5-14.5) % Plt Count 117 L (130-400) K/uL MPV 10.6 H (7.4-10.4) fL Immature Gran % (Auto) 0.9 % Neut % (Auto) 73.4 % Lymph % (Auto) 14.6 % Newton % (Auto) 10.4 % Eos % (Auto) 0.5 % Baso % (Auto) 0.2 % Neut # (Auto) 12.82 H (1.4-6.5) K/uL Lymph # (Auto) 2.54 (1.2-3.4) K/uL Newton # (Auto) 1.81 H (0.11-0.59) K/uL Eos # (Auto) 0.09 (0-0.5) K/uL Baso # (Auto) 0.03 (0-0.2) K/uL Immature Gran # (Auto) 0.15 H (0.00-0.02) K/uL Polychromasia 1+ Echinocytes 1+ Sodium 136 (136-145) mmol/L Potassium 4.9 (3.5-5.1) mmol/L Chloride 109 H (98-107) mmol/L Carbon Dioxide 22 (21-32) mmol/L Anion Gap 5.0 (3-11) BUN 39 H (7-18) mg/dl Creatinine 1.59 H (0.6-1.2) mg/dl Est Cr Clr Drug Dosing 21.7 ml/min Est GFR ( Amer) 34.0 Est GFR (Non-Af Amer) 29.3 BUN/Creatinine Ratio 24.3 H (10-20) Glucose 91 (70-99) mg/dl Calcium 8.4 L (8.5-10.1) mg/dl PG Care Time/CCT Total # of Minutes Spent Total Time Spent with Patient: Total time spent is greater than 50% in coor dination of care (as documented) at patient's floor/unit and/or counseling patient: Coding Level of Care Code 35166 Subseq Hosp Care Lvl 3 Diagnoses Drug rash L27.0 Fever R50.9 KATHRYN (acute kidney injury) N17.9 Colon cancer C18.9 Colon location: unspecified part of colon MGUS (monoclonal gammopathy of unknown significance) D47.2 Hypertension I10 Chronic kidney disease, stage III (moderate) N18.3 Peripheral neuropathy G62.9 Hyponatremia E87.1 Dehydration E86.0 Fall W19.XXXA Weakness R53.1 Urinary retention R33.9 History of thrombosis of internal jugular vein Z86.718 Antineoplastic chemotherapy induced anemia D64.81; T45.1X5A Thrombocytopenia D69.6 Hypokalemia E87.6 Anorexia R63.0 Constipation K59.00 DVT prophylaxis Z29.9 (1) Colon cancer Colon location: unspecified part of colon Qualified Code(s): C18.9 - Malignant neoplasm of colon, unspecified
[2020-03-05] MEDS: POLYETHYLENE (MIRALAX) 17 GM PACK PO SCH (13:00)
--- NOTE | 2020-03-05 13:14 | Nephrology Progress Note ---
Date of Service March 05, 2020 Assessment & Plan (1) KATHRYN (acute kidney injury): Attributed to volume depletion and ATN. Creatinine slightly improved to 1.5 mg/dL. Electrolytes acceptable. Non-oliguric. Kent draining clear yellow urine. BP acceptable. Medications appropriate for kidney function. (2) Dehydration: Improved. Encourage oral intake. (3) Hypokalemia: Improved. (4) Acute hyponatremia: Related to poor solute intake. Improved with supportive care. Admission and Anticipated Discharge Date Admission Date: February 28, 2020 Subjective No acute events overnight. She was seen and evaluated with her daughter at the bedside. Kent draining clear yellow urine. No fevers or chills. Appetite slightly improved. Review of Systems Review of Systems: All systems reviewed & are unremarkable except as noted in HPI & below Physical Exam Constitutional: well developed, + thin and + frail appearing; no acute distress Eyes: no scleral abnormality and no corneal abnormality ENMT: Mouth: no oral mucosal abnormality and oral mucous membranes not dry Neck: normal visual inspection and trachea midline Respiratory: normal respiratory effort Auscultation: lungs clear to auscultation bilaterally Cardiovascular: Rate/Rhythm: regular rate Heart Sounds: normal S1 and normal S2 Extremities: no edema Musculoskeletal: Extremities: no cyanosis and no clubbing Skin: normal turgor; no lesions Neurologic: Motor/Sensory: no tremor and no asterixis Psychiatric: Orientation: alert and oriented x 3 Results & Data ([facility]) Vital Signs (Past 12 Hours) Vital Signs Temp Pulse Resp BP Pulse Ox 03/05/20 09:01 36.4 C L 84 16 137/79 96 Laboratory Results Laboratory Results - last 24 hr 03/05/20 03/05/20 05:22 05:22 WBC 17.44 H RBC 3.61 L Hgb 11.0 L Hct 34.0 L MCV 94.2 MCH 30.5 MCHC 32.4 RDW Std Deviation 65.6 H RDW Coeff of Preston 19.8 H Plt Count 117 L MPV 10.6 H Immature Gran % (Auto) 0.9 Neut % (Auto) 73.4 Lymph % (Auto) 14.6 Hand % (Auto) 10.4 Eos % (Auto) 0.5 Baso % (Auto) 0.2 Neut # (Auto) 12.82 H Lymph # (Auto) 2.54 Hand # (Auto) 1.81 H Eos # (Auto) 0.09 Baso # (Auto) 0.03 Immature Gran # (Auto) 0.15 H Polychromasia 1+ Echinocytes 1+ Sodium 136 Potassium 4.9 Chloride 109 H Carbon Dioxide 22 Anion Gap 5.0 BUN 39 H Creatinine 1.59 H Est Cr Clr Drug Dosing 21.7 Est GFR ( Amer) 34.0 Est GFR (Non-Af Amer) 29.3 BUN/Creatinine Ratio 24.3 H Glucose 91 Calcium 8.4 L PG Care Time/CCT Total # of Minutes Spent Total Time Spent with Patient: Total time spent is greater than 50% in coordination of care (as documented) at patient's floor/unit and/or counseling patient: Coding Level of Care Code 11794 Subseq Hosp Care Lvl 3 Diagnoses KATHRYN (acute kidney injury) N17.9 Dehydration E86.0 Hypokalemia E87.6 Acute hyponatremia E87.1
[2020-03-06 07:23] LABS: Basophils # (auto) 0.05 K/uL (0-0.2); Basophils % (auto) 0.3 %; Eosinophils # (auto) 0.22 K/uL (0-0.5); Eosinophils % (auto) 1.4 %; Hemoglobin 11.9 g/dL (12.0-16.0); Immature Granulocytes # (auto) 0.18 K/uL (0.00-0.02); Immature Granulocytes % (auto) 1.1 %; Lymphocytes # (auto) 3.53 K/uL (1.2-3.4); Lymphocytes % (auto) 22.3 %; Mean Corpuscular Hemoglobin 31.2 pg (25-34); Mean Corpuscular Hgb Conc 33.1 g/dL (32-36); Mean Corpuscular Volume 94.5 fL (80-100); Mean Platelet Volume 10.9 fL (7.4-10.4); Monocytes # (auto) 2.17 K/uL (0.11-0.59); Monocytes % (auto) 13.7 %; Neutrophils # (auto) 9.67 K/uL (1.4-6.5); Neutrophils % (auto) 61.2 %; Platelet Count 132 K/uL (130-400); RDW Coefficient of Variation 20.6 % (11.5-14.5); RDW Standard Deviation 66.4 fL (36.4-46.3); Red Blood Count 3.81 M/uL (4.2-5.4); White Blood Count 15.82 K/uL (4.8-10.8)
[2020-03-06 08:08] LABS: BUN Creatinine Ratio 26.4 (10-20); Calcium 8.8 mg/dl (8.5-10.1); Creatinine Clr Calc Pharmacy 24.1 ml/min; Est GFR (African American) 38.6; Est GFR (Non-African American) 33.3; Potassium 4.7 mmol/L (3.5-5.1)
[2020-03-06 08:09] LABS: Anisocytosis Present
[2020-03-06] MEDS: POLYETHYLENE (MIRALAX) 17 GM PACK PO SCH (09:10)
[2020-03-06] MEDS: LACTOBACILLUS ACIDOPHILUS (FLORANEX) TAB PO SCH (09:36)
[2020-03-06] MEDS: SODIUM BICARBONATE 650 MG TAB PO SCH ×2 (09:36→23:08)
[2020-03-06] MEDS: METOPROLOL TARTRATE 25 MG TAB PO SCH ×2 (09:36→23:08)
[2020-03-06] MEDS: GABAPENTIN 300 MG CAP PO SCH ×2 (09:37→23:08)
[2020-03-06] MEDS: DOCUSATE SODIUM/SENNA 50/8.6MG TAB PO SCH ×2 (09:37→23:08)
[2020-03-06] MEDS: RIVAROXABAN 20 MG TAB PO SCH (09:37)
[2020-03-06] MEDS: MULTIVITAMIN TAB PO SCH (09:37)
[2020-03-06] MEDS: dexAMETHasone 4 MG TAB PO SCH (09:38)
[2020-03-06] MEDS: CALCIUM 600MG + VIT D 400 IU TAB PO SCH (09:38)
[2020-03-06] MEDS: PANTOprazole 40 MG TAB PO SCH (09:38)
--- NOTE | 2020-03-06 10:58 | Nephrology Progress Note ---
Date of Service March 06, 2020 Assessment & Plan (1) KATHRYN (acute kidney injury): Attributed to volume depletion and ATN. Creatinine improved to 1.4 mg/dL. Electrolytes acceptable. Non-oliguric. Kent draining clear yellow urine. BP acceptable. Medications appropriate for kidney function. LAKIA has been held due to KATHRYN. BP is acceptable. If needed, the medication could certainly be restarted at any time. Outpatient follow up with Dr. Nelson within 2 weeks of discharge. Nephrology will sign-off. Please call with questions or concerns. (2) Dehydration: Improved. Encourage oral intake. (3) Hypokalemia: Improved. (4) Acute hyponatremia: Related to poor solute intake. Improved with supportive care. Admission and Anticipated Discharge Date Admission Date: February 28, 2020 Subjective No acute events overnight. She was seen and evaluated with her daughter at the bedside. Kent draining clear yellow urine. No fevers or chills. Review of Systems Review of Systems: All systems reviewed & are unremarkable except as noted in HPI & below Physical Exam Constitutional: well developed, + thin and + frail appearing; no acute distress Eyes: no scleral abnormality and no corneal abnormality ENMT: Mouth: no oral mucosal abnormality and oral mucous membranes not dry Neck: normal visual inspection and trachea midline Respiratory: normal respiratory effort Auscultation: lungs clear to auscultation bilaterally Cardiovascular: Rate/Rhythm: regular rate Heart Sounds: normal S1 and normal S2 Extremities: no edema Musculoskeletal: Extremities: no cyanosis and no clubbing Skin: normal turgor; no lesions Neurologic: Motor/Sensory: no tremor and no asterixis Psychiatric: Orientation: alert and oriented x 3 Results & Data ([facility]) Vital Signs (Past 12 Hours) Vital Signs Temp Pulse Resp BP Pulse Ox 03/06/20 06:40 36.5 C 83 18 155/78 H 95 03/05/20 23:45 36.4 C L 74 17 156/80 H 96 Laboratory Results Laboratory Results - last 24 hr 03/06/20 03/06/20 06:31 06:31 WBC 15.82 H RBC 3.81 L Hgb 11.9 L Hct 36.0 L MCV 94.5 MCH 31.2 MCHC 33.1 RDW Std Deviation 66.4 H RDW Coeff of Preston 20.6 H Plt Count 132 MPV 10.9 H Immature Gran % (Auto) 1.1 Neut % (Auto) 61.2 Lymph % (Auto) 22.3 Pratt % (Auto) 13.7 Eos % (Auto) 1.4 Baso % (Auto) 0.3 Neut # (Auto) 9.67 H Lymph # (Auto) 3.53 H Pratt # (Auto) 2.17 H Eos # (Auto) 0.22 Baso # (Auto) 0.05 Immature Gran # (Auto) 0.18 H Anisocytosis Present Sodium 139 Potassium 4.7 Chloride 110 H Carbon Dioxide 22 Anion Gap 7.0 BUN 38 H Creatinine 1.43 H Est Cr Clr Drug Dosing 24.1 Est GFR ( Amer) 38.6 Est GFR (Non-Af Amer) 33.3 BUN/Creatinine Ratio 26.4 H Glucose 76 Calcium 8.8 PG Care Time/CCT Total # of Minutes Spent Total Time Spent with Patient: Total time spent is greater than 50% in coordination of care (as documented) at patient's floor/unit and/or counseling patient: Coding Level of Care Code 52360 Subseq Hosp Care Lvl 3 Diagnoses KATHRYN (acute kidney injury) N17.9 Dehydration E86.0 Hypokalemia E87.6 Acute hyponatremia E87.1
--- NOTE | 2020-03-06 11:03 | Hospitalist Progress Note ---
Date of Service March 06, 2020 Assessment & Plan (1) Drug rash: Initially thought that fever, diffuse rash, etc was 2nd to drug reaction to Stivarga. This was last taken about 1 week [employer] K[employer]TER HEL[employer]. Rash improved per the patient, her grand-daughter, and prior hospitalist. Rash returned about 1-2 days after it had improved/resolved. Recurrent rash then thought 2nd to lyrica drug reaction. At this point I suspect 1 of 2 possibilities - ongoing reaction/refractory rash to the Stivarga. Other possibility is that of viral rash (fever, rash, severe malaise, etc). Interestingly I would have thought that if this was a drug reaction she would have had more eosinophilia, pruritis, etc. Plan - * check COVID-19 rapid PCR as coronavirus is well-documented to cause a wide constellation of skin findings * check monospot with EBV titers/reflex * check CMV IgM/IgG * check Parvovirus IgM/IgG * if this is indeed an ongoing drug reaction perhaps she needs a larger steroid amount; thus, increase decadron to 4mg TID repeat labs in am check sed rate/crp follow (2) Fever: Etiology uncertain, but suspect the fever and rash are related. see above. bacterial source for fever not found. check COVID-19 PCR and other labs. (3) Candidiasis of mouth and esophagus: severe. start diflucan 100mg daily x 10 days. start nystatin 5cc ac/hs. (4) KATHRYN (acute kidney injury): Slowly improving. Admission Cr 1.8. Now 1.4. LAKIA on hold. Continue renally dosed medications including gabapentin. Appreciate nephrology assistance. [facility] am. (5) Colon cancer: Stage 4 with mets to liver. Was started on Stivarga 1 week prior to admission and concerns for drug reaction - see above. Dr. Pizano, her oncologist, recommends palliative care consultation and no further treatment. Palliative care team discussed such with patient, granddaughter, and two sons. Family requesting second opinion from a different oncologist and they have arranged this with Dr. Munson at [facility] oncology locally. (6) MGUS (monoclonal gammopathy of unknown significance): Followed by hematology No acute issues (7) Hypertension: all BP meds on hold except metoprolol (8) Chronic kidney disease, stage III (moderate): [facility] am nephrology following (9) Peripheral neuropathy: cont renally dosed gabapentin at 300 mg p.o. twice daily previous MD discontinued amitriptyline due to urinary retention (10) Hyponatremia: Na 126 on admission. Now resolved. 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 viral process? other? see discussion above in drug rash and fever CBC in am (16) Anorexia: Severe protein calorie malnutrition Hopefully steroids will help this is 2nd to advanced colon ca, etc (17) Constipation: continue bowel maintenance (18) DVT prophylaxis: Xarelto granddaughter updated extensively at bedside today rash persists - no discharge until sustained improvement Admission and Anticipated Discharge Date Admission Date: February 28, 2020 Subjective patient sitting in chair at bedside during the visit. grand-daughter present. both the patient and grand-daughter have noted that her rash has come back. it is not pruritic. it is on the face, arms, legs, back. patient's main complaint is that of fatigue, weakness/exhaustion. appetite poor. denies myalgias. denies arthralgias. mouth is sore. lips are dry. no chest pain, cough, dyspnea. no abdominal pain. Review of Systems Constitutional: no fever and no chills Respiratory: no cough Gastrointestinal: + nausea and + constipation; no vomiting and no diarrhea/loose stools Integumentary: + rash Neurologic: + tremor(s) Endocrine: + cold intolerance Physical Exam Constitutional: + ill appearing and + frail appearing; no acute distress and no altered mental status Eyes: + anicteric sclerae ENMT: Mouth: + lip abnormality (very dry; not cracked/blistering/macerated like [place]) copious thrush plaques on buccal mucosa, posterior throat, and tongue Respiratory: normal respiratory effort, lungs clear to auscultation Cardiovascular: Rate/Rhythm: regular rate and regular rhythm Heart Sounds: normal S1 and normal S2; no murmur Vessels: posterior tibial pulses present and dorsalis pedis pulses present; no JVD Extremities: + edema (<1+ b/l) Gastrointestinal (Abdomen): normal bowel sounds, soft, nontender, no hepatosplenomegaly Musculoskeletal: no active synovitis of any major or minor joint Skin: diffuse macular rash and in some locations maculopapular (namely the back) over face, back, torso, arms, legs (especially thighs) blanches with palpation no petechaie palms/soles spared the thigh erythema is particularly warm to touch no excoriation howell Psychiatric: Orientation: alert, oriented to person and oriented to place Lymphatic: + cervical lymphadenopathy (b/l ) Results & Data Results & Data ([facility]) Vital Signs (Past 12 Hours) Vital Signs Temp Pulse Resp BP Pulse Ox 03/06/20 06:40 36.5 C 83 18 155/78 H 95 03/05/20 23:45 36.4 C L 74 17 156/80 H 96 Laboratory Results Laboratory Results - last 24 hr 03/06/20 03/06/20 06:31 06:31 WBC 15.82 H RBC 3.81 L Hgb 11.9 L Hct 36.0 L MCV 94.5 MCH 31.2 MCHC 33.1 RDW Std Deviation 66.4 H RDW Coeff of [place] 20.6 H Plt Count 132 MPV 10.9 H Immature Gran % (Auto) 1.1 Neut % (Auto) 61.2 Lymph % (Auto) 22.3 [place] % (Auto) 13.7 Eos % (Auto) 1.4 Baso % (Auto) 0.3 Neut # (Auto) 9.67 H Lymph # (Auto) 3.53 H [place] # (Auto) 2.17 H Eos # (Auto) 0.22 Baso # (Auto) 0.05 Immature Gran # (Auto) 0.18 H Anisocytosis Present Sodium 139 Potassium 4.7 Chloride 110 H Carbon Dioxide 22 Anion Gap 7.0 BUN 38 H Creatinine 1.43 H Est Cr Clr Drug Dosing 24.1 Est GFR ( Amer) 38.6 Est GFR (Non-Af Amer) 33.3 BUN/Creatinine Ratio 26.4 H Glucose 76 Calcium 8.8 PG Care Time/CCT Total # of Minutes Spent Total Time Spent with Patient: Total time spent is greater than 50% in coordination of care (as documented) at patient's floor/unit and/or counseling patient: Coding Level of Care Code 87771 Subseq Hosp Care Lvl 3 Diagnoses Drug rash L27.0 Fever R50.9 Candidiasis of mouth and esophagus B37.81; B37.0 KATHRYN (acute kidney injury) N17.9 Colon cancer C18.9 Colon location: unspecified part of colon MGUS (monoclonal gammopathy of unknown significance) D47.2 Hypertension I10 Chronic kidney disease, stage III (moderate) N18.3 Peripheral neuropathy G62.9 Hyponatremia E87.1 Weakness R53.1 Urinary retention R33.9 History of thrombosis of internal jugular vein Z86.718 Antineoplastic chemotherapy induced anemia D64.81; T45.1X5A Thrombocytopenia D69.6 Anorexia R63.0 Constipation K59.00 DVT prophylaxis Z29.9 (1) Colon cancer Colon location: unspecified part of colon Qualified Code(s): C18.9 - Malignant neoplasm of colon, unspecified
[2020-03-06] MEDS: NYSTATIN SUSP 500,000 U/5 ML UDC PO SCH ×3 (12:54→23:08)
[2020-03-06] MEDS: FLUCONAZOLE 100 MG TAB PO SCH (12:54)
[2020-03-06] MEDS: HYDROCORTISONE HC 2.5% CRM 30GM TUBE EXT SCH ×3 (12:55→23:32)
[2020-03-06] MEDS: dexAMETHasone 4 MG in SYRINGE 0 ML IV SCH (14:06)
[2020-03-07] MEDS: dexAMETHasone 4 MG in SYRINGE 0 ML IV SCH ×4 (01:37→21:06)
[2020-03-07] MEDS: ACETAMINOPHEN 325 MG TAB PO PRN (03:38)
[2020-03-07] MEDS: HYDROCORTISONE HC 2.5% CRM 30GM TUBE EXT SCH ×3 (06:01→17:11)
[2020-03-07 07:09] LABS: Hematocrit (blood only) 30.6 % (37-47); Hemoglobin 9.8 g/dL (12.0-16.0); Mean Corpuscular Hemoglobin 30.5 pg (25-34); Mean Corpuscular Volume 95.3 fL (80-100); RDW Coefficient of Variation 20.5 % (11.5-14.5); RDW Standard Deviation 68.1 fL (36.4-46.3); Red Blood Count 3.21 M/uL (4.2-5.4)
[2020-03-07 07:16] LABS: Platelet Count 83 K/uL (130-400)
[2020-03-07 07:34] LABS: BUN Creatinine Ratio 26.1 (10-20); Calcium 8.3 mg/dl (8.5-10.1); Creatinine Clr Calc Pharmacy 25.2 ml/min; Est GFR (African American) 40.7; Est GFR (Non-African American) 35.1; Potassium 5.2 mmol/L (3.5-5.1)
[2020-03-07 07:37] LABS: Anisocytosis Present; Basophils # (auto) 0.01 K/uL (0-0.2); Basophils % (auto) 0.1 %; Immature Granulocytes # (auto) 0.06 K/uL (0.00-0.02); Immature Granulocytes % (auto) 0.6 %; Lymphocytes # (auto) 1.34 K/uL (1.2-3.4); Lymphocytes % (auto) 14.4 %; Monocytes % (auto) 6.5 %; Neutrophils # (auto) 7.29 K/uL (1.4-6.5); Neutrophils % (auto) 78.4 %
[2020-03-07] MEDS ORDERED: LORazepam 0.5 MG TAB PO PRN (07:44)
[2020-03-07] MEDS: HYDROCODONE/ACETAMOPHEN 5/325MG TAB PO PRN ×2 (09:50→17:11)
[2020-03-07] MEDS: MULTIVITAMIN TAB PO SCH (09:58)
[2020-03-07] MEDS: PANTOprazole 40 MG TAB PO SCH (09:58)
[2020-03-07] MEDS: POLYETHYLENE (MIRALAX) 17 GM PACK PO SCH (09:58)
[2020-03-07] MEDS: LACTOBACILLUS ACIDOPHILUS (FLORANEX) TAB PO SCH (09:59)
[2020-03-07] MEDS: DOCUSATE SODIUM/SENNA 50/8.6MG TAB PO SCH ×2 (09:59→21:06)
[2020-03-07] MEDS: RIVAROXABAN 20 MG TAB PO SCH (10:00)
[2020-03-07] MEDS: METOPROLOL TARTRATE 25 MG TAB PO SCH ×2 (10:00→21:06)
[2020-03-07] MEDS: SODIUM BICARBONATE 650 MG TAB PO SCH ×2 (10:01→21:06)
[2020-03-07] MEDS: CALCIUM 600MG + VIT D 400 IU TAB PO SCH (10:01)
[2020-03-07] MEDS: GABAPENTIN 300 MG CAP PO SCH ×2 (10:02→21:06)
[2020-03-07] MEDS: NYSTATIN SUSP 500,000 U/5 ML UDC PO SCH ×4 (10:02→21:06)
[2020-03-07] MEDS: FLUCONAZOLE 100 MG TAB PO SCH (10:03)
[2020-03-07 13:22] LABS: Base Excess VBG -2.4 mEq/L; Oxygen Saturation VBG 93.4 %; pH VBG 7.44 (7.36-7.41)
[2020-03-07 14:20] LABS: Folate (Folic Acid) > 24.00 ng/ml (>5.38); Vitamin B12 > 2000 pg/ml (211-911)
[2020-03-07] MEDS ORDERED: LACTULOSE SYRUP 20 GM/30 ML UDC PO ONE ×2 (15:00)
--- NOTE | 2020-03-07 21:19 | Hospitalist Progress Note ---
Date of Service March 07, 2020 Assessment & Plan (1) Drug rash: Initially thought that fever, diffuse rash, etc was 2nd to drug reaction to Stivarga. 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 Rash improved per the patient, her grand-daughter, and prior hospitalist. Rash returned about 1-2 days after it had improved/resolved. Recurrent rash then thought 2nd to lyrica drug reaction and lyrica stopped. At this point I suspect 1 of 2 possibilities - ongoing reaction/refractory rash to the Stivarga. Other possibility is that of viral rash (fever, rash, severe malaise, etc). Monospot is +. I am uncertain of the significance of this - other things can make monospot falsely positive. However, if EBV IgM is + it would explain current constellation of symptoms/findings. Either way care would be supportive. I would have thought that if this was a drug reaction she would have had more e osinophilia, pruritis, etc. She has neither. There has been improvement w/ the rash overnight, however, w/ high-dose steroids. COVID PCR neg. Awaiting parvo, CMV, EBV titers. Cont decadron 4mg TID w/ no wean today. repeat labs in am (2) Fever: Etiology uncertain, but suspect the fever and rash are related. see above. bacterial source for fever not found. (3) Candidiasis of mouth and esophagus: severe but improved today. diflucan 100mg daily x 10 days. day #2 nystatin 5cc ac/hs. (4) Lip lesion: due to recent drug reaction? mucositis? herpetic? 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 consider anti-virals. (5) KATHRYN (acute kidney injury): Slowly improving. Admission Cr 1.8. Now 1.3. LAKIA on hold. Continue renally dosed medications including gabapentin. Appreciate nephrology assistance. BMP am. (6) Colon cancer: Stage 4 with mets to liver. Was started on Stivarga 1 week prior to admission and concerns for drug reaction - see above. Dr. Pizano, her oncologist, recommends palliative care consultation and no further treatment. Palliative care team discussed such with patient, granddaughter, and two sons. Family requesting second opinion from a different oncologist and they have arranged this with Dr. Munson at [facility] oncology locally. However, she is doing very poorly overall and further treatment highly unlikely. (7) MGUS (monoclonal gammopathy of unknown significance): Followed by hematology No acute issues (8) Hypertension: all BP meds on hold except metoprolol (9) Chronic kidney disease, stage III (moderate): BMP am (10) Peripheral neuropathy: cont renally dosed gabapentin at 300 mg p.o. twice daily previous MD discontinued amitriptyline due to urinary retention (11) Hyponatremia: Na 126 on admission. Now resolved. 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 viral process? other? see discussion above in drug rash and fever CBC in am for stability (17) Anorexia: Severe protein calorie malnutrition Hopefully steroids will help but thus far no improvement this is 2nd to advanced colon ca, etc (18) Constipation: continue bowel maintenance (19) DVT prophylaxis: Suzette granddaughter updated extensively at bedside again today I feel we are moving closer and closer to comfort care her fatigue/malaise/sleepiness if quite severe -- check ammonia, b12 to be complete Admission and Anticipated Discharge Date Admission Date: February 28, 2020 Subjective patient overall doing poorly. very tired/weak with lassitude. poor appetite. rash is better today but not resolved. mouth and lips are sore. no dyspnea. no abd pain. granddaughter at bedside. Review of Systems Constitutional: + body aches, + fatigue, + malaise, + weakness and + anorexia; no fever Respiratory: no cough Cardiovascular: no chest pain Gastrointestinal: no nausea and no vomiting Physical Exam Constitutional: + ill appearing, + altered mental status and + frail appearing; no acute distress Eyes: + anicteric sclerae ENMT: Mouth: + lip abnormality (very dry;cracked/blistering?), + oral mucosal abnormality (thrush plaques improved) and + tongue abnormality (thrush plaques improved) Respiratory: normal respiratory effort, lungs clear to auscultation Cardiovascular: Rate/Rhythm: regular rate and regular rhythm Heart Sounds: normal S1 and normal S2; no murmur Vessels: posterior tibial pulses present and dorsalis pedis pulses present; no JVD Extremities: + edema (<1+ b/l legs; dependent edema left arm distally) Gastrointestinal (Abdomen): normal bowel sounds, soft, nontender, no hepatosplenomegaly Skin: erythematous rash on forehead, face, back, torso, arms, legs improved today; the rash on thighs is improved but still warm to touch Psychiatric: Orientation: oriented to person; + not alert (sleepy) Results & Data Results & Data ([facility]) Vital Signs (Past 12 Hours) Vital Signs Temp Pulse Resp BP Pulse Ox 03/07/20 15:17 36.9 C 71 18 148/77 H 95 Laboratory Results Laboratory Results - last 24 hr 03/07/20 03/07/20 03/07/20 06:45 06:45 06:45 WBC 9.30 RBC 3.21 L Hgb 9.8 L Hct 30.6 L MCV 95.3 MCH 30.5 MCHC 32.0 RDW Std Deviation 68.1 H RDW Coeff of [place] 20.5 H Plt Count 83 L MPV 10.0 Immature Gran % (Auto) 0.6 Neut % (Auto) 78.4 Lymph % (Auto) 14.4 [place] % (Auto) 6.5 Eos % (Auto) 0.0 Baso % (Auto) 0.1 Neut # (Auto) 7.29 H Lymph # (Auto) 1.34 [place] # (Auto) 0.60 H Eos # (Auto) 0.00 Baso # (Auto) 0.01 Immature Gran # (Auto) 0.06 H Anisocytosis Present VBG pH VBG pCO2 VBG pO2 VBG HCO3 VBG O2 Saturation VBG Base Excess Barometric Pressure Sodium 140 Potassium 5.2 H Chloride 112 H Carbon Dioxide 24 Anion Gap 4.0 BUN 36 H Creatinine 1.37 H Est Cr Clr Drug Dosing 25.2 Est GFR ( Amer) 40.7 Est GFR (Non-Af Amer) 35.1 BUN/Creatinine Ratio 26.1 H Glucose 119 H Calcium 8.3 L AST 25 ALT 31 Ammonia Vitamin B12 Folate EBV Capsid Ag IgG Ab Pending EBV Capsid Ag IgM Ab Pending EBV Nuclear Antigen Ab Pending EBV Antibody Interp Pending 03/07/20 03/07/20 03/07/20 13:11 13:11 13:11 WBC RBC Hgb Hct MCV MCH MCHC RDW Std Deviation RDW Coeff of [place] Plt Count MPV Immature Gran % (Auto) Neut % (Auto) Lymph % (Auto) [place] % (Auto) Eos % (Auto) Baso % (Auto) Neut # (Auto) Lymph # (Auto) [place] # (Auto) Eos # (Auto) Baso # (Auto) Immature Gran # (Auto) Anisocytosis VBG pH 7.44 H VBG pCO2 32 L VBG pO2 73 VBG HCO3 21 VBG O2 Saturation 93.4 VBG Base Excess -2.4 Barometric Pressure 730.8 Sodium Potassium Chloride Carbon Dioxide Anion Gap BUN Creatinine Est Cr Clr Drug Dosing Est GFR ( Amer) Est GFR (Non-Af Amer) BUN/Creatinine Ratio Glucose Calcium AST ALT Ammonia 35.1 H Vitamin B12 > 2000 H Folate > 24.00 EBV Capsid Ag IgG Ab EBV Capsid Ag IgM Ab EBV Nuclear Antigen Ab EBV Antibody Interp PG Care Time/CCT Total # of Minutes Spent Total Time Spent with Patient: Total time spent is greater than 50% in coordination of care (as documented) at patient's floor/unit and/or counseling patient: Coding Level of Care Code 17103 Subseq Hosp Care Lvl 3 Diagnoses Drug rash L27.0 Fever R50.9 Candidiasis of mouth and esophagus B37.81; B37.0 Lip lesion K13.0 KATHRYN (acute kidney injury) N17.9 Colon cancer C18.9 Colon location: unspecified part of colon MGUS (monoclonal gammopathy of unknown significance) D47.2 Hypertension I10 Chronic kidney disease, stage III (moderate) N18.3 Peripheral neuropathy G62.9 Hyponatremia E87.1 Weakness R53.1 Urinary retention R33.9 History of thrombosis of internal jugular vein Z86.718 Antineoplastic chemotherapy induced anemia D64.81; T45.1X5A Thrombocytopenia D69.6 Anorexia R63.0 Constipation K59.00 DVT prophylaxis Z29.9 (1) Colon cancer Colon location: unspecified part of colon Qualified Code(s): C18.9 - Malignant neoplasm of colon, unspecified
[2020-03-08] MEDS: HYDROCORTISONE HC 2.5% CRM 30GM TUBE EXT SCH ×4 (00:47→17:28)
[2020-03-08 07:20] LABS: Hematocrit (blood only) 31.4 % (37-47); Hemoglobin 10.3 g/dL (12.0-16.0); Mean Corpuscular Hemoglobin 31.7 pg (25-34); Mean Corpuscular Hgb Conc 32.8 g/dL (32-36); Mean Corpuscular Volume 96.6 fL (80-100); RDW Coefficient of Variation 20.6 % (11.5-14.5); RDW Standard Deviation 70.3 fL (36.4-46.3); Red Blood Count 3.25 M/uL (4.2-5.4); White Blood Count 10.16 K/uL (4.8-10.8)
[2020-03-08 07:40] LABS: Mean Platelet Volume 10.7 fL (7.4-10.4); Platelet Count 87 K/uL (130-400)
[2020-03-08 07:41] LABS: Immature Granulocytes # (auto) 0.05 K/uL (0.00-0.02); Immature Granulocytes % (auto) 0.5 %; Lymphocytes # (auto) 1.54 K/uL (1.2-3.4); Lymphocytes % (auto) 15.2 %; Monocytes # (auto) 1.12 K/uL (0.11-0.59); Neutrophils # (auto) 7.45 K/uL (1.4-6.5); Neutrophils % (auto) 73.3 %
[2020-03-08 07:48] LABS: Albumin Level 1.8 gm/dl (3.4-5.0); BUN Creatinine Ratio 31.2 (10-20); Bilirubin Direct 0.3 mg/dl (0-0.2); Calcium 8.4 mg/dl (8.5-10.1); Creatinine Clr Calc Pharmacy 30.5 ml/min; Est GFR (African American) 51.3; Est GFR (Non-African American) 44.3; Potassium 4.6 mmol/L (3.5-5.1)
[2020-03-08 07:51] LABS: Bilirubin,Total 0.8 mg/dl (0.2-1); Total Protein 5.6 gm/dl (6.4-8.2)
[2020-03-08] MEDS ORDERED: LORazepam 0.25 MG/0.5 ML VIAL IV PRN (08:14)
[2020-03-08] MEDS ORDERED: ACETAMINOPHEN 1000 MG/100 ML IV IV SCH (09:00)
[2020-03-08] MEDS: dexAMETHasone 4 MG in SYRINGE 0 ML IV SCH ×2 (11:08→21:21)
[2020-03-08] MEDS: POLYETHYLENE (MIRALAX) 17 GM PACK PO SCH (11:09)
[2020-03-08] MEDS: LACTOBACILLUS ACIDOPHILUS (FLORANEX) TAB PO SCH (11:11)
[2020-03-08] MEDS: RIVAROXABAN 20 MG TAB PO SCH (11:11)
[2020-03-08] MEDS: GABAPENTIN 300 MG CAP PO SCH ×2 (11:12→21:22)
[2020-03-08] MEDS: DEXTROSE 5% IV SCH ×2 (11:24→21:21)
[2020-03-08] MEDS: FLUCONAZOLE 100 MG/50 ML BAG IV SCH (11:24)
[2020-03-08] MEDS: ACYCLOVIR SOD IV SCH ×2 (11:24→21:21)
[2020-03-08] MEDS: ACETAMINOPHEN 1,000 MG/100 ML VIAL IV SCH ×3 (11:25→21:22)
[2020-03-08] MEDS: MoRPHine SULFATE 2 MG/ML CARP IV PRN ×3 (11:28→17:27)
[2020-03-08] MEDS: FAMOTIDINE 20 MG in SYRINGE 3 ML IV SCH ×2 (11:55→21:21)
--- NOTE | 2020-03-08 20:11 | Hospitalist Progress Note ---
Date of Service March 08, 2020 Assessment & Plan (1) Mononucleosis, infectious, with hepatitis: Initially was felt to have drug reaction/allergy to Stivarga. However, despite 7+ days of supportive care, her symptoms/signs -- extreme fatigue/malaise, anorexia, worsening rash, low platelets, etc -- continued. Her rash actually had gotten worse while on decadron which would argue against drug reaction. CMV, parvo, mono, COVID checked. COVID negative. Monospot was positive -- EBV titers returned today and IgM positive c/w acute mono. Previous acute hepatitis likely due to mono. Low platelets also likely from mono. Diagnosis discussed with patient/ at bedside. Wean steroids. Supportive care. Serial labs. (2) Fever: Likely was due to acute mono. (3) Candidiasis of mouth and esophagus: improving nicely. cont diflucan 100mg daily x 7-10 days. day #3 today. nystatin 5cc ac/hs. 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 the lips are severe with some visible ulceration. start acyclovir IV given severity. she also might have herpes stomatitis in addition to thrush. (5) KATHRYN (acute kidney injury): Resolving. Admission Cr 1.8. Now 1.1. LAKIA on hold. Continue renally dosed medications including gabapentin. BMP am. (6) Colon cancer: Stage 4 with mets to liver. Was started on Stivarga 1 week prior to admission and concerns for drug reaction - see above. Now that acute mono was found unlikely to have been Stivarga. However, Dr. Pizano, her oncologist, recommends palliative care consultation and no further treatment. Palliative care team discussed such with patient, granddaughter, and two sons. Family requesting second opinion from a different oncologist and they have arranged this with Dr. Munson at [facility] oncology locally. However, she is doing very poorly overall and further treatment highly unlikely. I spoke with granddaughter today and we discussed hospice. (7) MGUS (monoclonal gammopathy of unknown significance): (8) Hypertension: all BP meds on hold (9) Chronic kidney disease, stage III (moderate): BMP am Cr nearing baseline (10) Peripheral neuropathy: cont renally dosed gabapentin at 300 mg p.o. twice daily previous MD discontinued amitriptyline due to urinary retention (11) Hyponatremia: Na 126 on admission. Now resolved. 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 mono likely heavily contributing cbc am (17) Anorexia: Severe protein calorie malnutrition Hopefully steroids will help but thus far no improvement this is 2nd to advanced colon ca, acute mono, etc (18) Constipation: continue bowel maintenance if able to take PO meds (19) DVT prophylaxis: Xarelto granddaughter and updated extensively at bedside today patient/ told of mono diagnosis if no significant improvement next 1-2 days then would strongly recommend transition to hospice told pt that mono could affect her for several weeks Admission and Anticipated Discharge Date Admission Date: February 28, 2020 Subjective patient sitting in chair today during the visit. and her granddaughter were both present during the encounter. patient still c/o severe fatigue/weakness but DID walk with therapy today. still with stunted appetite. c/o mouth pain. no lip pain. c/o generalized body aches/myalgias. Review of Systems Constitutional: + body aches, + fatigue, + malaise, + weakness and + anorexia; no fever and no chills Ear, Nose, Mouth, Throat: + mouth lesions, + dry mouth and + sore throat; no nasal congestion Respiratory: no cough and no dyspnea Cardiovascular: no chest pain Gastrointestinal: + constipation; no abdominal pain, no nausea and no vomiting Musculoskeletal: + myalgia and + body aches Integumentary: + rash Physical Exam Constitutional: + ill appearing, + altered mental status (moderately improved today, however) and + frail appearing; no acute distress looks somewhat better today; sitting in chair Eyes: + anicteric sclerae ENMT: Mouth: + lip abnormality (very dry;cracked/blistering/ulcers), + oral mucosal abnormality (thrush plaques improved; occasional ulceration), + tongue abnormality (thrush plaques improved) and + dry oral mucous membranes Respiratory: normal respiratory effort, lungs clear to auscultation Cardiovascular: Rate/Rhythm: regular rate and regular rhythm Heart Sounds: normal S1 and normal S2; no murmur Vessels: posterior tibial pulses present and dorsalis pedis pulses present; no JVD Extremities: + edema (1+ b/l legs; dependent edema left arm distally - no change) Gastrointestinal (Abdomen): normal bowel sounds, soft, nontender, no hepatosplenomegaly Skin: diffuse rash on face, arms, legs, back, torso - improved today; less warmth on thighs; no new areas of concern Psychiatric: Orientation: alert (more awake today ), oriented to person and oriented to place Lymphatic: + cervical lymphadenopathy (b/l ) Results & Data Results & Data ([facility]) Vital Signs (Past 12 Hours) Vital Signs Temp Pulse Resp BP Pulse Ox 03/08/20 15:31 36.5 C 84 18 146/75 H 95 Laboratory Results Laboratory Results - last 24 hr 03/07/20 03/08/20 03/08/20 06:45 07:06 07:06 WBC 10.16 RBC 3.25 L Hgb 10.3 L Hct 31.4 L MCV 96.6 MCH 31.7 MCHC 32.8 RDW Std Deviation 70.3 H RDW Coeff of [place] 20.6 H Plt Count 87 L MPV 10.7 H Immature Gran % (Auto) 0.5 Neut % (Auto) 73.3 Lymph % (Auto) 15.2 [place] % (Auto) 11.0 Eos % (Auto) 0.0 Baso % (Auto) 0.0 Neut # (Auto) 7.45 H Lymph # (Auto) 1.54 [place] # (Auto) 1.12 H Eos # (Auto) 0.00 Baso # (Auto) 0.00 Immature Gran # (Auto) 0.05 H Sodium 140 Potassium 4.6 Chloride 111 H Carbon Dioxide 25 Anion Gap 5.0 BUN 35 H Creatinine 1.13 Est Cr Clr Drug Dosing 30.5 Est GFR ( Amer) 51.3 Est GFR (Non-Af Amer) 44.3 BUN/Creatinine Ratio 31.2 H Glucose 112 H Calcium 8.4 L Total Bilirubin 0.8 Direct Bilirubin 0.3 H AST 22 ALT 31 Alkaline Phosphatase 144 H Total Protein 5.6 L Albumin 1.8 L EBV Capsid Ag IgG Ab 186.00 H EBV Capsid Ag IgM Ab 37.20 H EBV Nuclear Antigen Ab 32.70 H EBV Antibody Interp SEE NOTE PG Care Time/CCT Total # of Minutes Spent Total Time Spent with Patient: Total time spent is greater than 50% in coordination of care (as documented) at patient's floor/unit and/or counseling patient: Coding Level of Care Code 78078 Subseq Hosp Care Lvl 3 Diagnoses Mononucleosis, infectious, with hepatitis B27.99; B17.8 Fever R50.81 Fever type: due to other condition Candidiasis of mouth and esophagus B37.81; B37.0 Lip lesion K13.0 KATHRYN (acute kidney injury) N17.9 Colon cancer C18.9 Colon location: unspecified part of colon MGUS (monoclonal gammopathy of unknown significance) D47.2 Hypertension I10 Chronic kidney disease, stage III (moderate) N18.3 Peripheral neuropathy G62.9 Hyponatremia E87.1 Weakness R53.1 Urinary retention R33.9 History of thrombosis of internal jugular vein Z86.718 Antineoplastic chemotherapy induced anemia D64.81; T45.1X5A Thrombocytopenia D69.6 Anorexia R63.0 Constipation K59.00 DVT prophylaxis Z29.9 (1) Fever Fever type: due to other condition Qualified Code(s): R50.81 - Fever presenting with conditions classified elsewhere (2) Colon cancer Colon location: unspecified part of colon Qualified Code(s): C18.9 - Malignant neoplasm of colon, unspecified
[2020-03-08] MEDS ORDERED: SODIUM CHLORIDE 0.9% 1000ML 1,000 ML IV SCH (20:15)
[2020-03-09] MEDS: HYDROCORTISONE HC 2.5% CRM 30GM TUBE EXT SCH ×5 (00:15→23:33)
[2020-03-09 05:46] LABS: Hemoglobin 10.8 g/dL (12.0-16.0); Mean Corpuscular Hemoglobin 31.2 pg (25-34); Mean Corpuscular Hgb Conc 31.8 g/dL (32-36); Mean Corpuscular Volume 98.3 fL (80-100); RDW Coefficient of Variation 20.6 % (11.5-14.5); RDW Standard Deviation 72.8 fL (36.4-46.3); Red Blood Count 3.46 M/uL (4.2-5.4); White Blood Count 8.59 K/uL (4.8-10.8)
[2020-03-09 05:50] LABS: Mean Platelet Volume 11.1 fL (7.4-10.4); Platelet Count 83 K/uL (130-400)
[2020-03-09 06:11] LABS: BUN Creatinine Ratio 31.5 (10-20); Calcium 7.9 mg/dl (8.5-10.1); Creatinine Clr Calc Pharmacy 33.1 ml/min; Est GFR (African American) 56.7
[2020-03-09] MEDS: FAMOTIDINE 20 MG in SYRINGE 3 ML IV SCH ×2 (07:36→20:46)
[2020-03-09] MEDS: ACETAMINOPHEN 1,000 MG/100 ML VIAL IV SCH ×3 (07:36→20:42)
[2020-03-09] MEDS: LACTOBACILLUS ACIDOPHILUS (FLORANEX) TAB PO SCH (07:37)
[2020-03-09] MEDS: dexAMETHasone 4 MG in SYRINGE 0 ML IV SCH (07:37)
[2020-03-09] MEDS: POLYETHYLENE (MIRALAX) 17 GM PACK PO SCH (07:37)
[2020-03-09] MEDS: GABAPENTIN 300 MG CAP PO SCH ×2 (07:37→20:40)
[2020-03-09] MEDS: ACYCLOVIR SOD IV SCH (07:38)
[2020-03-09] MEDS: DEXTROSE 5% IV SCH (07:38)
[2020-03-09] MEDS: FLUCONAZOLE 100 MG/50 ML BAG IV SCH (07:45)
[2020-03-09] MEDS: RIVAROXABAN 20 MG TAB PO SCH (07:46)
[2020-03-09] MEDS: MoRPHine SULFATE 2 MG/ML CARP IV PRN (08:20)
--- NOTE | 2020-03-09 14:34 | Hospitalist Progress Note ---
Date of Service March 09, 2020 Assessment & Plan (1) Mononucleosis, infectious, with hepatitis: Initially was felt to have drug reaction/allergy to Stivarga. However, despite 7+ days of supportive care along with steroids, her symptoms/signs -- extreme fatigue/malaise, anorexia, worsening rash, low platelets, etc -- continued. Her rash actually had gotten worse while on decadron which would argue against drug reaction. CMV, parvo, mono, COVID checked. COVID negative. Monospot was positive -- EBV titers returned and IgM positive c/w acute mono. At admission patient had acute hepatitis also likely due to mono. Low platelets likely from mono. Diagnosis discussed with patient and granddaughter today. Questions answered. Wean steroids to once daily dosing. Supportive care. Serial labs. (2) Candidiasis of mouth and esophagus: continues to improve. cont diflucan 100mg daily x 7-10 days. day #4 today. nystatin 5cc ac/hs. 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 the lips are severe with some visible ulceration. if not HSV then bad mucositis from previous chemotherapy. started acyclovir IV on 03/08; change to PO valtrex 500mg BID today. she also might have herpes stomatitis in addition to thrush. (4) KATHRYN (acute kidney injury): Resolved. Admission Cr 1.8. Now 1 today. LAKIA on hold. Continue renally dosed medications including gabapentin. BMP am. (5) Colon cancer: Stage 4 with mets to liver. Was started on Stivarga 1 week prior to admission and concerns for drug reaction - see above. Now that acute mono was found unlikely to have been Stivarga. However, Dr. Pizano, her oncologist, recommends palliative care consultation and no further treatment. Palliative care team discussed such with patient, granddaughter, and two sons. Family requesting second opinion from a different oncologist and they have arranged this with Dr. Munson at [facility] oncology locally. However, she is doing very poorly overall and further treatment highly unlikely. I spoke with case management and asked for a family meeting tomorrow to discuss options for care. (6) MGUS (monoclonal gammopathy of unknown significance): (7) Hypertension: resume metoprolol (8) Chronic kidney disease, stage III (moderate): Cr stable at 1 today (9) Peripheral neuropathy: cont renally dosed gabapentin at 300 mg p.o. twice daily previous MD discontinued amitriptyline due to urinary retention (10) Hyponatremia: Na 126 on admission. Now resolved. 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 HOWEVER, mono likely heavily contributing to this (16) Anorexia: Severe protein calorie malnutrition this is 2nd to advanced colon ca, acute mono, etc (17) Constipation: continue bowel maintenance if able to take PO meds (18) DVT prophylaxis: Suzette family meeting tomorrow to define/refine goals of care in light of lengthy hospitalization granddaughter updated at bedside today Admission and Anticipated Discharge Date Admission Date: February 28, 2020 Subjective patient sitting up in bed during the visit. looks better overall. she feels some better but still very weak/tired. was able to walk in the hallway with therapy today using a walker. appetite still poor - just eating bites. rash remains - no pruritis. no nausea, emesis, diarrhea. no chest pain or dyspnea. no cough. mouth is feeling much better. lips also improved. granddaughter at bedside. Review of Systems Constitutional: + body aches (mild - improved from previous ), + fatigue, + weakness and + anorexia; no fever and no chills Ear, Nose, Mouth, Throat: no dysphagia Respiratory: no cough, no dyspnea and no dyspnea on exertion Cardiovascular: no chest pain Gastrointestinal: no abdominal pain Musculoskeletal: no joint pain Physical Exam Constitutional: + ill appearing (but looks modestly better from previous ) and + frail appearing; no acute distress Eyes: + anicteric sclerae ENMT: Mouth: + lip abnormality (cracking/ulcers improved today), + oral mucosal abnormality (thrush plaques improved/nearly resolved; occasional ulceration), + tongue abnormality (thrush plaques resolved ) and + dry oral mucous membranes (improving ) Respiratory: normal respiratory effort, lungs clear to auscultation Cardiovascular: Rate/Rhythm: regular rate and regular rhythm Heart Sounds: normal S1 and normal S2; no murmur Vessels: posterior tibial pulses present and dorsalis pedis pulses present; no JVD Extremities: + edema (1+ b/l legs; dependent edema left arm distally - no change) Gastrointestinal (Abdomen): normal bowel sounds, soft, nontender, no hepatosplenomegaly Skin: diffuse erythematous rash on back, torso, arms, legs improved especially the thighs; facial erythema remains - slightly improved Psychiatric: Orientation: alert, oriented to person, oriented to place and oriented to time Results & Data Results & Data ([facility]) Vital Signs (Past 12 Hours) Vital Signs Temp Pulse Resp BP Pulse Ox 03/09/20 07:33 36.4 C L 91 H 16 152/75 H 95 Laboratory Results Laboratory Results - last 24 hr 03/09/20 03/09/20 05:22 05:22 WBC 8.59 RBC 3.46 L Hgb 10.8 L Hct 34.0 L MCV 98.3 MCH 31.2 MCHC 31.8 L RDW Std Deviation 72.8 H RDW Coeff of [place] 20.6 H Plt Count 83 L MPV 11.1 H Sodium 140 Potassium 5.0 Chloride 110 H Carbon Dioxide 26 Anion Gap 4.0 BUN 33 H Creatinine 1.04 Est Cr Clr Drug Dosing 33.1 Est GFR ( Amer) 56.7 Est GFR (Non-Af Amer) 49.0 BUN/Creatinine Ratio 31.5 H Glucose 117 H Calcium 7.9 L Total Creatine Kinase 47 PG Care Time/CCT Total # of Minutes Spent Total Time Spent with Patient: Total time spent is greater than 50% in coordination of care (as documented) at patient's floor/unit and/or counseling patient: Coding Level of Care Code 20365 Subseq Hosp Care Lvl 3 Diagnoses Mononucleosis, infectious, with hepatitis B27.99; B17.8 Candidiasis of mouth and esophagus B37.81; B37.0 Lip lesion K13.0 KATHRYN (acute kidney injury) N17.9 Colon cancer C18.9 Colon location: unspecified part of colon MGUS (monoclonal gammopathy of unknown significance) D47.2 Hypertension I10 Chronic kidney disease, stage III (moderate) N18.3 Peripheral neuropathy G62.9 Hyponatremia E87.1 Weakness R53.1 Urinary retention R33.9 History of thrombosis of internal jugular vein Z86.718 Antineoplastic chemotherapy induced anemia D64.81; T45.1X5A Thrombocytopenia D69.6 Anorexia R63.0 Constipation K59.00 DVT prophylaxis Z29.9 (1) Colon cancer Colon location: unspecified part of colon Qualified Code(s): C18.9 - Malignant neoplasm of colon, unspecified
[2020-03-09] MEDS: valACYclovir HCL 500 MG TABLET PO SCH (20:41)
[2020-03-10] MEDS: HYDROCORTISONE HC 2.5% CRM 30GM TUBE EXT SCH ×4 (05:41→23:57)
[2020-03-10 06:22] LABS: CMV IgG Antibody <0.60 U/mL; CMV IgM Antibody <30.00 AU/mL; Parvovirus IgG 6.6 (<0.9); Parvovirus IgM 0.1 (<0.9)
[2020-03-10] MEDS: ACETAMINOPHEN 1,000 MG/100 ML VIAL IV SCH ×3 (08:35→21:20)
[2020-03-10] MEDS: FAMOTIDINE 20 MG in SYRINGE 3 ML IV SCH ×2 (08:35→21:20)
[2020-03-10] MEDS ORDERED: dexAMETHasone 4 MG in SYRINGE 0 ML IV SCH (09:00)
[2020-03-10] MEDS: FLUCONAZOLE 100 MG/50 ML BAG IV SCH (09:08)
[2020-03-10] MEDS: LACTOBACILLUS ACIDOPHILUS (FLORANEX) TAB PO SCH (09:08)
[2020-03-10] MEDS: GABAPENTIN 300 MG CAP PO SCH ×2 (09:08→21:21)
[2020-03-10] MEDS: valACYclovir HCL 500 MG TABLET PO SCH ×2 (09:09→21:20)
[2020-03-10] MEDS: RIVAROXABAN 20 MG TAB PO SCH (09:09)
[2020-03-10] MEDS: POLYETHYLENE (MIRALAX) 17 GM PACK PO SCH (09:09)
[2020-03-10 10:17] LABS: Platelet Count 92 K/uL (130-400)
[2020-03-10 10:24] LABS: INR 1.2 (0.9-1.1); Prothrombin Time 12.5 Seconds (9.0-12.0)
[2020-03-10 10:47] LABS: Est GFR (African American) 57.4; Potassium 4.4 mmol/L (3.5-5.1)
[2020-03-10 10:48] LABS: BUN Creatinine Ratio 26.2 (10-20); Calcium 8.2 mg/dl (8.5-10.1); Creatinine Clr Calc Pharmacy 33.5 ml/min; Est GFR (Non-African American) 49.5
[2020-03-10] MEDS ORDERED: SODIUM CHLORIDE 0.65% NA SOLN 45 ML (OCEAN) PRN (18:30)
[2020-03-10] MEDS ORDERED: bisacodyL 10 MG SUPP PR PRN (21:23)
[2020-03-10] MEDS ORDERED: ACETAMINOPHEN 500 MG TAB PO SCH (21:30)
--- NOTE | 2020-03-10 21:35 | Hospitalist Progress Note ---
Date of Service March 10, 2020 Assessment & Plan (1) Colon cancer: Stage 4 with mets to liver. Was started on Stivarga 1 week prior to admission and concerns for drug reaction - see above. Now that acute mono was found unlikely to have been Stivarga. However, Dr. Pizano, her oncologist, recommends palliative care consultation and no further treatment. Palliative care team discussed such with patient, granddaughter, and two sons. Family initially requested second opinion from a different oncologist and they had arranged this with Dr. Munson at [facility] oncology locally for after discharge. However, she is doing very poorly overall and further treatment highly unlikely. 60 minute long meeting held with family at bedside today, 03/10/20. Kyree, her son, phoned into the meeting. Yamileth from case management attended as well. Discussed current issues including mono, failure to thrive, thrush/possible HSV on lips, anorexia, deconditioning, etc. We discussed options for discharge -- home with HH; home with hospice; SNF with hospice (or routine care); [facility]. Advised again [facility] - likely would not tolerate 3 hours of Rx daily. Discussed pros/cons of home vs SNF. Patient immediately stated she wanted to go home. /granddaughter/son supportive of home. Initially will go home with home health with transition to hospice when she is ready. We discussed that it is very difficult to treat an advanced cancer when someone is overall doing poorly. Patient and family voiced understanding. I was uncertain at conclusion of meeting if patient/family would pursue the 2nd opionion. Plan is home THIS FRIDAY with home health, hospital bed, etc. Again and granddaughter to provide care. D/c home with arnold in place. D/c home on 4mg decadron daily for appetite stimulation as recommended by palliative care. total time today 75 minutes (2) Mononucleosis, infectious, with hepatitis: Initially was felt to have drug reaction/allergy to Stivarga. However, despite 7+ days of supportive care along with steroids, her symptoms/signs -- extreme fatigue/malaise, anorexia, worsening rash, low platelets, etc -- continued. Her rash actually had gotten worse while on decadron which would argue against drug reaction. CMV, parvo, COVID - all negative. Monospot was positive -- EBV titers returned and IgM positive c/w mono. At admission patient had acute hepatitis likely due to mono. LFTs have normalized. Low platelets also likely from mono. Generalized rash has improved with residual rash on face and arms. Cont supportive care. I have explained the diagnosis to patient and her family several times. (3) Candidiasis of mouth and esophagus: improved/resolved. cont diflucan 100mg daily x 7 days. day #5 today. nystatin 5cc ac/hs. 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 the lips were severe with some visible ulceration earlier this week. if not HSV then bad mucositis from previous chemotherapy. started acyclovir IV on 03/08; changed to PO valtrex 500mg BID 03/09. continue valtrex with stop date of 03/14 after last dose. (5) KATHRYN (acute kidney injury): Resolved. Admission Cr 1.8. Cr 1 today. Cont to hold LAKIA. BMP am. (6) MGUS (monoclonal gammopathy of unknown significance): (7) Hypertension: resumed metoprolol resume norvasc 5mg tomorrow am hold LAKIA (8) Chronic kidney disease, stage III (moderate): Cr stable at 1 today (9) Peripheral neuropathy: cont gabapentin 300 mg p.o. twice daily (was reduced earlier this admission out of concern it was causing sedation) previous MD discontinued amitriptyline due to urinary retention (10) Hyponatremia: Na 126 on admission. Now resolved. 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 HOWEVER, mono likely heavily contributing to this as well again they are improving (16) Anorexia: Severe protein calorie malnutrition this is 2nd to advanced colon ca, acute mono, etc cont decadron 4mg daily (17) Constipation: continue bowel maintenance of miralax + senna daily (18) DVT prophylaxis: Xarelto see "colon cancer" above for details of family meeting Admission and Anticipated Discharge Date Admission Date: February 28, 2020 Subjective Had lengthy visit today with patient and her family. Performed focus history and exam with patient, then had 60 minute long bedside discussion with patient/granddaughter/ along with Yamileth from case management. Patient reports "feeling a little better" with improved appetite but still is very weak/tired. She was sitting in chair during the encounter. Lips feeling better and healing. No pain in mouth or tongue. No pain with swallowing. Denies nausea/ vomiting / abd pain. Is constipated. No dyspnea. Rash improving - still some on face. Has a mild pain on right mid-foot. Left foot is fine. See A/P section for details of family meeting. Review of Systems Constitutional: + fatigue and + weakness; no fever, no chills and no body aches Ear, Nose, Mouth, Throat: + nasal congestion; no mouth lesions, no sore throat and no dysphagia Respiratory: no cough and no dyspnea Cardiovascular: + edema (arms/legs ); no chest pain Gastrointestinal: + constipation; no abdominal pain, no nausea and no vomiting Physical Exam Constitutional: + ill appearing (but again looks modestly better from previous ), + frail appearing, cooperative and comfortable; no acute distress and no altered mental status Eyes: + anicteric sclerae; no conjunctival abnormality ENMT: Mouth: + lip abnormality (cracking/ulcers nearly resolved; lips healing nicely), + oral mucosal abnormality (thrush plaques resolved; no ulcers seen today) and + tongue abnormality (thrush plaques resolved ); oral mucous membranes not dry Respiratory: normal respiratory effort, lungs clear to auscultation Auscultation: + diminished lung sounds (bases); no crackles and no wheezes Cardiovascular: Rate/Rhythm: regular rate and regular rhythm Heart Sounds: normal S1 and normal S2; no murmur Vessels: posterior tibial pulses present and dorsalis pedis pulses present; no JVD Extremities: + edema (1+ b/l legs; dependent edema left arm distally - no change) Gastrointestinal (Abdomen): normal bowel sounds, soft, nontender, no he patosplenomegaly Musculoskeletal: right foot: no reproducible mid-foot pain, ankle pain, or pain in any toe. no warmth or localized swelling. no redness. Skin: diffuse erythematous maculopapular rash improving nicely; worst area is the face/cheeks; rash on back, torso, arms much improved; rash resolved on thighs/legs Psychiatric: Orientation: alert, oriented to person, oriented to place and oriented to time Results & Data Results & Data ([facility]) Vital Signs (Past 12 Hours) Vital Signs Temp Pulse Resp BP Pulse Ox 03/10/20 15:33 36.9 C 93 H 17 155/80 H 94 Laboratory Results Laboratory Results - last 24 hr 03/06/20 03/10/20 03/10/20 12:01 09:28 09:28 Plt Count 92 L PT 12.5 H INR 1.2 H Sodium Potassium Chloride Carbon Dioxide Anion Gap BUN Creatinine Est Cr Clr Drug Dosing Est GFR ( Amer) Est GFR (Non-Af Amer) BUN/Creatinine Ratio Glucose Calcium CMV IgM Ab <30.00 CMV IgG Ab/TORCH <0.60 Parvovirus IgG Ab Index 6.6 H Parvovirus IgM Ab Index 0.1 03/10/20 09:28 Plt Count PT INR Sodium 139 Potassium 4.4 Chloride 108 H Carbon Dioxide 25 Anion Gap 6.0 BUN 27 H Creatinine 1.03 Est Cr Clr Drug Dosing 33.5 Est GFR ( Amer) 57.4 Est GFR (Non-Af Amer) 49.5 BUN/Creatinine Ratio 26.2 H Glucose 85 Calcium 8.2 L CMV IgM Ab CMV IgG Ab/TORCH Parvovirus IgG Ab Index Parvovirus IgM Ab Index PG Care Time/CCT Total # of Minutes Spent Total Time Spent with Patient: Total time spent is greater than 50% in coordination of care (as documented) at patient's floor/unit and/or counseling patient: Prolonged Care Time Prolonged Care Time: Yes Total Prolonged Care Time: 75 Coding Level of Care Code 82038 Subseq Hosp Care Lvl 3 (25 - SIGNIFICANT, SEPARATELY IDENTIFIABLE ) Diagnoses Colon cancer C18.9 Colon location: unspecified part of colon Mononucleosis, infectious, with hepatitis B27.99; B17.8 Candidiasis of mouth and esophagus B37.81; B37.0 Lip lesion K13.0 KATHRYN (acute kidney injury) N17.9 MGUS (monoclonal gammopathy of unknown significance) D47.2 Hypertension I10 Chronic kidney disease, stage III (moderate) N18.3 Peripheral neuropathy G62.9 Hyponatremia E87.1 Weakness R53.1 Urinary retention R33.9 History of thrombosis of internal jugular vein Z86.718 Antineoplastic chemotherapy induced anemia D64.81; T45.1X5A Thrombocytopenia D69.6 Anorexia R63.0 Constipation K59.00 DVT prophylaxis Z29.9 Additional Codes Prolonged Care Time - Prolonged Care Time: Yes ([id number]) Time Spent (min) 75 (1) Colon cancer Colon location: unspecified part of colon Qualified Code(s): C18.9 - Malignant neoplasm of colon, unspecified
[2020-03-11] MEDS: HYDROCORTISONE HC 2.5% CRM 30GM TUBE EXT SCH ×3 (04:16→17:42)
[2020-03-11 08:06] LABS: BUN Creatinine Ratio 27.3 (10-20); Calcium 8.6 mg/dl (8.5-10.1); Creatinine Clr Calc Pharmacy 35.9 ml/min; Est GFR (African American) 62.5; Est GFR (Non-African American) 53.9; Potassium 4.2 mmol/L (3.5-5.1)
[2020-03-11 08:09] LABS: Albumin Globulin Ratio 0.6 (0.9-2); Bilirubin,Total 0.6 mg/dl (0.2-1); Globulin 3.6 gm/dl (2.5-4.0); Total Protein 5.6 gm/dl (6.4-8.2)
[2020-03-11] MEDS: dexAMETHasone 4 MG TAB PO SCH (10:05)
[2020-03-11] MEDS: valACYclovir HCL 500 MG TABLET PO SCH ×2 (10:06→21:19)
[2020-03-11] MEDS: ACETAMINOPHEN 500 MG TAB PO SCH ×3 (10:07→21:18)
[2020-03-11] MEDS: SENNA 8.6 MG TAB PO SCH (10:07)
[2020-03-11] MEDS: RIVAROXABAN 20 MG TAB PO SCH (10:07)
[2020-03-11] MEDS: GABAPENTIN 300 MG CAP PO SCH ×2 (10:08→21:17)
[2020-03-11] MEDS: amLODIPine BESYLATE 5 MG TAB PO SCH (10:08)
[2020-03-11] MEDS: PANTOprazole 40 MG TAB PO SCH (10:09)
[2020-03-11] MEDS: POLYETHYLENE (MIRALAX) 17 GM PACK PO SCH (10:09)
[2020-03-11] MEDS: METOPROLOL TARTRATE 25 MG TAB PO SCH ×2 (10:24→21:17)
[2020-03-11] MEDS: LACTOBACILLUS ACIDOPHILUS (FLORANEX) TAB PO SCH (10:25)
--- NOTE | 2020-03-11 21:09 | Hospitalist Progress Note ---
Date of Service March 11, 2020 Assessment & Plan (1) Colon cancer: Stage 4 with mets to liver. Was started on Stivarga 1 week prior to admission and concerns for drug reaction - see above. Now that acute mono was found unlikely to have been Stivarga. However, Dr. Pizano, her oncologist, recommends palliative care consultation and no further treatment. Palliative care team discussed such with patient, granddaughter, and two sons. Family initially requested second opinion from a different oncologist and they had arranged this with Dr. Munson at [facility] oncology locally for after discharge. However, she is doing very poorly overall and further treatment highly unlikely. Plan is home THIS FRIDAY with home health, hospital bed, etc. Again and granddaughter to provide care. D/c home with [place] in place. D/c home on 4mg decadron daily for appetite stimulation as recommended by palliative care. Discussed with patient and granddaughter today. Plan for second opinion. GD reports this has been arranged. (2) Mononucleosis, infectious, with hepatitis: Initially was felt to have drug reaction/allergy to Stivarga. However, despite 7+ days of supportive care along with steroids, her symptoms/signs -- extreme fatigue/malaise, anorexia, worsening rash, low platelets, etc -- continued. Her rash actually had gotten worse while on decadron which would argue against drug reaction. CMV, parvo, COVID - all negative. Monospot was positive -- EBV titers returned and IgM positive c/w mono. At admission patient had acute hepatitis likely due to mono. LFTs have normalized. Low platelets also likely from mono. Generalized rash has improved with residual rash on face and arms. Cont supportive care. (3) Candidiasis of mouth and esophagus: improved/resolved. cont diflucan 100mg daily x 7 days. day #6 today. nystatin 5cc ac/hs. 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 the lips were severe with some visible ulceration earlier this week. if not HSV then bad mucositis from previous chemotherapy. started acyclovir IV on 03/08; changed to PO valtrex 500mg BID 03/09. continue valtrex with stop date of 03/14 after last dose. (5) KATHRYN (acute kidney injury): Resolved. Admission Cr 1.8. Cr 1 today. Cont to hold LAKIA. (6) MGUS (monoclonal gammopathy of unknown significance): Followed by hematology No acute issues (7) Hypertension: resumed metoprolol resume norvasc 5mg tomorrow am hold LAKIA (8) Chronic kidney disease, stage III (moderate): Cr stable at 1 today (9) Peripheral neuropathy: cont gabapentin 300 mg p.o. twice daily (was reduced earlier this admission out of concern it was causing sedation) previous MD discontinued amitriptyline due to urinary retention (10) Hyponatremia: Na 126 on admission. Now resolved. 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 HOWEVER, mono likely heavily contributing to this as well again they are improving (16) Anorexia: Severe protein calorie malnutrition this is 2nd to advanced colon ca, acute mono, etc cont decadron 4mg daily (17) Constipation: continue bowel maintenance of miralax + senna daily (18) DVT prophylaxis: Xarelto Admission and Anticipated Discharge Date Admission Date: February 28, 2020 Subjective Reports some soreness of the buttock region from her sacral ulcers. Reports no fevers/chills, chest pain, shortness of breath, abdominal pain, nausea, or vomiting. Physical Exam Constitutional: WD/WN, vitals as above + cachectic and + frail appearing Eyes: EOM intact bilaterally; no conjunctival abnormality ENMT: external ear and nose normal, oropharynx normal Neck: trachea midline, no thyromegaly normal visual inspection Respiratory: normal respiratory effort, lungs clear to auscultation no respiratory distress Cardiovascular: RRR, no murmur, no edema Gastrointestinal (Abdomen): Inspection/Auscultation: abdomen normal to inspection; abdomen not distended Musculoskeletal: no cyanosis or clubbing, extremities motor strength 5/5 Skin: no rashes, warm and dry Neurologic: moves all extremities and awake Psychiatric: Orientation: alert, oriented to person and cooperative Results & Data Results & Data ([facility]) Vital Signs (Past 12 Hours) Vital Signs Temp Pulse Pulse Resp BP Pulse Ox 03/11/20 15:23 37.2 C 76 16 154/80 H 96 03/11/20 10:02 114 H 146/84 H PG Care Time/CCT Total # of Minutes Spent Total Time Spent with Patient: Total time spent is greater than 50% in coordination of care (as documented) at patient's floor/unit and/or counseling patient: Coding Level of Care Code 21360 Subseq Hosp Care Lvl 2 Diagnoses Colon cancer C18.9 Colon location: unspecified part of colon Mononucleosis, infectious, with hepatitis B27.99; B17.8 Candidiasis of mouth and esophagus B37.81; B37.0 Lip lesion K13.0 KATHRYN (acute kidney injury) N17.9 MGUS (monoclonal gammopathy of unknown significance) D47.2 Hypertension I10 Chronic kidney disease, stage III (moderate) N18.3 Peripheral neuropathy G62.9 Hyponatremia E87.1 Weakness R53.1 Urinary retention R33.9 History of thrombosis of internal jugular vein Z86.718 Antineoplastic chemotherapy induced anemia D64.81; T45.1X5A Thrombocytopenia D69.6 Anorexia R63.0 Constipation K59.00 DVT prophylaxis Z29.9 (1) Colon cancer Colon location: unspecified part of colon Qualified Code(s): C18.9 - Malignant neoplasm of colon, unspecified
[2020-03-12] MEDS: HYDROCORTISONE HC 2.5% CRM 30GM TUBE EXT SCH ×4 (00:47→18:05)
[2020-03-12 06:57] LABS: Hematocrit (blood only) 32.4 % (37-47); Hemoglobin 10.5 g/dL (12.0-16.0); Mean Corpuscular Hemoglobin 32.1 pg (25-34); Mean Corpuscular Hgb Conc 32.4 g/dL (32-36); Mean Corpuscular Volume 99.1 fL (80-100); RDW Coefficient of Variation 20.1 % (11.5-14.5); RDW Standard Deviation 72.3 fL (36.4-46.3); Red Blood Count 3.27 M/uL (4.2-5.4); White Blood Count 10.74 K/uL (4.8-10.8)
[2020-03-12 07:03] LABS: Mean Platelet Volume 11.4 fL (7.4-10.4); Platelet Count 73 K/uL (130-400)
[2020-03-12 07:13] LABS: INR 1.1 (0.9-1.1); Prothrombin Time 11.3 Seconds (9.0-12.0)
[2020-03-12 07:27] LABS: Est GFR (African American) 65.8; Potassium 4.2 mmol/L (3.5-5.1)
[2020-03-12 07:28] LABS: BUN Creatinine Ratio 26.7 (10-20); Calcium 8.3 mg/dl (8.5-10.1); Creatinine Clr Calc Pharmacy 37.5 ml/min; Est GFR (Non-African American) 56.8; Magnesium 2.2 mg/dl (1.8-2.4)
[2020-03-12 07:30] LABS: Albumin Globulin Ratio 0.5 (0.9-2); Bilirubin,Total 0.6 mg/dl (0.2-1); Globulin 3.7 gm/dl (2.5-4.0); Phosphorus 2.1 mg/dl (2.5-4.9); Total Protein 5.7 gm/dl (6.4-8.2)
[2020-03-12] MEDS: dexAMETHasone 4 MG TAB PO SCH (08:59)
[2020-03-12] MEDS: PANTOprazole 40 MG TAB PO SCH (08:59)
[2020-03-12] MEDS: amLODIPine BESYLATE 5 MG TAB PO SCH (08:59)
[2020-03-12] MEDS: RIVAROXABAN 20 MG TAB PO SCH (08:59)
[2020-03-12] MEDS: SENNA 8.6 MG TAB PO SCH (09:00)
[2020-03-12] MEDS: ACETAMINOPHEN 500 MG TAB PO SCH ×2 (09:00→14:37)
[2020-03-12] MEDS: GABAPENTIN 300 MG CAP PO SCH (09:00)
[2020-03-12] MEDS: valACYclovir HCL 500 MG TABLET PO SCH (09:00)
[2020-03-12] MEDS: METOPROLOL TARTRATE 25 MG TAB PO SCH (09:01)
[2020-03-12] MEDS: LACTOBACILLUS ACIDOPHILUS (FLORANEX) TAB PO SCH (09:01)
[2020-03-12] MEDS: POLYETHYLENE (MIRALAX) 17 GM PACK PO SCH (09:01)
--- NOTE | 2020-03-12 20:29 | Discharge Summary ---
Date of Service March 12, 2020 Admission HPI Per Admitting Provider Su Montes De Oca is an 84 year old woman with a past medical history significant for metastatic colon cancer who is on oral chemotherapy through Dr. Pizano and the cancer center who is here because she has had five days of a rash, diarrhea, weakness, fatigue, decreased PO intake, and a fall 2 days ago where she fell while walking with her cane and hit her side and head. Red lacy rash across her whole body this was non itchy non raised and non painful, spared mucus membranes. Never had any rashes like this in the past. Had a fever of 101 at home, some chills, no sweats, chest pain, shortness of breath, cough, has had two covid tests recently both negative, no nausea or vomiting, has had diarrhea, non bloody no melena, no constipation. On presentation to ED via ambulance patient had vital signs WNL apart from an elevated temperature 37.9, labwork significant for elevated INR of 1.5, elevated APTT of 53.7, hyponatremia of 126, elevated BUN and creatinine of 38 and 1.85 elevated from baseline near 1. Elevated Bilirubin of 2.8, elevated AST of 148, albumin of 2.7, procalcitonin of 1.66. Head CT and cervical spine CT negative, abdomen and pelvis CT significant for four large liver masses largest of just under five cm unchanged from previous CT. She lives at home with , who has been well recently, also has childrena nd granchildren in the area who look in on her. Does not drink, smoke or use drugs. Full code. Principal Diagnosis EBV hepatitis & rash Discharge Exam Constitutional WD/WN, vitals as above + cachectic and + frail appearing Eyes EOM intact bilaterally; no conjunctival abnormality ENMT external ear and nose normal, oropharynx normal Neck trachea midline, no thyromegaly normal visual inspection Respiratory normal respiratory effort, lungs clear to auscultation no respiratory distress Cardiovascular RRR, no murmur, no edema Gastrointestinal (Abdomen) Inspection/Auscultation: abdomen normal to inspection; abdomen not distended Musculoskeletal no cyanosis or clubbing, extremities motor strength 5/5 Skin no rashes, warm and dry Neurologic moves all extremities and awake Psychiatric Orientation: alert, oriented to person and cooperative Discharge Data Allergies Allergy/AdvReac Type Severity Reaction Status Date / Time regorafenib [From Stivarga] Allergy Severe Rash and Verified 02/29/20 12:38 fever levofloxacin Allergy Intermediate HIVES Verified 02/27/20 23:18 pregabalin [From Lyrica] Allergy Mild Rash Verified 03/05/20 11:28 Iodinated Contrast Media Allergy Unknown Verified 02/27/20 23:18 adhesive AdvReac Mild SKIN Verified 02/27/20 23:18 IRRITATION WITH SOME TAPES codeine AdvReac Mild NAUSEA Verified 02/27/20 23:18 crab AdvReac Mild DIZZY AND Verified 02/27/20 23:18 THROWS UP metronidazole AdvReac Mild nausea and Verified 02/27/20 23:18 vomiting nitrofurantoin AdvReac Mild NAUSEA Verified 02/27/20 23:18 Sulfa (Sulfonamide AdvReac Mild SICK TO Verified 02/27/20 23:18 Antibiotics) STOMACH Consultations 02/28/20 01:45 ED Decision to Admit Stat 02/28/20 03:48 Consult Oncology Stat 03/01/20 10:54 Consult Palliative Care Routine 03/02/20 09:11 Consult Nephrology Routine 03/04/20 10:04 Consult Urology Routine Ordered Studies 02/27/20 23:53 CT abd pelvis wo con Urgent CT cervical spine wo con Urgent CT head/brain wo con Urgent Hospital Course (1) Colon cancer: Stage 4 with mets to liver. Was started on Stivarga 1 week prior to admission and concerns for drug reaction - see above. Now that acute mono was found unlikely to have been Stivarga. However, Dr. Pizano, her oncologist, recommends palliative care consultation and no further treatment. Palliative care team discussed such with patient, granddaughter, and two sons. Family initially requested second opinion from a different oncologist and they had arranged this with Dr. Munson at [facility] oncology locally for after discharge. However, she is doing very poorly overall and further treatment highly unlikely. Plan is home THIS FRIDAY with home health, hospital bed, etc. Again and granddaughter to provide care. D/c home with [place] in place. D/c home on 4mg decadron daily for appetite stimulation as recommended by palliative care. Discussed with patient and granddaughter today. Plan for second opinion. GD reports this has been arranged. (2) Mononucleosis, infectious, with hepatitis: Initially was felt to have drug reaction/allergy to Stivarga. However, despite 7+ days of supportive care along with steroids, her symptoms/signs -- extreme fatigue/malaise, anorexia, worsening rash, low platelets, etc -- continued. Her rash actually had gotten worse while on decadron which would argue against drug reaction. CMV, parvo, COVID - all negative. Monospot was positive -- EBV titers returned and IgM positive c/w mono. At admission patient had acute hepatitis likely due to mono. LFTs have normalized. Low platelets also likely from mono. Generalized rash has improved with residual rash on face and arms. Cont supportive care. (3) Candidiasis of mouth and esophagus: improved/resolved. cont diflucan 100mg daily x 7 days. day #6 today. nystatin 5cc ac/hs. 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 the lips were severe with some visible ulceration earlier this week. if not HSV then bad mucositis from previous chemotherapy. started acyclovir IV on 03/08; changed to PO valtrex 500mg BID 03/09. continue valtrex with stop date of 03/14 after last dose. (5) KATHRYN (acute kidney injury): Resolved. Admission Cr 1.8. Cr 1 today. Cont to hold LAKIA. (6) MGUS (monoclonal gammopathy of unknown significance): Followed by hematology No acute issues (7) Hypertension: resumed metoprolol resume norvasc 5mg tomorrow am hold LAKIA (8) Chronic kidney disease, stage III (moderate): Cr stable at 1 today (9) Peripheral neuropathy: cont gabapentin 300 mg p.o. twice daily (was reduced earlier this admission out of concern it was causing sedation) previous MD discontinued amitriptyline due to urinary retention (10) Hyponatremia: Na 126 on admission. Now resolved. 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 HOWEVER, mono likely heavily contributing to this as well again they are improving (16) Anorexia: Severe protein calorie malnutrition this is 2nd to advanced colon ca, acute mono, etc cont decadron 4mg daily (17) Constipation: continue bowel maintenance of miralax + senna daily (18) DVT prophylaxis: Xarelto Total Time Total Time Spent Total Time Spent (In Minutes): 35 Discharge Plan Discharge Items Patient Disposition: Home - Home Health Services Reason For Visit: FEVER, DIARRHEA, RASH FOLLOWING CHEMO Discharge Diagnosis: EBV ([place]man) infection Activity: Resume your previous activity Non-emergency contact: Primary Care Provider and Oncologist Call non-emergency contact if: your symptoms worsen Follow-up/Referrals: Lynn Medeiros CRNP [Primary Care Provider] - Diet: Regular Diet Texture: Easy to Chew Addtl Attending Provider Instructions: You were admitted with a rash that turned out to be [place]. This is a self- limiting viral infection, but it can take several weeks to fully resolve. We also started you on Valtrex to help with a re-activation of the herpes that caused some cold sores. This will finish in 3 more days, so please take the Valtrex 2 times per day until it is gone. We also started you on a steroid as an appetite stimulant. Please stop your lisinopril. It can affect your kidneys and your blood pressure was good here without it. Finally, we saw that your left ear was clogged with wax. We prescribed ear drops to help dissolve and soften the wax. Pending Studies at Discharge: No Stand-Alone Forms: My [facility] [address] [employer], Smoking Cessation Medications and DC Order Prescriptions: New dexamethasone 4 mg Tablet 4 mg PO QAM Qty: 30 RF: 0 valacyclovir 1 gram tablet 1,000 mg PO BID Qty: 7 RF: 0 carbamide peroxide [Debrox] 6.5 % drops 5 drp otic (ear) BID 4 Days Qty: 15 RF: 0 Continued lorazepam [Ativan] 0.5 mg tablet 0.5 mg PO BID PRN (Reason: anxiety) Qty: 30 RF: 0 rivaroxaban 20 mg tablet 20 mg PO DAILY Qty: 30 RF: 2 amitriptyline 25 mg tablet 25 mg PO HS Qty: 30 RF: 3 omeprazole 20 mg capsule,delayed release(DR/EC) 20 mg PO DAILY Qty: 90 RF: 0 multivitamin Tablet 1 tab PO QAM RF: 0 amlodipine 5 mg tablet 5 mg PO DAILY RF: 0 metoprolol tartrate 25 mg tablet 25 mg PO BID RF: 0 Florajen 460 mg (20 billion cell) Capsule 460 mg PO DAILY RF: 0 ondansetron 4 mg tablet,disintegrating 4 mg PO Q6H PRN (Reason: nausea and vomiting) Qty: 15 RF: 0 Changed gabapentin 600 mg tablet 300 mg PO BID Qty: 0 RF: 0 Discontinued methylprednisolone 4 mg tablets,dose pack See Rx Instructions .ROUTE .COMPLEX Qty: 21 RF: 0 lisinopril 40 mg tablet 40 mg PO DAILY Qty: 30 RF: 5 calcium carbonate-vitamin D3 1,000 mg(2,500 mg)-800 unit Tablet 1 tab PO QAM RF: 0 Discharge Orders: Discharge Order (Routine); Ordered 03/12/20 Ordered By: Ebenezer Boyer/Other Patient Handouts: Emptying and Cleaning Your ..., Indwelling Urinary Catheter Dc, Discharge Instructions Caring for ... Admission Data Admit Date/Time: 02/28/20 02:47 Attending Provider: Ebenezer Sorensen Admit Provider: Walker Hooper Primary Care Provider: Lynn Medeiros Other Providers: Pro Pizano V. ; Sammie Ruiz ; Sally Leong ; [facility] ; [facility] ; [place] ; Tejas Spencer ; Ebenezer Sorensen Other Interventions: Discharge Summary Assessment (RN) Last Done: 03/12/20 17:29 Coding Level of Care Code D/C Day Management >30 mins Diagnoses Colon cancer C18.9 Colon location: unspecified part of colon Mononucleosis, infectious, with hepatitis B27.99; B17.8 Candidiasis of mouth and esophagus B37.81; B37.0 Lip lesion K13.0 KATHRYN (acute kidney injury) N17.9 MGUS (monoclonal gammopathy of unknown significance) D47.2 Hypertension I10 Chronic kidney disease, stage III (moderate) N18.3 Peripheral neuropathy G62.9 Hyponatremia E87.1 Weakness R53.1 Urinary retention R33.9 History of thrombosis of internal jugular vein Z86.718 Antineoplastic chemotherapy induced anemia D64.81; T45.1X5A Thrombocytopenia D69.6 Anorexia R63.0 Constipation K59.00 DVT prophylaxis Z29.9
== END 2020-03-12 18:23 | disposition home health service (06) | DRG 393 ==
LOC: ED 22:56 → SUATTDRO 02-28 02:47 → 2S 02-28 02:47 → 2N 03-01 12:57 → 3N 03-02 20:59